=== PATIENT | male | born 1955 | race Caucasian/White ===

== ENCOUNTER 2022-08-17 08:26 | Outpatient (CLI) | payer MEDICARE, OTHER, SELFPAY ==
--- OUTSIDE RECORDS SUMMARY | 2022-08-17 08:42 | XMS_ITS | Encounter Summary ---
:1955 Author Organization [facility] Address [address] [place] [address] Care Team Providers Name Role Phone Ceci Christianson MD Primary Care Provider Reason for Referral Therapies (Routine) - Closed Specialty Diagnoses / Procedures Referred By Contact Refer red To Contact Diagnoses Right knee pain, unspecified chronicity Esvin Garcia MD [address] [place] [address] Referral ID Status Reason Start Date Expiration Date Visits Requ ested Visits Authorized [id number] Closed 05/17/2018 07/16/2018 1 1 Scheduling Instructions Your provider has recommended an appoint ment with a [facility] Physical Therapist. Please stop at the clinic check out desk for assistance with scheduling or if you prefer to call for your appointment you may call [facility] at [phone]. We suggest yo u call your health insurance company about your coverage and benefits for this appo intment. Reason for Visit Reason Comments POST-OP,EXAM Encounter Details Date Type Department Care Team Description 05/17/2018 Office Visit [facility] [address] Esvin Garcia Ri ght knee pain, Orthopedics Clinic MD Jose unspecified chronicity [address] (Primary Dx) [place] [address] [place] [address] [phone] Social History Tobacco Use Types Packs/Day Years Used Date Smoking Tobacco: Never Smokeless Tobacco: Never Alcohol Use Standard Drinks/Week Comments No 0 (1 standard drink = 0.6 oz pure alcoho l) Sex Assigned at Date Recorded Not on file documented as of this encounter Patient Instructions Patient InstructionsThania Austin CMA - 05/17/2018 11:30 AM CDT ORTHOPAEDICS DEPARTMENT PHONE NUMBER: [phone] Reason for today's visit: ORIF right knee Tests that you will need: None Prescribed Medications: None Supplies you will be leaving with: Brace Treatment plan: You were referred to physical therapy. Follow up appointments: You will follow up with Dr. Esvin Garcia in 3 month(s). X-Rays: You will have repeat X-Rays taken with your next Orthopaedics appointment. Please arrive 30 minutes early for your appointment. Reason for next Orthopaedics appointment: ORIF right knee Please stop at the check out desk to schedule a follow up appointment. Use this grid to write down your next appointment. DATE & TIME PROVIDER LOCATION APPT NOTES ( ) [facility]: [address] [place] [address] ( ) [facility]: [address] [place] [address] ( ) Other: ORIF right knee ( ) [facility]: [address] [place] [address] ( ) [address] ( ) Other: If you have any questions about your visit, your symptoms, your medication, your test results or it is not clear what your diagnosis or treatment plan is please contact us at [phone] or send us a secure message via [employer]. You may receive surveys via mail, e-mail or text regarding your visit and recovery. Your feedback isvery important to us. Please take a moment to complete them. If you would like to speak to someone specifically, you may contact the clinic at [phone] and your call will be directed to someone on our leadership team. Thank you for choosing Esvin Garcia MD and [facility]. If you need to schedule an appointment, you may call our office at [phone]. We are open Sunday-Sunday 8 am - 5 pm. Discharged by: documented in this encounter Progress Notes Esvin Garcia MD - 05/17/2018 11:30 AM CDT Chief Complaint: Closed right bicondylar tibial fracture Procedures: 03/05/2018 1. Open reduction and internal fixation of right bicondylar tibial fracture. 2. Removal of knee spanning external fixator right side 02/24/2018 (Dr. Gilbert) 1. Application of right knee-spanning external fixator History of Present Illness: Sudeep Steen is a 62 y.o. old male who presents 10 weeks s/p ORIF for routine follow-up. Reports decreased pain that is dull. It comes and goes and is mild rated at 1. Denies fevers, chills or sweats. Denies numbness, tingling or weakness. Very pleased with his outcome. Physical Examination: Patient is awake, alert and oriented in no apparent distress. Appears well nourished and well developed. Breathing is nonlabored. Focused exam of the right lower extremity demonstrates no obvious deformity. Normal alignment. Surgical incisions well-healing without sign of infection. Proximal tibial ex fix pin sites with serosanguineous drainage. Local debridement performed to demonstrate healthy, pink granulation tissue. There is a healthy bed to the wound. The wound does not track to bone. Nothing is expressible. No purulence. No malodor. Trying skin is clean, dry, and intact. No erythema, ecchymosis, warmth, or edema. No knee effusion. There is no tenderness to palpation. Calf is soft and nontender. Knee range of motion demonstrates extension to 0?? and flexion to 130??. Ankle range of motion demonstrates dorsiflexion to 20?? and plantarflexion to 30?? No crepitance. Sensation intact to light touch in Tibial, Superficial Peroneal, Deep Peroneal Sural and Saphenous distributions. Motor intact in Quadriceps, Hamstrings, Tibialis Anterior, Extensor Hallucis Longus, and Gastrocsoleus distributions. Dorsalis Pedis and Anterior Tibial Pulses 2+. Capillary refill <2 seconds. Xrays: Right knee xrays were reviewed personally by me and demonstrate interval healing with appropriate alignment of fracture and stable hardware position with no loss of reduction. No evidence of osteomyelitis. Assessment: Sudeep Steen is a 62 y.o. old male who is doing well 10 weeks postoperatively. Plan: OK to advance to WBAT. Continue ROMAT. Updated PT order provided today. Discussed that transition back to weightbearing will be a process that is based on pain, and may take 2-4 weeks to obtain full weightbearing without assistive devices. Once full weightbearing OK to begin gentle progressive strengthening as tolerated. We provided a cane as well as a short hinged knee brace to assist him. Follow-up in 3 months. X-rays needed next visit: 2 views right knee Patient was advised regarding activity, weight bearing status, as well as indications for return. All patient questions were answered adequately, and the patient verbalized understanding of above mentioned plan and is amenable. This note created using speech-recognition software and may contain unintended word substitutions. documented in this encounter Plan of Treatment Scheduled Referrals Name Type Priority Associated Diagnoses Order S atiya PT - PHYSICAL THERAPY Referral Routine Right knee pain, Or dered: 05/17/2018 [[id number]] unspecified chronicity documented as of this encounter Visit Diagnoses Diagnosis Right knee pain, unspecified chronicity - Primary documented in this encounter Care Teams Science Liaison Relationship Specialty Start Date End Date Ceci Christianson MD PCP - General Family Practice 02/24/18 [address] [place] [address] documented as of this encounter
--- OUTSIDE RECORDS SUMMARY | 2022-08-17 08:42 | XMS_ITS | Encounter Summary ---
:1955 [facility] Address [address] [place] [address] Care Team Providers Name Role Phone Ceci Christianson MD Primary Care Provider Encounter Details Date Type Department Care Team Description 05/28/2018 Correspondence External to External, [facility] [place] [address] Social History Tobacco Use Types Packs/Day Years Used Date Smoking Tobacco: Never Smokeless Tobacco: Never Alcohol Use Standard Drinks/Week Comments No 0 (1 standard drink = 0.6 oz pure alcoho l) Sex Assigned at Date Recorded Not on file documented as of this encounter Plan of Treatment Not on filedocumented as of this encounter Visit Diagnoses Not on filedocumented in this encounter Care Teams Pairer Substandard Relationship Specialty Start Date End Date Ceci Christianson MD PCP - General Family Practice 02/24/18 [address] [place] [address] documented as of this encounter
--- OUTSIDE RECORDS SUMMARY | 2022-08-17 08:42 | XMS_ITS | Encounter Summary ---
:1955 Author Organization [facility] Address [address], [place] [address] Care Team Providers Name Role Phone Ceci Christianson MD Primary Care Provider Encounter Details Date Type Department Care Team Description 07/24/2018 Therapy External to Physical Therapy, Provider Social History Tobacco Use Types Packs/Day Years [...] on filedocumented in this encounter Care Teams Garnett Fixer Relationship Specialty Start Date End Date Ceci Christianson MD PCP - General Family Practice 02/24/18 [address], [place] [address] documented as of this encounter
--- OUTSIDE RECORDS SUMMARY | 2022-08-17 08:42 | XMS_ITS | Encounter Summary ---
:1955 Author Organization [facility] Address [address] [place] [address] Care Team Providers Name Role Phone Ceci Christianson MD Primary Care Provider Reason for Visit Procedure/Equipment (Routine) - Incomplete Specialty Diagnoses / Procedures Referred By Contact Refer red To Contact Diagnoses Right knee pain, unspecified chronicity Esvin Garcia MD Procedures XR Knee Rt 2 Views [address] [place] [address] Referral ID Status Reason Start Date Expiration Date Visits V isits Requested Authorized [id number] Incomplete 08/21/2018 11/20/2019 1 1 Encounter Details Date Type Department Care Team Description 08/21/2018 Imaging [facility] Specialty Esvin Garcia ight knee pain, Center 435 Radiology MD Jose unspecified chronicity [address] [address] [place] [address] [phone] Social History Tobacco Use Types Packs/Day Years Used Date Smoking Tobacco: Never Smokeless Tobacco: Never Alcohol Use Standard Drinks/Week Comments No 0 (1 standard drink = 0.6 oz pure alcoho l) Sex Assigned at Date Recorded Not on file documented as of this encounter Plan of Treatment Not on filedocumented as of this encounter Procedures Procedure Name Priority Date/Time Associated Diagnosis Comme nts XR KNEE RT 2 VIEWS Routine 08/21/2018 1:07 PM Right knee pain, Results for this CDT unspecified procedure are i n chronicity the results section. documented in this encounter Results XR Knee Rt 2 Views (08/21/2018 1:07 PM CDT) Anatomical Region Laterality Modality Lower Extremity, Knee Computed Radiograp hy Specimen (Source) Anatomical Collection Method Collection Time Re ceived Time Location / / Volume Laterality 08/21/2018 1:07 PM CDT Narrative 08/22/2018 1:50 AM CDT Specialty Center 435 XR KNEE RT 2 VIEWS 08/21/2018 1:07 PM INDICATION: Knee pain COMPARISON: 05/17/2018 FINDINGS: Redemonstrated postoperative c hange of tibial plateau fracture repair. The hardware is intact. Fracture alignment is anatomic. Small suprapatellar knee joint effusion. Nondisplaced oblique fracture of the fibular head. Procedure Note Alexander Lua MD - 08/22/2018Format ting of this note might be different from the original. [facility] 435 XR KNEE RT 2 VIEWS 08/21/2018 1:07 PM INDICATION: Knee pain COMPARISON: 05/17/2018 FINDINGS: Redemonstrated postoperative c hange of tibial plateau fracture repair. The hardware is intact. Fracture alignment is anatomic. Small suprapatellar knee joint effusion. Nondisplaced oblique fracture of the fibular head. Esvin Garcia MD RAD GD documented in this encounter Visit Diagnoses Diagnosis Right knee pain, unspecified chronicity documented in this encounter Care Teams Superintendent Police Relationship Specialty Start Date End Date Ceci Christianson MD PCP - General Family Practice 02/24/18 [address] [address] documented as of this encounter
--- OUTSIDE RECORDS SUMMARY | 2022-08-17 08:42 | XMS_ITS | Encounter Summary ---
:1955 Author Organization [facility] Address [address] [place] [address] Care Team Providers Name Role Phone Romulo Christianson MD Primary Care Provider Reason for Visit Reason Onset Date Comments Refill 03/26/2018 Encounter Details Date Type Department Care Team Description 03/26/2018 Refill Specialty Center [facility] Esvin Garcia MD Refill Orthopedics Clinic [address] [place] [address] [place] [address] [phone] Social History Tobacco Use Types Packs/Day Years Used Date Smoking Tobacco: Never Smokeless Tobacco: Never Alcohol Use Standard Drinks/Week Comments No 0 (1 standard drink = 0.6 oz pure alcoho l) Sex Assigned at Date Recorded Not on file documented as of this encounter Nursing Notes Alka Taylor RN - 03/26/2018 4:20 PM CDT Patient was informed of information on note below. He verbalized understanding of instructions given. Alka Taylor RN 03/26/2018, 4:20 PM Adali Sanchez - 03/26/2018 3:55 PM CDT OK to refill as written. Should wean off the oxycodone and only utilize it as needed for severe breakthrough pain not controlled by tylenol, ice, elevation, and activity modification. Medications have been e-scribed. Please update the patient. Adali Sanchez PA-C Cherie Myers RN - 03/26/2018 12:55 PM CDT Last refill of hydroxyzine was on 03/06/18 for #30 Last refill of Oxycodone was on 03/06/18 for #40 Patient had been discharged to a TCU. INSIDE SALES ADVISOR results: Search Criteria: Last Name 'kimberli' and First Name 'noreen' and = 59' and Request Period = 03/26/17 to 03/26/18' - 4 out of 4 Recipients Selected. Fill Date Product, Str, Form Qty Days Pt ID Prescriber Written RX# N/R* Pharm MED+ ------ ---- --------- --------- ------ 03/21/2018 GABAPENTIN 300 MG CAPSULE 90.00 30 [id number] 03/21/2018 [id number] N [id number] 00.0 03/13/2018 GABAPENTIN 300 MG CAPSULE 42.00 14 [id number] 03/06/2018 [id number] N [id number] 00.0 03/12/2018 OXYCODONE HCL 5 MG TABLET 30.00 3 [id number] 03/12/2018 [id number] N [id number] 75.0 03/11/2018 OXYCODONE HCL 5 MG TABLET 10.00 1 [id number] 03/06/2018 [id number] R [id number] 75.0 03/11/2018 ESZOPICLONE 3 MG TABLET 30.00 30 [id number] 03/11/2018 [id number] N [id number] 00.0 03/07/2018 ESZOPICLONE 3 MG TABLET 5.00 5 [id number] 03/07/2018 [id number] N [id number] 00.0 03/07/2018 OXYCODONE HCL 5 MG TABLET 30.00 3 [id number] 03/06/2018 [id number] N [id number] 75.0 03/05/2018 GABAPENTIN 300 MG CAPSULE 1.00 1 [id number] 03/01/2018 [id number] R [id number] 00.0 03/01/2018 OXYCODONE HCL 5 MG TABLET 30.00 2 [id number] 03/01/2018 [id number] N [id number] 112.5 03/01/2018 GABAPENTIN 300 MG CAPSULE 55.00 18 [id number] 03/01/2018 [id number] N [id number] 00.0 03/01/2018 ESZOPICLONE 3 MG TABLET 5.00 5 [id number] 03/01/2018 [id number] N [id number] 00.0 03/01/2018 ESZOPICLONE 3 MG TABLET 5.00 5 [id number] 02/28/2018 [id number] N [id number] 00.0 02/27/2018 GABAPENTIN 300 MG CAPSULE 90.00 30 [id number] 02/27/2018 [id number] N [id number] 00.0 02/27/2018 OXYCODONE HCL 5 MG TABLET 30.00 2 [id number] 02/27/2018 [id number] N [id number] 112.5 02/19/2018 ESZOPICLONE 3 MG TABLET 90.00 90 [id number] 02/19/2018 [id number] N [id number] 00.0 11/21/2017 ESZOPICLONE 3 MG TABLET 90.00 90 [id number] 11/21/2017 [id number] N [id number] UN 10/18/2017 ESZOPICLONE 3 MG TABLET 30.00 30 [id number] 10/18/2017 [id number] N [id number] UNK 09/25/2017 ESZOPICLONE 3 MG TABLET 30.00 30 [id number] 09/25/2017 [id number] N [id number] [facility] 08/27/2017 ESZOPICLONE 3 MG TABLET 30.00 30 [id number] 08/27/2017 [id number] N [id number] [facility] 07/25/2017 ESZOPICLONE 3 MG TABLET 30.00 30 [id number] 07/25/2017 [id number] N [id number] [facility] 06/26/2017 ESZOPICLONE 3 MG TABLET 30.00 30 [id number] 06/26/2017 [id number] N [id number] [facility] 03/27/2017 ESZOPICLONE 3 MG TABLET 90.00 90 [id number] 03/27/2017 [id number] N [id number] [facility] *N/R N=New R=Refill +MED Daily Prescribers for prescriptions listed [id number] ROMULO CHRISTIANSON MD; [facility], [place] [id number] [address] 5504 [id number] MARCIAL MANZANARES MD; [address] [place] [address] [id number] VIOLETTE BOSE MD; [address] [facility] [address] [id number] LUCRECIA MIRANDA (EMILE); [facility], [address] [place], [place] [id number] NATALEE SANTIAGO); [facility], [address] [facility] [id number] MIGUEL STEWARD [facility]; [facility], [address] [address] [address] [id number] BILLIE BORDEN (MS); [address] [facility] [address] [id number] MIGUEL BUSCH A, MD; [facility], [address] [address] [id number] VAUGHN GUZMAN; LIMITED TO OFFICIAL STATE DUTIES ONLY, [facility], [facility] [address] Please advise of the refill, thanks! Cherie Myers RN 03/26/2018, 1:01 PM Radha Rojas - 03/26/2018 11:02 AM CDT Has the patient recently had surgery or an injury? Yes. Date of Surgery: March 05, 2018 Type of Surgery: OPEN REDUCTION INTERNAL FIXATION TIBIAL PLATEAU FRACTURE (Right Ortho Pain Questionnaire Date of Surgery March 05, 2018 Type: OPEN REDUCTION INTERNAL FIXATION TIBIAL PLATEAU FRACTURE (Right Pain Rating (0-10) 5 Location of Pain right leg Description aching Onset of Pain at time of injury Any recent falls/injury? no What makes it better? rest What makes it worse? movement and walking Using assistive device? Walker and Wheelchair Ortho Refill Questionnaire Has orthopaedics previously prescribed this medication? Yes Patient was notified that they will receive a follow-up call from care team and that the refill request will be reviewed within 24-48 hours. Requested Prescriptions Pending Prescriptions Disp Refills ??? oxyCODONE (ROXICODONE) 5 MG immediate release tablet 40 Tab 0 Sig: Take 1-2 Tabs by mouth every 4 hours as needed for Pain (5 mg for pain 4- 7/10. 10 mg for pain 8-10/10). Indications: Acute Pain ??? hydrOXYzine HCl (ATARAX) 50 MG tablet 30 Tab 0 Sig: Take 1 Tab by mouth every 8 hours as needed. Indications: Pain, Tension Last filled detail: 03/06/18 Patient states currently takin tabs q.6.h Is the patient taking anything else for pain including over the counter medications? Hydroxyzine 50mg 1 tabs q.8.h. Pharmacy (if applicable): [id number] - [place], [place] - [address] AT [facility] [address] [facility] [address] [facility] [id number] Radha Rojas 03/26/2018, 11:04 AM documented in this encounter Plan of Treatment Not on filedocumented as of this encounter Visit Diagnoses Not on filedocumented in this encounter Care Teams Distribution Center Associate Relationship Specialty Start Date End Date Romulo Christianson MD PCP - General Family Practice 02/24/18 [address] [place] [address] documented as of this encounter
--- OUTSIDE RECORDS SUMMARY | 2022-08-17 08:42 | XMS_ITS | Encounter Summary ---
:1955 Author Organization [employer] Address [address] [place] [address] Care Team Providers Name Role Phone Ceci Christianson MD Primary Care Provider Reason for Referral Procedure/Equipment (Routine) - Incomplete Specialty Diagnoses / Procedures Referred By Contact Refer red To Contact Diagnoses Right knee pain, unspecified chronicity Esvin Garcia MD Procedures XR Knee Rt [address] [place] [address] Referral ID Status Reason Start Date Expiration Date Visits V isits Requested Authorized [id number] Incomplete 08/21/2018 11/20/2019 1 1 Reason for Visit Reason Comments POST-OP,EXAM Encounter Details Date Type Department Care Team Description 08/21/2018 Office Visit [facility] [address] Esvin Garcia [place] ght knee pain, Orthopedics Clinic MD Jose unspecified chronicity [address] (Primary Dx) [place] [address] [place], [place] [address] Social History Tobacco Use Types Packs/Day Years Used Date Smoking Tobacco: Never Smokeless Tobacco: Never Alcohol Use Standard Drinks/Week Comments No 0 (1 standard drink = 0.6 oz pure alcoho l) Sex Assigned at Date Recorded Not on file documented as of this encounter Patient Instructions Patient InstructionsThania Austin CMA - 08/21/2018 1:20 PM CDT ORTHOPAEDICS DEPARTMENT PHONE NUMBER: [phone] Reason for today's visit: ORIF tibial plateau fracture DOS: 03/05/2018 Tests that you will need: None Prescribed Medications: None Supplies you will be leaving with: None Treatment plan: Weight Bearing Status until further notice: Weight bear as tolerated Follow up appointments: You will follow up with Adali Sanchez PA-C in 3 month(s). X-Rays: You will have repeat X-Rays taken with your next Orthopaedics appointment. Please arrive 30 minutes early for your appointment. Reason for next Orthopaedics appointment: ORIF tibial plateau fracture DOS: 03/05/2018 Please stop at the check out desk to schedule a follow up appointment. Use this grid to write down your next appointment. DATE & TIME PROVIDER LOCATION APPT NOTES ( ) [facility]: [address] [place] [address] ( ) [facility]: [address] [place] [address] ( ) Other: ORIF tibial plateau fracture DOS: 03/05/2018 ( ) [facility]: [address] [place] [address] ( ) [address] ( ) Other: If you have any questions about your visit, your symptoms, your medication, your test results or it is not clear what your diagnosis or treatment plan is please contact us at [phone] or send us a secure message via Qurater. You may receive surveys via mail, e-mail or text regarding your visit and recovery. Your feedback isvery important to us. Please take a moment to complete them. If you would like to speak to someone specifically, you may contact the clinic at [phone] and your call will be directed to someone on our leadership team. Thank you for choosing Esvin Garcia MD and [facility]. If you need to schedule an appointment, you may call our office at [phone]. We are open Sunday-Sunday 8 am - 5 pm. Discharged by: documented in this encounter Progress Notes LydiaAdali tomas Kaur - 08/21/2018 1:20 PM CDT Chief Complaint: Closed right bicondylar tibial fracture Procedures: 03/05/2018 1. Open reduction and internal fixation of right bicondylar tibial fracture. 2. Removal of knee spanning external fixator right side 02/24/2018 (Dr. Gilbert) 1. Application of right knee-spanning external fixator History of Present Illness: Sudeep Steen is a 63 y.o. old male who presents 5.5 months s/p ORIF for routine follow-up. He was advanced to WBAT at his last clinic visit. He reports that this transition back to full weightbearing went well without significant issue. He is currently full weightbearing without any assistive devices or braces. He has golfed 3 times this past fall. Overall, he is happy with his functional outcomes. However, he does report pain and stiffness in the bilateral knees when transitioning from sitting to standing. He reports that things loosen up after approximately 15 steps.He also complains of some decreased sensation in the right lateral femoral cutaneous nerve distribution. No focal motor deficit distally. No fevers, chills, sweats or other constitutional symptoms. Is awake, alert and oriented in no apparent distress. Appears well nourished and well developed. Breathing is nonlabored. Focused exam of the right lower extremity demonstrates no obvious deformity. Normal alignment. Surgical incisions and ex fix pin sites well-healed without sign of infection. No olegario thema, ecchymosis, warmth, or edema. No knee effusion. [...] of osteomyelitis. Assessment: Sudeep Steen is a 63 y.o. old male who is doing well 5.5 months postoperatively. Plan: Continue to increase all activities as tolerated without restriction. Focus on strengthening. Discussed that lateral femoral cutaneous nerve was likely irritated by proximal ex-fix pin. This should continue to improve with time. He will follow up in clinic with Adali Sanchez PA-C in 3 months. X-rays needed next visit: [...] Not on filedocumented as of this encounter Results XR Knee Rt 2 [...] note might be different from the original. [facility] 435 XR KNEE RT 2 [...] Right knee pain, unspecified chronicity - Primary Right knee pain, unspecified chronicity documented in this encounter Care Teams Paintings Conservator Relationship Specialty Start Date End Date Ceci Christianson MD PCP - General Family Practice 02/24/18 [address] [place] [address] documented as of this encounter
--- OUTSIDE RECORDS SUMMARY | 2022-08-17 08:42 | XMS_ITS | Encounter Summary ---
:1955 Author Organization [employer] Address [address] [place] [address] Care Team Providers Name Role Phone Ceci Christianson MD Primary Care Provider Reason for Referral Procedure/Equipment (Routine) - Incomplete Specialty Diagnoses / Procedures Referred By Contact Refer red To Contact Diagnoses Follow-up examination following surgery Adali Sanchez PA-C Procedures XR Knee Rt 2 Views [address] [place] [address] Referral ID Status Reason Start Date Expiration Date Visits V isits Requested Authorized [id number] Incomplete 11/19/2018 02/18/2020 1 1 REDUCTION WORKER Reason for Visit Reason Comments Follow-up, NOS ORIF right tib plat fx Encounter Details Date Type Department Care Team Description 11/19/2018 Office Visit [facility] Adali Sanchez Foll ow-up examination 435 Orthopedics [facility] [place] following surgery [address] (Primary Dx) [place] [address] [address] [place] [address] Social History Tobacco Use Types Packs/Day Years Used Date Smoking Tobacco: Never Smokeless Tobacco: Never Alcohol Use Standard Drinks/Week Comments No 0 (1 standard drink = 0.6 oz pure alcoho l) Sex Assigned at Date Recorded Not on file documented as of this encounter Last Filed Vital Signs Vital Sign Reading Time Taken Comments Blood Pressure - - Pulse - - Temperature - - Respiratory Rate - - Oxygen Saturation - - Inhaled Oxygen Concentration - - Weight 127 kg (280 lb) 11/19/2018 1:04 PM HARM REDUCTION WORKER Height 188 cm (6' 2) 11/19/2018 1:04 PM HARM REDUCTION WORKER Body Mass Index 35.95 11/19/2018 1:04 PM HARM REDUCTION WORKER documented in this encounter Patient Instructions Patient InstructionsAdali Sanchez - 11/19/2018 1:00 PM CST ORTHOPAEDICS DEPARTMENT PHONE NUMBER: [phone] Reason for today's visit: Follow-up right knee Tests that you will need: None Prescribed Medications: None Supplies you will be leaving with: None Treatment plan: Continue to increase all activities as tolerated You have no restrictions Focus on gentle progressive strengthening to regain muscle mass and stamina Follow up appointments: You will follow up with Adali Sanchez PA-C as needed. If you have any questions about your visit, your symptoms, your medication, your test results or it is not clear what your diagnosis or treatment plan is please contact us at [phone] or send us a secure message via easy2map. You may receive surveys via mail, e-mail or text regarding your visit and recovery. Your feedback isvery important to us. Please take a moment to complete them. If you would like to speak to someone specifically, you may contact the clinic at [phone] and your call will be directed to someone on our leadership team. Thank you for choosing Adali Sanchez PA-C and [facility]. If you need to schedule an appointment, you may call our office at [phone]. We are open Sunday-Sunday 8 am - 5 pm. Discharged by: REDUCTION WORKER documented in this encounter Progress Notes Adali Sanchez - 11/19/2018 1:00 PM CST Chief Complaint: Closed right bicondylar tibial fracture Procedures: 03/05/2018 1. Open reduction and internal fixation of right bicondylar tibial fracture. 2. Removal of knee spanning external fixator right side 02/24/2018 (Dr. Gilbert) 1. Application of right knee-spanning external fixator History of Present Illness: Sudeep Steen is a 63 y.o. old male who presents 8.5 months s/p ORIF for routine follow-up. He has been performing all activities as tolerated. He feels 90% improved. He has been less active since the start of winter, but he is looking forward to spring when he can return towalking and golf. Decreased sensation in lateral femoral cutaneous nerve distribution is improving. He does comment on persistent sensitivity and tightness in the leg, but he is overall happy with his progress. No numbness or focal motor deficit distally. No fevers, chills, sweats, or other constitutional symptoms. Physical Examination: Patient is awake, alert and oriented in no apparent distress. Appears well nourished and well developed. Breathing is nonlabored. Focused exam of the right lower extremity demonstrates no obvious deformity. Normal alignment. Surgical incisions well-healed. Ex fix pin sites well healed. Surrounding skin is clean, dry, and intact. No erythema, ecchymosis, warmth, or edema. No kneeeffusion. There is no tenderness to palpation. Calf [...] y.o. old male who is doing well postoperatively. Plan: Continue to increase all activities as tolerated without restriction. Focus on gentle progressive strengthening. Encouraged physical activity with activities he finds enjoyable, including walkingand golf. Pending any new questions or concerns, patient will follow-up in clinic on an as-needed basis. X-rays needed next visit: PRN Patient was advised regarding activity, weight bearing status, as well as indications for return. All patient questions were answered adequately, and the patient verbalized understanding of above mentioned plan and is amenable. This note created using speech-recognition software and may contain unintended word substitutions. Adali Sanchez PA-C 11/19/2018, 2:12 PM REDUCTION WORKER documented in this encounter Plan of Treatment Not on filedocumented as of this encounter Results XR Knee Rt 2 Views (11/19/2018 1:01 PM HARM REDUCTION WORKER) Anatomical Region Laterality Modality Lower Extremity, Knee Computed Radiograp hy Specimen (Source) Anatomical Collection Method Collection Time Re ceived Time Location / / Volume Laterality 11/19/2018 1:01 PM HARM REDUCTION WORKER Narrative 11/19/2018 11:51 PM HARM REDUCTION WORKER EXAM: XR KNEE RT 2 VIEWS LOCATION: [facility] 435 DATE/TIME: 11/19/2018 1:01 PM INDICATION: Open reduction and internal fixation of right bicondylar tibial fracture COMPARISON: 08/21/2018 FINDINGS: Plate and screw fixation proxi mal tibia transfixing healed fracture. Stable alignment. No dislocation. Healed fracture proximal fibula. Procedure Note Tonja Marquis MD - 11/19/2018Forma tting of this note might be different from the original. EXAM: XR KNEE RT 2 VIEWS LOCATION: [facility] 435 DATE/TIME: 11/19/2018 1:01 PM INDICATION: Open reduction and internal fixation of right bicondylar tibial fracture COMPARISON: 08/21/2018 FINDINGS: Plate and screw fixation proxi mal tibia transfixing healed fracture. Stable alignment. No dislocation. Healed fracture proximal fibula. Adali Sanchez PA-C RAD GD documented in this encounter Visit Diagnoses Diagnosis Follow-up examination following surgery - Primary Follow-up examination, following unspeci fied surgery Follow-up examination following surgery Follow-up examination, following unspeci fied surgery documented in this encounter Care Teams Press Puller Relationship Specialty Start Date End Date Ceci Christianson MD PCP - General Family Practice 02/24/18 [address] [place] [address] documented as of this encounter
--- OUTSIDE RECORDS SUMMARY | 2022-08-17 08:42 | XMS_ITS | Encounter Summary ---
:1955 Author Organization [employer] Address [address] [place] [address] Care Team Providers Name Role Phone Ceci Christianson MD Primary Care Provider Reason for Visit Procedure/Equipment (Routine) - Incomplete Specialty Diagnoses / Procedures Referred By Contact Refer red To Contact Diagnoses Fracture follow-up Esvin Garcia MD Procedures XR Knee Rt 2 Views [address] [place] [address] Referral ID Status Reason Start Date Expiration Date Visits V isits Requested Authorized [id number] Incomplete 05/08/2018 08/07/2019 1 1 Encounter Details Date Type Department Care Team Description 05/17/2018 Imaging [facility] Specialty Esvin Garcia , Fracture follow-up Center [address] [place], [place] [address]. [address] [place] [address] [place] [address] [phone] Social History Tobacco Use Types Packs/Day Years [...] nts XR KNEE RT 2 VIEWS Routine 05/17/2018 10:59 AM Fracture follow -up Results for this CDT procedure are i n the results section. documented in this encounter Results XR Knee Rt 2 Views (05/17/2018 10:59 AM CDT) Anatomical Region Laterality Modality Lower Extremity, Knee Computed Radiograp hy Specimen (Source) Anatomical Collection Method Collection Time Re ceived Time Location / / Volume Laterality 05/17/2018 10:59 AM CDT Narrative 05/17/2018 4:26 PM CDT Specialty Center 435 XR KNEE RT 2 VIEWS 05/17/2018 10:59 AM INDICATION: Right knee fracture follow-u p, postop. COMPARISON: 04/17/2018 FINDINGS: Plate and screw fixation hardw are remains in the proximal tibia stabilizing a healing fracture in unchanged alignment. The joint space is intact. Minimal joint fluid. Procedure Note Shin Stanton MD - 05/17/2018Formatt ing of this note might be different from the original. [facility] 435 XR KNEE RT 2 VIEWS 05/17/2018 10:59 AM INDICATION: Right knee fracture follow-u p, postop. COMPARISON: 04/17/2018 FINDINGS: Plate and screw fixation hardw are remains in the proximal tibia stabilizing a healing fracture in unchanged alignment. The joint space is intact. Minimal joint fluid. Esvin Garcia MD RAD GD documented in this encounter Visit Diagnoses Diagnosis Fracture follow-up Treatment of healed fracture follow-up e xamination documented in this encounter Care Teams Rn Review Relationship Specialty Start Date End Date Ceci Christianson MD PCP - General Family Practice 02/24/18 [address] [place] [address] documented as of this encounter
--- OUTSIDE RECORDS SUMMARY | 2022-08-17 08:42 | XMS_ITS ---
:1955 Author Care Team Providers Name Role Phone MARCIAL MANZANARES MD Primary Care Provider [phone] Allergies Code Code System Name Reaction Severity Status Onset NKDA ? Medications Name Status Start Date Stop Date ? ? amoxicillin 500 mg capsule Completed ? 10/18 amoxicillin 875 mg-potassium clavulanate 125 mg tablet Active ? Not available BD Ultra-Fine Original Pen Needle 29 gauge x 1/2 Active ? Not available ceftriaxone 1 gram solution for injection Active ? Not available Take 1 g by injection route. eszopiclone 3 mg tablet Active ? Not avai lable TAKE 1 TABLET BY MOUTH AT BEDTIME glipizide 5 mg tablet Active ? Not availa ble TAKE 1 TABLET BY MOUTH TWICE DAILY hydrochlorothiazide 25 mg tablet Active ? Not available TAKE 1 TABLET BY MOUTH DAILY hydroxyzine HCl 50 mg tablet Completed ? lisinopril 20 mg tablet Active ? Not avai lable TAKE 1 TABLET BY MOUTH DAILY metformin 500 mg tablet Completed ? 10/18/20 metformin 850 mg tablet Active ? Not avai lable TAKE 1 TABLET BY MOUTH THREE TIMES DAILY WITH MEALS paroxetine 20 mg tablet Active ? Not avai lable TAKE 1 TABLET BY MOUTH DAILY Trulicity 0.75 mg/0.5 mL subcutaneous pen injector Completed ? 10/18/2020 Trulicity 1.5 mg/0.5 mL subcutaneous pen injector Active ? Not available Problems None recorded. Procedures Date Name Performed by ? 10/29/2017 Colonoscopy Information not avai lable Notes: Rt leg (3 fractures) Results Lab Results Date Name Specimen Result Interpretation Description Value Range Status Address ? 10/18/2020 PSA, Serum or Plasma ? No observation recor ded. ? ? ? 05/19/2020 PSA, Serum or Plasma ? No observation recor ded. ? PSA, Serum or Plasma ? PSA, Total 5.7 ng/mL ? ? ? PSA, Serum or Plasma ? PSA, Total 5.5 ng/Ml ? ? Past Encounters None recorded. Social History Tobacco Smoking Status Never Smoker Vaccine List None recorded. Plan of Care Reminders Provider Appointments None recorded. ? ? Lab None recorded. ? ? Referral None recorded. ? ? Procedures None recorded. ? ? Surgeries None recorded. ? ? Imaging None recorded. ? ? Vitals 11/25/2020 09:20AM TRUS 30 Height 6 ft 3 in 10/18/2020 02:10PM ESTABLISHED 10 Height Weight BMI 6 ft 3 in 265 lbs 33.1 kg/m2 06/28/2020 09:00AM NEW PATIENT 20 Height Weight BMI 6 ft 3 in 265 lbs 33.1 kg/m2
--- OUTSIDE RECORDS SUMMARY | 2022-08-17 08:42 | XMS_ITS | Encounter Summary ---
:1955 Author Organization [email or web address] Address [address] [address] Care Team Providers Name Role Phone Ceci Christianson MD Primary Care Provider Reason for Visit Reason Comments LEG PAIN Consult/Transfer Care (Routine) - Closed Specialty Diagnoses / Procedures Referred By Contact Refer red To Contact Diagnoses Closed fracture of right tibial plateau, initial encounter Esvin Garcia MD [address] [place] [address] Referral ID Status Reason Start Date Expiration Date Visits Requ ested Visits Authorized [id number] Closed 03/06/2018 06/05/2019 1 1 Encounter Details Date Type Department Care Team Description 03/20/2018 [facility] Echo Pastor PA-C LEG PAIN Ortho Geriatric Outr each [address] [place] [address] [place] [address] [phone] Social History Tobacco Use Types Packs/Day Years Used Date Smoking Tobacco: Never Smokeless Tobacco: Never Alcohol Use Standard Drinks/Week Comments No 0 (1 standard drink = 0.6 oz pure alcoho l) Sex Assigned at Date Recorded Not on file documented as of this encounter Progress Notes Echo Pastor PA-C - 03/20/2018 8:00 AM CDT ORTHOPEDIC Visit Date of Service: 03/20/2018 CHIEF COMPLAINT: Post-Op Exam SUBJECTIVE: Sudeep Steen is a 62 y.o. male s/p ORIF R tibial plateau fx that occurred after a fall down his stairs. Initially he was treated with an external fixator and this was then removed. ORIF DOS: 03/05/[address] Garcia. [facility] Chart, medications, therapy notes reviewed at the care facility,and discussion with nursing staff took place. Patient Activity: NWB RLE. Hinged knee brace unlocked. Walker for ambulation. ASA for DVT prophyalxis. Patient reports overall good pain control with tylenol, prn oxycodone, gabapentin, and vistaril. Pain beingmanaged by Primary Care team. Denies any medical concerns. OBJECTIVE: Seen in room, pleasant, interactive, follows directions. Incisions well approximated withno drainage or erythema. Mild ecchymosi. External fixator pin sites are healing well with no drainage. Moderate knee swelling and mild effusion. Tolerates passive ROM 03-90. Calf is soft and non-tender. Negative Homans. Mild LE edema. Good DF and PF without ankle pain. XRAY: I reviewed the xrays and they demonstrate: PPX 03/19/2018. AP and lateral view of right knee shows tibial plateau fracture, well positioned hardware with fracture in good alignment. Proximal fibular fracture again seen. ASSESSMENT/PLAN: 2+ weeks post-op ORIF R tibial plateau fx after placement of ex fix Incisions and xrays look good. Overall doing well and no immediate concerns. Opened brace up to 110 degrees. May remove while in bed. Wear brace for transfers. Keep working on advancing ROM as tolerated, icing, elevating, and frequent foot pumps. Continue pain control management. Continue to work with PT/OT. He anticipates discharging tomorrow. Sudeep Steen is to follow up with the [facility] team in clinic in 4 weeks, or sooner with questions or concerns. Those orders were placed. Electronically signed by Echo Pastor PA-C 03/20/2018, 12:01 PM documented in this encounter Plan of Treatment Scheduled Referrals Name Type Priority Associated Diagnoses Order [facility] Orthopedic Geriatric Referral Routine Closed fracture of O rdered: 03/07/2018 Follow-up right tibial plateau, initial encounter documented as of this encounter Visit Diagnoses Diagnosis Closed bicondylar fracture of right tibi al plateau - Primary Aftercare following surgery of the [facility] Aftercare [place] [facility] [facility] documented in this encounter Care Teams Prop Cutter Relationship Specialty Start Date End Date Ceci Christianson MD PCP - General Family Practice 02/24/18 [address] [place] [address] documented as of this encounter
--- OUTSIDE RECORDS SUMMARY | 2022-08-17 08:42 | XMS_ITS | Encounter Summary ---
:1955 Author Organization [facility] Address [address], [place] [address] Care Team Providers Name Role Phone Ceci Christianson MD Primary Care Provider Encounter Details Date Type Department Care Team Description 05/29/2018 Therapy External to Physical Therapy, Provider Social [...] on filedocumented in this encounter Care Teams [employer] Relationship Specialty Start Date End Date Ceci Christianson MD PCP - General Family Practice 02/24/18 [address] [place] [address] documented as of this encounter
--- OUTSIDE RECORDS SUMMARY | 2022-08-17 08:42 | XMS_ITS | Encounter Summary ---
:1955 Author Organization [facility] Address [address] [place] [address] Care Team Providers Name Role Phone Ceci Christianson MD Primary Care Provider Reason for Visit Procedure/Equipment (Routine) - Incomplete Specialty Diagnoses / Procedures Referred By Contact Refer red To Contact Diagnoses Follow-up examination following surgery Adali Sanchez PA-C Procedures XR Knee Rt [address] [facility] [place] [address] Referral ID Status Reason Start Date Expiration Date Visits V isits Requested Authorized [id number] Incomplete 11/19/2018 02/18/2020 1 1 Encounter Details Date Type Department Care Team Description 11/19/2018 [facility] [address] examination Radiology [address] following surgery [address] [place] [address] [facility] [place] [phone] [address] Social History Tobacco Use Types Packs/Day Years [...] nts XR KNEE RT 2 VIEWS Routine 11/19/2018 1:01 PM Follow-up Res ults for this HOUSING LIAISON examination procedure are i n following surgery the result s section. documented in this encounter Results XR Knee Rt 2 Views (11/19/2018 1:01 PM HOUSING LIAISON) Anatomical Region Laterality Modality Lower Extremity, Knee Computed Radiograp hy Specimen (Source) Anatomical Collection Method Collection Time Re ceived Time Location / / Volume Laterality 11/19/2018 1:01 PM HOUSING LIAISON Narrative 11/19/2018 11:51 PM HOUSING LIAISON EXAM: XR KNEE RT 2 VIEWS LOCATION: [facility] 435 DATE/TIME: 11/19/2018 1:01 PM INDICATION: Open reduction and internal fixation of right bicondylar tibial fracture COMPARISON: 08/21/2018 FINDINGS: Plate and screw fixation proxi mal tibia transfixing healed fracture. Stable alignment. No dislocation. Healed fracture proximal fibula. Procedure Note Tonja Marquis MD - 11/19/2018Forma tting of this note might be different from the original. EXAM: XR KNEE RT 2 VIEWS LOCATION: [facility] 435 DATE/TIME: 11/19/2018 1:01 PM INDICATION: Open reduction and internal fixation of right bicondylar tibial fracture COMPARISON: 08/21/2018 FINDINGS: Plate and screw fixation proxi mal tibia transfixing healed fracture. Stable alignment. No dislocation. Healed fracture proximal fibula. Adali Sanchez PA-C RAD GD documented in this encounter Visit Diagnoses Diagnosis Follow-up examination following surgery Follow-up examination, following unspeci fied surgery documented in this encounter Care Teams Sanitary Landfill Operator Relationship Specialty Start Date End Date Ceci Christianson MD PCP - General Family Practice 02/24/18 [address] [place] [address] documented as of this encounter
--- OUTSIDE RECORDS SUMMARY | 2022-08-17 08:42 | XMS_ITS | Clinical Summary ---
:1955 Author Organization [facility] Address [address] [place] [address] Care Team Providers Name Role Phone Ceci Christianson MD Primary Care Provider Source Comments You are receiving this document as you are listed as the primary care provider,follow-up provider, or the patient has been referred to you for consultation.This is in compliance with the Medicare and Medicaid EHR Incentive Program,which states Providers who transition their patient to another setting of careor provider of care or refers their patient to another provider of care shouldprovide summarycare record for each transition of care or referral. [facility] Allergies No known active allergies Medications Medication Sig Dispensed Refills Start Date End Date Status glipiZIDE Take 1 Tab by mouth 0 02/25/2018 Active (GLUCOTROL) 5 MG two times a day tabletIndications: before meals. Type 2 Diabetes Indications: Type 2 Mellitus Diabetes lisinopril (ZESTRIL) Take 1 Tab by mouth 0 8 Active 10 MG daily. Indications: tabletIndications: High Blood Pressure Hypertension Disorder metFORMIN Take 2 Tabs by mouth 0 02/25/2018 Active (GLUCOPHAGE) 500 MG two times a day with tabletIndications: meals. Indications: Type 2 Diabetes Type 2 Diabetes Mellitus PARoxetine (PAXIL) Take 1 Tab by mouth 0 02/25/2018 Active 10 MG daily. Indications: tabletIndications: Generalized Anxiety Generalized Anxiety Disorder Disorder acetaminophen Take 2 Tabs by mouth 100 Tab 4 03/06/2018 Active (TYLENOL) 500 MG three times a day. tabletIndications: Maximum Pain acetaminophen dose is 4000 mg in 24 hours Indications: Pain alfuzosin Take 1 Tab by mouth 30 Tab 0 03/07/2018 Active (UROXATRAL) 10 MG 24 daily at bedtime for hour release 15 days. tabletIndications: Indications: postop postop urinary urinary retention retention eszopiclone Take 1 Tab by mouth 5 Tab 0 03/07/2018 Active (LUNESTA) 3 MG daily at bedtime. tabletIndications: Indications: Trouble Insomnia Sleeping hydrOXYzine HCl Take 1 Tab by mouth 30 Tab 0 03/26/2018 Active (ATARAX) 50 MG every 8 hours as tabletIndications: needed. Indications: Pain, Tension Pain, Tension Additional Information Patient not taking. Reported on 11/19/2018 Active Problems Problem Noted Date Closed fracture of right tibial plateau 02/25/2018 Overview: Added automatically from request for mao gray [id number] Closed bicondylar fracture of right tibial plateau Overview: Added automatically from request for mao gray [id number] Family History Medical History Relation Name Comments Brain Aneurysm Father Alzheimer's Mother Heart Defect Sister 1 Congential Alcohol Abuse Sister 2 Relation Name Status Comments Father Mother Sister 1 (Age 32) Sister 2 Social History Tobacco Use Types Packs/Day Years Used Date Smoking Tobacco: Never Smokeless Tobacco: Never Alcohol Use Standard Drinks/Week Comments No 0 (1 standard drink = 0.6 oz pure alcoho l) Sex Assigned at Date Recorded Not on file Last Filed Vital Signs Vital Sign Reading Time Taken Comments Blood Pressure 136/61 03/07/2018 6:37 AM CDT Pulse 87 03/07/2018 6:37 AM CDT Temperature 36.3 ??C (97.3 ??F) 03/07/2018 6:37 AM CDT Respiratory Rate 16 03/07/2018 6:37 AM CDT Oxygen Saturation 92% 03/07/2018 6:37 AM CDT Inhaled Oxygen Concentration - - Weight 127 kg (280 lb) 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 Height 188 cm (6' 2) 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 Body Mass Index 35.95 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 Plan of Treatment Health Maintenance Due Date Last Done Comments Colon Cancer Screening Plan 1955 Due Hep C Screening (Preventive 1955 Services) PSA Screening Discussion 1955 COVID-19 Vaccine (#1) 1955 Adult Preventive Visit 1975 Cholesterol 1992 Zoster/Shingles (1 of 2) 2007 Pneumococcal 65+ Yrs (2 - 01/24/2020 01/23/2019 PCV) Influenza (#1) 2022 DTaP/Tdap/Td (3 - Tdap) 01/04/2028 01/03/2018, 04/02/2007 HepA Aged Out No longer eligib le based on patient's age to complete this to pic HepB Aged Out No longer eligib le based on patient's age to complete this to pic Hib Aged Out No longer eligib le based on patient's age to complete this to pic IPV (Polio) Aged Out No longer eligib le based on patient's age to complete this to pic MCV4 Aged Out No longer eligib le based on patient's age to complete this to pic Medical Devices Implanted Type Area Motor Pool Clerk Device Shelf Model / Identifier Expiration Serial / Date Lot Bone Chip Canc 15cc [id number] - [id number] BIOLOGIC Right: Medtronic - 07/17/2022 [id number] / Implanted: Qty: 1 on 03/05/2018 by Esvin Garcia MD at [facility] T[place]IA [employer] [id number] / PROXIMAL Tech NA Clamp Combination Lg - [id number] DEVICE Right: LEG J 390.005 / Implanted: Qty: 1 on 02/24/2018 by Randy Gilbert MD at [facility] / Plt Lcp Recon 3.5x84 6h - [id number] DEVICE Right: DePuy Synthes - [id number] / Implanted: Qty: 1 on 03/05/2018 by Esvin Garcia MD at [facility] [place] Trauma / PROXIMAL Insurance Payer Benefit Plan / Subscriber ID Effective Dates Phone Addre ss Type Group [place] [id number] 2017-Present [employer] NET Government [employer] C/O [employer]BA [address] [place] [phone] Advance Directives Latest Code Status on File Code Status Date Activated Date Inactivated Comments Full Code 03/05/2018 2:57 PM 03/07/2018 2:26 PM Full Code 02/23/2018 6:15 PM 02/27/2018 4:45 PM Care Teams Plumbers And Top Helpers Relationship Specialty Start Date End Date Ceci Christianson MD PCP - General Family Practice 02/24/18 [address] [place] [address]
--- OUTSIDE RECORDS SUMMARY | 2022-08-17 08:42 | XMS_ITS | Encounter Summary ---
:1955 Author Organization [facility] Address [address] [place] [address] Care Team Providers Name Role Phone Ceci Christianson MD Primary Care Provider Reason for Referral Procedure/Equipment (Routine) - Incomplete Specialty Diagnoses / Procedures Referred By Contact Refer red To Contact Diagnoses Closed bicondylar fracture of right tibial plateau Adali Sanchez PA-C Procedures XR Knee Rt [address] [place] [address] Referral ID Status Reason Start Date Expiration Date Visits V isits Requested Authorized [id number] Incomplete 04/17/2018 07/17/2019 1 1 Reason for Visit Reason Comments POST-OP,EXAM DOS: 03/05/18 ORIF TIBIAL PALT EAU FRACTURE (RIGHT) Encounter Details Date Type Department Care Team Description 04/17/2018 Office Visit [facility]ty [facility] RadhaEsvin Cl osed bicondylar Orthopedics Clinic MD Jose fracture of right [address] [place] [address] [place] [address] (Primary Dx) [phone] Social History Tobacco Use Types Packs/Day Years Used Date Smoking Tobacco: Never Smokeless Tobacco: Never Alcohol Use Standard Drinks/Week Comments No 0 (1 standard drink = 0.6 oz pure alcoho l) Sex Assigned at Date Recorded Not on file documented as of this encounter Patient Instructions Patient InstructionsThania Austin CMA - 04/17/2018 2:20 PM CDT ORTHOPAEDICS DEPARTMENT PHONE NUMBER: [phone] Reason for today's visit: ORIF right knee DOS: 03/05/2018 Tests that you will need: None Prescribed Medications: None Supplies you will be leaving with: Tubigrip Treatment plan: Weight Bearing Status until further notice: Partial weight bearing toe touch weight bearing Follow up appointments: You will follow up with Dr. Esvin Garcia in 4 week(s). X-Rays: You will have repeat X-Rays taken with your next Orthopaedics appointment. Please arrive 30 minutes early for your appointment. Reason for next Orthopaedics appointment: ORIF right knee DOS: 03/05/2018 and xrays Please stop at the check out desk to schedule a follow up appointment. Use this grid to write down your next appointment. DATE & TIME PROVIDER LOCATION APPT NOTES ( ) [facility]: [address] [place] [address] ( ) [facility]: [address] [place] [address] ( ) Other: ORIF right knee DOS: 03/05/2018 and xrays ( ) [facility]: [address] [place] [address] ( ) [facility] [address] [place], [place] ( ) Other: If you have any questions about your visit, your symptoms, your medication, your test results or it is not clear what your diagnosis or treatment plan is please contact us at [phone] or send us a secure message via Her[employer]. You may receive surveys via mail, e-mail or text regarding your visit and recovery. Your feedback isvery important to us. Please take a moment to complete them. If you would like to speak to someone specifically, you may contact the clinic at [phone] and your call will be directed to someone on our leadership team. Thank you for choosing Esvin Garcia MD and [facility]. If you need to schedule an appointment, you may call our office at [phone]. We are open Sunday-Sunday 8 am - 5 pm. Discharged by: documented in this encounter Progress Notes Esvin Garcia MD - 04/17/2018 2:20 PM CDT Chief Complaint: Closed right bicondylar tibial fracture Procedures: 03/05/2018 1. Open reduction and internal fixation of right bicondylar tibial fracture. 2. Removal of knee spanning external fixator right side 02/24/2018 (Dr. Gilbert) 1. Application of right knee-spanning external fixator History of Present Illness: Sudeep Steen is a 62 y.o. old male who presents 6 weeks s/p ORIF for routine follow-up. He has recently transitioned from a TCU to home. He reports that this transition has gone well without significant issue. He has been working on knee range of motion on his own at home. He has been compliant with his toe-touch weightbearing status. He is ambulating for short distances with the assistance of a walker, but has return to work with the assistance of an electric wheelchair.He reports that his pain has improved. He currently rates pain as a 3 out of 10. The pain is dull and comes and goes. He quantifies his pain is mild. He is not utilizing narcotic pain medication for pain control. He denies any numbness, tingling, or focal motor deficit about the right lower extremity.The patient does report some drainage over the proximal tibial ex fix pins site. He reports that he noticed the drainage about a week ago . He has been placing a Band-Aid over the area as needed. He denies any associated skin changes. No constitutional symptoms. Physical Examination: Patient is awake, [...] y.o. old male who is doing well 6 weeks postoperatively. Plan: Continue NWB for 4 more weeks. ROMAT. Should gently washed the pin site with warm soapy water and apply bacitracin and a Band-Aid. Counseled that there are no signs of acute infection at this time, I am hopeful that this will continue to heal secondarily. Did discuss signs and symptoms of acute infection and when he should call or return to clinic immediately. Pending any of these new concerns,he will follow up in clinic in 4 weeks, at which time we will likely advance his weightbearing status. X-rays needed next visit: 2 views right [...] encounter Results XR Knee Rt 2 Views (04/17/2018 2:25 PM CDT) Anatomical Region Laterality Modality Lower Extremity, Knee Computed Radiograp hy Specimen (Source) Anatomical Collection Method Collection Time Re ceived Time Location / / Volume Laterality 04/17/2018 2:25 PM CDT Narrative 04/17/2018 5:31 PM CDT Specialty Center 435 XR KNEE RT 2 VIEWS 04/17/2018 2:25 PM INDICATION: S/p orif COMPARISON: 03/06/2018. FINDINGS: Plate and screw fixation acros s upper tibial plateau fracture. Components intact. Bones in near-anatomic alignment. No interval change. Procedure Note Carl Diamond MD - 04/17/2018Format ting of this note might be different from the original. Specialty Center 435 XR KNEE RT 2 VIEWS 04/17/2018 2:25 PM INDICATION: S/p orif COMPARISON: 03/06/2018. FINDINGS: Plate and screw fixation acros s upper tibial plateau fracture. Components intact. Bones in near-anatomic alignment. No interval change. Adali MEDLEY GD documented in this encounter Visit Diagnoses Diagnosis Closed bicondylar fracture of right tibi al plateau - Primary Closed bicondylar fracture of right tibi al plateau documented in this encounter Care Teams Complaint Investigations Officer Relationship Specialty Start Date End Date Ceci Christianson MD PCP - General Family Practice 02/24/18 [address] [place] [address] documented as of this encounter
--- OUTSIDE RECORDS SUMMARY | 2022-08-17 08:42 | XMS_ITS | Encounter Summary ---
:1955 Author Organization [facility] Address [address] [place] [address] Care Team Providers Name Role Phone Ceci Christianson MD Primary Care Provider Reason for Visit Reason Comments Orders Needed Encounter Details Date Type Department Care Team Description 03/18/2018 Telephone Specialty Center 435 Esvin Garcia MD Orders Needed Orthopedics Clinic [address] [place] [address] [place] [address] [phone] Social History Tobacco Use Types Packs/Day Years Used Date Smoking Tobacco: Never Smokeless Tobacco: Never Alcohol Use Standard Drinks/Week Comments No 0 (1 standard drink = 0.6 oz pure alcoho l) Sex Assigned at Date Recorded Not on file documented as of this encounter Nursing Notes Alka Taylor RN - 03/19/2018 8:10 AM CDT Patient was informed of information on note below. He verbalized understanding of instructions given. Alka Taylor RN 03/19/2018, 8:10 AM Adali Sanchez - 03/19/2018 7:29 AM CDT This patient is currently at TCU. I recommend they inquire with providers/PT at TCU on the appropriateness of this request. They see and evaluate the patient daily, and are much more aware of his needsto be able to safely transition home. Adali Sanchez PA-C 03/19/2018, 7:30 AM Dioni Mason - 03/18/2018 4:46 PM CDT Has the patient recently had surgery or an injury? Yes. Date of Surgery: March 05, 2018 Type of Surgery: OPEN REDUCTION INTERNAL FIXATION TIBIAL PLATEAU FRACTURE (Right) REMOVAL KNEE SPANNING EXTERNAL FIXATOR (Right) What referral/order is being requested: Hospital bed Why is the referral/order needed: Patient's would like to have it for patient to use at home. Please send to [facility] at [phone] Is it okay to leave detailed message on your voicemail? Yes [Wound Care Coordinator/Appt Center: If this call is after 3 p.m., communicate to patient: If we are not able to get back to you by the end of the day and your symptoms worsen please contact the Careline] [Wound Care Coordinator: Please inform patient that a referral does not guarantee insurance coverage. Patients should call the member services number on the back of their insurance ID card to understand whatcoverage for the services they are requesting.] documented in this encounter Plan of Treatment Not on filedocumented as of this encounter Visit Diagnoses Not on filedocumented in this encounter Care Teams Senior Specialist Relationship Specialty Start Date End Date Ceci Christianson MD PCP - General Family Practice 02/24/18 [address] [place] [address] documented as of this encounter
--- OUTSIDE RECORDS SUMMARY | 2022-08-17 08:42 | XMS_ITS | Encounter Summary ---
:1955 Author Organization [facility] [facility] Address [address] [address] Care Team Providers Name Role Phone Ceci Christianson MD Primary Care Provider Reason for Referral Procedure/Equipment (Routine) - Closed Specialty Diagnoses / Procedures Referred By Contact Refer red To Contact Diagnoses S/P ORIF (open reduction internal fixation) fracture Esvin Garcia MD Procedures Hospital Bed - Electric [address] [place] [address] Referral ID Status Reason Start Date Expiration Date Visits Requ ested Visits Authorized [id number] Closed 09/24/2018 12/24/2019 1 1 NESS PROCESS ANALYST Procedure/Equipment (Routine) - Closed Specialty Diagnoses / Procedures Referred By Contact Refer red To Contact Diagnoses S/P ORIF (open reduction internal fixation) fracture Esvin Garcia MD Procedures Wheelchair - Manual [address] [place] [address] Referral ID Status Reason Start Date Expiration Date Visits Requ ested Visits Authorized [id number] Closed 09/24/2018 03/23/2019 1 1 NESS PROCESS ANALYST Procedure/Equipment (Routine) - Closed Specialty Diagnoses / Procedures Referred By Contact Refer red To Contact Diagnoses S/P ORIF (open reduction internal fixation) fracture Esvin Garcia MD Procedures Hospital Bed - Electric [address] [place] [address] Referral ID Status Reason Start Date Expiration Date Visits Requ ested Visits Authorized [id number] Closed 09/24/2018 03/23/2019 1 1 NESS PROCESS ANALYST Procedure/Equipment (Routine) - Closed Specialty Diagnoses / Procedures Referred By Contact Refer red To Contact Diagnoses S/P ORIF (open reduction internal fixation) fracture Esvin Garcia MD Procedures Wheelchair - Manual [address] [place] [address] Referral ID Status Reason Start Date Expiration Date Visits Requ ested Visits Authorized [id number] Closed 09/24/2018 03/23/2019 1 1 NESS PROCESS ANALYST Reason for Visit Reason Comments Orders Needed Encounter Details Date Type Department Care Team Description 09/24/2018 Telephone Specialty Center 435 Esvin Garcia MD Orders Needed Orthopedics Clinic [address] [facility] [place] [address] [place] [address] [phone] Social History Tobacco Use Types Packs/Day Years Used Date Smoking Tobacco: Never Smokeless Tobacco: Never Alcohol Use Standard Drinks/Week Comments No 0 (1 standard drink = 0.6 oz pure alcoho l) Sex Assigned at Date Recorded Not on file documented as of this encounter Progress Notes Alka Taylor RN - 09/24/2018 2:20 PM BUSINESS PROCESS ANALYST Addended by: ALKA TAYLOR on: 09/24/2018 02:20 PM Modules accepted: Orders NESS PROCESS ANALYST documented in this encounter Nursing Notes Alka Taylor RN - 09/24/2018 2:06 PM CST I called and spoke to Flor. Orders are updated with the necessary information and faxed back to her at number provided. Alka Taylor RN 09/24/2018, 2:06 PM NESS PROCESS ANALYST Delfina Velez - 09/24/2018 1:19 PM CST Flor from [facility] is calling stating that the order needs to have the dates of July 22, and has to include the bed railings. She can be reached at: [phone]. Delfina Cramer Agustin 09/24/2018, 1:20 PM NESS PROCESS ANALYST Cherie Myers RN - 09/24/2018 11:41 AM CST Orders have been faxed to [facility]. Called and notified the patient who verbalized understanding. Fax confirmation has gone through. Cherie Myers RN 09/24/2018, 11:51 AM Adali Salguero - 09/24/2018 11:22 AM CST Orders have been pended as requested. Thanks, Adali Sanchez PA-C 09/24/2018, 11:25 AM NESS PROCESS ANALYST Marlen Adair RMA - 09/24/2018 10:01 AM CST I spoke with Flor from [facility]. She states the patient still has the wheelchair and bedwith side rails at home. She is trying to get paid for this equipment. Can you write up a letter or order stating when the start date was for his wheelchair and bed with side rails was which the start date was 03/21/2018. And then end date was 4 weeks after 05/17/2018 visit he was to gradually over 2-4weeks obtain full weight bearing without assistive devices which would have been 06/14/2018. And then write on 08/21/2018 he came in and stated that his transition back to full weightbearing went well without significant issues. I let her know that the bed and wheelchair were no longer needed after 06/14/2018. She was going to look into getting the equipment back, but she needs something in writing from the doctor with specific dates. Thanks. Marlen Adair CMA 09/24/2018, 10:10 AM NESS PROCESS ANALYST Adali Sanchez - 09/24/2018 9:54 AM CST He should no longer require a hospital bed or a wheelchair. He is back to full WBAT without assistive devices or braces. Adali Sanchez PA-C 09/24/2018, 9:54 AM NESS PROCESS ANALYST Radha Rojas - 09/24/2018 9:07 AM CST DOS: 03/05/18 OPEN REDUCTION INTERNAL FIXATION TIBIAL PLATEAU FRACTURE (Right) Flor from [facility] is calling to get update orders for a hospital bed and wheelchair, she states it needs to include medical necessity. She would like the orders faxed to her at [phone] Radha Rojas 09/24/2018, 9:08 AM NESS PROCESS ANALYST documented in this encounter Plan of Treatment Not on filedocumented as of this encounter Visit Diagnoses Diagnosis S/P ORIF (open reduction internal fixati on) fracture - Primary documented in this encounter Care Teams Senior Systems Developer Relationship Specialty Start Date End Date Ceci Christianson MD PCP - General Family Practice 02/24/18 [address], [place] [address] documented as of this encounter
--- OUTSIDE RECORDS SUMMARY | 2022-08-17 08:42 | XMS_ITS | Encounter Summary ---
:1955 Author Organization [facility] Address [address] [place] [address] Care Team Providers Name Role Phone Ceci Christianson MD Primary Care Provider Reason for Visit Procedure/Equipment (Routine) - Incomplete Specialty Diagnoses / Procedures Referred By Contact Refer red To Contact Diagnoses Closed bicondylar fracture of right tibial plateau Adali Sanchez, PA-C Procedures XR Knee Rt [address] [place] [address] Referral ID Status Reason Start Date Expiration Date Visits V isits Requested Authorized [id number] Incomplete 04/17/2018 07/17/2019 1 1 Encounter Details Date Type Department Care Team Description 04/17/2018 [facility] Adail Sanchez, Closed bicondylar Center 435 Radiology PA-C fracture of right [address] [place] [address] [facility] [address] [place] [address] Social History Tobacco Use Types Packs/Day Years [...] nts XR KNEE RT 2 VIEWS Routine 04/17/2018 2:25 PM Closed bicondyla r Results for this CDT fracture of right procedure are in tibial plateau the results section. documented in this encounter [...] note might be different from the original. [facility] 435 XR KNEE RT 2 VIEWS 04/17/2018 2:25 PM INDICATION: S/p orif COMPARISON: 03/06/2018. FINDINGS: Plate and screw fixation acros s upper tibial plateau fracture. Components intact. Bones in near-anatomic alignment. No interval change. Adali Sanchez PA-C RAD GD documented in this encounter Visit Diagnoses Diagnosis Closed bicondylar fracture of right tibi al plateau documented in this encounter Care Teams Piano Builder Relationship Specialty Start Date End Date Ceci Christianson MD PCP - General Family Practice 02/24/18 [address], [place] [address] documented as of this encounter
--- OUTSIDE RECORDS SUMMARY | 2022-08-17 08:43 | XMS_ITS | Encounter Summary ---
:1955 Author Organization [facility] Address [address] [place] [address] Care Team Providers Name Role Phone Ceci Christianson MD Primary Care Provider Reason for Referral Therapies (Routine) - Incomplete Specialty Diagnoses / Procedures Referred By Contact Refer red To Contact Diagnoses Closed fracture of right tibial plateau, initial encounter Esvin Parra MD [address] [place] [id number] Referral ID Status Reason Start Date Expiration Date Visits V isits Requested Authorized [id number] Incomplete 03/06/2018 05/05/2018 1 1 Scheduling Instructions If scheduling assistance is needed, plea se inquire with the medical office staff upon exiting your appointment or contact the ordering clinic for recommended locations. This recommended service/s may not be co vitaliy by your insurance coverage. To find out your specific benefit coverage, please c all the number on your insurance card. herapies (Routine) - Incomplete Specialty Diagnoses / Procedures Referred By Contact Refer red To Contact Diagnoses Closed fracture of right tibial plateau, initial encounter Esvin Parra MD [address] [place] [id number] Referral ID Status Reason Start Date Expiration Date Visits V isits Requested Authorized [id number] Incomplete 03/06/2018 05/05/2018 1 1 Scheduling Instructions If scheduling assistance is needed, plea se inquire with the medical office staff upon exiting your appointment or contact the ordering clinic for recommended locations. This recommended service/s may not be co vitaliy by your insurance coverage. To find out your specific benefit coverage, please c all the number on your insurance card. Consult/Transfer Care (Routine) - Closed Specialty Diagnoses / Procedures Referred By Contact Refer red To Contact Diagnoses Closed fracture of right tibial plateau, initial encounter Esvin Parra MD [address] [place] [address] Referral ID Status Reason Start Date Expiration Date Visits Requ ested Visits Authorized [id number] Closed 03/06/2018 06/05/2019 1 1 Scheduling Instructions . Specialty Diagnoses / Procedures Referred By Contact Refer red To Contact Rashawn Weldon PA- C [address] [place], [place] [address] Referral ID Status Reason Start Date Expiration Date Visits Requ ested Visits Authorized (Routine) - Incomplete Specialty Diagnoses / Procedures Referred By Contact Refer red To Contact Procedures Esvin Parra MD XR C-Arm 3.5-[address] XR C-Arm 2.5-3 [place] [address] Referral ID Status Reason Start Date Expiration Date Visits V isits Requested Authorized [id number] Incomplete 03/05/2018 06/04/2019 1 1 Procedure/Equipment (Routine) - Incomplete Specialty Diagnoses / Procedures Referred By Contact Refer red To Contact Procedures Rashawn Weldon PA-C XR Knee Rt [address] [place], [place] [address] Referral ID Status Reason Start Date Expiration Date Visits V isits Requested Authorized [id number] Incomplete 03/05/2018 06/04/2019 1 1 Reason for Visit Auth/Cert Specialty Diagnoses / Procedures Referred By Contact Refer red To Contact Diagnoses Closed fracture of right tibial plateau, initial encounter . Procedures OPEN REDUCTION INTERNAL FIXATION TIBIAL PLATEAU FRACTURE REMOVAL KNEE SPANNING EXTERNAL FIXATOR Referral ID Status Reason Start Date Expiration Date Visits Requ ested Visits Authorized [id number] 1 1 Encounter Details Date Type Department Care Team Description 03/05/2018 - Hospital Encounter [facility], Closed fracture of right tib ial plateau, initial encounter (Primary Dx); 03/07/2018 640 Griffin Brown MD Closed bicondylar fracture of right tibi al plateau; [facility] [place] [address] Essential hyp ertension; [address] [address] Hyponatremia; [phone] [place] Type 2 diabetes mellitus without complication, without long-term current use of insulin (HRC); [address] Sleep apnea, unspecified type Social History Tobacco Use Types Packs/Day Years [...] - - Weight 127 kg (280 lb) 03/05/2018 7:10 AM CDT Height 188 cm (6' 2) 03/05/2018 7:10 AM CDT Body Mass Index 35.95 03/05/2018 7:10 AM CDT documented in this encounter Discharge Summaries Amada Rodriguez MD - 03/07/2018 12:20 PM CDT [facility] Orthopedic Discharge Note Patient Name: Олег Steen Date of : 1955 Admit Date/Time: Admit Date: 03/05/2018 5:28 AM Discharge Date: 03/07/18 Service: Orthopedics Attending MD: Dr. Esvin Parra Admitting Diagnosis: Right tibial plateau fracture Discharge Diagnosis: Right tibial plateau fracture Operations/Procedures: Procedure(s): OPEN REDUCTION INTERNAL FIXATION TIBIAL PLATEAU FRACTURE REMOVAL KNEE SPANNING EXTERNAL FIXATOR Consults:Medicine, PT, OT, Care Management Complications: None apparent Patient Active Hospital Problem List: Past Medical History: Diagnosis Date ??? BPPV (benign paroxysmal positional vertigo) ??? Diabetes mellitus type 2 ??? Gout ??? Hyperlipidemia (HRC) ??? Hypertension (HRC) ??? Osteoarthritis Allergies : Review of patient's allergies indicates no known allergies. Past Surgical History: Procedure Laterality Date ??? SURGICAL HX - NEG Brief History : This is a 62-year-old male who had sustained a Right tibial plateau fracture and presented to [facility] where he was placed in an external fixator. After swelling had appropriately resolved, he presents today for definitive fixation. Risks and benefits of the surgery were discussed with the patient including, but not limited to infection, nonunion, malunion, neurovascular injury, degenerative changes, continued pain, repeat surgery, hardware removal, knee stiffness, risks of anesthesia. No guarantees were given. (op note) Hospital Course: Patient was admitted on Admit Date: 03/05/2018 5:28 AM and on that date underwent theabove stated procedures by Dr. Parra. There were no complications. The patient was admitted to the Orthopaedic Service and followed by the Medicine service for multiple co-morbidities. The patient was started on pharmaceutical and mechanical DVT prophylaxis as well as prophylactic antibiotic therapy. The patient progressed well and was discharged To TCU in stable condition. Discharge Medications: Discharge Medication List as of 03/07/2018 12:21 PM CONTINUE these medications which have CHANGED Details acetaminophen (TYLENOL) 500 MG tablet Take 2 Tabs by mouth three times a day. Maximum acetaminophen dose is 4000 mg in 24 hours Indications: Pain, Disp-100 Tab, R-4, TID Starting 03/06/2018, Until Discontinued, Oral, No Print/No Fill alfuzosin (UROXATRAL) 10 MG 24 hour release tablet Take 1 Tab by mouth daily at bedtime for 15 days.Indications: postop urinary retention, Disp-30 Tab, R-0, HS Starting 03/07/2018, Until Sun03/22/18, Oral, No Print/No Fill aspirin 325 MG tablet Take 1 Tab by mouth daily for 28 days. Indications: DVT prophylaxis, Disp-28 Tab, R-0, DAILY Starting 03/07/2018, Until Cathy 04/04/18, Oral, No Print/No Fill hydrOXYzine HCl (ATARAX) 50 MG tablet Take 1 Tab by mouth every 8 hours as needed. Indications: Pain, Tension, Disp-30 Tab, R-0, Q8H PRN Starting 03/06/2018, Until Discontinued, Oral, No Print/No Fill oxyCODONE (ROXICODONE) 5 MG immediate release tablet Take 1-2 Tabs by mouth every 4 hours as needed for Pain (5 mg for pain 4-7/10. 10 mg for pain 8-1010). Indications: Acute Pain, Disp-40 Tab, R-0, Q4H PRN Starting 03/06/2018, Until Discontinued, Oral, Print sennosides-docusate sodium (SENNA-S,SENNA PLUS) 8.6-50 MG per tablet Take 1 Tab by mouth two times daily as needed for Constipation. Indications: Constipation, Disp-40 Tab, R-0, BID PRN Starting 03/06/2018, Until Discontinued, Oral, No Print/No Fill CONTINUE these medications which have NOT CHANGED Details gabapentin (NEURONTIN) 300 MG capsule Take 1 Cap by mouth three times a day. Indications: Diabetes with Nerve Disease, Disp-15 Cap, R-0, TID Starting 03/01/2018, Until 03/01/19, Oral, E-[facility]cribingAd[facility] glipiZIDE (GLUCOTROL) 5 MG tablet Take 1 Tab by mouth two times a day before meals. Indications: Type 2 Diabetes, BID AC Starting 02/25/2018, Until Discontinued, Oral, No Print/No Fill lisinopril (ZESTRIL) 10 MG tablet Take 1 Tab by mouth daily. Indications: High Blood Pressure Disorder, DAILY Starting 02/25/2018, Until Discontinued, Oral, No Print/No Fill metFORMIN (GLUCOPHAGE) 500 MG tablet Take 2 Tabs by mouth two times a day with meals. Indications: Type 2 Diabetes, BID WITH MEALS Starting 02/25/2018, Until Discontinued, Oral, No Print/No Fill PARoxetine (PAXIL) 10 MG tablet Take 1 Tab by mouth daily. Indications: Generalized Anxiety Disorder, DAILY Starting 02/25/2018, Until Discontinued, Oral, No Print/No Fill eszopiclone (LUNESTA) 3 MG tablet Take 1 Tab by mouth daily at bedtime. Indications: Trouble Sleeping, Disp-5 Tab, R-0, HS Starting 03/01/2018, Until Discontinued, Oral, E-PrescribingAdmitting to [facility] DVT Prophylaxis: ASA for 4 weeks Discharge Disposition: To TCU Discharge Orders (Non-med) Code Status: Full Code Blood Glucose Monitoring Comments: FS Ac/ HS When to Resume Normal Activities: Comments: Activities as tolerated Give 2-Step Mantoux Test on Admit to [place] No weight bearing Comments: No weightbearing on your right leg for 10 weeks. Do not resume weight bearing on the affected limb(s) until your care provider tells you to do so. Orthopedic Geriatric Follow-up Comments: TCU/Alf Facility Location: [facility] ([place]) The orthopedic outreach team will be on site for your 2 week follow up visit. We are unable to give specific dates and times but will contact the facility prior to our visit. Please obtain these portable xrays: 2 views right knee Question: Reason for visit? Answer: PO#1 Physical Therapy Comments: [facility] Gait training Home program Question Answer Comment Appointment Urgency? Non-Urgent Reason for Visit / Clinical Data? s/p ORIF L tibial plateau Requested Services Evaluate and treat May check glucose per protocol (see policy link below) or if patient has symptoms? Yes Admit to Skilled Care Comments: FACILITY NAME: [facility] Question Answer Comment Appointment Urgency? Non-Urgent Reason for Visit / Clinical Data? s/p ORIF L tibial plateau Requested Services? EVALUATE & TREAT Does this patient require vocational or vp digital marketing social media and crm? NO May check glucose per protocol (see policy link below) or if patient has symptoms? Yes Discharge Diet Comments: Regular Aftercare MD (name) Comments: Dr. Esvin Parra Condition at Discharge: Stable Prognosis: Good Rehab Potential: Good Potential for D/C from [place] in 30 days? YES DISCHARGE MD NAME Comments: Rashawn Fajardo PA-C, take responsibility for the discharge of this patient and have reviewed the transfer orders report for accuracy. If any other questions occur regarding this patient'sorders or the plan of care, I can be reached at [phone] . Brace Instructions Comments: Keep the hinged knee brace on and unlocked at all times until your first follow-up with the orthopedic outreach team. Other Discharge Instructions Comments: 1. Apply ice for 20 minutes every two hours as needed to decrease pain and swelling. 2. Move your hips, knees, and ankles as much as tolerated to prevent stiffness. 3. Keep surgical dressing and knee brace clean, dry, and intact until your first follow-up appointment 4. Transition from your narcotic pain control to just tylenol as you are able. Limit total acetaminophen to less than 3grams or 3000mg per day. No driving on narcotic pain medicine like oxycodone. 5. Take stool softener to avoid constipation while taking narcotics, and decrease or stop taking stool softeners if you develop diarrhea 6. Notify care team if persistent nausea, vomiting, fevers >101.5, or changes to wound (redness, pain, drainage). Follow Up: The patient will follow up with geriatric outreach in 2 weeks. At follow up, xrays should include 2 views right knee, out of brace This note completed by: TEOFILO Baumann MD Orthopaedic Surgery, PGY-1 Pager [phone] Associated attestation - Esvin Parra MD - 03/08/2018 8:19 AM CDT Agree with careplan. MD Jennifer Rangel Breana, MD - 03/06/2018 11:36 AM CDT [facility] Orthopedic Discharge Note Patient Name: Олег Steen Date of : 1955 Admit Date/Time: Admit Date: 03/05/2018 5:28 AM Discharge Date: 03/07/18 Service: Orthopedics Attending MD: Dr. Esvin Parra Admitting Diagnosis: Right tibial plateau fracture Discharge Diagnosis: Right tibial plateau fracture Operations/Procedures: Procedure(s): OPEN REDUCTION INTERNAL FIXATION TIBIAL PLATEAU FRACTURE REMOVAL KNEE SPANNING EXTERNAL FIXATOR Consults:Medicine, PT, OT, Care Management Complications: None apparent Patient Active Hospital Problem List: Past Medical History: Diagnosis Date ??? BPPV (benign paroxysmal positional vertigo) ??? Diabetes mellitus type 2 ??? Gout ??? Hyperlipidemia (HRC) ??? Hypertension (HRC) ??? Osteoarthritis Allergies : Review of patient's allergies indicates no known allergies. Past Surgical History: Procedure Laterality Date ??? SURGICAL HX - NEG Brief History : This is a 62-year-old male who had sustained a Right tibial plateau fracture and presented to [facility] where he was placed in an external fixator. After swelling had appropriately resolved, he presents today for definitive fixation. Risks and benefits of the surgery were discussed with the patient including, but not limited to infection, nonunion, malunion, neurovascular injury, degenerative changes, continued pain, repeat surgery, hardware removal, knee stiffness, risks of anesthesia. No guarantees were given. (op note) Hospital Course: Patient was admitted on Admit Date: 03/05/2018 5:28 AM and on that date underwent theabove stated procedures by Dr. Parra. There were no complications. The patient was admitted to the Orthopaedic Service and followed by the Medicine service for multiple co-morbidities. The patient was started on pharmaceutical and mechanical DVT prophylaxis as well as prophylactic antibiotic therapy. The patient progressed well and was discharged To TCU in stable condition. Discharge Medications: Current Discharge Medication List CONTINUE these medications which have CHANGED Details acetaminophen (TYLENOL) 500 MG tablet Take 2 Tabs by mouth three times a day. Maximum acetaminophen dose is 4000 mg in 24 hours Indications: Pain Qty: 100 Tab, Refills: 4 alfuzosin (UROXATRAL) 10 MG 24 hour release tablet Take 1 Tab by mouth daily at bedtime for 15 days.Indications: postop urinary retention Qty: 30 Tab, Refills: 0 aspirin 325 MG tablet Take 1 Tab by mouth daily for 28 days. Indications: DVT prophylaxis Qty: 28 Tab, Refills: 0 hydrOXYzine HCl (ATARAX) 50 MG tablet Take 1 Tab by mouth every 8 hours as needed. Indications: Pain, Tension Qty: 30 Tab, Refills: 0 oxyCODONE (ROXICODONE) 5 MG immediate release tablet Take 1-2 Tabs by mouth every 4 hours as needed for Pain (5 mg for pain 4-7/10. 10 mg for pain 8-10/10). Indications: Acute Pain Qty: 40 Tab, Refills: 0 sennosides-docusate sodium (SENNA-S,SENNA PLUS) 8.6-50 MG per tablet Take 1 Tab by mouth two times daily as needed for Constipation. Indications: Constipation Qty: 40 Tab, Refills: 0 CONTINUE these medications which have NOT CHANGED Details eszopiclone (LUNESTA) 3 MG tablet Take 1 Tab by mouth daily at bedtime. Indications: Trouble Sleeping Qty: 5 Tab, Refills: 0 Comments: Admitting to [facility] today gabapentin (NEURONTIN) 300 MG capsule Take 1 Cap by mouth three times a day. Indications: Diabetes with Nerve Disease Qty: 15 Cap, Refills: 0 Comments: Admitting to [facility] today glipiZIDE (GLUCOTROL) 5 MG tablet Take 1 Tab by mouth two times a day before meals. Indications: Type 2 Diabetes lisinopril (ZESTRIL) 10 MG tablet Take 1 Tab by mouth daily. Indications: High Blood Pressure Disorder metFORMIN (GLUCOPHAGE) 500 MG tablet Take 2 Tabs by mouth two times a day with meals. Indications: Type 2 Diabetes PARoxetine (PAXIL) 10 MG tablet Take 1 Tab by mouth daily. Indications: Generalized Anxiety Disorder DVT Prophylaxis: ASA for 4 weeks Discharge Disposition: To TCU Discharge Orders (Non-med) DISCHARGE MD NAME Code Status: Full Code Blood Glucose Monitoring Comments: FS Ac/ HS DISCHARGE MD NAME Admit to Skilled Care Comments: FACILITY NAME: [facility] Orthopedic Geriatric Follow-up Comments: TCU/Alf Facility Location: [facility] ([place]) The orthopedic outreach team will be on site for your 2 week follow up visit. We are unable to give specific dates and times but will contact the facility prior to our visit. Please obtain these portable xrays: 2 views left knee Question: Reason for visit? Answer: PO#1 Physical Therapy Comments: [facility] Gait training Home program Question Answer Comment Appointment Urgency? Non-Urgent Reason for Visit / Clinical Data? s/p ORIF L tibial plateau Requested Services Evaluate and treat May check glucose per protocol (see policy link below) or if patient has symptoms? Yes Occupational Therapy Question Answer Comment Appointment Urgency? Non-Urgent Reason for Visit / Clinical Data? s/p ORIF L tibial plateau Requested Services? EVALUATE & TREAT Does this patient require vocational or vp digital marketing social media and crm? NO May check glucose per protocol (see policy link below) or if patient has symptoms? Yes When to Resume Normal Activities: Comments: Do not resume normal activities until you have been cleared to do so. Discharge Diet Comments: Regular Aftercare MD (name) Comments: Dr. Esvin Parra Condition at Discharge: Stable Prognosis: Good Rehab Potential: Good Potential for D/C from [place] in 30 days? YES DISCHARGE MD NAME Comments: I, Rashawn Weldon PA-C, take responsibility for the discharge of this patient and have reviewed the transfer orders report for accuracy. If any other questions occur regarding this patient'sorders or the plan of care, I can be reached at [phone] . No weight bearing Comments: No weightbearing on your left leg for 10 weeks. Do not resume weight bearing on the affected limb(s) until your care provider tells you to do so. Brace Instructions Comments: Keep the hinged knee brace on and unlocked at all times until your first follow-up with the orthopedic outreach team. Other Discharge Instructions Comments: 1. Apply ice for 20 minutes every two hours as needed to decrease pain and swelling. 2. Move your hips, knees, and ankles as much as tolerated to prevent stiffness. 3. Keep surgical dressing and knee brace clean, dry, and intact until your first follow-up appointment 4. Transition from your narcotic pain control to just tylenol as you are able. Limit total acetaminophen to less than 3grams or 3000mg per day. No driving on narcotic pain medicine like oxycodone. 5. Take stool softener to avoid constipation while taking narcotics, and decrease or stop taking stool softeners if you develop diarrhea 6. Notify care team if persistent nausea, vomiting, fevers >101.5, or changes to wound (redness, pain, drainage). Follow Up: The patient will follow up with geriatric outreach in 2 weeks. At follow up, xrays should include 2 views left knee, out of brace This note completed by: TEOFILO Baumann MD Orthopaedic Surgery, PGY-1 Pager [phone] Associated attestation - Esvin Parra MD - 03/07/2018 1:58 PM CDT Agree with careplan. Esvin Parra MD documented in this encounter Discharge Instructions Discharge InstructionsAda Jackosn RN - 03/06/2018 1:52 PM CDT Contact Information [address] [address] General Information Discharging physician: Dr. Parra Labs & Coumadin Information No data found. Wound care: Wound care: ??? Hand Washing: o It is important to wash and dry your hands with soap and clean warm water before and after you touch your wound. ??? Suture and Glue: o There are several layers of dissolvable stitch under the skin. o Medical-grade super-glue was used on the skin surface. The glue will flake off over the next few weeks and the stitches will dissolve over the next month or two. ??? Warning Signs: o Some redness, swelling, and warmth is to be expected; however, call our office for fever greater than 101.5 F, drainage, chills, worsening redness or swelling around the incision or if you develop red streaks near the incision area. If the incision opens up, notify the clinic immediately. Pain Management: ??? Post-operative pain is normal and is to be expected. The pain will improve with time. ??? Post-operative pain management is extremely important when it comes to making your recuperation as safe and effective as possible. ??? Adequate pain management helps you participate to the best of your ability in your physical therapy program so that you will have a total joint that functions well. ??? Most patients are starting to wean off the narcotic pain medications between 4 and 8 weeks aftersurgery. However, if needed we will manage your pain with narcotic pain medications up to 12 weeks after surgery. ??? The use of ice, elevation, and exercise/movement also helps with pain control. o Medications such as Tylenol (acetaminophen) and Motrin (ibuprofen)/NSAIDs can decrease the need for narcotic medications. The goal is to keep the pain manageable. ??? Taking your mind off the pain is also important. This can be accomplished by listening to music,reading, journaling, meditating, etc. Community Resources none Emergency & Urgently Needed Care: For emergencies call 911 and/or get medical help right away. If you are a [facility] member and have medical needs after clinic hours you [phone] or . Discharge Instr - Ada Packer RN - 03/06/2018 1:52 PM CDT Call your clinic or seek medical help if you have any sudden change in your condition or if you haveany of the following: chest pain pain not relieved with usual methods shortness of breath drainage from wound, redness or streak(s) from wound, increasing soreness around wound and fever greater than 101.5 degrees Farenheight documented in this encounter Medications at Time of Discharge Medication Sig Dispensed Refills Start Date End Date acetaminophen (TYLENOL) Take 2 Tabs by mouth 100 Tab 4 500 MG three times a day. tabletIndications: Pain Maximum acetaminophen dose is 4000 mg in 24 hours Indications: Pain alfuzosin (UROXATRAL) Take 1 Tab by mouth 30 Tab 0 03/07 10 MG 24 hour release daily at bedtime for tabletIndications: 15 days. Indications: postop urinary postop urinary retention retention eszopiclone (LUNESTA) 3 Take 1 Tab by mouth 5 Tab 0 07/2018 MG tabletIndications: daily at bedtime. Insomnia Indications: Trouble Sleeping glipiZIDE (GLUCOTROL) 5 Take 1 Tab by mouth 0 MG tabletIndications: two times a day before Type 2 Diabetes meals. Indications: Mellitus Type 2 Diabetes lisinopril (ZESTRIL) 10 Take 1 Tab by mouth 0 MG tabletIndications: daily. Indications: Hypertension High Blood Pressure Disorder metFORMIN (GLUCOPHAGE) Take 2 Tabs by mouth 0 500 MG two times a day with tabletIndications: Type meals. Indications: 2 Diabetes Mellitus Type 2 Diabetes PARoxetine (PAXIL) 10 Take 1 Tab by mouth 0 02/25 MG tabletIndications: daily. Indications: Generalized Anxiety Generalized Anxiety Disorder Disorder aspirin 325 MG Take 1 Tab by mouth 28 Tab 0 03/07/2018 0 04/04/2018 tabletIndications: DVT daily for 28 days. prophylaxis Indications: DVT prophylaxis gabapentin (NEURONTIN) Take 1 Cap by mouth 15 Cap 0 05/01/201808/21/2018 300 MG three times a day. 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 Indications: Pain, Tension Pain, Tension oxyCODONE (ROXICODONE) Take 1-2 Tabs by mouth 40 Tab 0 0 03/06/2018 03/26/2018 5 MG immediate release every 4 hours as tabletIndications: needed for Pain (5 mg Acute Pain for pain 4-710. 10 mg for pain 8-08/07). Indications: Acute Pain sennosides-docusate Take 1 Tab by mouth 40 Tab 0 018 08/21/2018 sodium (SENNA-S,SENNA two times daily as PLUS) 8.6-50 MG per needed for tabletIndications: Constipation. Constipation Indications: Constipation documented as of this encounter Progress Notes Bria Moncada MD - 03/07/2018 11:59 AM CDT [facility] Medicine Consult Progress Note () Date of service: 03/07/18 Assessment and Recommendations: A(n) 62 y.o. old male with hypertension, diabetes mellitus status post ORIF right tibial plateau ?? Tibial plateau fracture, right - status post ORIF 03/05/2018 Management per primary team Mild sleeping hypoxia likely due to pain medications and will improve with weaning, but patient alsowith risk factors for sleep apnea, and in fact gets poor sleep at baseline. Consider sleep study once off narcotics. Hyponatremia mild. Due to SIADH (pain). Improved ?? Essential hypertension - lisinopril ?? diabetes mellitus type 2 glipizide, metformin ?? Insomnia lunesta ?? Generalized anxiety disorder continue paroxetine. Has hydroxyzine for anxiety (or pain) ?? Postoperative urinary retention had urinary retention after last surgery - will continue uroxatral for another few weeks (could continue longer if re-developed urinary retention) ?? Hypokalemia during last admission - resolved ?? prophylaxis - Per primary team ( aspirin ) Dispo Patient without barriers to discharge from medicine standpoint. Medicine reconciliation has been completed. Subjective: pain a little better Still occasionally having very mild hypoxia while sleeping - sounds like he has symptoms of sleep apnea at baseline. Seen with significant other at bedside - discussed work up for sleep apnea (as outpatient off narcotics - she has a sleep doctor herself) Objective: Most Recent Vital Signs: Min and Max Vital Signs (24 hours): Temp: 97.3 ??F (36.3 ??C) BP: 136/61 Pulse: 87 Resp: 16 SpO2: 92 % Temp Min: 97.3 ??F (36.3 ??C) Max: 99.4 ??F (37.4 ??C) BP Min: 116/68 Max: 139/61 Pulse Min: 87 Max: 90 Resp Min: 16 Max: 16 SpO2 Min: 92 % Max: 96 % Last 3 days weights if available: Patient Vitals for the past 72 hrs: Weight 03/05/18 0710 127 kg (280 lb) Intake/Output Summary (Last 24 hours) at 03/07/18 1159 Last data filed at 03/07/18 0600 Gross per 24 hour Intake 880 ml Output 4950 ml Net -4070 ml Exam: General: Pleasant, NAD CV: RRR, no m/r/g Pulm: CTAB, no wheezes, rhonchi Abd: +BS, Soft, NT, ND Ext: no lower extremity edema Neuro: A&Ox3 Labs: reviewed See above Report Completed by: Bria Moncada MD 03/07/18, 11:59 AM Pager: [phone] Dalton Mooney MD - 03/07/2018 7:[address] [facility] ORTHOPAEDIC SURGERY PROGRESS NOTE 03/07/2018 7:40 AM Subjective: No acute events overnight. Pain control much improved. Denies fevers, chills, chest pain/pressure, or shortness of breath. Denies any new numbness, tingling, or weakness in his extremities.No additional concerns this AM. Objective: BP 136/61 Pulse 87 Temp 97.3 ??F (36.3 ??C) (Oral) Resp 16 Ht 6' 2 (1.88 m) Wt280 lb (127 kg) SpO2 92% BMI 35.95 kg/m2 Exam: Gen: Alert, NAD. Resp: Non-labored on room air CV: RRR. RLE: - Dressing/jovon c/d/i. - Toes warm and well perfused. - SILT dp/sp/saph/mao/tib n distributions. - Fires TA/GSC/EHL/FHL Assessment: Олег Steen is a 62 y.o.-old male with a right bicondylar tibial plateau fx s/p right knee spanning ex fix and knee aspiration with Dr. Gilbert on 03/07/2018, now s/p ORIF R tibial plateauon 03/05/[address] Parra. Plan: Pain, PO meds with IV available, ice extremity. WB status: NWB x 10 weeks Antibiotics: Ancef x 24 hours, complete DVT Prophylaxis: ASA x 4 weeks, SCDs/mechanical Drains: None X-rays: POD1 PT/OT: eval and treat Bracing/Splinting: Unlocked HKB Elevate operative extremity while in bed Consults: PT, OT, Medicine, Case management Hgb: POD 1,2,3 ?? F/U: 2 weeks with Rashawn Weldon PA-C vs. [facility]. 2 views right knee x- rays needed, out of brace. Dispo: DC back to TCU when pain controlled, medically cleared. Anticipate today vs tomorrow. ?? Dalton Mooney MD Orthopedic Surgery PGY-2 Dalton Mooney MD - 03/06/2018 9:[address] [facility] ORTHOPAEDIC SURGERY PROGRESS NOTE 03/06/2018 9:29 AM Subjective: No acute events overnight. Pain control challenging overnight, did not get much sleep. Reports burning sensation to proximal tibia. Denies fevers, chills, chest pain/pressure, or shortness of breath. Denies any new numbness, tingling, or weakness in his extremities. No additional concerns this AM. Objective: BP (!) 156/90 Pulse 92 Temp 98.2 ??F (36.8 ??C) (Oral) Resp 18 Ht 6' 2 (1.88 m) Wt 280 lb (127 kg) SpO2 96% BMI 35.95 kg/m2 Exam: Gen: Alert, NAD. Resp: Non-labored on room air CV: RRR. RLE: - Dressing c/d/i. - Toes warm and well perfused. - SILT dp/sp/saph/mao/tib n distributions. - Fires TA/GSC/EHL/FHL Assessment: Олег Steen is a 62 y.o.-old male with a right bicondylar tibial plateau fx s/p right knee spanning ex fix and knee aspiration with Dr. Gilbert on 03/06/2018, now s/p ORIF R tibial plateauon 03/05/[address] Parra. Plan: Pain, PO meds with IV available, ice extremity. WB status: NWB x 10 weeks Antibiotics: Ancef x 24 hours DVT Prophylaxis: ASA x 4 weeks, SCDs/mechanical Drains: None X-rays: POD1 PT/OT: eval and treat Bracing/Splinting: Unlocked HKB Elevate operative extremity while in bed Consults: PT, OT, Medicine, Case management Hgb: POD 1,2,3 ?? F/U: 2 weeks with Rashawn Weldon PA-C vs. [facility]. 2 views right knee x- rays needed, out of brace. Dispo: DC back to TCU when pain controlled, medically cleared. Anticipate in 1-2 days. ?? Dalton Mooney MD Orthopedic Surgery PGY-2 Bria Moncada MD - 03/06/2018 7:43 AM CDT [facility] Medicine Consult Progress Note () Date of service: 03/06/18 Assessment and Recommendations: A(n) 62 y.o. old male with hypertension, diabetes mellitus status post ORIF right tibial plateau ?? Tibial plateau fracture, right - status post ORIF 03/05/2018 Management per primary team Hyponatremia mild. Due to SIADH (pain). Stop iv fluids. Avoid hypotonic solutions if iv fluids are needed ?? Essential hypertension - lisinopril ?? diabetes mellitus type 2 glipizide, metformin ?? Insomnia normally takes lunesta. Not on formulary. Higher risk of respiratory depression if narcotics and benzodiazepine-like medications, so will not use Ambien. Trazodone & melatonin available prn. If patient's significant other brings his Lunesta in, ok to order it for him ?? Generalized anxiety disorder continue paroxetine. Has hydroxyzine for anxiety (or pain) ?? Postoperative urinary retention had urinary retention after last surgery - will continue uroxatral for now ?? Hypokalemia during last admission - resolved ?? prophylaxis - Per primary team ( aspirin ) Subjective: patient doing better today than yesterday. Does not remember talking to me yesterday. Breathing is ok. Very happy with the gabapentin - helping him quite a lot. Seen with significant other at bedside. Objective: Most Recent Vital Signs: Min and Max Vital Signs (24 hours): Temp: 98.2 ??F (36.8 ??C) BP: (!) 152/87 Pulse: 92 Resp: 18 SpO2: 96 % Temp Min: 98.1 ??F (36.7 ??C) Max: 100.3 ??F (37.9 ??C) BP Min: 117/79 Max: 162/98 Pulse Min: 85 Max: 104 Resp Min: 12 Max: 20 SpO2 Min: 87 % Max: 99 % Last 3 days weights if available: Patient Vitals for the past 72 hrs: Weight 03/05/18 0710 127 kg (280 lb) Intake/Output Summary (Last 24 hours) at 03/06/18 0743 Last data filed at 03/06/18 0600 Gross per 24 hour Intake 2240 ml Output 4800 ml Net -2560 ml Exam: General: Pleasant, NAD CV: RRR, no m/r/g Pulm: CTAB, no wheezes, rhonchi Abd: +BS, Soft, NT, ND Ext: no lower extremity edema Neuro: A&Ox3 Labs: reviewed See above Report Completed by: Bria Moncada MD 03/06/18, 7:43 AM Pager: [phone] documented in this encounter Procedure Notes Rashawn Weldon - 03/05/2018 7:[address] [facility] Orthopaedic Surgery - Brief Operative Note Surgery Date: 03/05/2018 Primary Surgeon: Surgeon(s): Esvin Parra MD Assistants: FELLOW-JAGUAR HURTADO PHYSICIAN PILOT SAFETY INSPECTOR-RASHAWN WELDON Post-op Diagnosis: Closed Fracture Of Right Tibial Plateau, Initial Encounter Procedure: Procedure(s) (LRB): OPEN REDUCTION INTERNAL FIXATION TIBIAL PLATEAU FRACTURE (Right) REMOVAL KNEE SPANNING EXTERNAL FIXATOR (Right) Specimens: * No specimens in log * Complications / Findings: See Full Dictated Report Anesthesia: General EBL: 500 cc Fluid: 2000 cc Crystalloid UOP: 200 cc Tourniquet: 150 minutes at 300 mmHg Postoperative Plan: WB status: NWB x 10 weeks Antibiotics: Ancef x 24 hours DVT Prophylaxis: ASA x 4 weeks, SCDs/mechanical Drains: None X-rays: POD1 PT/OT: eval and treat Bracing/Splinting: Unlocked HKB Elevate operative extremity while in bed Consults: PT, OT, Medicine, Case management Hgb: POD 1,2,3 F/U: 2 weeks with Rashawn Weldon PA-C vs. [facility] 2 views right knee x- rays needed, out of brace. Dispo: To PACU in stable condition, then to the floor I was asked by Dr. Parra to assist with surgery. I positioned and prepped the patient. I retracted soft tissue for operative exposure. I suctioned fluids. I assisted with closure of the incision. The procedure was medically necessary for an senior administrative assistant because needed the operative exposure and assistance that I provided. My assistance allowed him to safely and efficiently operate. Theassistance that I provided reduced operative time which meant less general anesthetic for the patient. No qualified residents were available to assist. Rashawn Weldon PA-C 03/05/2018, 11:49 AM Esvin Parra MD - 03/05/2018 12:00 AM CDT [facility]: [id number] OPERATIVE REPORT DATE OF SURGERY: 03/05/2018 : 1955 SURGEON: ESVIN PARRA MD PILOT SAFETY INSPECTOR: MD RASHAWN GAO PA-C PA-C Brehmer's assistance was critical during positioning, preparation, surgical approach, reductionand fixation as well as during irrigation, closure and placement of dressings. No qualified residentwas available to assist. PREOPERATIVE DIAGNOSIS: Closed right bicondylar tibial fracture status post application of knee spanning external fixation. POSTOPERATIVE DIAGNOSIS: Closed right bicondylar tibial fracture status post application of knee spanning external fixation. PROCEDURES PERFORMED: 1. Open reduction and internal fixation of right bicondylar tibial fracture. 2. Removal of knee spanning external fixator right side ANESTHESIA: General. SPECIMENS: None. COMPLICATIONS: None. EBL: 500 cc. TOURNIQUET: 150 minutes at 300 mmHg, the tourniquet was deflated at 120 minutes of tourniquet time and then reinflated approximately half an hour to 40 minutes later for assistance in closing. EQUIPMENT: Synthes 3.5 mm Recon plate, 3.5 mm proximal tibial plate. INDICATION FOR PROCEDURE: This is a 62-year-old male who had sustained the above injury and presented to [facility] where he was externally placed in an external fixator. After swelling had appropriately resolved, he presents today for definitive fixation. Risks and benefits of the surgery were discussed with the patient including, but not limited to infection, nonunion, malunion, neurovascular injury, degenerative changes, continued pain, repeat surgery, hardware removal, knee stiffness, risks of anesthesia. No guarantees were given. PROCEDURE IN DETAIL: The patient was brought back to the operative suite after the right lower extremity was appropriately marked in the preoperative area. He was then intubated by Anesthesia. He was then placed supine position. A bump was placed under the right hip. Antibiotic adminstration confirmed and time-out completed. External fixator removed in standard fashion without incident. A nonsterile tourniquet was applied to the thigh. The right lower extremity was prepped and draped in the usual sterile fashion. A time-out was performed where all parties agreed to the laterality and procedure to be performed. Preoperative antibiotics were Again confirmed as was the time out. We first started with a standard posterior medial approach. Incision was made over the medial aspect of the right knee proximal tibia, going through skin, subcutaneous tissue, then through fascia. The gastroc and the pes semitendinosus were identified. An interval was developed in between the gastroc and the pes. The fracture was identified and there was some comminution present, but there was a good cortical read between the fracture fragments. It was however, directly underneath the pes, and so we worked in between pes tendons trying to release them more proximally in order to gain more exposure. Once we were satisfied with exposure, then we performed reduction maneuver, traction and valgus, and then pinned the fracture in place with a 2 mm K-wire. Then, a 3.5 mm Recon plate was contoured and placed on the medial side. It was then secured with 3.5 mm screwsin the tibial shaft and then 2 locking screws into the fracture fragment proximally. X-rays were taken. We were satisfied with both reduction and the hardware placement. We then approached the lateral side. An incision was made and lateral approach was used to the proximal tibia. An incision was made through skin, subcutaneous tissue, and then through fascia. The fracture was identified. There was some comminution along the proximal fracture line. A submeniscal arthrotomy was made and then tagged with #2 Ethibond. There was a fragment of the articular aspect of the lateral plateau that was secured and then tamped up into place. Cancellous bone chips were then used in order to secure the fragment in place. Then, the outer- most fragment was placed and then tamped down. Then, a lateral locking platewas placed. Then, a large periarticular clamp was placed across the fracture line to compress the fracture. X-rays were taken. We were satisfied with both the hardware placement and the articular reduction. The plate was then secured with several locking screws proximally and then 2 cortical screws inthe shaft. Once we were satisfied with the hardware placement, the meniscus was also secured to the plate with three 2-0 Ethibond sutures in a vertical mattress through the meniscus. The wounds were then copiously irrigated. Vanco powder was placed and it was closed in sequential manner with #1 Vicrylfor the fascia, 2-0 Vicryl for subcu, and then 3-0 nylon for skin. Sterile dressings were applied. The patient was then placed in a hinged knee brace and extubated and transferred to PACU in stable condition. Dr. Esvin Parra was present for the entire case. FOLLOWUP: The patient is to be nonweightbearing for approximately 10 to 12 weeks. He is going to be in the a hinged knee brace unlocked. 24 hours IV antibiotics. Pain control.DVT prophylaxis for 4 weeks. Follow up with Rashawn Weldon or [facility] in 2 weeks with 2-view x-rays of the right knee out of the brace. JAGUAR HURTADO MD Staff: MD JANES RANGEL/MODL /[id number] documented in this encounter Consult Notes Suzanne Jordan PA-C - 03/06/2018 3:10 PM CDTAssociated Order(s): ENDOCRINE INPT CONSULT Endocrine Consult Date of Service: 03/06/2018 Saturation Diver: Suzanne Jordan PA-C Reason for Consult: post-op diabetic management Reason for hospitalization: s/p ORIF tibial plateau fracture HPI: S: The patient is a 62 year old male who I am asked to consult by Rashawn Weldon PA-C. Records reviewed, Past history, social history, and family history reviewed. Currently pt is resting comfortably, pain under control. Pt is eating well, regular diet, no N/V, no D5 IVF. Overall doing well. Diabetes history: type 2 diabetes, patient reports most recent Ha1c of 6.8. Outpatient medication regimen: glipizide 5mg BID + metformin 1000mg BID Inpatient glucose: mild hyperglycemia post-operatively PMH is otherwise significant for HTN, PREMA Review of Systems CONSTITUTIONAL: Negative EYES: no visual blurring RESPIRATORY: no shortness of breath CARDIOVASCULAR: no palpitations, no chest pain GASTROINTESTINAL: normal appetite, no nausea, no abdominal pain NEUROLOGIC: no numbness or tingling of hands, no numbness or tingling of feet, no syncope ENDOCRINE: no polyuria, no polydypsia Remainder of Review of Systems is negative Past Medical History: Diagnosis Date ??? BPPV (benign paroxysmal positional vertigo) ??? Diabetes mellitus type 2 ??? Gout ??? Hyperlipidemia (HRC) ??? Hypertension (HRC) ??? Osteoarthritis Patient Active Problem List Diagnosis ??? Closed bicondylar fracture of right tibial plateau ??? Closed fracture of right tibial plateau Family History Problem Relation Age of Onset ??? Alzheimer's Mother ??? Brain Aneurysm Father ??? Heart Defect Sister 0 Congential ??? Alcohol Abuse Sister Social History Social History ??? Marital status: Single Spouse name: N/A ??? Number of children: N/A ??? 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 Smoking status: Never Smoker ??? Smokeless tobacco: Never Used ??? Alcohol use No ??? Drug use: No ??? Sexual activity: Yes Partners: Female Other Topics Concern ??? Not on file Social History Narrative Served in the . Has 2 children. Lives in [place] with his significant other. 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 OBJECTIVE: BP 137/75 Pulse 90 Temp 98 ??F (36.7 ??C) (Oral) Resp 16 Ht 6' 2 (1.88 m) Wt 127 kg (280 lb) SpO2 96% BMI 35.95 kg/m2 The patient appears in no apparent distress. Resp:chest clear, no wheezing, rales, normal symmetric air entry CV exam - S1, S2 normal, no murmur, no gallop, rate regular. Abdomen deferred. Eyes: Pupils equal Skin: Turgor good, no acanthosis, no excess dryness or sweating Gait: deferred Affect appropriate Dyer Helper Strenth: good b/l Lab/test results discussed with patient. Last 24 Hour Accucheck Glucose Results: Recent Labs 03/05/18 1613 03/05/18 2217 03/06/18 0829 GLWB 157 169 195* No results found for: HGBA1C Last 3 Creatinine Results Creatinine (mg/dl) Date Value 03/06/2018 0.66 (L) 02/25/2018 0.65 (L) 02/23/2018 0.69 (L) A/P 1. Type 2 diabetes, controlled per patient Plan: restart oral medications Start metformin 1000mg BID Start glipizide 5mg BID Continue humalog SS FSG QAC and HS Call Endocrine with any questions Will reevaluate tomorrow Discharge planning: D/c: 03/07 to tcu D/c regimen: same as ACCOUNTS OFFICER Thank You for the opportunity to see Suzanne Farris PA-C Bria Moncada MD - 03/05/2018 3:00 PM CDTAssociated Order(s): MEDICINE INPT CONSULT; MEDICINE INPT CONSULT [facility] Medicine Consultation Note () Date of service: 03/05/2018 Assessment and Recommendations: A(n) 62 y.o. old male with hypertension, diabetes mellitus status post ORIF right tibial plateau Tibial plateau fracture, right - status post ORIF 03/05/2018 Management per primary team Essential hypertension - lisinopril diabetes mellitus type 2 glipizide, metformin Insomnia normally takes lunesta. Not on formulary. Higher risk of respiratory depression if narcotics and benzodiazepine-like medications, so will not use Ambien. Trazodone & melatonin available prn Generalized anxiety disorder continue paroxetine. Has hydroxyzine for anxiety (or pain) Postoperative urinary retention had urinary retention after last surgery - will continue uroxatral Hypokalemia during last admission - recheck prophylaxis - Per primary team ( aspirin ) I was asked by Dr. Parra to provide my opinion and/or advice in regards to hypertension, generalized anxiety disorder. History of present illness: Олег Steen is a(n) 62 y.o. old male with diabetes mellitus, hypertension who is seen status post ORIF of his right tibial plateau fracture. Complaining of a lot of pain and pressure in his leg, but had not been doing great even prior with the external fixator. Otherwise without symptoms Past Medical History: Diagnosis Date ??? BPPV (benign paroxysmal positional vertigo) ??? Diabetes mellitus type 2 ??? Gout ??? Hyperlipidemia (HRC) ??? Hypertension (HRC) ??? Osteoarthritis Patient Active Problem List Diagnosis Date Noted ??? Closed fracture of right tibial plateau 02/25/2018 Overview Note: Added automatically from request for surgery [id number] ??? Closed bicondylar fracture of right tibial plateau 02/23/2018 Overview Note: Added automatically from request for surgery [id number] Social History Social History Substance Use Topics ??? Smoking status: Never Smoker ??? Smokeless tobacco: Never Used ??? Alcohol use No Social History Social History Narrative Served in the . Has 2 children. Lives in [place] with his significant other. 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 Family History Problem Relation Age of Onset ??? Alzheimer's Mother ??? Brain Aneurysm Father ??? Heart Defect Sister 0 Congential ??? Alcohol Abuse Sister No Known Allergies Current outpatient medications: Prior to Admission Medications Prescriptions Last Dose Informant Patient Reported? Taking? PARoxetine (PAXIL) 10 MG tablet 03/04/2018 at Unknown time No Yes Sig: Take 1 Tab by mouth daily. Indications: Generalized Anxiety Disorder acetaminophen (TYLENOL) 500 MG tablet 03/05/2018 at Unknown time No Yes Sig: Take 2 Tabs by mouth every 8 hours. alfuzosin (UROXATRAL) 10 MG 24 hour release tablet 03/04/2018 at Unknown time No Yes Sig: Take 1 Tab by mouth daily at bedtime. Indications: postop urinary retention aspirin 325 MG tablet On Hold at Unknown time No No Sig: Take 1 Tab by mouth daily. eszopiclone (LUNESTA) 3 MG tablet 03/04/2018 at Unknown time No Yes Sig: Take 1 Tab by mouth daily at bedtime. Indications: Trouble Sleeping gabapentin (NEURONTIN) 300 MG capsule 03/04/2018 at Unknown time No Yes Sig: Take 1 Cap by mouth three times a day. Indications: Diabetes with Nerve Disease glipiZIDE (GLUCOTROL) 5 MG tablet 03/05/2018 at Unknown time No Yes Sig: Take 1 Tab by mouth two times a day before meals. Indications: Type 2 Diabetes hydrOXYzine HCl (ATARAX) 50 MG tablet Intermittent/PRN at Unknown time No Yes Sig: Take 0.5 Tabs by mouth every 8 hours as needed. lisinopril (ZESTRIL) 10 MG tablet 03/05/2018 at Unknown time No Yes Sig: Take 1 Tab by mouth daily. Indications: High Blood Pressure Disorder metFORMIN (GLUCOPHAGE) 500 MG tablet On Hold at Unknown time No No Sig: Take 2 Tabs by mouth two times a day with meals. Indications: Type 2 Diabetes oxyCODONE (ROXICODONE) 5 MG immediate release tablet 03/05/2018 at Unknown time No Yes Sig: Take 1-2 Tabs by mouth every 4 hours as needed for Pain (For pain 6-8, take one tab. For pain 9-10 tab, take two tabs.). sennosides-docusate sodium (SENNA-S,SENNA PLUS) 8.6-50 MG per tablet Intermittent/PRN at Unknown time No Yes Sig: Take 1 Tab by mouth two times a day. Do not take if having loose stools Facility-Administered Medications: None Review of Systems A complete review of systems is negative except as noted in HPI Physical Examination: Most Recent Vital Signs: Min and Max Vital Signs (24 hours): Temp: 98.1 ??F (36.7 ??C) BP: 138/84 Pulse: 92 Resp: 14 SpO2: 93 % Temp Min: 97.2 ??F (36.2 ??C) Max: 98.8 ??F (37.1 ??C) BP Min: 117/79 Max: 148/74 Pulse Min: 78 Max: 102 Resp Min: 12 Max: 20 SpO2 Min: 93 % Max: 99 % Wt Readings from Last 1 Encounters: 03/05/18 127 kg (280 lb) GEN: Pleasant, states he is uncomfortable, appears sleepy and with only minimal distress Eyes: pupils 4mm (not constricted), EOMI, anicteric ENT: external ears without abnormality, nares without discharge, oropharynx without erythema or exudate, moist mucous membranes Neck: Supple CV: RRR, no m/r/g. Pulm: CTAB, no wheezes, rhonchi Abd: normal bowel sounds, Soft, NT, ND, no masses, no HSM Ext: Warm and well perfused. Right leg with jovon bandage to thigh, minimal peripheral edema Lymphatics: no cervical lymphadenopathy Skin: no obvious lesions or rashes Neuro: A&Ox3. Symmetrical face. Moving all extremities normally. Psych: normal affect Labs: Reviewed A single elevated glucose Report Completed by: Bria Moncada MD 03/05/2018, 3:01 PM Pager: [phone] documented in this encounter Plan of Treatment Scheduled Referrals Name Type Priority Associated Diagnoses Order S chedule Admit to Skilled Care Referral Routine Ordere d: 03/06/2018 Orthopedic Geriatric Referral Routine Closed fracture of O rdered: 03/07/2018 Follow-up right tibial plateau, initial encounter Occupational Therapy Referral Routine Closed fracture of O rdered: 03/07/2018 right tibial plateau, initial encounter Physical Therapy Referral Routine Closed fracture of Order ed: 03/07/2018 right tibial plateau, initial encounter documented as of this encounter Procedures Procedure Name Priority Date/Time Associated Diagnosis Comme nts GLUCOSE, WHOLE Routine 03/07/2018 8:15 AM Results for this BLOOD POCT CDT procedure are i n the results section. BASIC METABOLIC Routine 03/07/2018 6:21 AM Result s for this PANEL CDT procedure are i n the results section. GLUCOSE, WHOLE Routine 03/06/2018 10:35 PM Result s for this BLOOD POCT CDT procedure are i n the results section. GLUCOSE, WHOLE Routine 03/06/2018 5:17 PM Results for this BLOOD POCT CDT procedure are i n the results section. XR KNEE RT 2 VIEWS Routine 03/06/2018 8:48 AM Res ults for this CDT procedure are i n the results section. GLUCOSE, WHOLE Routine 03/06/2018 8:29 AM Results for this BLOOD POCT CDT procedure are i n the results section. BASIC METABOLIC Routine 03/06/2018 6:48 AM Result s for this PANEL CDT procedure are i n the results section. HEMOGLOBIN, BLOOD Routine 03/06/2018 6:48 AM Resu lts for this CDT procedure are i n the results section. MAGNESIUM Routine 03/06/2018 6:48 AM Results f or this CDT procedure are i n the results section. EKG IP 03/06/2018 12:00 AM Results for this CDT procedure are i n the results section. GLUCOSE, WHOLE Routine 03/05/2018 10:17 PM Result s for this BLOOD POCT CDT procedure are i n the results section. GLUCOSE, WHOLE Routine 03/05/2018 4:13 PM Results for this BLOOD POCT CDT procedure are i n the results section. GLUCOSE, WHOLE Routine 03/05/2018 12:11 PM Result s for this BLOOD POCT CDT procedure are i n the results section. XR C-ARM 3.5-4 Routine 03/05/2018 11:35 AM Result s for this HOURS CDT procedure are i n the results section. GLUCOSE, WHOLE Routine 03/05/2018 8:57 AM Results for this BLOOD POCT CDT procedure are i n the results section. GLUCOSE, WHOLE Routine 03/05/2018 7:22 AM Results for this BLOOD POCT CDT procedure are i n the results section. REMOVAL EXTERNAL AM Admit 03/05/2018 7:20 AM Closed fracture of FIXATOR LOWER CDT right tibial EXTREMITY plateau, initial encounter OPEN REDUCTION AM Admit 03/05/2018 7:20 AM Closed fracture of INTERNAL FIXATION CDT right tibial TIBIAL PLATEAU plateau, initial FRACTURE encounter EKG IP 03/05/2018 12:00 AM Results for this CDT procedure are i n the results section. documented in this encounter Results Glucose, Whole Blood POC (03/07/2018 8:15 AM CDT) P athologist Signature Glucose, Whole 121 70 - 180 [facility] Blood mg/dl [facility] Comment: Point of Care Testing RN Notified Specimen Anatomical Collection Method Collection Time Receive d Time (Source) Location / / Volume Laterality 03/07/2018 8:15 AM 8 8:21 CDT AM CDT Esvin Parra MD LAB_1 Performing Organization Address [facility]/ZIP [facility] Phon e Number [address] [address], [facility] (ABNORMAL) Basic Metabolic Panel (03/07/2018 6:21 AM CDT) Analysis Performed At Patho logist Time Signature Sodium 134 (L) 136 - 145 [facility] mmol/L [facility] Potassium 3.9 3.5 - 5.1 [facility] mmol/L [facility] Chloride 97 (L) 98 - 109 [facility] mmol/L [facility] CO2 29 20 - 29 [facility] mmol/L [facility] Anion Gap 8 7 - 16 [facility] (calc.) mmol/L [facility] Glucose 139 70 - 180 [facility] mg/dl [facility] Calcium 8.6 8.4 - 10.4 [facility] mg/dl [facility] BUN 8 7 - 26 [facility] mg/dl [facility] Creatinine 0.71 (L) 0.73 - [facility] 1.18 mg/dl [facility] GFR, Estimated >60 >60 [facility] ml/min/1.7 [facility] 3m2 GFR, Est., If >60 >60 [facility] Black ml/min/1.7 [facility] 3m2 Specimen Anatomical Collection Method Collection Time Receive d Time (Source) Location / / Volume Laterality 03/07/2018 6:21 AM 8 6:46 CDT AM [address]T [address] [facility] - 03/07/2018 7:21 AM CD T Performed at [facility] , [address] [place] [address] Bria Moncada MD LAB_1 Performing Organization Address City/[facility] Phon e Number [address] [address] [place] [address], [facility] Glucose, Whole Blood POC (03/06/2018 10:35 PM CDT) P athologist Signature Glucose, Whole 136 70 - 180 [facility] mg/dl [facility] Comment: Point of Care Testing RN Notified Specimen Anatomical Collection Method Collection Time Receive d Time (Source) Location / / Volume Laterality 03/06/2018 10:35 03/06/2018 PM CDT 10:44 PM CDT Esvin Parra MD LAB_1 Performing Organization Address City/[facility]/ZIP Code Phon e Number [address] [address] [place] [address], [facility] [phone] Glucose, Whole Blood POC (03/06/2018 5:17 PM CDT) P athologist Signature Glucose, Whole 138 70 - 180 [facility] Blood mg/dl [facility] Comment: Point of Care Testing RN Notified Specimen Anatomical Collection Method Collection Time Receive d Time (Source) Location / / Volume Laterality 03/06/2018 5:17 PM 8 5:44 CDT PM CDT Esvin Parra MD LAB_1 Performing Organization Address City/[facility] Code Phon e Number [address] [address], [facility] XR Knee Rt 2 Views (03/06/2018 8:48 AM CDT) Anatomical Region Laterality Modality Lower Extremity, Knee Computed Radiograp hy Specimen (Source) Anatomical Collection Method Collection Time Re ceived Time Location / / Volume Laterality 03/06/2018 8:48 AM CDT Narrative 03/06/2018 8:[address] [facility] XR KNEE RT 2 VIEWS 03/06/2018 8:48 AM INDICATION: Proximal right knee fracture . Open reduction internal fixation. COMPARISON: The intraoperative series fr om yesterday. FINDINGS: Again seen are extensive posto perative changes of plate and screw fixation involving the comminuted fracture of the proximal right tibial. All orthopedic components appear well-seated and ther e is near-anatomic alignment. Stable adj acent oblique fracture involving the right fibular head with near-anatomic alignment. Stable small right knee joint effusion with a small amount of gas. Procedure Note Franck Andre MD - 03/06/2018Formattin g of this note might be different from the original. [facility] XR KNEE RT 2 VIEWS 03/06/2018 8:48 AM INDICATION: Proximal right knee fracture . Open reduction internal fixation. COMPARISON: The intraoperative series fr om yesterday. FINDINGS: Again seen are extensive posto perative changes of plate and screw fixation involving the comminuted fracture of the proximal right tibial. All orthopedic components appear well-seated and there is near-anatomic alignment. Stable adjacent oblique fracture involving the right fibular head with near-anatomic alignment. Stable small right knee joint effusion with a small amount of gas. Rashawn Weldon PA-C [facility] (ABNORMAL) Glucose, Whole Blood POC (03/06/2018 8:29 AM CDT) athologist Signature Glucose, Whole 195 (H) 70 - 180 [facility] mg/dl [facility] Comment: Point of Care Testing RN Notified Specimen Anatomical Collection Method Collection Time Receive d Time (Source) Location / / Volume Laterality 03/06/2018 8:29 AM 8 8:35 CDT AM CDT Esvin Parra MD LAB_1 Performing Organization Address City/[facility]/ZIP [facility] [place] [address] [place] [address], [facility] Magnesium (03/06/2018 6:48 AM CDT) athologist Signature Magnesium 1.7 1.6 - 2.6 [facility] mg/dl [facility] Specimen Anatomical Collection Method Collection Time Receive d Time (Source) Location / / Volume Laterality 03/06/2018 6:48 AM 8 6:49 CDT AM CDT Count includes the [facility] - 03/06/2018 7:25 AM CD T Performed at [facility] , [address] [place] [address] Rashawn Weldon PA-C LAB_1 Performing Organization Address City/[facility] Phon e Number [address] [address] [place] [address], [facility] (ABNORMAL) Basic Metabolic Panel (03/06/2018 6:48 AM CDT) Analysis Performed At [facility] logist Time Signature Sodium 132 (L) 136 - 145 [facility] mmol/L [facility] Potassium 3.8 3.5 - 5.1 [facility] mmol/L [facility] Chloride 96 (L) 98 - 109 [facility] mmol/L [facility] CO2 28 20 - 29 [facility] mmol/L [facility] Anion Gap 8 7 - 16 [facility] (calc.) mmol/L [facility] Glucose 195 (H) 70 - 180 [facility] mg/dl [facility] Calcium 8.7 8.4 - 10.4 [facility] mg/dl [facility] BUN 6 (L) 7 - 26 [facility] mg/dl [facility] Creatinine 0.66 (L) 0.73 - [facility] 1.18 mg/dl [facility] GFR, Estimated >60 >60 [facility] ml/min/1.7 [facility] 3m2 GFR, Est., If >60 >60 [facility] Black ml/min/1.7 [facility] 3m2 Specimen Anatomical Collection Method Collection Time Receive d Time (Source) Location / / Volume Laterality 03/06/2018 6:48 AM 8 6:[address] [facility] - 03/06/2018 7:25 AM CD T Performed at [facility] , [address] [place] [address] Rashawn Weldon PA-C LAB_1 Performing Organization Address [facility] [place] [address] [place] [address], [facility] (ABNORMAL) Hemoglobin (Hgb) POD # ____ (03/06/2018 6:48 AM CDT) P athologist Signature Hemoglobin 12.2 (L) 13.5 - 17.5 [facility] g/dl [facility] Specimen Anatomical Collection Method Collection Time Receive d Time (Source) Location / / Volume Laterality 03/06/2018 6:48 AM 8 6:[address] [facility] - 03/06/2018 7:06 AM CD T Performed at [facility] , [address] [place] [address] Rashawn Weldon PA-C LAB_1 Performing Organization Address City/[facility] Phon e Number [address] [address] [place] [address], [facility] EKG IP (03/06/2018 12:00 AM CDT) Specimen (Source) Anatomical Location Collection Method / Collectio n Time Received Time / Laterality Volume 03/06/2018 Narrative This result has an attachment that is no t available. Provider [facility] EKG Glucose, Whole Blood POC (03/05/2018 10:17 PM CDT) athologist Signature Glucose, Whole 169 70 - 180 [facility] Blood mg/dl [facility] Comment: Point of Care Testing RN Notified Specimen Anatomical Collection Method Collection Time Receive d Time (Source) Location / / Volume Laterality 03/05/2018 10:17 03/05/2018 PM CDT 10:30 PM CDT Esvin Parra MD LAB_1 Performing Organization Address [facility] Phon e Number [address] [address], [facility] Glucose, Whole Blood POC (03/05/2018 4:13 PM CDT) athologist Signature Glucose, Whole 157 70 - 180 [facility] Blood mg/dl [facility] Comment: Point of Care Testing RN Notified Specimen Anatomical Collection Method Collection Time Receive d Time (Source) Location / / Volume Laterality 03/05/2018 4:13 PM 8 4:21 CDT PM CDT Esvin Parra MD LAB_1 Performing Organization Address [facility] Phon e Number [address] [address], [facility] (ABNORMAL) Glucose, Whole Blood POC (03/05/2018 12:11 PM CDT) athologist Signature Glucose, Whole 206 (H) 70 - 180 [facility] mg/dl [facility] Comment: Point of Care Testing RN Notified Specimen Anatomical Collection Method Collection Time Receive d Time (Source) Location / / Volume Laterality 03/05/2018 12:11 03/05/2018 PM CDT 12:25 PM CDT Esvin Parra MD LAB_1 Performing Organization Address City/State/ZIP Code Phon e Number [address] [address], [facility] [phone] XR C-Arm 3.5-4 Hours (03/05/2018 11:35 AM CDT) Anatomical Region Laterality Modality Other Specimen (Source) Anatomical Location Collection Method / Collectio n Time Received Time / Laterality Volume Narrative 03/05/2018 11:35 AM CDT Fluoroscopy provided by a lead cytogenetic technologist. Exact fluoroscopy time is documented in end of exam information in EPIC Esvin Parra MD RAD [facility] Glucose, Whole Blood POC (03/05/2018 8:57 AM CDT) athologist Signature Glucose, Whole 149 70 - 180 [facility] Blood mg/dl [facility] Comment: Point of Care Testing No Action Required Specimen Anatomical Collection Method Collection Time Receive d Time (Source) Location / / Volume Laterality 03/05/2018 8:57 AM 8 9:21 CDT AM CDT Esvin Parra MD LAB_1 Performing Organization Address City/State/ZIP Code Phon e Number [address] [address], [facility] Glucose, Whole Blood POC (03/05/2018 7:22 AM CDT) athologist Signature Glucose, Whole 164 70 - 180 [facility] Blood mg/dl [facility] Comment: Point of Care Testing RN Notified Specimen Anatomical Collection Method Collection Time Receive d Time (Source) Location / / Volume Laterality 03/05/2018 7:22 AM 8 8:05 CDT AM CDT Esvin Parra MD LAB_1 Performing Organization Address City/[facility]/ZIP [facility] Phon e Number [address] [address], [facility] EKG IP (03/05/2018 12:00 AM CDT) Specimen (Source) Anatomical Location Collection Method / Collectio n Time Received Time / Laterality Volume 03/05/2018 Narrative This result has an attachment that is no t available. Provider [facility] EKG documented in this encounter Visit Diagnoses Diagnosis Closed fracture of right tibial plateau - Primary Closed bicondylar fracture of right tibi al plateau Essential hypertension (HRC) Unspecified essential hypertension Closed fracture of right tibial plateau, initial encounter Hyponatremia Hyposmolality and/or hyponatremia Type 2 diabetes mellitus without complic ation, without long-term current use of insulin (HRC) Sleep apnea, unspecified type Plan of Care - Marlen Black - 03/07/2018 10:[address] [facility] Discharge Note - Nursing Admission Date/Time: 03/05/2018 5:28 AM Attending MD: Esvin Parra MD Patient discharged: a Transitional Care Unit (TCU Name: Sudhakar Rahman). Discharge Date: 03/07/2018 Discharge Time: 1220 Patient accompanied by: spouse and [employer]. Transported by: Wheelchair Valuables were taken home by patient: Yes Discharge instructions given and explained to patient: No, sent to TCU Discharge Patient Education Plan completed, taught, and provided to patient/caregiver at discharge: No, sent to TCU ?? Discussed medication risks with patient ?? Patient understands medications usage and side effects ?? Patient understands diagnosis ?? Action Plan for management of symptoms/side effects/complications requiring medical attention established and shared with patient/caregiver Was patient discharged on Warfarin? {(Do not delete line; Warfarin documentation is required) No Patients general condition on discharge: Stable. All medical devices (telemetry/IV/etc) unless otherwise ordered, have been removed and stored: Yes Report Completed by: Marlen Black RN --- End of Report --- Plan of Care - Marlen Black - 03/07/2018 10:[address] [facility] Plan of Care Note Assessment: comfort/pain control Plan: assess and intervene as needed Subjective: my pain is at 6/10 Objective: VSS, A/Ox4, medicated per MAR, denies SOB/dypsnea, CMS intact, pt able to make needs known and appears comfortable in room between cares. Pt uses call light appropriately and remained safe throughout the shift. Voiding adequately and states that he is passing flatus, O2 removed this AM and SpO2 was adequate on RA. I completed a full assessment and assessments as ordered and per policy on this patient during my work shift. Reassessments completed during my work shift are unchanged unless documented. --- End of Report --- Plan of Care - Tomasz Amaral RN - 03/07/2018 10:[address] [facility] Care Management Discharge Note Discharge Information: Anticipated Discharge Date: 03/07/18 Anticipated Discharge Time: 1200 Discharge transportation is ready to be arranged by [facility]?: yes Discharge transport needs:: Wheelchair - Standard Date Transport Needed: 03/07/18 Time Transport Needed: 1200 PAS form needed?: no (PAS done from previous TCU admit. ) Referral made to [facility] CDCM/MSHO?: no Reason for no referral: Not followed by a [facility] physician/clinic [facility] Reason for no referral: Not followed by a [facility] physician/clinic Referral made to community directory compiler program?: no Patient to be Discharged to: TCU [facility] [address] [facility] [facility] [address] Patient/family is aware of discharge plan?: yes Baseline Transportation: agency transportation Anticipated Mode of Transportation: wheelchair Discharged Accompanied By: self only Patient/family is aware of potential transportation [id number] cost: yes Anticipated Discharge Disposition: 03: discharged or transferred to a Medicare- certified half-way facility Additional Comments: Discussed with the interdisciplinary team and Олег has been cleared to discharge back to [facility]. I spoke with admissions at [facility] and is aware of dc time and orders sent, [facility] to fax the script. I met with Олег and his SO and agrees with the dc plans/time. Tomasz Amaral RN Plan of Care - Chapo Gallegos RN - 03/07/2018 6:[address] [facility] Plan of Care Note Assessment: pain, safety Plan: continue monitor and intervene as indicated Subjective: pain rated 7/10 Objective: A&O. Medicated per MAR. Oxycodone and atarax for pain during the night. CMS intact, voided using urinal. 2L O2 with NC during the night. Able to express his needs known. Call light within reached. I completed a full assessment and assessments as ordered and per policy on this patient during my work shift. Reassessments completed during my work shift are unchanged unless documented. --- End of Report --- Plan of Care - Savanah Stauffer RN - 03/06/2018 11:[address] [facility] Plan of Care Note Assessment: pain, safety Plan: continue to monitor and intervene as needed Subjective: c/o 6-7/10 pain in RLE Objective: Medicated for pain per DEC. Cold application to RLE. Patient got back into bed with fiance's assistance. Educated patient on importance of using staff assistance to get back into bed for hissafety. Patient verbalized understanding. I completed a full assessment and assessments as ordered and per policy on this patient during my work shift. Reassessments completed during my work shift are unchanged unless documented. --- End of Report --- Plan of Care - Marlen Black - 03/06/2018 2:[address] [facility] Plan of Care Note Assessment: comfort/pain control Plan: assess and intervene Subjective: my pain is 7/10 Objective: VSS, A/Ox4, medicated per MAR, denies SOB/dyspnea, CMS intact, pt able to make needs known, voiding well, passing flatus, pt uses call light appropriately, up to chair x1. Pt remained safe throughout the shift and used call light appropriately. I completed a full assessment and assessments as ordered and per policy on this patient during my work shift. Reassessments completed during my work shift are unchanged unless documented. --- End of Report --- Initial Assessments - Tomasz Amaral RN - 03/06/2018 10:[address] [facility] Care Management Initial Assessment Plan: Care Team Actions Needed: medical clearance, discharge orders Anticipated Discharge Date: 03/07/18 Anticipated Discharge Plan: [facility]. Admission Info: Reason For Consult: discharge planning Chart Reviewed: discussed with interdisciplinary team, discussed with patient, discussed with family Does Patient have a Legal/Court Appointed Guardian?: No Guardianship issues affecting care planning?: No Cognitive capacity prior to admission: oriented Independent with ADLs (Prior to Admission)? No Has been at [facility] prior to admit. Change in Functional Status Since Onset of Current Illness/Injury: no Living Environment: Lives With: facility resident (Currently at [facility]) Living Arrangements: extended care facility (Currently at [facility]) Home Accessibility: no concerns Medication management by: facility Baseline Transportation: family or friend will provide Living Environment Comment: Lives in own home w/girlfriend, Simi, his son, and her daughter. Has a walk in shower, no longer has his RTS with arms as he borrowed to someone else Coping/Stress: Patient Personal Strengths: able to adapt, motivated, positive attitude, resilient, expressive of needs, strong support system Sources Of Support: significant other, other family members Reaction To Health Status: adjusting Understanding Of Condition And Treatment: adequate understanding of treatment Emotional/Psychological: Affect: no deficits noted Mood: congruent to situation Verbal Skills: no deficits noted Current Interpersonal Conduct/Behavior: appropriate to situation Current Patient Assessment: appropriate, cooperative, pleasant Barriers: None. Current Services: half-way facility (specify) [facility] Primary Care: Primary Care Clinic: [facility] Primary Care Physician: Ceci Christianson MD Additional Comments: I met with Олег and his SO Simi to discuss his discharge plans. Олег was transferred to [facility] on 02/27, he was then transferred from [place] to [facility] a few days later due to issues at [facility]. Chong plan on returning to [facility] when medically cleared. Simi states that she has pre-paid for ride with [employer] for a return ride to [facility]. Patient and family would like a 12 noon or later ride back to [facility]. Discussed with the interdisciplinary team and support the return to TCU and will anticipated discharge dateof 03/07. [facility] had a bed for Олег to return, clinical info faxed. I spoke with Natalie at [employer] [phone] and a 12 noon ride arranged for tomorrow 03/07. CM will finalize plans back to [facility] tomorrow. Tomasz Amaral RN Plan of Care - Lala Spencer RN - 03/06/2018 6:[address] [facility] Plan of Care Note Assessment: pain Plan: tx and monitor Subjective: 07/08 Objective: pt. A&OX4, slept very little overnight, C/O 8-07/08 pain in RLE, gave PRN's as able, ice, repositioning, pt. Slept little awake until 0300, 2L O2 overnight, bumped up to 3 after pt. Dropped to high 80's @ 0330, encouraged IS. VSS. I completed a full assessment and assessments as ordered and per policy on this patient during my work shift. Reassessments completed during my work shift areunchanged unless documented. --- End of Report --- Plan of Care - Kenia Cronin RN - 03/05/2018 10:[address] [facility] Plan of Care Note Assessment: Post op status. Plan: Monitor and intervene as needed. Subjective: Complains of constant pain to RLE. Objective: Dilaudid given x 1, Oxycodone and Atarax given x 2, ice packs applied, pillows in place for support. Patient reports minimal but tolerable pain relief from interventions. Patient allowing minimal repositioning to RLE due to pain. Alert and oriented. Using call light appropriately. Voiding ad equately. Patient O2 >90 on room air while awake. Patient desaturating to 88% on room air while awake. Continue with O2 while sleeping. Low grade temp 100.3, encouraged IS. Resting and appears comfortable at this time with at bedside. Continue with plan of care. I completed a full assessment and assessments as ordered and per policy on this patient during my work shift. Reassessments completed during my work shift are unchanged unless documented. --- End of Report --- Plan of Care - Terrie Patel RN - 03/05/2018 3:[address] [facility] Nursing Post-Op Note Admission Date/Time: 03/05/2018 5:28 AM Returned to: on 03/05/18 at 2:10 PM from O.R. Transported by: Litter/cart Medical devices present on return from O.R.: IV General condition on return from O.R.: Stable. CMS Intact. Leg wrapped with Jovon from groin to toes. Mouth Breather on 3L per NC. Tolerating water. Able to make needs known. Family at bedside. Report Completed by: Terrie Patel RN --- End of Report --- documented in this encounter Administered Medications Inactive Administered Medications - up to 3 most recent administrations Medication Order MAR Action Action Date Dose Rate Site acetaminophen (OFIRMEV) 1,000 mg Started 03/05/2018 1:09 PM CDT 1, 000 mg infusion 100 mL 1,000 mg, Intravenous, Administer over 15 Minutes, ONCE, On Sun03/05/18 at 1315, For 1 dose, Do not give within 4 hours of other acetaminophen containing products., Max apap 4 grams per 24 hours in all forms acetaminophen (TYLENOL) tablet 1,000 mg Given 03/07/2018 8:09 AM CDT 1,000 mg 1,000 mg, Oral, TID, First dose on Sun03/05/18 at 2000, Until Discontinued Given 03/06/2018 7:26 PM CDT 1,000 mg Given 03/06/2018 2:31 PM CDT 1,000 mg alfuzosin (UROXATRAL) extended release tablet Given 9:18 PM CDT 10 mg 10 mg 10 mg, Oral, HS, First dose on Sun03/05/18 at 2100, Until Discontinued, Tablet should be swallowed whole., Indications: postop urinary retention Given 03/05/2018 8:02 PM CDT 10 mg aspirin tablet 325 mg Given 03/07/2018 8:09 AM CDT 325 mg 325 mg, Oral, DAILY, First dose on Sun03/06/18 at 0800, Until Discontinued Given 03/06/2018 8:14 AM CDT 325 mg bisacodyl (DULCOLAX) rectal suppository 10 mg 10 mg, Rectal, DAILY PRN, Constipation, No stool in the last 3 days, Starting on Sun03/05/18 at 1457, Until Sun03/07/18 at 1421, Cumulative bowel medication orders. If no stool in last day start Senna-S BI D PRN no stool, if no stool in last 2 days add Miralax DAILY PRN no stool, if no stool in last 3 days add bisacodyl suppository DAILY PRN until patient stools. When patie nt stools stop giving PRN meds and continue monitoring for bowel activity. When no stools X 1 day, begin regimen again until patient stools., Post-op ceFAZolin (ANCEF) 2 g in sodium chloride 0.9 % Started 0 03/06/2018 3:09 AM CDT 2 g 50 mL IVPB 2 g, Intravenous, Administer over 30 Minutes, Q8H (NON-STND), First dose on Sun03/05/18 at 1930, For 2 doses, Give x 24 hours, if first dose given pre-op, continue X 2 more doses for total 24h therapy, May be given via IV push over 5 minutes with 20ml of sterile water or Y-site two 1g vials together, each with either 50ml or 100ml of normal saline (use whatever is available) Started 03/05/2018 7:54 PM CDT 2 g fentaNYL (SUBLIMAZE) injection 25-50 mcg Given 03/05/2018 1:12 PM CDT 50 mcg 25-50 mcg, Intravenous, [id number], Pain, Starting on Sun03/05/18 at 1139, Until Sun03/05/18 at 1405, 25 mcg IV q5min prn based on the patient's pain scale rating for mild to moderate pain (1 to 5). 50 mcg IV q5min prn based on the patient's pain scale rating for moderate to severe pain (6 to 10). Total PACU fentanyl dose not to exceed 200 mcg. Use fentanyl initially for a short acting agent for treatment of acute post operative pain. May use in conjuction with a longer acting agent for optimal pain control. Respiratory rate must be greater than 10 to administer medications., PACU (only) Given 03/05/2018 12:55 PM CDT 50 mcg Given 03/05/2018 12:45 PM CDT 25 mcg gabapentin (NEURONTIN) capsule 300 mg Given 03/07/2018 8:09 AM CDT 300 mg 300 mg, Oral, TID, First dose on Sun03/05/18 at 2000, Until Discontinued, Indications: Diabetic Neuropathy Given 03/06/2018 7:26 PM CDT 300 mg Given 03/06/2018 2:31 PM CDT 300 mg glipiZIDE (GLUCOTROL) tablet 5 mg Given 03/07/2018 11:16 AM CDT 5 mg 5 mg, Oral, BID WITH MEALS, First dose (after last modification) on Sun03/06/18 at 1030, Until Discontinued Given 03/06/2018 6:37 PM CDT 5 mg Given 03/06/2018 10:30 AM CDT 5 mg HYDROmorphone (DILAUDID) 1 MG/ML injecti on - ADS Override Pull Starting on Sun03/05/18 at 1545, Until Sun03/05/18 at 15 47, For 1 dose, Roseanne, Ka : cabinet override HYDROmorphone (DILAUDID) injection 0.2-0 .4 mg Given 03/06/2018 3:19 AM CDT 0.4 mg 0.2-0.4 mg, Intravenous, Q2H PRN, Pain, Use if unable to take PO, Starting on Sun03/05/18 at 1457, Until Cathy 03/07/18 at 1421, For 48 hours, Give IV opioid for breakthrough pain, if unable to give PO or per patient preference. Given 03/05/2018 11:38 PM CDT 0.4 mg Given 03/05/2018 3:47 PM CDT 0.4 mg HYDROmorphone injectable 0.2-0.3 mg Given 03/05/2018 12:55 PM CDT 0.3 mg 0.2-0.3 mg, Intravenous, Q10MIN PRN, Pain, Starting on Sun03/05/18 at 1139, Until Sun03/05/18 at 1405, PACU USE ONLY 0.2 mg IV q10min prn based on the patients pain scale rating for mild to moderate pain (1-5) 0.3 mg IV q10min prn based on the patients pain scale rating for moderate to severe pain (6 to 10) Total PACU hydromorphone dose not to exceed 2 mg per hour, PACU (only) Given 03/05/2018 12:45 PM CDT 0.2 mg Given 03/05/2018 12:35 PM CDT 0.2 mg hydrOXYzine HCl (ATARAX) tablet 25 mg Given 03/05/2018 1:30 PM CDT 25 mg 25 mg, Oral, NOW, On Sun03/05/18 at 1345, For 1 dose hydrOXYzine HCl (ATARAX) tablet 25-50 mg Given 03/07/2018 12:06 PM CDT 50 mg 25-50 mg, Oral, Q4H PRN, Pain, Itching, Starting on Sun03/05/18 at 1457, Until Cahty 03/07/18 at 1421, May be used as adjunct for pain. Given 03/07/2018 8:12 AM CDT 50 mg Given 03/07/2018 3:20 AM CDT 50 mg insulin lispro (HumALOG) injection Given 03/06/2018 9:28 AM CDT 2 Units Right Arm vial 1-8 Units 1-8 Units, Subcutaneous, PRN BASED ON BLOOD SUGAR, Blood Sugar >, Starting on Sun03/05/18 at 1457, Blood Glucose <150 mg/dL give 0 units
Blood Glucose 151-200 mg/dL give 2 units
Blood Glucose 201-250 mg/dL give 4 units
Blood Glucose 251-300 mg/dL give 6 units
Blood Glucose >300 mg/dL give 8 units, Post-op Given 03/05/2018 10:21 PM CDT 2 Units Left Arm Given 03/05/2018 4:46 PM CDT 2 Units Right Arm insulin lispro (HumALOG) injection Given 03/05/2018 1:14 PM CDT 3 Units Left Arm vial 2-4 Units 2-4 Units, Subcutaneous, PRN BASED ON BLOOD SUGAR, Blood Sugar >, Blood Sugars, Starting on Sun03/05/18 at 1139, PACU PATIENTS ONLY Blood Sugar 151-199 mg/dl give 2 units, Blood Sugar 200-250 mg/dl give 3 units, Blood Sugar > 250 mg/dl give 4 units and call anesthesia, PACU (only) lactated ringers infusion Started 03/05/2018 11:48 AM CDT 30 mL/hr, Intravenous, SDS Continuous, Starting on Sun03/05/18 at 0600, Pre-op Started 03/05/2018 7:23 AM CDT 30 mL/hr 30 mL/hr lactated ringers infusion Started 03/06/2018 2:34 AM CDT 1,000 mL 100 mL/hr 1,000 mL, Intravenous, at 100 mL/hr, CONTINUOUS, Starting on Sun03/05/18 at 1515 Started 03/05/2018 3:48 PM CDT 1,000 mL 100 mL/hr lisinopril (zeSTRIL) tablet 10 mg Given 03/07/2018 8:09 AM CDT 10 mg 10 mg, Oral, DAILY, First dose on Sun03/06/18 at 0800, Until Discontinued, Hold for systolic blood pressure <110, Indications: Hypertension Given 03/06/2018 8:14 AM CDT 10 mg melatonin tablet 3 mg Given 03/06/2018 10:55 PM CDT 3 mg 3 mg, Oral, HS PRN, Sedation, Starting on Sun03/05/18 at 1506, Until Cathy 03/07/18 at 1421, Indications: Insomnia metFORMIN (GLUCOPHAGE) tablet TABS 1,000 Given 03/07/2018 11 :16 AM CDT 1,000 mg mg 1,000 mg, Oral, BID WITH MEALS, First dose (after last modification) on Sun03/06/18 at 1030, Until Discontinued Given 03/06/2018 6:37 PM CDT 1,000 mg Given 03/06/2018 10:30 AM CDT 1,000 mg ondansetron (ZOFRAN) injection 4 mg Given 03/06/2018 3:19 AM CDT 4 mg 4 mg, Intravenous, Q6H PRN, Nausea, Vomiting, Starting on Sun03/05/18 at 1457, Until Cathy 03/07/18 at 1421, Give 1st line medications, then 2nd line, then 3rd line. Progress to next line if medication is ineffective after 15 minutes, or has been previously ineffective, or if a medication for a line is not ordered. ??May use medication from any line if patient preference indicates. ??If third line agent is ineffective, call MD. If unable to give IV medications contact MD. Aromatherapy may be used at any time as adjunct therapy. 1st Line - ondansetron 2nd Line -prochlorperazine 3rd Line - metoclopramide oxyCODONE (ROXICODONE) immediate release Given 03/05/2018 12:40 PM CDT 10 mg tablet 5-10 mg 5-10 mg, Oral, ONCE PRN, Pain, Starting on Sun03/05/18 at 1139, Until Sun03/05/18 at 1240, For 1 dose, Once PRN for pain. PACU use only. If pain score is 1-5 in PACU - give 5mg (1 tablet). If pain score is 6-10 in PACU - give 10mg (2 tablets). If multiple oral opioids ordered, administer agents in order as directed by provider., PACU (only) oxyCODONE (ROXICODONE) immediate release Given 03/07/2018 11:53 AM CDT 5 mg tablet 5-10 mg 5-10 mg, Oral, Q4H PRN, Pain, Starting on Sun03/05/18 at 1457, Until Cathy 03/07/18 at 1421, Give PO opioid if able to take PO and pain not well controlled with other medications or interventions. Given 03/07/2018 8:12 AM CDT 10 mg Given 03/07/2018 3:20 AM CDT 10 mg PARoxetine (PAXIL) tablet 10 mg Given 03/07/2018 8:09 AM CDT 10 mg 10 mg, Oral, DAILY, First dose on Sun03/05/18 at 1530, Until Discontinued, Indications: Generalized Anxiety Disorder Given 03/06/2018 8:14 AM CDT 10 mg Given 03/05/2018 4:46 PM CDT 10 mg polyethylene glycol (MIRALAX) oral powde r 17 g 17 g, Oral, DAILY PRN, Constipation, No stool in the last 2 days, Starting on Sun03/05/18 at 1457, Until Sun03/07/18 at 142 1, Cumulative bowel medication orders. If no stool in last day start Senna-S BID P RN no stool, if no stool in last 2 days add Miralax DAILY PRN no stool, if no stool in last 3 days add bisacodyl suppository DAILY PRN until patient stools. When patient stools st op giving PRN meds and continue monitoring for bowel activity. When no stools X 1 day, begin regimen again until patient stools., Post-op sennosides-docusate sodium (SENNA-S,SENNA Given 03/07/2018 8 :09 AM CDT 1 Tablet PLUS) 8.6-50 MG per tablet 1 Tab 1 Tablet, Oral, BID, First dose on Sun03/05/18 at 2000, Until Discontinued, as laxative/stimulant, stool-softening agent, Post-op Given 03/06/2018 7:26 PM CDT 1 Tablet Given 03/06/2018 8:14 AM CDT 1 Tablet sennosides-docusate sodium (SENNA-S,MARIAN A PLUS) 8.6-50 MG per tablet 2 Tab 2 Tablet, Oral, BID PRN, Constipation, N o stool in the last day, Starting on Sun03/05/18 at 1457, Until Sun03/07/18 at 142 1, Cumulative bowel medication orders. If no stool in last day start Senna-S BID P RN no stool, if no stool in last 2 days add Miralax DAILY PRN no stool, if no stool in last 3 days add bisacodyl suppository DAILY PRN until patient stools. When patient stools st op giving PRN meds and continue monitoring for bowel activity. When no stools X 1 day, begin regimen again until patient stools., Post-op traZODone (DESYREL) tablet 50 mg Given 03/06/2018 1:03 AM CDT 50 mg 50 mg, Oral, HS MAY REPEAT X1 PRN, Sleep, if melatonin not helpful or per patient preference, Starting on Sun03/05/18 at 1506, Until Cathy 03/07/18 at 1421, Caution: Look-alike, sound-alike medication., Indications: Insomnia Given 03/05/2018 11:38 PM CDT 50 mg documented in this encounter Active and Recently Administered Medications Times are shown in CDT. Scheduled Medication Order 03/05/2018 03/06/2018 03/07/2018 acetaminophen (OFIRMEV) 1,000 mg infusion 100 mL (COMP LETED) 1309 (Started - Provider: Hermelinda Rodney, JULIO CESAR) 1,000 mg, Intravenous, Administer over 1 5 Minutes, ONCE, Sun03/05/18 at 1315, For 1 dose, Do not give within 4 hours of other acetaminophen containing products., Max apap 4 grams per 24 hours in all forms acetaminophen (TYLENOL) tablet 1,000 mg 1953 (Given - Provid er: Kenia Cronin RN) 813 (Given - Provider: Marlen Black)143 (Given - Provider: Marlen Black)192 (Given - Provider: Savanah Stauffer RN) 08 (Given - Provider: Marlen Black) 1,000 mg, Oral, TID, First dose on Sun03/05/18 at 2000 alfuzosin (UROXATRAL) extended release tablet 10 mg 20 (Given - Provider: Kenia Cronin RN) 2118 (Given - Provider: Savanah Stauffer RN) 10 mg, Oral, HS, First dose on Sun 8 at 2100, Tablet should be swallowed whole., Indications: postop urinary retention aspirin tablet 325 mg 813 (Given - Provider: Aman Black) 08 (Given - Provider: Marlen Black) 325 mg, Oral, DAILY, First dose on Sun03/06/18 at 0800 ceFAZolin (ANCEF) 2 g in sodium chloride 0.9 % 50 mL I VPB (COMPLETED) 1953 (Started - Provider: Kenia Cronin RN)2023 (Infused - Provider: Kenia Cronin RN) 308 (Started - Provider: Lala Spencer RN)338 (Infused - Provider: Lala Spencer RN) 2 g, Intravenous, Administer over 30 Min utes, Q8H (NON-STND), First dose on Sun03/05/18 at 1930, For 2 doses, Give x 24 hours, if first dose given pre-op, continue X 2 more doses for total 24h therapy, M ay be given via IV push over 5 minutes w ith 20ml of sterile water or Y-site two 1g vials together, each with either 50ml or 100ml of normal saline (use whatever is available) ceFAZolin (ANCEF) 3 g in sodium chloride 0.9 % 100 mL IVPB (COMPLETED) 0820 (Started - Provider: Foster Boswell APRN, DANIEL)1130 (Bolus - Provider: Foster Boswell APRN, CRNA) 3 g, Intravenous, Administer over 30 Min utes, ONCE (NON-SCHEDULED), Starting Sun03/05/18 at 0544, For 1 dose, For patient weight greater than 120kg, PRE-OP, Pre-op gabapentin (NEURONTIN) capsule 300 mg 1953 (Given - Provider : Kenia Cronin RN) 0814 (Given - Provider: Marlen Black)1431 (Given - Provider: Marlen Black)1926 (Given - Provider: Savanah Stauffer RN) 0809 (Given - Provider: Marlen lBack) 300 mg, Oral, TID, First dose on 03/05 at 2000, Indications: Diabetic Neuropathy glipiZIDE (GLUCOTROL) tablet 5 mg 1030 ( Given - Provider: Marlen Black)1837 (Given - Provider: Savanah Stauffer RN) 1116 (Given - Provider: Marlen Black) 5 mg, Oral, BID WITH MEALS, First dose on Sun03/06/18 at 1030 hydrOXYzine HCl (ATARAX) tablet 25 mg (COMPLETED) 1330 (Given - Provider: Nubia Acosta RN) 25 mg, Oral, NOW, Sun03/05/18 at 1345, For 1 dose lisinopril (zeSTRIL) tablet 10 mg 0814 (Given - Provider: Marlen Black) 0809 (Given - Provider: Marlen Black) 10 mg, Oral, DAILY, First dose on 07/16 at 0800, Hold for systolic blood pressure <110, Indications: Hypertension metFORMIN (GLUCOPHAGE) tablet TABS 1,000 mg 1030 (Given - Provider: Marlen Black)1837 (Given - Provider: Savanah Stauffer RN) 1116 (Given - Provider: Marlen Black) 1,000 mg, Oral, BID WITH MEALS, First dose on Sun03/06/18 at 1030 PARoxetine (PAXIL) tablet 10 mg 1646 (Given - Provider: Kenia gracia RN) 0814 (Given - Provider: Marlen Black) 0809 (Given - Provider: Marlen Black) 10 mg, Oral, DAILY, First dose on 06/15 at 1530, Indications: Generalized Anxiety Disorder sennosides-docusate sodium (SENNA-S,SENNA PLUS) 8.6-50 MG per tablet 1 Tab 1953 (Not Given - Provider: Kenia Cronin RN - Reason: Patient/family refused - Comment: Patient refused, reports multiple BMs past few days.) 0814 (Given - Provider: Marlen Black)1926 (Given - Provider: Savanah Stauffer RN) 0809 (Given - Provider: Marlen Black) 1 Tab, Oral, BID, First dose on Sun at 2000, as laxative/stimulant, stool-softening agent, Post-op Continuous Medication Order 03/05/2018 03/06/2018 03/07/2018 lactated ringers infusion (CANCELED) 0723 (Started - P rovider: Tashi Stallworth RN)0830 (Anesthesia Fluid - Provider: Foster Boswell APRN, BRUSH FABRICATION SUPERVISOR)1148 (Started - Provider: Kalpana Ramírez APRN, DANIEL) 30 mL/hr, Intravenous, at 30 mL/hr, SDS Continuous, Starting Sun03/05/18 at 0600, Pre-op lactated ringers infusion (CANCELED) 1548 (Started - Provide r: Kenia Cronin RN) 0234 (Started - Provider: Lala Spencer RN)0813 (Stopped - Provider: Marlen Black) 1,000 mL, Intravenous, at 100 mL/hr, CONTINUOUS, Starting 06/15 at 1515 PRN Medication Order 03/05/2018 03/06/2018 03/07/2018 benzocaine-menthol (CEPACOL) lozenge 1 Lozenge 1 Lozenge, Oral, Q2H PRN, Throat Pain, Starting Sun03/05/18 at 14 57 bisacodyl (DULCOLAX) rectal suppository 10 mg(Linked Group 1 ) 1926 (See Alternative - Provider: Savanah Stauffer, RN) 10 mg, Rectal, DAILY PRN, Constipation, No stool in the last 3 days, Starting Sun03/05/18 at 1457, Cumulative bowel medication orders. If no stool in last day start Senna-S BID PRN no stool, if no stool in last 2 days add Miralax DAILY PRN no stool, if no stool in last 3 days add bisacodyl suppository DAILY PRN until patient stools. When patient stools stop giving PRN meds and continue monitoring for b owel activity. When no stools X 1 day, b egin regimen again until patient stools., Post-op calcium carbonate (TUMS) chewable tablet 500-1,000 mg 500-1,000 mg, Oral, QID PRN, Heartburn, Dyspepsia, Starting Sun03/05/18 at 1457, Each tablet provides 200 mg elemental calcium dextrose (D50) injection 12.5-25 g 12.5-25 g, Intravenous, PRN BASED ON BLO OD SUGAR, Blood Sugar <, Starting Sun03/05/18 at 1457, Post-op fentaNYL (SUBLIMAZE) injection 25-50 mcg (CANCELED) 12 25 (Given - Provider: Hermelinda Rodney RN)1235 (Given - Provider: Hermelinda Rodney RN)1245 (Given - Provider: Hermelinda Rodney RN)1255 (Given - Provider: Hermelinda Rodney RN)1312 (Given - Provider: Hermelinda Rodney RN) 25-50 mcg, Intravenous, [id number], Pain, Starting Sun03/05/18 at 1139, 25 mcg IV q5min prn based on the patient's pain scale rating for mild to moderate pain (1 to 5). 50 mcg IV q5min prn based on the pat ient's pain scale rating for moderate to severe pain (6 to 10). Total PACU fentanyl dose not to exceed 200 mcg. Use fentanyl initially for a short acting agent for treatment of acute post operative pain . May use in conjuction with a longer ac ting agent for optimal pain control. Respiratory rate must be greater than 10 to administer medications., PACU (only) glucagon rDNA (diagnostic) (GLUCAGEN) injection 1 mg 1 mg, Intramuscular, ONCE PRN, hypoglyce paulette, Starting e 03/05/18 at 1457, For 1 dose, If patient unable to eat or is unconscious and has no IV access. Give 1 mg glucagon IM (in pyxis) and establish IV a ccess STAT. Recheck fingerstick BG in 15 min; Re-treat and retest q 15 min until fingerstick BG>70 mg/dL for 30 minutes., Post-op glucose-ascorbic hhaf-xtwfuzslcqqqvgq-oh ewable tablet (TRUEPLUS) chewable tablet 4 Tab 4 Tab, Oral, Q15MIN PRN, Hypoglycemia, Starting Sun03/05/18 at 14 57, Post-op HYDROmorphone (DILAUDID) injection 0.2-0.4 mg 1547 (Gi william - Provider: Kenia Cronin RN)2338 (Given - Provider: Lala Spencer, JULIO CESAR) 0319 (Given - Provider: Lala Spencer RN) 0.2-0.4 mg, Intravenous, Q2H PRN, Pain, Use if unable to take PO, Starting e 03/05/18 at 1457, For 48 hours, Give IV opioid for breakthrough pain, if unable to give PO or per patient preference. HYDROmorphone injectable 0.2-0.3 mg (CANCELED) 1225 (G iven - Provider: Hermelinda Rodney RN)1235 (Given - Provider: Hermelinda Rodney RN)1245 (Given - Provider: Hermelinda Rodney RN)1255 (Given - Provider: Hermelinda Rodney RN) 0.2-0.3 mg, Intravenous, Q10MIN PRN, Dara n, Starting Sun03/05/18 at 1139, PACU USE ONLY 0.2 mg IV q10min prn based on the patients pain scale rating for mild to moderate pain (1-5) 0.3 mg IV q10min prn ba sed on the patients pain scale rating fo r moderate to severe pain (6 to 10) Total PACU hydromorphone dose not to exceed 2 mg per hour, PACU (only) hydrOXYzine HCl (ATARAX) tablet 25-50 mg 1819 (Given - Provider: Kenia Cronin RN)2228 (Given - Provider: Kenia Cronin RN) 0320 (Given - Provider: Lala Spencer RN)0814 (Given - Provider: Marlen Black)1211 (Given - Provider: Marlen Black)1837 (Given - Provider: Savanah Stauffer, JULIO CESAR)2251 (Given - Provider: Savanah Stauffer RN) 0320 (Given - Provider: Chapo Gallegos RN)0812 (Given - Provider: Marlen Black)1206 (Given - Provider: Marlen Black) 25-50 mg, Oral, Q4H PRN, Pain, Itching, Starting Sun03/05/18 at 1457, May be used as adjunct for pain. insulin lispro (HumALOG) injection vial 1-8 Units 1646 (Given - Provider: Kenia Cronin RN)2221 (Given - Provider: Kenia Cronin RN) 0928 (Given - Provider: Marlen Black - Comment: BG 195) 1-8 Units, Subcutaneous, PRN BASED ON BL OOD SUGAR, Blood Sugar >, Starting Sun03/05/18 at 1457, Blood Glucose <150 mg/dL give 0 units
Blood Glucose 151-200 mg/dL give 2 units
Blo od Glucose 201-250 mg/dL give 4 units
Blood Glucose 251-300 mg/dL give 6 units
Blood Glucose >300 mg/dL give 8 units, Post-op insulin lispro (HumALOG) injection vial 2-4 Units (CAN CELED) 1314 (Given - Provider: Nubia Acosta RN) 2-4 Units, Subcutaneous, PRN BASED ON BL OOD SUGAR, Blood Sugar >, Blood Sugars, Starting Sun03/05/18 at 1139, PACU PATIENTS ONLY Blood Sugar 151-199 mg/dl give 2 units, Blood Sugar 200-250 mg/dl give 3 units, Blood Sugar > 250 mg/dl give 4 units and call anest hesia, PACU (only) melatonin tablet 3 mg 2255 (Given - Provider: Anne Stauffer RN) 3 mg, Oral, HS PRN, Sedation, Starting T u03/05/18 at 1506, Indications: Insomnia naloxone (NARCAN) injection 0.2 mg 0.2 mg, Intravenous, PRN PER PARAMETERS, Opioid Reversal, Excessive Sedation/Respiratory Rate less than 8 breaths per minute.? Notify MD if given., Starting Sun03/05/18 at 1457, Excessive Sedation/Res piratory Rate less than 8 breaths per minute.? Notify MD if g iven. ondansetron (ZOFRAN) injection 4 mg(Linked Group 2) 0319 (Given - Provider: Lala Spencer RN) 4 mg, Intravenous, Q6H PRN, Nausea, Vomi ting, Starting Sun03/05/18 at 1457, Give 1st line medications, then 2nd line, then 3rd line. Progress to next line if medication is ineffective after 15 minutes, o r has been previously ineffective, or if a medication for a line is not ordered. ??May use medication from any line if patient preference indicates. ??If third line agent is ineffective, call MD. If lindsay ble to give IV medications contact MD. A romatherapy may be used at any time as adjunct therapy. 1st Line - ondansetron 2nd Line -prochlorperazine 3rd Line - metoclopramide oxyCODONE (ROXICODONE) immediate release tablet 5-10 m g (COMPLETED) 1240 (Given - Provider: Hermelinda Rodney RN) 5-10 mg, Oral, ONCE PRN, Pain, Starting Sun03/05/18 at 1139, For 1 dose, Once PRN for pain. PACU use only. If pain score is 1-5 in PACU - give 5mg (1 tablet). If pain score is 6-10 in PACU - give 10mg (2 tablets). If multiple oral opioids orde red, administer agents in order as directed by provider., PACU (only) oxyCODONE (ROXICODONE) immediate release tablet 5-10 m g 1819 (Given - Provider: Kenia Cronin RN)2228 (Given - Provider: Kenia Cronin RN) 0234 (Given - Provider: Lala Spencer, JULIO CESAR)0638 (Given - Provider: Lala Spencer, JULIO CESAR)1030 (Given - Provider: Marlen Black)1431 (Given - Provider: Marlen Black)1837 (Given - Provider: Savanah Stauffer, JULIO CESAR)2252 (Given - Provider: Savanah Stauffer, RN) 0320 (Given - Provider: Chapo Gallegos RN)0812 (Given - Provider: Marlen Black)1153 (Given - Provider: Maria M Giraldo, JULIO CESAR - Comment: given a few minutes early as pt discharging to TCU) 5-10 mg, Oral, Q4H PRN, Pain, Starting T ue 03/05/18 at 1457, Give PO opioid if able to take PO and pain not well controlled with other medications or interventions. polyethylene glycol (MIRALAX) oral powder 17 g(Linked Group 1) 1925 (Not Given - Provider: Savanah Stauffer, JULIO CESAR - Reason: Patient/family refused) 17 g, Oral, DAILY PRN, Constipation, No stool in the last 2 days, Starting Sun03/05/18 at 1457, Cumulative bowel medication orders. If no stool in last day start Senna-S BID PRN no stool, if no stool in last 2 days add Miralax DAILY PRN no sto ol, if no stool in last 3 days add bisacodyl suppository DAILY PRN until patient stools. When patient stools stop giving PRN meds and continue monitoring for trent l activity. When no stools X 1 day, begi n regimen again until patient stools., Post-op sennosides-docusate sodium (SENNA-S,MARIAN A PLUS) 8.6-50 MG per tablet 2 Tab(Linked Group 1) 1925 (See Alternative - Provider: Savanah Stauffer, JULIO CESAR) 2 Tab, Oral, BID PRN, Constipation, No s tool in the last day, Starting Sun03/05/18 at 1457, Cumulative bowel medication orders. If no stool in last day start Senna-S BID PRN no stool, if no stool in last 2 days add Miralax DAILY PRN no stool, if no stool in last 3 days add bisacodyl suppository DAILY PRN until patient stools. When patient stools stop giving PRN meds and continue monitoring for bowel ac tivity. When no stools X 1 day, begin re gimen again until patient stools., Post-op traZODone (DESYREL) tablet 50 mg 2338 (Given - Provider: Enriqueta Kincaid, JULIO CESAR) 0103 (Given - Provider: Lala Spencer, JULIO CESAR) 50 mg, Oral, HS MAY REPEAT X1 PRN, Sleep , if melatonin not helpful or per patient preference, Starting Sun03/05/18 at 1506, Caution: Look-alike, sound- alike medication., Indications: Insomnia vancomycin (VANCOCIN) injection (CANCELED) 1040 (Given - Provider: Esvin Parra MD) ONCE PRN, Starting Sun03/05/18 at 1040, Intra-op Linked Groups Order Group 1: sennosides-docusate sodium (SENNA-S,SENNA PLUS) 8.6-50 MG per tablet 2 TabJump to med 2 Tab, Oral, BID PRN, Constipation, No s tool in the last day, Starting Sun03/05/18 at 1457
Cumulative bowel medication orders. If no stool in last day start Senna-S BID PRN no stool, if no stool in last 2 days add M iralax DAILY PRN no stool, if no stool in last 3 days add bisacodyl suppository DAILY PRN until patient stools. When patient stools stop givin g PRN meds and continue monitoring for b owel activity. When no stools X 1 day, begin regimen again until patient stools.
Post-op Or polyethylene glycol (MIRALAX) oral powder 17 gJump to med 17 g, Oral, DAILY PRN, Constipation, No stool in the last 2 days, Starting Sun03/05/18 at 1457
Cumulative bowel medication orders. If no stool in last day start Senna-S BID AL N no stool, if no stool in last 2 days a dd Miralax DAILY PRN no stool, if no stool in last 3 days add bisacodyl suppository DAILY PRN until patient stools. When patient stools stop g iving PRN meds and continue monitoring f or bowel activity. When no stools X 1 day, begin regimen again until patient stools.
Post-op Or bisacodyl (DULCOLAX) rectal suppository 10 mgJump to med 10 mg, Rectal, DAILY PRN, Constipation, No stool in the last 3 days, Starting 03/05/18 at 1457
Cumulative bowel medication orders. If no stool in last day start Senna-S BID PRN no stool, if no stool in last 2 day s add Miralax DAILY PRN no stool, if no stool in last 3 days add bisacodyl suppository DAILY PRN until patient stools. When patient stools sto p giving PRN meds and continue monitorin g for bowel activity. When no stools X 1 day, begin regimen again until patient stools.
Post-op Group 2: ondansetron (ZOFRAN) injection 4 mgJump to med 4 mg, Intravenous, Q6H PRN, Nausea, Vomi ting, Starting 03/05/18 at 1457
Give 1st line medications, then 2nd line, then 3rd line. Progress to next line if medication is inef fective after 15 minutes, or has been pr eviously ineffective, or if a medication for a line is not ordered. ??May use medication from any line if patient preference indicates. ??If third line agent is i neffective, call MD. If unable to give I V medications contact MD. Aromatherapy may be used at any time as adjunct therapy. 1st Line - ondansetron 2nd Line -prochlorperazine 3rd Line - metoclopramide
And Aromatherapy - Q-easy (CANCELED) Routine, Q8H PRN, Starting 03/05/18 at 1457, Until Specified, Aromatherapy may be used at any time as adjunct therapy as needed for Nausea/Vomiting. documented in this encounter Care Teams Contract Associate Manager Relationship Specialty Start Date End Date Ceci Christianson MD PCP - General Family Practice 02/24/18 [address] [place] [address] documented as of this encounter
--- OUTSIDE RECORDS SUMMARY | 2022-08-17 08:43 | XMS_ITS | Encounter Summary ---
:1955 Author Organization [employer] Address [address] [address] Care Team Providers Name Role Phone Ceci Christianson MD Primary Care Provider Reason for Visit Auth/Cert Specialty Diagnoses / Procedures Referred By Contact Refer red To Contact Diagnoses Closed fracture of right tibial plateau, initial encounter . Procedures OPEN REDUCTION INTERNAL FIXATION TIBIAL PLATEAU FRACTURE REMOVAL KNEE SPANNING EXTERNAL FIXATOR Referral ID Status Reason Start Date Expiration Date Visits Requ ested Visits Authorized [id number] 1 1 Encounter Details Date Type Department Care Team Description 03/06/2018 [facility] Esvin Garcia MD [address] [place] [address] [place] [address] [phone] (Wo rk) Social History Tobacco Use Types Packs/Day Years [...] nts XR KNEE RT 2 VIEWS Routine 03/06/2018 8:48 AM Res ults for this CDT procedure are i n the results section. documented in this encounter Results XR Knee Rt 2 Views (03/06/2018 8:48 AM CDT) Anatomical Region Laterality Modality Lower Extremity, Knee Computed Radiograp hy Specimen (Source) Anatomical Collection Method Collection Time Re ceived Time Location / / Volume Laterality 03/06/2018 8:48 AM CDT Narrative 03/06/2018 8:53 AM CDT [facility] XR KNEE RT 2 VIEWS 03/06/2018 8:48 [...] note might be different from the original. [facility] XR KNEE RT 2 VIEWS 03/06/2018 8:48 [...] effusion with a small amount of gas. Adali MEDLEY GD documented in this encounter Visit Diagnoses Not on filedocumented in this encounter Care Teams Patient Ambassador Relationship Specialty Start Date End Date Ceci Christianson MD PCP - General Family Practice 02/24/18 [address], [place] [address] documented as of this encounter
--- OUTSIDE RECORDS SUMMARY | 2022-08-17 08:43 | XMS_ITS | Encounter Summary ---
:1955 Author Organization [employer] Address [address] [place] [address] Care Team Providers Name Role Phone Ceci Christianson MD Primary Care Provider Reason for Visit Auth/Cert Specialty Diagnoses / Procedures Referred By Contact Refer red To Contact Diagnoses Closed fracture of right tibial plateau, initial encounter . Procedures OPEN REDUCTION INTERNAL FIXATION TIBIAL PLATEAU FRACTURE REMOVAL KNEE SPANNING EXTERNAL FIXATOR Referral ID Status Reason Start Date Expiration Date Visits Requ ested Visits Authorized [id number] 1 1 Encounter Details Date Type Department Care Team Description 03/05/2018 Anesthesia Event [facility] Operating Room Fatemeh Cordova MD [address] [place] [address] [place], [place] [address]Damon MD [address] [place] [address] [place] [address] Anesthesia Record Procedure Summary Procedure Name Responsible Anesthesia Start Anesthesia Stop Time Anesthesiologist Time OPEN REDUCTION Fatemeh Cordova MD 03/05/18 0736 03/05/18 1211 INTERNAL FIXATION TIBIAL PLATEAU FRACTURE (Right) Events Date Time Event Comment 03/05/2018 0736 0736 An Start 0740 An Start Data 0753 An Induction 0753 MD/DO Present 0802 MD/DO Present 0803 An Intubation 0825 An Tourn Inflated TQ 300 RLE 0857 MD/DO Present 0900 An Labs BS 149 1010 MD/DO Present 1026 An Tourn Deflated 1058 MD/DO Present 1125 An Tourn Inflated TQ 300 RLE 1156 An Tourn Deflated 1203 An Extubation Purposeful movem ent with spontaneous respirations and adequate air exchange. Suctioned and ETT removed. Transfe rred with oxygen to recovery. 1206 an stop data 1211 An Stop Care transferred . 1211 Care Handoff Note I discussed wi th the receiving nurse and we: 1) Identified the p atient, howe family member(s) or patient surrogat e 2) Identified the responsible practitioner 3) Reviewed the pertinent medical history 4) Discu ssed the surgical/procedure course 5) Reviewed intr a-op anesthesia management and issues during an esthesia 6) Set expectations for the post-procedu re period 7) Allowed opportunity for questions an d acknowledgement of understanding of report Electr onically signed by Kalpana Ramírez APRN, BUSINESS SERVICES OFFICER Name Total midazolam 2 mg/2 mL injection (aka VERSED) 2 mg fentaNYL injection (aka SUBLIMAZE) 5 mL lidocaine 2% PF injection aka (XYLOCAINE) 100 mg propofol 10 mg/mL for procedural sedation (aka diPRIva n) 180 mg vecuronium bromide injection (aka NORCURON) 18 mg carboxymethylcellulose 1% eye drops (aka CELLUVISC) 2 Drop ondansetron injection (aka ZOFRAN) 4 mg neostigmine 10 mg/10 mL injection (aka PROSTIGMIN) 5 m g glycopyrrolate injection (aka ROBINUL) 0.7 mg ceFAZolin (ANCEF) 3 g in sodium chloride 0.9 % 100 mL IVPB 6 g HYDROmorphone 1 mg/mL injection (aka DILAUDID) 0.5 mg ketorolac 30 mg/mL injection (aka TORADOL) 15 mg lactated ringers infusion 2,000 mL Agents Name O2 N2O Air Isoflurane () Blood No blood administrations on file. Lines, Drains, and Airways Type Details Placement Removal Incision/Surgical Site 02/24/18; 1540; #1 (4 02/24/18 1540 by 1440 by Hillary, PIN SITES ); No; Leg; Yoselin Mdeley ntinue Right; 03/13/18; 1440 M, RN Peripheral IV Placement Date: 02/24/182352 by 03/13/18 1440 b y Lda, 02/24/18; Placement Philippe Gallagher Discontinue Time: 2352; Pre-existing: No; Inserted by?: LST; Size (Gauge): 20 G; Orientation: Left; Site Prep: Chlorhexidine; Insertion attempts: 1; Blood draw with insertion?: no; Removal Date: 03/13/18; Removal Time: 1440 Peripheral IV Placement Date: 03/05/18 0620 by 03/13/18 1440 b y Lda, 03/05/18; Placement Tashi Stallworth RN Discontinu e Time: 619; Inserted by?: BUSINESS SERVICES OFFICER; Size (Gauge): 20 G; Orientation: Right; Site Prep: Chlorhexidine; Blood draw with insertion?: no; Patient Tolerance: Tolerated well; Met Standard Sterile Barrier Technique: Met Standard Sterile Barrier Technique; Removal Date: 03/13/18; Removal Time: 1440 ETT Placement Date: 03/05/18 0803 by 03/05/18 1203 b y 03/05/18; Placement Foster Boswell McColley, N icole E, Time: 802; Placed STEAM FRAME OPERATOR, DANIEL STEAM FRAME OPERATOR, BUSINESS SERVICES OFFICER By: Fellow; Induction Type: Pre-O2, IV; Masking: Difficult; ETT Type: ETT; Orientation: Right; Size (mm): 7.5; Depth Secured (cm): 22 cm; Cuffed: Cuffed; Cuff Volume: 10 mL; Intubation Method: Video laryngoscopy; Glottic View: Cords Open, Cords Clear; Blade: Glidescope; Blade Size: 3; Insertion attempts: 1; Difficulty: Atraumatic; Adjunct Equipment: Stylet; Placement Verification: BBSE, Positive EtCO2, capnometry, auscultation; Teeth and Lips Unchanged: Unchanged; Removal Date: 03/05/18; Removal Time: 1203 Indwelling Urethral 03/05/18; 0823; No; 03/05/18 0823 by 8 1200 by Catheter Easton Kim; Easton Kim, RN Jaelyn Wadsworth RN Indwelling Catheter; 16 Fr.; 1; No Longer Needed Incision/Surgical Site 03/05/18; 1007; Leg, 03/05/18 1007 by 1440 by Lda, Richards/Tibia; Medial; Kalina Aiken Discont inue 03/13/18; 1440 RN documented in this encounter Social History Tobacco Use Types Packs/Day Years Used Date Smoking Tobacco: Never Smokeless Tobacco: Never Alcohol Use Standard Drinks/Week Comments No 0 (1 standard drink = 0.6 oz pure alcoho l) Sex Assigned at Date Recorded Not on file documented as of this encounter Miscellaneous Notes Anesthesia Postprocedure Evaluation - Fatemeh Cordova MD - 03/05/2018 1:12 PM CDT [facility] Anesthesia Post-op Note Patient: Sudeep Steen Post-Op Diagnosis: Closed fracture of right tibial plateau, initial encounter Procedure Performed: Procedure(s): OPEN REDUCTION INTERNAL FIXATION TIBIAL PLATEAU FRACTURE REMOVAL KNEE SPANNING EXTERNAL FIXATOR Anesthesia Type: General Post-op vital signs: BP (!) 145/79 Pulse 93 Temp 98.8 ??F (37.1 ??C) (Temporal Artery) Resp 15 Ht 6' 2 (1.88 m) Wt 127 kg (280 lb) SpO2 95% BMI 35.95 kg/m2 Pain Score: Presence Of Pain: complains of pain/discomfort Preferred Pain Scale: word (verbal ratingpain scale) Pain Rating (0-10): Rest: unacceptable Pain Rating (0-10): Activity: acceptable Post-op assessment: No anesthesia complication. Patient location: PACU Airway Status: Patent Cardiovascular function: Satisfactory Hydration status: Satisfactory PONV: None Level of Consciousness: Awake Fully Participates Postop Assessment: Patient tolerated procedure well. Electronically signed by: Fatemeh Cordova MD 03/05/2018 1:12 PM Anesthesia Preprocedure Evaluation - Fatemeh Cordova MD - 03/05/2018 7:02 AM CDT [facility] Anesthesia Pre-op Evaluation Procedure: Procedure(s): OPEN REDUCTION INTERNAL FIXATION TIBIAL PLATEAU FRACTURE REMOVAL KNEE SPANNING EXTERNAL FIXATOR HPI: 62 y.o. old male with Closed fracture of right tibial plateau, initial encounter NPO Status: Last Fluid Intake Time: 0000 Last Fluid Intake Date: 03/04/18 Last Food Intake Date: 03/04/18 Last Food Intake Time: 0000 No Known Allergies Past Medical History: Diagnosis Date ??? BPPV (benign paroxysmal positional vertigo) ??? Diabetes mellitus type 2 ??? Gout ??? Hyperlipidemia (HRC) ??? Hypertension (HRC) ??? Osteoarthritis Patient Active Problem List Diagnosis ??? Closed bicondylar fracture of right tibial plateau ??? Closed fracture of right tibial plateau Past Surgical History: Procedure Laterality Date ??? SURGICAL HX - NEG Outpatient Prescriptions Marked as Taking for the 03/05/18 encounter (Hospital Encounter) Medication Sig Dispense Refill ??? acetaminophen (TYLENOL) 500 MG tablet Take 2 Tabs by mouth every 8 hours. ??? oxyCODONE (ROXICODONE) 5 MG immediate release tablet Take 1-2 Tabs by mouth every 4 hours as needed for Pain (For pain 6-8, take one tab. For pain 9-10 tab, take two tabs.). 40 Tab 0 Current Facility-Administered Medications Medication Dose Route Frequency ??? ceFAZolin (ANCEF) 3 g in sodium chloride 0.9 % 100 mL IVPB 3 g Intravenous Once (Non-Scheduled) ??? lactated ringers infusion Intravenous Continuous ??? lactated ringers infusion 30 mL/hr Intravenous SDS Continuous Labs: Lab Results Component Value Date/Time SODIUM 137 02/25/2018 07:07 AM K 3.2 (L) 02/25/2018 07:07 AM CHLORIDE 99 02/25/2018 07:07 AM CO2 28 02/25/2018 07:07 AM BUN 5 (L) 02/25/2018 07:07 AM CREATININE 0.65 (L) 02/25/2018 07:07 AM GLUCOSE 194 (H) 02/25/2018 07:07 AM Lab Results Component Value Date/Time WBC 13.7 (H) 02/25/2018 07:07 AM HGB 13.2 (L) 02/25/2018 07:07 AM HCT 39.9 (L) 02/25/2018 07:07 AM PLTS 247 02/25/2018 07:07 AM INR (no units) Date Value 02/23/2018 1.1 Blood Bank: ABO/RH(D) (no units) Date Value 02/24/2018 O POSITIVE Antibody Screen (no units) Date Value 02/23/2018 NEGATIVE EKG: Date of last EK02/23/18 ECG 12-LEAD ROUTINE Result Value Ref Range Ventricular Rate 69 BPM Atrial Rate 69 BPM P-R Interval 194 ms QRS Duration 132 ms QT 418 ms QTc 447 ms P Hampton 48 degrees R Hampton -31 degrees T Hampton -5 degrees Physical Exam: Wt 127 kg (280 lb) BMI 35.95 kg/m2 Assessment/Plan: Review of Systems Patient does not have GERD. Patient is not a smoker. The patient denies alcohol use. Patient denies any recent URI. History of PONV: No. History of motion sickness: No. Patient denies any personal or family history of anesthesia complications (PONV). Exam Mental Status: Alert and oriented. Mallampati score: II (Two). Mouth opening: Limited Thyromental Distance: > 3 finger breadths and Normal Neck Extension: Full Neck Circumference > 40 cm?: No Previous airway assessment: Previously EASY intubation.,. Current airway assessment:Possibly abnormal Dentition: Chipped, missing and caps/crowns. Cardiac Exam: Regular rate and rhythm. Respiratory Exam: Breath sounds clear to auscultation Assessment ASA Status: 3 . Plan Anesthesia type: General and ETT Induction: Intravenous and PropofolMaintenance: Balanced Postoperative pain management (PONV): Plan for postoperative opioid use PONV Risk Score Peds:0 PONV Risk Score Adult: 2 PONV Prophylaxis (planned):Ondansetron Anesthetic plan, risks, benefits and alternatives discussed with: Patient (and fiance) Additional equipment needed: [place] Scope 3 H&P Reviewed and Patient examined, no change observed IV access Antibiotics per surgery Electronically signed by: Fatemeh Cordova MD 03/05/2018 7:02 AM documented in this encounter Plan of Treatment Not on filedocumented as of this encounter Visit Diagnoses Not on filedocumented in this encounter Administered Medications Inactive Administered Medications - up to 3 most recent administrations Medication Order MAR Action Action Date Dose Rate Site Carboxymethylcellulose Sod PF Given 03/05/2018 7:55 AM 2 Drops (CELLUVISC) 1 % ophthalmic gel CDT Starting on Sun03/05/18 at 0755, Until Sun03/05/18 at 1213 ceFAZolin (ANCEF) 3 g in sodium chloride 0.9 % Bolus 0 03/05/2018 11:30 AM CDT 3 g 100 mL IVPB 3 g, Intravenous, Administer over 30 Minutes, ONCE (NON-SCHEDULED), Starting on Sun03/05/18 at 0544, For 1 dose, For patient weight greater than 120kg, PRE-OP, Pre-op Started 03/05/2018 8:20 AM CDT 3 g fentaNYL (SUBLIMAZE) injection Given 03/05/2018 11:53 AM CDT 1 mL Starting on Sun03/05/18 at 0816 Given 03/05/2018 11:15 AM CDT 1 mL Given 03/05/2018 8:43 AM CDT 1 mL glycopyrrolate (ROBINUL) injection Given 03/05/2018 11:47 AM CDT 0.3 mg Starting on Sun03/05/18 at 1145, Until Sun03/05/18 at 1213 Given 03/05/2018 11:45 AM CDT 0.4 mg HYDROmorphone (DILAUDID) injection Given 03/05/2018 8:36 AM CDT 0.5 mg Starting on Sun03/05/18 at 0836, Until Sun03/05/18 at 1213 ketorolac (TORADOL) injection Given 03/05/2018 11:30 AM CDT 15 mg Starting on Sun03/05/18 at 1130, Until Sun03/05/18 at 1213 lactated ringers infusion Started 03/05/2018 11:48 AM CDT 30 mL/hr, Intravenous, SDS Continuous, Starting on Sun03/05/18 at 0600, Pre-op Started 03/05/2018 7:23 AM CDT 30 mL/hr 30 mL/hr lidocaine 2% PF (XYLOCAINE) injection Given 03/05/2018 7:53 AM CDT 100 mg Starting on Sun03/05/18 at 0753, Until Sun03/05/18 at 1213 midazolam (VERSED) injection Given 03/05/2018 7:30 AM CDT 2 mg Starting on Sun03/05/18 at 0730, Until Sun03/05/18 at 1213 neostigmine (PROSTIGMINE) injection Given 03/05/2018 11:47 AM CDT 3 mg Starting on Sun03/05/18 at 1145, Until Sun03/05/18 at 1213 Given 03/05/2018 11:45 AM CDT 2 mg ondansetron (ZOFRAN) injection Given 03/05/2018 11:15 AM CDT 4 mg Starting on Sun03/05/18 at 1115, Until Sun03/05/18 at 1213 propofol (aka diPRIvan) injection Given 03/05/2018 7:45 AM CDT 180 mg Starting on Sun03/05/18 at 0745 vecuronium (NORCURON) injection Given 03/05/2018 10:30 AM CDT 2 mg Starting on Sun03/05/18 at 0753, Until Sun03/05/18 at 1213 Given 03/05/2018 9:45 AM CDT 3 mg Given 03/05/2018 9:01 AM CDT 3 mg documented in this encounter Care Teams Supplier Quality Engineer Relationship Specialty Start Date End Date Ceci Christianson MD PCP - General Family Practice 02/24/18 [address], [place] [address] documented as of this encounter
--- OUTSIDE RECORDS SUMMARY | 2022-08-17 08:43 | XMS_ITS | Encounter Summary ---
:1955 Author Organization [facility] Address [address] [place] [address] Care Team Providers Name Role Phone Ceci Christianson MD Primary Care Provider Encounter Details Date Type Department Care Team Description 03/01/2018 Notes/Orders [facility] Bria Krueger, Home-Transitional SHIELD RUNNER, WAREHOUSE TEAM MEMBER [address] [place], [place] [address] [place] [address] [phone] (Wo rk) Social History Tobacco Use Types [...] on filedocumented in this encounter Care Teams Advanced Manufacturing Technician Relationship Specialty Start Date End Date Ceci Christianson MD PCP - General Family Practice 02/24/18 [address], [place] [address] documented as of this encounter
--- OUTSIDE RECORDS SUMMARY | 2022-08-17 08:43 | XMS_ITS | Encounter Summary ---
:1955 Author Organization [employer] Address [address] [place] [address] Care Team Providers Name Role Phone Ceci Christianson MD Primary Care Provider Reason for Visit Reason Comments Surgery Questions Encounter Details Date Type Department Care Team Description 02/28/2018 Telephone [facility] [address] Esvin Garcia, Surgery Questions [facility] [address] [place] [address] [place] [address] [phone] (Wo rk) Social History Tobacco Use Types Packs/Day Years Used Date Smoking Tobacco: Never Smokeless Tobacco: Never Alcohol Use Standard Drinks/Week Comments No 0 (1 standard drink = 0.6 oz pure alcoho l) Sex Assigned at Date Recorded Not on file documented as of this encounter Nursing Notes Alka Taylor, RN - 03/01/2018 4:07 PM CDT Annita notified of information on note below. She verbalized understanding. Alka Taylor RN 03/01/2018, 4:07 PM Valerie Luna PA-C - 03/01/2018 4:03 PM CDT No formal pin cares necessary. They do not need to do any special cares for the ex-fix. Valerie Luna PA-C 03/01/2018, 4:03 PM Cherie Myers RN - 03/01/2018 3:34 PM CDT Called and spoke with Annita at the patient's new care facility. Relayed the information from Adali Peacock below. She verbalized understanding but states there is no direction on the care of the patient's external fixator. Informed her there is a preop nurse that usually calls about the pre operative information. Called the preop nurses at [facility] to give them the number for the patient's new care facility. Please advise of the patient's external fixator care thanks! Cherie Myers RN 03/01/2018, 3:37 PM Radha Rojas - 03/01/2018 2:43 PM CDT Inorganic Chemist received call from Annita at [facility]. She states the patient is transferring to their facility this afternoon and she'd like some clarifications on orders prior to surgery. She'dlike to know if he needs to be NPO, also any instructions on care for his external fixator. She states none of this is included in the summaries she received from his previous facility. Please advise. Radha Rojas 03/01/2018, 2:44 PM Cherie Myers RN - 02/28/2018 4:54 PM CDT Called and spoke with SASHA Cherry, and she states she can't take verbal orders and requests this be faxed to Bryan at [phone]. This has been completed. Cherie Myers RN 02/28/2018, 4:57 PM Adali Sanchez - 02/28/2018 4:48 PM CDT He should hold his anticoagulation the morning of surgery. Otherwise, OK to take medications as scheduled with a sip of water. The H&P is sufficient, since it was performed within 30 days. Adali Sanchez PA-C 02/28/2018, 4:49 PM Karyna Lan - 02/28/2018 4:29 PM CDT Nurse calling from [facility]. The nurse would like more information regarding surgery and pre op instructions such as, which medications should he stop? Also, He just came from the hospital yesterday, is the H&P from the hospital sufficient? When calling back, ask for the nurse that is caring for him. Karyna Lan 02/28/2018, 4:31 PM documented in this encounter Plan of Treatment Not on filedocumented as of this encounter Visit Diagnoses Not on filedocumented in this encounter Care Teams Synthetic Filament Spinner Relationship Specialty Start Date End Date Ceci Christianson MD PCP - General Family Practice 02/24/18 [address] [address] documented as of this encounter
--- OUTSIDE RECORDS SUMMARY | 2022-08-17 08:43 | XMS_ITS | Encounter Summary ---
:1955 [facility] Address [address] [address] Care Team Providers Name Role Phone Ceci Christianson MD Primary Care Provider Encounter Details Date Type Department Care Team Description 03/05/2018 Consent for [facility] INFORM ED CONSENT Procedure/Treatment RECORD Social History Tobacco Use Types Packs/Day Years [...] on filedocumented in this encounter Care Teams Real Estate Closing Coordinator Relationship Specialty Start Date End Date Ceci Christianson MD PCP - General Family Practice 02/24/18 [address], [place] [address] documented as of this encounter
--- OUTSIDE RECORDS SUMMARY | 2022-08-17 08:43 | XMS_ITS | Encounter Summary ---
:1955 Author Organization [employer] Address [address] [place] [address] Care Team Providers Name Role Phone Ceci Christianson MD Primary Care Provider Reason for Visit Auth/Cert Specialty Diagnoses / Procedures Referred By Contact Refer red To Contact Diagnoses Closed fracture of right tibial plateau, initial encounter . Procedures OPEN REDUCTION INTERNAL FIXATION TIBIAL PLATEAU FRACTURE REMOVAL KNEE SPANNING EXTERNAL FIXATOR Referral ID Status Reason Start Date Expiration Date Visits Requ ested Visits Authorized [id number] 1 1 Encounter Details Date Type Department Care Team Description 03/05/2018 Surgery Operating Room Esvin Parra, OPEN REDUCTION INTERNAL [address] Griffin Brown MD [place] [address] FRACTURE [phone] [place], [place] [address] Social History Tobacco Use Types Packs/Day Years Used Date Smoking Tobacco: Never Smokeless Tobacco: Never Alcohol Use Standard Drinks/Week Comments No 0 (1 standard drink = 0.6 oz pure alcoho l) Sex Assigned at Date Recorded Not on file documented as of this encounter Last Filed Vital Signs Vital Sign Reading Time Taken Comments Blood Pressure 123/78 03/05/2018 7:10 AM CDT Pulse 78 03/05/2018 7:10 AM CDT Temperature 36.2 ??C (97.2 ??F) 03/05/2018 7:10 AM CDT Respiratory Rate 16 03/05/2018 7:10 AM CDT Oxygen Saturation 98% 03/05/2018 7:10 AM CDT Inhaled Oxygen Concentration - - Weight 127 kg (280 lb) 03/05/2018 7:10 AM CDT Height 188 cm (6' 2) 03/05/2018 7:10 AM CDT Body Mass Index 35.95 03/05/2018 7:10 AM CDT documented in this encounter Discharge Summaries Amada Rodriguez MD - 03/07/2018 12:20 PM CDT [facility] Orthopedic Discharge Note Patient Name: Олег Seten Date of : 1955 Admit Date/Time: Admit [...] Right tibial plateau fracture and presented to [facility] where he was placed in an external [...] 10 mg for pain 8-10/10). Indications: Acute Pain, Disp-40 Tab, R-0, Q4H [...] Starting 03/01/2018, Until 03/01/19, Oral, E-PrescribingAdmitting to [place] today glipiZIDE (GLUCOTROL) 5 MG tablet Take [...] Starting 03/01/2018, Until Discontinued, Oral, E-PrescribingAdmitting to [place] today DVT Prophylaxis: ASA for 4 weeks Discharge Disposition: To TCU Discharge Orders (Non-med) Code Status: Full Code Blood Glucose Monitoring Comments: FS Ac/ HS When to Resume Normal Activities: Comments: Activities as tolerated Give 2-Step Mantoux Test on Admit to PR No weight bearing Comments: No weightbearing on your right leg for 10 weeks. Do not resume weight bearing on the affected limb(s) until your care provider tells you to do so. Orthopedic Geriatric Follow-up Comments: TCU/Snf Facility Location: [facility] ([place]) The orthopedic outreach team will be on site for your 2 week follow up visit. We are unable to give specific dates and times but will contact the facility prior to our visit. Please obtain these portable xrays: 2 views right knee Question: Reason for visit? Answer: PO#1 Physical Therapy Comments: NWAyush RUIZ ROMAT Gait training Home program Question Answer Comment Appointment Urgency? Non-Urgent Reason for Visit / Clinical Data? s/p ORIF L tibial plateau Requested Services Evaluate and treat May check glucose per protocol (see policy link below) or if patient has symptoms? Yes Admit to Skilled Care Comments: FACILITY NAME: [facility] Question Answer Comment Appointment Urgency? Non-Urgent Reason for Visit / Clinical Data? s/p ORIF L tibial plateau Requested Services? EVALUATE & TREAT Does this patient require vocational or social service assistant? NO May check glucose per protocol (see policy link below) or if patient has symptoms? Yes Discharge Diet Comments: Regular Aftercare MD (name) Comments: Dr. Esvin Parra Condition at Discharge: Stable Prognosis: Good Rehab Potential: Good Potential for D/C from NH in 30 days? YES DISCHARGE MD NAME Comments: I, Rashawn Weldon PA-C, take responsibility for the discharge of this patient and have reviewed the transfer orders report for accuracy. If any other questions occur regarding this patient'sorders or the plan of care, I can be reached at [phone] . Brace Instructions Comments: Keep the hinged [...] TEOFILO Baumann MD Orthopaedic Surgery, PGY-1 Pager [phone] Associated attestation - Esvin Parra MD - 03/08/2018 8:19 AM CDT Agree with careplan. MD Jennifer Rangel Breana, MD - 03/06/2018 11:36 AM CDT [facility] Orthopedic Discharge Note Patient Name: Олег Steen [...] 5 Tab, Refills: 0 Comments: Admitting to [place] today gabapentin (NEURONTIN) 300 MG capsule Take 1 Cap by mouth three times a day. Indications: Diabetes with Nerve Disease Qty: 15 Cap, Refills: 0 Comments: Admitting to [place] today glipiZIDE (GLUCOTROL) 5 MG tablet Take [...] Admit to Skilled Care Comments: FACILITY NAME: [facility] Orthopedic Geriatric Follow-up Comments: TCU/Snf Facility Location: [facility] ([place]) The orthopedic outreach team will be on [...] TREAT Does this patient require vocational or social service assistant? NO May check glucose per protocol (see policy link below) or if patient has symptoms? Yes When to Resume Normal Activities: Comments: Do not resume normal activities until you have been cleared to do so. Discharge Diet Comments: Regular Aftercare MD (name) Comments: Dr. Esvin Parra Condition at Discharge: Stable Prognosis: Good Rehab Potential: Good Potential for D/C from NH in 30 days? YES DISCHARGE MD NAME Comments: IRashawn PA-C, take responsibility for the discharge of this patient and have reviewed the transfer orders report for accuracy. If any other questions occur regarding this patient'sorders or the plan of care, I can be reached at [phone] . No weight bearing Comments: No weightbearing [...] TEOFILO Baumann MD Orthopaedic Surgery, PGY-1 Pager [phone] Associated attestation - Esvin Parra MD - 03/07/2018 1:58 PM CDT Agree with careplan. Esvin Parra MD documented in this encounter Discharge Instructions Discharge InstructionsAda Jackson RN - 03/06/2018 1:52 PM CDT Contact Information [address] [address] General Information Discharging physician: Dr. Parra Labs [...] [facility] clinic hours [phone] or . Discharge Instr - Ada Packer [...] 1 Cap by mouth 15 Cap 0 01/201808/21/2018 300 MG three times a day. capsuleIndications: [...] Pain (5 mg Acute Pain for pain 4-7/10. 10 mg for pain 8-10/10). Indications: Acute Pain sennosides-docusate Take 1 Tab by mouth 40 Tab 0 018 08/21/2018 sodium (SENNA-S,SENNA two times daily as PLUS) 8.6-50 MG per needed for tabletIndications: Constipation. Constipation Indications: Constipation documented as of this encounter Progress Notes Bria Moncada MD - 03/07/2018 11:59 AM CDT [facility] Medicine Consult Progress Note () Date of [...] Bria Moncada MD 03/07/18, 11:59 AM Pager: [phone] Dalton Mooney MD - 03/07/2018 7:40 AM CDT [facility] ORTHOPAEDIC SURGERY PROGRESS NOTE 03/07/2018 7:40 AM [...] Mooney MD - 03/06/2018 9:28 AM CDT [facility] ORTHOPAEDIC SURGERY PROGRESS NOTE 03/06/2018 9:29 AM [...] weeks with Rashawn Weldon PA-C vs. venkatesh nolan. 2 views right knee x- rays needed, out of brace. Dispo: DC back to TCU when pain controlled, medically cleared. Anticipate in 1-2 days. ?? Dalton Mooney MD Orthopedic Surgery PGY-2 Bria Moncada MD - 03/06/2018 7:43 AM CDT [facility] Medicine Consult Progress Note (MD) Date of service: 03/06/18 Assessment and Recommendations: [...] Bria Moncada MD 03/06/18, 7:43 AM Pager: [phone] documented in this encounter Procedure Notes Rashawn Weldon - 03/05/2018 7:16 AM CDT [facility] Orthopaedic Surgery - Brief Operative Note Surgery Date: 03/05/2018 Primary Surgeon: Surgeon(s): Esvin Parra MD Assistants: FELLOW-JAGUAR HURTADO PHYSICIAN WILDERNESS GUIDE-RASHAWN WELDON Post-op Diagnosis: Closed Fracture Of Right [...] The procedure was medically necessary for an assistant signal maintainer because needed the operative exposure and assistance that I provided. My assistance allowed him to safely and efficiently operate. Theassistance that I provided reduced operative time which meant less general anesthetic for the patient. No qualified residents were available to assist. Rashawn Weldon PA-C 03/05/2018, 11:49 AM Esvin Parra MD - 03/05/2018 12:00 AM CDT [facility]: [phone] OPERATIVE REPORT DATE OF SURGERY: 03/05/2018 : 1955 SURGEON: ESVIN PARRA MD WILDERNESS GUIDE: MD RASHAWN GAO PA-C PA-C Brehmer's assistance [...] brace. JAGUAR HURTADO MD Staff: MD JANES RANGEL/DARRICK /[id number] documented in this encounter Consult Notes Suzanne Jordan PA-C - 03/06/2018 3:10 PM CDTAssociated Order(s): ENDOCRINE INPT CONSULT Endocrine Consult Date of Service: 03/06/2018 Stars Specialist: Suzanne Jordan PA-C Reason for Consult: post-op [...] the . Has 2 children. Lives in [place] with his significant other. 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 Closed bicondylar fracture of right tibial plateau 02/23/2018 Overview Note: Added automatically from request for surgery [id number] Social History Social History Substance Use Topics ??? Smoking status: Never Smoker ??? Smokeless tobacco: Never Used ??? Alcohol use No Social History Social History Narrative Served in the . Has 2 children. Lives in [place] with his significant other. 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 Family History Problem Relation Age of Onset [...] Bria Moncada MD 03/05/2018, 3:01 PM Pager: [phone] documented in this encounter Plan of Treatment [...] Whole Blood POC (03/07/2018 8:15 AM CDT) athologist Signature Glucose, Whole 121 70 - 180 [facility] Blood mg/dl [facility]OSPITAL Comment: Point of Care Testing RN Notified Specimen Anatomical Collection Method Collection Time Receive d Time (Source) Location / / Volume Laterality 03/07/2018 8:15 AM 8 8:21 CDT AM CDT Esvin Parra MD LAB_[address] [facility] [place] [address] [address], [facility] (ABNORMAL) Basic Metabolic Panel (03/07/2018 6:21 [...] Est., If >60 >60 [facility] Black ml/min/1.7 [facility] 3m2 Specimen Anatomical Collection Method Collection Time Receive d Time (Source) Location / / Volume Laterality 03/07/2018 6:21 AM 8 6:46 CDT AM CDT Narrative [facility] - 03/07/2018 7:21 AM CD T Performed at [facility] , [address] [place] [id number] Bria Moncada MD LAB_[address] Performing [address] [facility] Phon e Number [address] [address], [facility] [phone] Glucose, Whole Blood POC (03/06/2018 10:35 PM CDT) athologist Signature Glucose, Whole 136 70 - 180 [facility] Blood mg/dl [facility]OSPITAL Comment: Point of Care Testing RN Notified Specimen Anatomical Collection Method Collection Time Receive d Time (Source) Location / / Volume Laterality 03/06/2018 10:35 03/06/2018 PM CDT 10:44 PM CDT Esvin Parra MD LAB_1 Performing Organization Address City/[facility]/ZIP Code Phon e Number [address] [address], [facility] Glucose, Whole Blood POC (03/06/2018 5:17 PM CDT) athologist Signature Glucose, Whole 138 70 - 180 [facility] Blood mg/dl [facility] Comment: Point of Care Testing RN Notified Specimen Anatomical Collection Method Collection Time Receive d Time (Source) Location / / Volume Laterality 03/06/2018 5:17 PM 8 5:44 CDT PM CDT Esvin Parra MD LAB_1 Performing Organization Address City/[facility]/ZIP [facility] Phon e Number [address] [address], [facility] XR Knee Rt 2 Views (03/06/2018 8:48 AM CDT) Anatomical Region Laterality Modality Lower Extremity, Knee Computed Radiograp hy Specimen (Source) Anatomical Collection Method Collection Time Re ceived Time Location / / Volume Laterality 03/06/2018 8:48 AM CDT Narrative 03/06/2018 8:53 AM CDT [facility] XR KNEE RT 2 VIEWS 03/06/2018 8:48 [...] note might be different from the original. [facility] XR KNEE RT 2 VIEWS 03/06/2018 8:48 [...] Esvin Parra MD LAB_1 Performing Organization Address City/[facility] Phon e Number [address] [address], [facility] [phone] Magnesium (03/06/2018 6:48 AM CDT) athologist Signature Magnesium 1.7 1.6 - 2.6 [facility] mg/dl [facility]OSPITAL Specimen Anatomical Collection Method Collection Time Receive d Time (Source) Location / / Volume Laterality 03/06/2018 6:48 AM 8 6:49 CDT AM CDT Narrative [facility] - 03/06/2018 7:25 AM CD T Performed at [facility] , [address] [place] [address] Rashawn Weldon PA-C LAB_1 Performing Organization Address City/[facility] Phon e Number [address] [address], [facility] [phone] (ABNORMAL) Basic Metabolic Panel (03/06/2018 6:48 AM CDT) Analysis Performed At Patho logist Time Signature Sodium 132 (L) 136 [...] Est., If >60 >60 [facility] Black ml/min/1.7 [facility] 3m2 Specimen Anatomical Collection Method Collection Time Receive d Time (Source) Location / / Volume Laterality 03/06/2018 6:48 AM 8 6:49 CDT AM CDT [facility] - 03/06/2018 7:25 AM CD T Performed at [facility] , [address] [place] [address] Rashawn Weldon PA-C LAB_1 Performing Organization Address City/State/ZIP Code Phon e Number [id number] [place] [address] (ABNORMAL) Hemoglobin (Hgb) POD # ____ (03/06/2018 6:48 AM CDT) P athologist Signature Hemoglobin 12.2 (L) 13.5 - 17.5 [facility] g/dl [facility]OSPITAL Specimen Anatomical Collection Method Collection Time Receive d Time (Source) Location / / Volume Laterality 03/06/2018 6:48 AM 8 6:49 CDT AM CDT [facility] - 03/06/2018 7:06 AM CD T Performed at [facility] , [address] [place] [address] Rashawn Weldon PA-C LAB_1 Performing Organization Address City/[facility]/ZIP Code Phon e Number [address] [address] [place] [address], [facility] EKG IP (03/06/2018 12:00 AM CDT) [...] Esvin Parra MD LAB_1 Performing Organization Address City/[facility]/ZIP Code Phon e Number [address] [address], [facility] Glucose, Whole Blood POC (03/05/2018 4:13 PM CDT) athologist Signature Glucose, Whole 157 70 - 180 [facility] Blood mg/dl [facility]OSPITAL Comment: Point of Care Testing RN Notified Specimen Anatomical Collection Method Collection Time Receive d Time (Source) Location / / Volume Laterality 03/05/2018 4:13 PM 8 4:21 CDT PM CDT Esvin Parra MD LAB_1 Performing Organization Address City/[facility]/ZIP [facility] Phon e Number [address] [address], [facility] (ABNORMAL) Glucose, Whole Blood POC (03/05/2018 12:11 PM CDT) athologist Signature Glucose, Whole 206 (H) 70 - 180 [facility] Blood mg/dl [facility]OSPITAL Comment: Point of Care Testing RN Notified Specimen Anatomical Collection Method Collection Time Receive d Time (Source) Location / / Volume Laterality 03/05/2018 12:11 03/05/2018 PM CDT 12:25 PM CDT Authorizing Provider Result Carrie Parra MD LAB_1 Performing Organization Address City/[facility]/ZIP [facility] Phon e Number [address] [address], [facility] [phone] XR C-Arm 3.5-4 Hours (03/05/2018 11:35 AM CDT) Anatomical Region Laterality Modality Other Specimen (Source) Anatomical Location Collection Method / Collectio n Time Received Time / Laterality Volume Narrative 03/05/2018 11:35 AM CDT Fluoroscopy provided by a medical technologist hematology. Exact fluoroscopy time is documented in end of exam information in EPIC Esvin Parra MD RAD GD Glucose, Whole Blood POC (03/05/2018 8:57 AM CDT) P athologist Signature Glucose, Whole 149 70 - 180 [facility] Blood mg/dl [facility]PITAL Comment: Point of Care Testing No Action Required Specimen Anatomical Collection Method Collection Time Receive d Time (Source) Location / / Volume Laterality 03/05/2018 8:57 AM 8 9:21 CDT AM CDT Authorizing Provider Result Carrie Parra MD LAB_[address] [facility]/ZIP [facility] Phon e Number [address] [address], [facility] Glucose, Whole Blood POC (03/05/2018 7:22 AM CDT) P athologist Signature Glucose, Whole 164 70 - 180 [facility] Blood mg/dl [facility]OSPITAL Comment: Point of Care Testing RN Notified Specimen Anatomical Collection Method Collection Time Receive d Time (Source) Location / / Volume Laterality 03/05/2018 7:22 AM 8 8:05 CDT AM CDT Authorizing Provider Result Carrie Parra MD LAB_1 Performing Organization Address City/[facility] Phon e Number [id number] [place] [address] EKG IP (03/05/2018 12:00 AM CDT) Specimen [...] of insulin (HRC) Sleep apnea, unspecified type Closed fracture of right tibial plateau, initial encounter Plan of Care - Marlen Black - 03/07/2018 10:58 AM CDT [facility] Discharge Note - Nursing Admission Date/Time: 03/05/2018 [...] Marlen Black - 03/07/2018 10:57 AM CDT [facility] Plan of Care Note Assessment: comfort/pain control [...] Amaral RN - 03/07/2018 10:47 AM CDT [facility] Care Management Discharge Note Discharge Information: Anticipated Discharge Date: 03/07/18 Anticipated Discharge Time: 1200 Discharge transportation is ready to be arranged by [facility]?: yes Discharge transport needs:: Wheelchair - Standard Date Transport Needed: 03/07/18 Time Transport Needed: 1200 PAS form needed?: no (PAS done from previous TCU admit. ) Referral made to [facility] CDCM/MSHO?: no Reason for no referral: Not followed by a [facility] physician/clinic Referral made to [facility] MTM?: no Reason for no referral: Not followed by a [facility] physician/clinic Referral made to community low voltage electrician program?: no Patient to be Discharged to: TCU T[facility]LTC[facility], [facility] [address] [facility] [address] Patient/family is aware of discharge plan?: yes Baseline Transportation: agency transportation Anticipated Mode of Transportation: wheelchair Discharged Accompanied By: self only Patient/family is aware of potential transportation far-zi-tpotzh cost: yes Anticipated Discharge Disposition: 03: discharged or transferred to a Medicare- certified [place] facility Additional Comments: Discussed with the interdisciplinary team and Олег has been cleared to discharge back to [facility]. I spoke with admissions at [facility] and is aware of dc time and orders sent, ECH[employer]ARDIOGRAPH TECHNICIAN to fax the script. I met with Олег and his SO and agrees with the dc plans/time. Tomasz Amaral, RN Plan of Care - Chapo Gallegos RN - 03/07/2018 6:38 AM CDT [facility] Plan of Care Note Assessment: pain, safety [...] Stauffer RN - 03/06/2018 11:31 PM CDT [facility] Plan of Care Note Assessment: pain, safety [...] Marlen Black - 03/06/2018 2:52 PM CDT [facility] Plan of Care Note Assessment: comfort/pain control [...] Amaral RN - 03/06/2018 10:29 AM CDT [facility] Care Management Initial Assessment Plan: Care Team Actions Needed: medical clearance, discharge orders Anticipated Discharge Date: 03/07/18 Anticipated Discharge Plan: [facility]. Admission Info: Reason For Consult: discharge planning Chart Reviewed: discussed with interdisciplinary team, discussed with patient, discussed with family Does Patient have a Legal/Court Appointed Guardian?: No Guardianship issues affecting care planning?: No Cognitive capacity prior to admission: oriented Independent with ADLs (Prior to Admission)? No Has been at [facility] prior to admit. Change in Functional Status Since Onset of Current Illness/Injury: no Living Environment: Lives With: facility resident (Currently at [facility]) Living Arrangements: extended care facility (Currently at [facility]) Home Accessibility: no concerns Medication [...] appropriate, cooperative, pleasant Barriers: None. [place] Services[place] [facility] [place] [facility]) [facility] Primary Care: Primary Care Clinic: [facility] Primary Care Physician: Ceci Christianson MD Additional Comments: I met with Олег and his SO Simi to discuss his discharge plans. Олег was transferred to [facility] on 02/27, he was then transferred from [place] to [facility] a few days later due to issues at [facility]. Олег and Simi plan on returning to [facility] when medically cleared. Simi states that she has pre-paid for ride with [employer] for a return ride to [facility]. Patient and family would like a 12 noon or later ride back to [facility]. Discussed with the interdisciplinary team and support the return to TCU and will anticipated discharge dateof 03/07. [facility] had a bed for Олег to return, clinical info faxed. I spoke with Natalie at [employer] [phone] and a 12 noon ride arranged for tomorrow 03/07. will finalize plans back to [facility] tomorrow. Tomasz Amaral RN Plan of Care - Lala Spencer RN - 03/06/2018 6:24 AM CDT [facility] Plan of Care Note Assessment: pain Plan: tx and monitor Subjective: 07/08 Objective: pt. A&OX4, slept very little overnight, C/O 8-10 pain in RLE, gave PRN's as able, [...] Cronin RN - 03/05/2018 10:42 PM CDT [facility] Plan of Care Note Assessment: Post op [...] Patel RN - 03/05/2018 3:17 PM CDT [facility] Nursing Post-Op Note Admission Date/Time: 03/05/2018 5:28 [...] Action Action Date Dose Rate Site acetaminophen (TYLENOL) tablet Given 03/07/2018 8:09 AM CDT 1,00 0 mg 1,000 mg 1,000 mg, Oral, TID, First [...] begin regimen again until patient stools., Post-op gabapentin (NEURONTIN) capsule 300 mg Given 03/07/2018 [...] 10:30 AM CDT 5 mg HYDROmorphone (DILAUDID) injection 0.2-0 .4 mg Given 03/06/2018 3:19 AM CDT 0.4 mg 0.2-0.4 mg, Intravenous, Q2H PRN, Pain, Use if unable to take PO, Starting on Sun03/05/18 at 1457, Until Sun03/07/18 at 1421, For 48 hours, Give IV opioid for breakthrough pain, if unable to give PO or per patient preference. Given 03/05/2018 11:38 PM CDT 0.4 mg Given 03/05/2018 3:47 PM CDT 0.4 mg hydrOXYzine HCl (ATARAX) tablet 25-50 mg Given 03/07/2018 12:06 PM CDT 50 mg 25-50 mg, Oral, Q4H PRN, Pain, Itching, Starting on Sun03/05/18 at 1457, Until Sun03/07/18 at 1421, May be used as adjunct [...] 4:46 PM CDT 2 Units Right Arm lisinopril (zeSTRIL) tablet 10 mg Given 03/07/2018 8:09 AM CDT 10 mg 10 mg, Oral, DAILY, First dose on Sun03/06/18 at 0800, Until Discontinued, Hold for systolic blood pressure <110, Indications: Hypertension Given 03/06/2018 8:14 AM CDT 10 mg melatonin tablet 3 mg Given 03/06/2018 10:55 PM CDT 3 mg 3 mg, Oral, HS PRN, Sedation, Starting on Sun03/05/18 at 1506, Until Sun03/07/18 at 1421, Indications: Insomnia metFORMIN (GLUCOPHAGE) tablet [...] Vomiting, Starting on Sun03/05/18 at 1457, Until Sun03/07/18 at 1421, Give 1st line medications, then [...] - metoclopramide oxyCODONE (ROXICODONE) immediate release Given 03/07/2018 11:53 AM CDT 5 mg tablet 5-10 mg 5-10 mg, Oral, Q4H PRN, Pain, Starting on Sun03/05/18 at 1457, Until Sun03/07/18 at 1421, Give PO opioid if able [...] days, Starting on Sun03/05/18 at 1457, Until Cathy 03/07/18 at 142 1, Cumulative bowel medication orders. [...] day, Starting on Sun03/05/18 at 1457, Until Cathy 03/07/18 at 142 1, Cumulative bowel medication orders. [...] preference, Starting on Sun03/05/18 at 1506, Until Sun03/07/18 at 1421, Caution: Look-alike, sound-alike medication., Indications: Insomnia Given 03/05/2018 11:38 PM CDT 50 mg vancomycin (VANCOCIN) injection Given 03/05/2018 10:40 AM CDT 1 g Righ t Leg ONCE PRN, Starting on Sun03/05/18 at 1040, Intra-op documented in this encounter Active and Recently Administered Medications Times are shown in CDT. Scheduled Medication Order 03/05/2018 03/06/2018 03/07/2018 acetaminophen (OFIRMEV) 1,000 mg infusion 100 mL (COMP LETED) 1309 (Started - Provider: Hermelinda Rodney RN) 1,000 mg, Intravenous, Administer over 1 5 [...] Black)192 (Given - Provider: Savanah Stauffer RN) 0809 (Given - Provider: Marlen Black) 1,000 mg, Oral, TID, First dose on Sun03/05/18 at 2000 alfuzosin (UROXATRAL) extended release tablet 10 mg 20 02 (Given - Provider: Kenia Cronin RN) 8 (Given - Provider: Savanah Stauffer RN) 10 mg, Oral, HS, First dose on Sun 8 at 2100, Tablet should be swallowed whole., Indications: postop urinary retention aspirin tablet 325 mg 08 (Given - Provider: Aman Black) 0809 (Given - Provider: Marlen Black) 325 mg, [...] RN) 0809 (Given - Provider: Marlen Black) 300 mg, Oral, TID, First dose on [...] PLUS) 8.6-50 MG per tablet 1 Tab 1954 (Not Given - Provider: Kenia Cronin RN [...] (Anesthesia Fluid - Provider: Foster Boswell APRN, LAW FIRM PARTNER)1148 (Started - Provider: Kalpana Ramírez APRN, LAW FIRM PARTNER) 30 mL/hr, Intravenous, at 30 mL/hr, SDS Continuous, Starting Sun03/05/18 at 0600, Pre-op lactated ringers infusion (CANCELED) 1548 (Started - Provide r: Kenia Cronin RN) 0234 (Started - Provider: Lala Spencer RN)0813 (Stopped - Provider: Marlen Black) 1,000 mL, Intravenous, at 100 mL/hr, CONTINUOUS, Starting 06/15 at 1515 PRN Medication Order 03/05/2018 03/06/201803/0703/07/2018 benzocaine-menthol (CEPACOL) lozenge 1 Lozenge 1 Lozenge, [...] Provider: Hermelinda Rodney RN) 25-50 mcg, Intravenous, B3MPGXAT, Pain, Starting Sun03/05/18 at 1139, 25 mcg [...] mg, Intramuscular, ONCE PRN, hypoglyce paulette, Starting 03/05/18 at 1457, For 1 dose, If patient unable to eat or is unconscious and has no IV access. Give 1 mg glucagon IM (in pyxis) and establish IV a ccess STAT. Recheck fingerstick BG in 15 min; Re-treat and retest q 15 min until fingerstick BG>70 mg/dL for 30 minutes., Post-op glucose-ascorbic rhrq-uhewzoefrjltjrc-pi ewable tablet (TRUEPLUS) chewable tablet 4 Tab 4 Tab, Oral, Q15MIN PRN, Hypoglycemia, Starting 03/05/18 at 14 57, Post-op HYDROmorphone (DILAUDID) injection 0.2-0.4 mg 1547 (Gi william - Provider: Kenia Cronin RN)2338 (Given - Provider: Lala Spencer, JULIO CESAR) 0319 (Given - Provider: Lala Spencer RN) 0.2-0.4 mg, Intravenous, Q2H PRN, Pain, Use if unable to take PO, Starting 03/05/18 at 1457, For 48 hours, Give IV opioid for breakthrough pain, if unable to give PO or per patient preference. HYDROmorphone injectable 0.2-0.3 mg (CANCELED) 1225 (G iven - Provider: Hermelinda Rodney RN)1235 (Given - Provider: Hermelinda Rodney RN)1245 (Given - Provider: Hermelinda Rodney RN)1255 (Given - Provider: Hermelinda Rodney RN) 0.2-0.3 mg, Intravenous, Q10MIN PRN, Dara n, Starting 03/05/18 at 1139, PACU USE ONLY 0.2 mg [...] Stauffer, JULIO CESAR)2251 (Given - Provider: Savanah Stauffer, JULIO CESAR) 0320 (Given - Provider: Chapo Gallegos RN)0812 [...] mg/dl give 4 units and call anest hesroseline, PACU (only) melatonin tablet 3 mg 2255 (Given - Provider: Anne Stauffer RN) 3 mg, Oral, HS PRN, Sedation, Starting T 03/05/18 at 1506, Indications: Insomnia naloxone (NARCAN) injection 0.2 mg 0.2 mg, Intravenous, PRN PER PARAMETERS, Opioid Reversal, Excessive Sedation/Respiratory Rate less than 8 breaths per minute.? Notify MD if given., Starting Sun03/05/18 at 1457, Excessive Sedation/Res piratory Rate less than 8 breaths per minute.? Notify MD if g iven. ondansetron (ZOFRAN) injection 4 mg(Linked Group 2) 0319 (Given - Provider: Lala Spencer, JULIO CESAR) 4 mg, Intravenous, Q6H PRN, Nausea, Vomi [...] Provider: Kenia Cronin RN)2228 (Given - Provider: Ka Roseanne, RN) 0234 (Given - Provider: Lala Spencer RN)0638 (Given - Provider: Lala Spencer RN)1030 (Given - Provider: Marlen Black)1431 (Given - Provider: Marlen Black)1837 (Given - Provider: Savanah Stauffer, JULIO CESAR)2252 (Given - Provider: Savanah Stauffer, JULIO CESAR) 0320 (Given - Provider: Chapo Gallegos RN)0812 (Given - Provider: Marlen Black)1153 (Given - Provider: Maria M Giraldo RN - Comment: given a few minutes early as pt discharging to TCU) 5-10 mg, Oral, Q4H PRN, Pain, Starting T ue 03/05/18 at 1457, Give PO opioid if able to take PO and pain not well controlled with other medications or interventions. polyethylene glycol (MIRALAX) oral powder 17 g(Linked Group 1) 1925 (Not Given - Provider: Savanah Stauffer RN - Reason: Patient/family refused) 17 g, Oral, [...] 1) 1925 (See Alternative - Provider: Savanah Stauffer RN) 2 Tab, Oral, BID PRN, Constipation, No [...] stool in last day start Senna-S BID MA N no stool, if no stool in [...] Nausea/Vomiting. documented in this encounter Care Teams Instructional Writer Relationship Specialty Start Date End Date Ceci Christianson MD PCP - General Family Practice 02/24/18 [address] [place] [address] documented as of this encounter
--- OUTSIDE RECORDS SUMMARY | 2022-08-17 08:43 | XMS_ITS | Encounter Summary ---
:1955 Author Organization [facility] Address [address] [place] [address] Care Team Providers Name Role Phone Ceci Christianson MD Primary Care Provider Reason for Visit Reason Comments Orders Needed Encounter Details Date Type Department Care Team Description 03/04/2018 Telephone Specialty [facility] 435 Esvin Garcia MD Orders Needed Orth[facility] [address] [place] [address] [place] [address] [phone] Social History Tobacco Use Types Packs/Day Years Used Date Smoking Tobacco: Never Smokeless Tobacco: Never Alcohol Use Standard Drinks/Week Comments No 0 (1 standard drink = 0.6 oz pure alcoho l) Sex Assigned at Date Recorded Not on file documented as of this encounter Nursing Notes lAka Taylor RN - 03/05/2018 10:13 AM CDT Patient is in surgery and requests will be addressed at [facility]. Alka Taylor RN 03/05/2018, 10:13 AM Angelica Molina RN - 03/04/2018 11:47 AM CDT Attempted to contact patient, no answer. Will attempt at a later time. Angelica Molina RN 03/04/2018, 11:47 AM Adali Sanchez - 03/04/2018 11:32 AM CDT This patient is having surgery tomorrow for ORIF. He will be seen by a social scientist during his staywho can help coordinate needed orders recommend by PT. It will be easiest for the patient to have these orders placed at time of next discharge. Adali Sanchez PA-C 03/04/2018, 11:33 AM Radha Rojas - 03/04/2018 9:24 AM CDT Has the patient recently had surgery or an injury? Yes. Date of Surgery: February 24, 2018 Type of Surgery: PLACEMENT LOWER EXTREMITY EXTERNAL FIXATOR AND RIGHT KNEE ARTHROCENTESIS (Right) What referral/order is being requested: Hospital bed for home. If order is placed spouse is requesting it be faxed to [facility] at [phone]. Attn: Rigoberto. Is it okay to leave detailed message on your voicemail? yes Radha Rojas 03/04/2018, 9:24 AM documented in this encounter Plan of Treatment Not on filedocumented as of this encounter Visit Diagnoses Not on filedocumented in this encounter Care Teams Box Printer Relationship Specialty Start Date End Date Ceic Christianson MD PCP - General Family Practice 02/24/18 [address] [place] [address] documented as of this encounter
--- OUTSIDE RECORDS SUMMARY | 2022-08-17 08:43 | XMS_ITS | Encounter Summary ---
:1955 Author Organization [facility] Address [address] [place] [address] Care Team Providers Name Role Phone Ceci Christianson MD Primary Care Provider Encounter Details Date Type Department Care Team Description 03/01/2018 Geriatrics Nursing Bria Krueger APRN, Home-Transitional BUILDING ESTIMATOR [address] [place], [place] [address] [place] [address] [phone] (Wo rk) Social History Tobacco Use Types Packs/Day Years Used Date Smoking Tobacco: Never Smokeless Tobacco: Never Alcohol Use Standard Drinks/Week Comments No 0 (1 standard drink = 0.6 oz pure alcoho l) Sex Assigned at Date Recorded Not on file documented as of this encounter Last Filed Vital Signs Vital Sign Reading Time Taken Comments Blood Pressure 139/78 03/01/2018 12:31 PM CDT Pulse 82 03/01/2018 12:31 PM CDT Temperature - - Respiratory Rate 18 03/01/2018 12:31 PM CDT Oxygen Saturation 98% 03/01/2018 12:31 PM CDT Inhaled Oxygen Concentration - - Weight - - Height - - Body Mass Index - - documented in this encounter Patient Instructions Patient InstructionsBria Krueger APRN, BUILDING ESTIMATOR - 03/01/2018 12:27 PM CDT Senior Living Care or Assisted Living Transfer Orders Name: Sudeep Steen : 1955 Planned Discharge Date: 03/01/2018 Discharge To: [facility] Discharge Diagnosis: Right tibial plateau fracture Accepting Medical Team: Sudhakar [place] Advance Directives: Full Resuscitative Measures Allergies: has No Known Allergies. Care Level: Skilled Care Condition: Improving Rehabilitation Potential: Excellent Prognosis: Excellent Discharge Potential: Short Term Care (< 90 days) Precautions: Free of communicable disease History and Physical: Dated 03/01/2018 is valid and up-to-date Diet: Diabetic/Consistent Carbohydrate (CCD) diet, Regular texture, regular consistency Weight Bearing Status: NWB RLE: [id number] on RLE: Do not resume weight- bearing on the affected limb (RLE) until care provider tells you to Activity Level: Up with assist Hospice: no Therapy Orders: Physical Therapy: Evaluate and Treat and Occupational Therapy: Evaluate and Treat OK for Standing Orders: yes Give Pneumovax: no Give two-step mantoux (PPD): no Treatments/Wound Care: Blood glucose monitoring frequency:Diabetic: Accu-Checks two times per day and Wound Care: On Sunday (02/27) you may remove dressings from external fixator pin sites and shower with nothing on the pin sites. Let soapy water run over them. Do NOT scrub the pin sites Other Orders: Notify [facility] that Mr. Steen has transferred to your facility to discuss surgery on 03/05/18. Pre-op: Hold anticoagulation on morning of surgery (03/05/2018); may have all other medications as scheduled with a sip of water. Medications: Current Outpatient Prescriptions Medication Sig ??? acetaminophen (TYLENOL) 500 MG tablet Take 2 Tabs by mouth every 8 hours. ??? alfuzosin (UROXATRAL) 10 MG 24 hour release tablet Take 1 Tab by mouth daily at bedtime. Indications: postop urinary retention ??? aspirin 325 MG tablet Take 1 Tab by mouth daily. ??? eszopiclone (LUNESTA) 3 MG tablet Take 1 Tab by mouth daily at bedtime. Indications: Trouble Sleeping ??? gabapentin (NEURONTIN) 300 MG capsule Take 1 Cap by mouth three times a day. Indications: Diabetes with Nerve Disease ??? glipiZIDE (GLUCOTROL) 5 MG tablet Take 1 Tab by mouth two times a day before meals. Indications:Type 2 Diabetes ??? hydrOXYzine HCl (ATARAX) 50 MG tablet Take 0.5 Tabs by mouth every 8 hours as needed. ??? lisinopril (ZESTRIL) 10 MG tablet Take 1 Tab by mouth daily. Indications: High Blood Pressure Disorder ??? metFORMIN (GLUCOPHAGE) 500 MG tablet Take 2 Tabs by mouth two times a day with meals. Indications: Type 2 Diabetes ??? oxyCODONE (ROXICODONE) 5 MG immediate release tablet Take 1-2 Tabs by mouth every 4 hours as needed for Pain (For pain 6-8, take one tab. For pain 9-10 tab, take two tabs.). ??? PARoxetine (PAXIL) 10 MG tablet Take 1 Tab by mouth daily. Indications: Generalized Anxiety Disorder ??? sennosides-docusate sodium (SENNA-S,SENNA PLUS) 8.6-50 MG per tablet Take 1 Tab by mouth two times a day. Do not take if having loose stools Signed by: Bria Krueger APRN, CNP This document was electronically signed on 03/01/2018 [facility] documented in this encounter Progress Notes Bria Krueger APRN, CNP - 03/01/2018 12:27 PM CDT Transitional Care Discharge Summary [facility] Transitional Care Facility: [place] Date of Service: 03/01/2018 Date of Admission: 02/27/18 Date of Discharge: 03/01/2018 Transitional Care Physician: Dr. Cinthya Berg Transitional Care Nurse Practitioner: Bria Krueger APRN, CNP Primary Care Provider: Ceci Christianson MD Patient's Date of : 1955 History of Present Illness: Sudeep Steen is a 62 y.o. old male who presented as a transfer to [facility] from an outside facility with a right tibial plateau fracture. He tripped over his indoor puppy gate and fell down 6 stairs, landing directly onto his right knee. He had immediate right knee pain. He was able to limp to his son's car with significant help, and was brought to an outside ED .On 02/24/18 he underwent placemement of right lower Extremity external fixator and right knee arthocentesis.PMHx significant for PREMA, HTN, DM2. Transferred to this transitional care facility on 02/27/18 for rehabilitation and clinical monitoring. Summary of Stay: ?? Right tibia fracture: S/P external fixator placement. Pain ongoing and rates it at 7-10 but reports it is not as steady as it has been. He would like to get his oxycodone b4antez otherwise the pain becomes too bad and it takes longer to decrease. He will continue to ask his night nurse to wake him up to assess his pain. He has oxycodone, gabapentin and apap prn. ASA for DVTP. Will return to [facility] for ORIF on 03/05/18. ?? HTN: Per chart review 110-130s/60-80s. Currently receiving lisinopril. ?? Sleep Disturbance:Currently on Lunesta. ?? DM2: Per chart review since admit BG 101, 141. Currently taking glipizide and metformin. Per hospital review BG 110s-170s with a few higher 207,242. ?? Psychosocial:Yesterday he reported his family upset that he is staying at TCU as they would prefer to have him at home. He is okay being here and feels he is getting the care and therapy he needs atthis time.Today he reports family unhappy with the aesthetics of this building and they want him closer to them so he will transfer to [facility]. After surgery on 03/05/18 he plans to discharge home and receive outpatient PT/OT. Social History Social History Narrative Served in the . Has 2 children. Lives in [place] with his significant other. 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 No Known Allergies Advance Directives: FULL CODE Functional Status at Discharge Mobility: Ambulating 0 feet, needs assist of 1 with transfer Activities of Daily Living: Upper Extremity Dressing: independent Lower Extremity Dressing: maximum assistance Toileting: maximum assistance Hygiene: set up Grooming: set up Cognition: A&Ox4 Speech/Language: Clear and articulate Diagnostic/Laboratory Test Results: BUN (mg/dl) Date Value 02/25/2018 5 (L) Sodium (mmol/L) Date Value 02/25/2018 137 Potassium (mmol/L) Date Value 02/25/2018 3.2 (L) Chloride (mmol/L) Date Value 02/25/2018 99 CO2 (mmol/L) Date Value 02/25/2018 28 Glucose (mg/dl) Date Value 02/25/2018 194 (H) Creatinine (mg/dl) Date Value 02/25/2018 0.65 (L) GFR, Estimated (ml/min/1.73m2) Date Value 02/25/2018 >60 GFR, Est., If Black (ml/min/1.73m2) Date Value 02/25/2018 >60 Calcium (mg/dl) Date Value 02/25/2018 8.8 Anion Gap (calc.) (mmol/L) Date Value 02/25/2018 10 Hemoglobin (g/dl) Date Value 02/25/2018 13.2 (L) 02/23/2018 13.7 WBC (k/ul) Date Value 02/25/2018 13.7 (H) 02/23/2018 16.2 (H) Physical Examination BP 139/78 Pulse 82 Resp 18 SpO2 98% GENERAL: Alert, No distress, Adequate hygiene, Lying in bed, Engages in conversation, Calm and Pleasant EYES: Conjunctiva not reddened or yellowed, Lids symmetric and not inflamed, wearing corrective lenses EARS, NOSE, MOUTH, THROAT: Nose and external ears without lesions, Lips without lesions NECK: Trachea midline RESPIRATORY: Unlabored and symmetric thoracic expansions CARDIOVASCULAR: Trace edema LLE, +1 edema RLE ABDOMEN:Soft, Round, No tenderness, Bowel sounds present MUSCULOSKELETAL: RLE with external fixator in place and dalila wrapped, no drainage noted, CMS intact SKIN: No rash, ulceration or suspicious lesion NEUROLOGIC: Articulate speech, Fluid movements of arms and hands, Fluid facial expression, No focal weakness of arms or legs MENTAL: Affect not depressed, anxious or agitated, No impairment of memory, Judgment and insight unimpaired Discharge Medications Current Outpatient Prescriptions Medication Sig ??? acetaminophen (TYLENOL) 500 MG tablet Take 2 Tabs by mouth every 8 hours. ??? alfuzosin (UROXATRAL) 10 MG 24 hour release tablet Take 1 Tab by mouth daily at bedtime. Indications: postop urinary retention ??? aspirin 325 MG tablet Take 1 Tab by mouth daily. ??? eszopiclone (LUNESTA) 3 MG tablet Take 1 Tab by mouth daily at bedtime. Indications: Trouble Sleeping ??? gabapentin (NEURONTIN) 300 MG capsule Take 1 Cap by mouth three times a day. Indications: Diabetes with Nerve Disease ??? glipiZIDE (GLUCOTROL) 5 MG tablet Take 1 Tab by mouth two times a day before meals. Indications:Type 2 Diabetes ??? hydrOXYzine HCl (ATARAX) 50 MG tablet Take 0.5 Tabs by mouth every 8 hours as needed. ??? lisinopril (ZESTRIL) 10 MG tablet Take 1 Tab by mouth daily. Indications: High Blood Pressure Disorder ??? metFORMIN (GLUCOPHAGE) 500 MG tablet Take 2 Tabs by mouth two times a day with meals. Indications: Type 2 Diabetes ??? oxyCODONE (ROXICODONE) 5 MG immediate release tablet Take 1-2 Tabs by mouth every 4 hours as needed for Pain (For pain 6-8, take one tab. For pain 9-10 tab, take two tabs.). ??? PARoxetine (PAXIL) 10 MG tablet Take 1 Tab by mouth daily. Indications: Generalized Anxiety Disorder ??? sennosides-docusate sodium (SENNA-S,SENNA PLUS) 8.6-50 MG per tablet Take 1 Tab by mouth two times a day. Do not take if having loose stools Assessment and Plan: (S82.750D) Closed nondisplaced bicondylar fracture of right tibia with routine healing, subsequent encounter (primary encounter diagnosis) Plan: Non-weight bearing right lower extremity. Do not resume weight bearing on the affected limb(s)until your care provider tells you to do so. Keep dressings on external fixator pin sites for three days. Do not get the dressings wet during this time. After three days (Sunday), you may remove the dressings and shower with nothing on the pinsites. Let soapy water run over them. Do not scrub the pin sites. DVTP: ASA 325mg po daily. Continue oxycodone prn. Continue scheduled gabapentin. D/C prn APAP APAP 1000mg po q8hr Start hydroxyzine 25mg po q8hr prn. Surgery scheduled for 03/05/18: Removal of fixator and ORIF.Order placed for facility to call [facility] for instructions. (F41.1) PREMA (generalized anxiety disorder) (HRC) Plan: Stable. Continue paxil. (E11.8) Type 2 diabetes mellitus with complication, without long-term current use of insulin (HRC) Plan: Controlled Continue glipizide and metformin. Start DM diet. Start bid BG monitoring. (I10) Essential hypertension (HRC) Plan: Controlled. Continue lisinopril. (G47.9) Sleep disturbance Plan: Ongoing Continue Lunesta. Discharged to: [facility] Follow-up Appointments: [facility] on 03/05/18 Home Care Agency: None Discharge Services Arranged: None Total assessment time 35 minutes with > 50% spent in counseling and care coordination regarding the discharge plan and follow-up care. Signed by: Bria Krueger APRN, CNP documented in this encounter Plan of Treatment Not on filedocumented as of this encounter Visit Diagnoses Diagnosis Closed nondisplaced bicondylar fracture of right tibia with routine healing, subsequent encounter - Primary PREMA (generalized anxiety disorder) (HRC) Generalized anxiety disorder Type 2 diabetes mellitus with complicati on, without long-term current use of insulin (HRC) Essential hypertension (HRC) Unspecified essential hypertension Sleep disturbance Sleep disturbance, unspecified documented in this encounter Care Teams Tuckpointer Cleaner Caulker Relationship Specialty Start Date End Date Ceci Christianson MD PCP - General Family Practice 02/24/18 [address], [place] [address] documented as of this encounter
--- OUTSIDE RECORDS SUMMARY | 2022-08-17 08:43 | XMS_ITS | Encounter Summary ---
:1955 Author Organization [facility] Address [address] [place] [address] Care Team Providers Name Role Phone Ceci Christianson MD Primary Care Provider Reason for Visit Reason Comments MULTIPLE PROBLEMS Encounter Details Date Type Department Care Team Description 02/28/2018 Geriatrics [facility] Bria Krueger, MULTIPLE PROBLEMS Home-Transitional [facility] [address] [place], [place] [address] [place] [address] [phone] (Wo rk) Social History Tobacco Use Types Packs/Day Years Used Date Smoking Tobacco: Never Smokeless Tobacco: Never Alcohol Use Standard Drinks/Week Comments No 0 (1 standard drink = 0.6 oz pure alcoho l) Sex Assigned at Date Recorded Not on file documented as of this encounter Last Filed Vital Signs Vital Sign Reading Time Taken Comments Blood Pressure 133/80 02/28/2018 7:31 AM CDT Pulse 93 02/28/2018 7:31 AM CDT Temperature 37.1 ??C (98.7 ??F) 02/28/2018 7:31 AM CDT Respiratory Rate 18 02/28/2018 7:31 AM CDT Oxygen Saturation 96% 02/28/2018 7:31 AM CDT Inhaled Oxygen Concentration - - Weight - - Height - - Body Mass Index - - documented in this encounter Progress Notes Bria Krueger, [facility] - 02/28/2018 7:05 AM CDT Transitional Care Comprehensive Visit [facility] Sudeep Steen, date of 1955, is currently in transitional care at [place]. This visit is conducted on 02/28/2018 to perform the initial comprehensive assessment and establish the plan of care. Primary Care Provider: Ceci Christianson MD History of Present Illness: Sudeep Steen is a 62 y.o. old male who presented as a transfer to [facility] from an outside facility with [...] on 02/27/18 for rehabilitation and clinical monitoring. Today's concerns ?? Right tibia fracture: S/P external fixator placement. Pain ongoing and rates it at 7-10 but reports it is not as steady as it has been. He would like to get his oxycodone [id number] otherwise the pain becomes too bad and it takes longer to decrease. He will continue to ask his night nurse to wake him up to assess his pain. He has oxycodone, gabapentin and apap prn. ASA for DVTP. Will return to [facility] for ORIF on 03/05/18. ?? HTN: Per chart review 110-130s/60-80s. Currently receiving lisinopril. ?? Sleep Disturbance:Currently on Lunesta. ?? DM2: No BG monitoring since admit. Currently taking glipizide and metformin. Per hospital review BG 110s-170s with a few higher 207,242. ?? Psychosocial: Family upset that he is staying [facility] they would prefer to have him at home, but he is okay being here and feels he is getting the care and therapy he needs at this time. After surgery on 03/05/18 he plans to discharge home and receive outpatient PT/OT. 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 Patient Active Problem List Diagnosis Date Noted ??? Closed fracture of right tibial plateau 02/25/2018 Overview Note: Added automatically from request for surgery [id number] ??? Closed bicondylar fracture of right tibial plateau 02/23/2018 Overview Note: Added automatically from request for surgery [id number] Family History: family history includes Alcohol Abuse in his sister; Alzheimer's in his mother; Brain Aneurysm in his father; Heart Defect (age of onset: 0) in his sister. Allergies: has No Known Allergies. Social History Social History Narrative ??? No narrative on file Advance Directives: FULL CODE Current Outpatient Prescriptions Medication Sig ??? acetaminophen (TYLENOL) 325 MG tablet Take 2 Tabs by mouth every 6 hours as needed. ??? alfuzosin (UROXATRAL) 10 MG 24 hour [...] day before meals. Indications:Type 2 Diabetes ??? lisinopril (ZESTRIL) 10 MG tablet Take [...] Do not take if having loose stools Review of Systems: A 10-point review of systems was obtained and was negative except as noted in theHPI. Recent Diagnostic/Laboratory Tests: BUN (mg/dl) Date Value 02/25/2018 5 (L) [...] (H) 02/23/2018 16.2 (H) Physical Examination BP 133/80 Pulse 93 Temp 98.7 ??F (37.1 ??C) Resp 18 SpO2 96% GENERAL: Alert, No distress, Adequate hygiene, Lying in bed, Engages in conversation, Calm and Pleasant EYES: Conjunctiva not reddened or yellowed, Lids symmetric and not inflamed, wearing corrective lenses EARS, NOSE, MOUTH, THROAT: Nose and external ears without lesions, Lips without lesions NECK: Trachea midline RESPIRATORY: Unlabored and symmetric thoracic expansions, No rales at posterior bases CARDIOVASCULAR: No loud murmur, No S3 gallop sound, trace edema LLE, +1 edema RLE ABDOMEN:Soft, Round, [...] impairment of memory, Judgment and insight unimpaired Assessment and Plan: (W89.568D) Closed nondisplaced bicondylar fracture of right tibia [...] long-term current use of insulin (HRC) Plan: No monitoring since admission. Continue glipizide and metformin. Start DM diet. Start bid BG monitoring. (I10) Essential hypertension (HRC) Plan: Controlled. Continue lisinopril. (G47.9) Sleep disturbance Plan: Ongoing Continue Lunesta. Signed by: Bria Krueger APRN, CNP documented [...] unspecified documented in this encounter Care Teams Watch Engineer Relationship Specialty Start Date End Date Ceci Christianson MD PCP - General Family Practice 02/24/18 [address], [place] [address] documented as of this encounter
--- OUTSIDE RECORDS SUMMARY | 2022-08-17 08:43 | XMS_ITS | Encounter Summary ---
:1955 Author Organization [facility] Address [address], [place] [address] Care Team Providers Name Role Phone Ceci Christianson MD Primary Care Provider Reason for Visit Auth/Cert Specialty Diagnoses / Procedures Referred By Contact Refer red To Contact Diagnoses Closed fracture of right tibial plateau, initial encounter . Procedures OPEN REDUCTION INTERNAL FIXATION TIBIAL PLATEAU FRACTURE REMOVAL KNEE SPANNING EXTERNAL FIXATOR Referral ID Status Reason Start Date Expiration Date Visits Requ ested Visits Authorized [id number] 1 1 Encounter Details Date Type Department Care Team Description 03/05/2018 [facility] Esvin Garcia MD [address] [place] [address] [place] [address] [phone] (Wo rk) Social History Tobacco Use Types [...] Priority Date/Time Associated Diagnosis Comme nts XR C-ARM 3.5-4 Routine 03/05/2018 11:35 AM Result s for this HOURS CDT procedure are i n the results section. documented in this encounter Results XR C-Arm 3.5-4 Hours (03/05/2018 11:35 AM CDT) Anatomical Region Laterality Modality Other Specimen (Source) Anatomical Location Collection Method / Collectio n Time Received Time / Laterality Volume Narrative 03/05/2018 11:35 AM CDT Fluoroscopy provided by a biochemistry technologist. Exact fluoroscopy time is documented in end of exam information in EPIC Esvin Garcia MD RAD GD documented in this encounter Visit Diagnoses Not on filedocumented in this encounter Care Teams Defective Cigarette Slitter Relationship Specialty Start Date End Date Ceci Christianson MD PCP - General Family Practice 02/24/18 [address] [place] [address] documented as of this encounter
--- OUTSIDE RECORDS SUMMARY | 2022-08-17 08:43 | XMS_ITS | Encounter Summary ---
:1955 Author Organization [facility] Address [address] [place] [address] Care Team Providers Name Role Phone Ceci Christianson MD Primary Care Provider Encounter Details Date Type Department Care Team Description 02/28/2018 Notes/Orders [facility] Bria Krueger, Home-Transitional SALES ENABLEMENT MANAGER, CRYPTOLOGIST [address] [place], [place] [address] [place] [address] [phone] (Wo rk) Social History Tobacco Use Types [...] on filedocumented in this encounter Care Teams Route Supervisor Relationship Specialty Start Date End Date Ceci Christianson MD PCP - General Family Practice 02/24/18 [address], [place] [address] documented as of this encounter
--- OUTSIDE RECORDS SUMMARY | 2022-08-17 08:44 | XMS_ITS | Encounter Summary ---
:1955 Author Organization [employer] Address [address], [place] [address] Care Team Providers Name Role Phone Ceci Christianson MD Primary Care Provider Reason for Visit Auth/Cert Specialty Diagnoses / Procedures Referred By Contact Refer red To Contact Diagnoses Fall Closed bicondylar fracture of right tibial plateau Closed bicondylar fracture of right tibial plateau . Procedures PLACEMENT LOWER EXTREMITY EXTERNAL FIXATOR OPEN REDUCTION INTERNAL FIXATION TIBIAL PLATEAU FRACTURE REMOVAL EXTERNAL FIXATOR LOWER EXTREMITY Referral ID Status Reason Start Date Expiration Date Visits Requ ested Visits Authorized [id number] 1 1 Encounter Details Date Type Department Care Team Description 02/24/2018 Surgery [facility] Operating Room Randy Gilbert, PLACEMENT LOWER EXTREMITY [address] [address] [address] RIGHT KNEE ARTHROCENTESIS [phone] [place] [address] (Wo rk) Social History Tobacco Use Types Packs/Day Years Used Date Smoking Tobacco: Never Smokeless Tobacco: Never Alcohol Use Standard Drinks/Week Comments No 0 (1 standard drink = 0.6 oz pure alcoho l) Sex Assigned at Date Recorded Not on file documented as of this encounter Last Filed Vital Signs Vital Sign Reading Time Taken Comments Blood Pressure 167/81 02/24/2018 5:00 PM CDT Pulse 83 02/24/2018 5:00 PM CDT Temperature 37.1 ??C (98.8 ??F) 02/24/2018 4:30 PM CDT Respiratory Rate 12 02/24/2018 5:00 PM CDT Oxygen Saturation 100% 02/24/2018 5:00 PM CDT Inhaled Oxygen Concentration - - Weight 127 kg (280 lb) 02/23/2018 6:08 PM CDT Height 188 cm (6' 2) 02/23/2018 6:08 PM CDT Body Mass Index 35.95 02/23/2018 6:08 PM CDT documented in this encounter Discharge Summaries Adali Sanchez - 02/25/2018 9:[address] [facility] Orthopedic Discharge Note Patient Name: Sudeep Steen Date of : 1955 Admit Date/Time: Admit Date: 02/23/2018 6:00 PM Discharge Date: 02/27/2018 2:40 PM Service: Orthopedics Attending MD: Dr. Esvin Garcia Admitting Diagnosis: Closed bicondylar tibial plateau fracture Discharge Diagnosis: Closed bicondylar tibial plateau fracture Operations/Procedures: Procedure(s): PLACEMENT LOWER EXTREMITY EXTERNAL FIXATOR AND RIGHT KNEE ARTHROCENTESIS Consults:Medicine, PT, OT, Care Management Complications: None apparent Patient Active Hospital Problem List: Past Medical History: Diagnosis Date ??? BPPV (benign paroxysmal positional vertigo) ??? Diabetes mellitus type 2 ??? Gout ??? Hyperlipidemia (HRC) ??? Hypertension (HRC) ??? Osteoarthritis Allergies : Review of patient's allergies indicates no known allergies. Past Surgical History: Procedure Laterality Date ??? SURGICAL HX - NEG Brief History : Patient is a 62-year-old male with a past medical history significant for hypertension and diabetes, was transferred from the outside hospital after sustaining an injury tripping over [facility], and had a fall down 6 stairs landing directly onto the knee. He was seen in the emergency department andfound to have a right bicondylar tibial plateau fracture. This was a closed injury. He had no clinical signs of compartment syndrome. However, he was significantly swollen, and so he was admitted overnight for observation and scheduled for external fixator placement on the day of surgery. (Dr. Caldera, operative report) Hospital Course: Patient was admitted on Admit Date: 02/23/2018 6:00 PM and on that date underwent the above stated procedure by Dr. Garcia. There were no complications. The patient was admitted to the Orthopaedic Service and followed by the Medicine service for multiple co-morbidities. The patient was started on pharmaceutical and mechanical DVT prophylaxis as well as prophylactic antibiotic therapy. The patient progressed well and was discharged To TCU in stable condition. Discharge Medications: Discharge Medication List as of 02/27/2018 2:40 PM START taking these medications Details acetaminophen (TYLENOL) 325 MG tablet Take 2 Tabs by mouth every 6 hours as needed., Disp-100 Tab, R-2, Q6H PRN Starting 02/25/2018, Until Discontinued, Oral, E-Prescribing alfuzosin (UROXATRAL) 10 MG 24 hour release tablet Take 1 Tab by mouth daily at bedtime. Indications: postop urinary retention, Disp-30 Tab, R-0, HS Starting 02/26/2018, Until Sun02/26/19, Oral, E-Prescribing aspirin 325 MG tablet Take 1 Tab by mouth daily., Disp-28 Tab, R-0, DAILY Starting 02/25/2018, Until Discontinued, Oral, E-Prescribing sennosides-docusate sodium (SENNA-S,SENNA PLUS) 8.6-50 MG per tablet Take 1 Tab by mouth two times aday. Do not take if having loose stools, Disp-80 Tab, R-1, BID Starting 02/25/2018, Until Discontinued, Oral, E-Prescribing CONTINUE these medications which have CHANGED Details eszopiclone (LUNESTA) 3 MG tablet Take 1 Tab by mouth daily at bedtime. Indications: Trouble Sleeping, HS Starting 02/25/2018, Until Discontinued, Oral, No Print/No Fill gabapentin (NEURONTIN) 300 MG capsule Take 1 Cap by mouth three times a day. Indications: Diabetes with Nerve Disease, Disp-25 Cap, R-0, TID Starting 02/25/2018, Until Sun02/25/19, Oral, E-Prescribing glipiZIDE (GLUCOTROL) 5 MG tablet Take 1 [...] 02/25/2018, Until Discontinued, Oral, No Print/No Fill oxyCODONE (ROXICODONE) 5 MG immediate release tablet Take 1-2 Tabs by mouth every 4 hours as needed for Pain (For pain 6-8, take one tab. For pain 9-10 tab, take two tabs.)., Disp-40 Tab, R-0, Q4H PRN Starting 02/27/2018, Until Discontinued, Oral, Print PARoxetine (PAXIL) 10 MG tablet Take 1 Tab by mouth daily. Indications: Generalized Anxiety Disorder, DAILY Starting 02/25/2018, Until Discontinued, Oral, No Print/No Fill STOP taking these medications naproxen sodium (ANAPROX) 220 MG tablet Comments: Reason for Stopping: DVT Prophylaxis: Enoxaparin until definitive fixation Discharge Disposition: To TCU Discharge Orders (Non-med) Contact Orthopedic Surgeon Comments: Contact Orthopedic Surgeon if considering discontinuing or changing the anticoagulation order. Contact information (name/clinic/phone number): Dr. Esvin Garcia MD. Clinic: [facility]. . When to Resume Normal Activities: Comments: Do not resume normal activities until you are seen in the clinic DISCHARGE MD NAME Comments: I, Jorge Marquez, take responsibility for the discharge of this patient and have reviewed the transfer orders report for accuracy. If any other questions occur regarding this patient's orders or the plan of care, I can be reached at [phone]. Admit to Skilled Care Comments: FACILITY NAME: TCU: [facility] Discharge Diagnosis Comments: Right tibial plateau fracture, s/p external fixator placement Physical Therapy Comments: Left leg strengthening, gait training maintaining NWB restrictions RLE Question Answer Comment Appointment Urgency? Non-Urgent Reason for Visit / Clinical Data? s/p R tib plateau fracture. Requested Services Evaluate and treat May use dexamethasone or acetic acid for iontophoresis? Yes May check glucose per protocol (see policy link below) or if patient has symptoms? Yes Occupational Therapy Question Answer Comment Appointment Urgency? Non-Urgent Reason for Visit / Clinical Data? ADLs s/p external fixator placement Requested Services Evaluate and treat May use dexamethasone or acetic acid for iontophoresis? Yes May check glucose per protocol (see policy link below) or if patient has symptoms? Yes No weight bearing Comments: Non-weight bearing RLE. Do not resume weight bearing on the affected limb(s) until your care provider tells you to do so. Discharge Diet (see comments) Comments: Consitent Carbohydrate Diabetic Accepting MD Notified Condition at Discharge: Stable Prognosis: Good Rehab Potential: Good Potential for D/C from NH in 30 days? YES Code Status: Full Code [facility] Geriatric[facility] / [facility] Standing Orders When to Resume Normal Activities: Comments: Do not resume normal activities until after surgery next week DISCHARGE MD NAME Comments: I, Jorge Marquez MD, take responsibility for the discharge of this patient and have reviewed the transfer orders report for accuracy. If any other questions occur regarding this patient's orders or the plan of care, I can be reached at [phone]. No weight bearing Comments: Non-weight bearing right lower extremity. Do not resume weight bearing on the affected limb(s) until your care provider tells you to do so. Brace Instructions Comments: Keep dressings on external fixator pin sites for three days. Do not get the dressings wet during this time. After three days (Sunday), you may remove the dressings and shower with nothing on the pin sites. Let soapy water run over them. Do not scrub the pin sites. Follow Up: The patient will follow up with [facility] on Sunday03/05/2018 for definitive fixation Adali Sanchez PA-C 02/28/2018, 7:24 AM documented in this encounter Discharge Instructions Discharge InstructionsSylvia Stovall RN - 02/25/2018 9:43 AM CDT Contact Information [address] [address] General Information Discharging physician: Dr. Garcia Labs & Coumadin Information No data found. Wound care: ??? Hand Washing: o It [...] over the next month or two. ??? Dressings: o As long as there are no openings in the incision and no drainage or oozing, you do not need to usea dressing. o You may apply a small sterile gauze bandage if you notice any drainage. o If you do use a bandage, change it everyday. You can change it more often if it is wet, stained ordirty. ??? Shower: o Showering is recommended daily and as needed, you may get your incision wet in the shower. o Do not soak or scrub the incision until it is completely healed. o Do not go swimming or into bodies of water such as pools, hot tubs or lakes until the incision is completely healed. This typically occurs 4-6 weeks following surgery. ??? Warning Signs: o Some redness, swelling, [...] to music,reading, journaling, meditating, etc. Community Resources n/a Emergency & Urgently Needed Care: For emergencies call 911 and/or get medical help right away. If you are a [facility] member and have medical needs after clinic hours you may call the [facility] [phone] or . documented in this encounter Medications at Time [...] for 28 days. prophylaxis Indications: DVT prophylaxis acetaminophen (TYLENOL) Take 2 Tabs by mouth 100 Tab 2 02/28/2018 325 MG tablet every 6 hours as needed. alfuzosin (UROXATRAL) Take 1 Tab by mouth 30 Tab 0 02/2603/07/2018 10 MG 24 hour release daily at bedtime. tabletIndications: Indications: postop postop urinary urinary retention retention aspirin 325 MG tablet Take 1 Tab by mouth 28 Tab 0 02/2503/06/2018 daily. eszopiclone (LUNESTA) 3 Take 1 Tab by mouth 0 02/28/2018 MG tabletIndications: daily at bedtime. Insomnia Indications: Trouble Sleeping gabapentin (NEURONTIN) Take 1 Cap by mouth 25 Cap 0 01/2903/01/2018 300 MG three times a day. capsuleIndications: [...] mg for pain 8-10/10). Indications: Acute Pain oxyCODONE (ROXICODONE) Take 1-2 Tabs by mouth 40 Tab 0 0 02/27/2018 03/01/2018 5 MG immediate release every 4 hours as tablet needed for Pain (For pain 6-8, take one tab. For pain 9-10 tab, take two tabs.). sennosides-docusate Take 1 Tab by mouth 40 Tab 0 018 08/21/2018 sodium (SENNA-S,SENNA two times daily as PLUS) 8.6-50 MG per needed for tabletIndications: Constipation. Constipation Indications: Constipation sennosides-docusate Take 1 Tab by mouth 80 Tab 1 018 03/06/2018 sodium (SENNA-S,SENNA two times a day. Do PLUS) 8.6-50 MG per not take if having tablet loose stools documented as of this encounter Progress Notes Emilie Smith PA-C - 02/27/2018 9:[address] [facility] Medicine Progress Note Date of service: 02/27/2018 Subjective: Now urinating spontaneously. Frustrated with overall course of injury and immobility/pain. Denies f/c/n/v/cp/sob. Passing gas, no BM since Sunday, feels like it will happen today. Objective: General: WDWN 62 y.o. male in NAD. Patient Vitals for the past 8 hrs: BP Temp Temp src Pulse Resp SpO2 02/27/18 0600 122/68 98.5 ??F (36.9 ??C) Oral 72 18 98 % Exam: HEENT: eoms grossly intact, MMM RESP: CTAB ant, nonlabored on RA CV: RRR, no significant m/r/g ABD: +bs, soft, nt/nd EXTS: RLE dressed with exfix in place, no pitting LLE edema, calf is soft NEURO: Alert and conversant Current meds reviewed. All labs reviewed. A/P: 62 yo??old male??with HTN and T2DM who presents with a R tibial plateau fracture. ? Acute postoperative urinary retention -- resolved. Multifactorial in postop setting (anesthesia, pain, narcotics, immobility). Denies baseline obstructive symptoms. Trialing alpha flor. Now spont voiding since yest evening. DMII. Reports recent A1c was 6.8% Sugars better after adding back home glipizide, cont home metformin. Lispro available prn. HTN. Pressures looks great since resumption of home ACEi. PREMA. Cont SSRI. Mechanical fall with R tib plat fracture.??exfix placed 02/24/2018. Planning dc to likely tcu then back for ORIF once swelling allows, tentative date of 03/05/18. Pain management, dvt proph (full ASA) andactivity per surgical team. Focus on bowels today. ? Dispo - fine to dc once tcu arranged Emilie Smith PA-C [facility] Medicine [phone] 02/27/2018 Dalton Mooney MD - 02/27/2018 6:11 AM CDT [facility] ORTHOPAEDIC SURGERY PROGRESS NOTE 02/27/2018 6:11 AM Subjective: No acute events overnight. Straight cath x 2 yesterday morning/afternoon for urinary retention, was able to spontaneously void adequately yesterday evening. Pain controlled. Denies fevers, chills, chest pain/pressure, or shortness of breath. Denies any new numbness, tingling, or weakness in his extremities. No concerns this AM. Objective: BP 122/68 Pulse 72 Temp 98.5 ??F (36.9 ??C) (Oral) Resp 18 Ht 6' 2 (1.88 m) Wt280 lb (127 kg) SpO2 98% BMI 35.95 kg/m2 Exam: Gen: Alert, NAD. Resp: Non-labored on room air CV: RRR. RLE: - Dressing c/d/i. Ex fix in place. Pins sites c/d/i - Toes warm and well perfused. - SILT dp/sp/saph/mao/tib n distributions. - Fires TA/GSC/EHL/FHL Assessment: Sudeep Steen is a 62 y.o.-old male with a right bicondylar tibial plateau fx now s/p right knee spanning ex fix and knee aspiration with Dr. Gilbert on 02/27/2018. Planning on ORIF on 03/05/[address] Garcia. Plan: WB status: NWB RLE Antibiotics:??24 hours IV ancef post op, complete DVT Prophylaxis:??ASA POD1, mechanical PT/OT:Eval and treat Bracing/Splinting:??ex fix Elevation:??RLE at all times while in bed Dressings: dalila wrap, keep c/d/i Diet:??ADAT Consults:??Medicine Dispo: DC to TCU vs home when safe disposition plan developed. Plan for return for surgery on 03/05. ?? Dalton Mooney MD Orthopedic Surgery PGY-2 Emilie Smith PA-C - 02/26/2018 10:[address] [facility] Medicine Progress Note Date of service: 02/26/2018 Subjective: reports urinary retention overnight, able to get only small dribbles out, RN states two straight caths overnight/early am for significant volume. Never had a problem with this prior, no obstructive urinary symptoms at baseline. Last BM was Sunday, passing gas, no abd pain or distension, endorses little appetite. Objective: General: WDWN 62 y.o. male in NAD. Patient Vitals for the past 8 hrs: BP Temp Temp src Pulse Resp SpO2 02/26/18 0959 139/78 98.8 ??F (37.1 ??C) Oral 81 16 93 % 02/26/18 0937 125/79 - - 81 - - 02/26/18 0704 139/60 97.8 ??F (36.6 ??C) Oral 81 16 97 % Exam: HEENT: eoms grossly intact, MMM RESP: CTAB anterolat, nonlabored on RA, does IS to 1999 with great technique CV: RRR, no significant m/r/g ABD: +bs, soft, nt/nd EXTS: RLE in dalila wrap and exfix from thigh to lower leg. LLE without edema, calf is soft. NEURO: Alert and conversant Current meds reviewed. All labs reviewed. A/P: 62 yo??old male??with HTN and T2DM who presents with a R tibial plateau fracture. ? Acute postoperative urinary retention. Multifactorial in postop setting (anesthesia, pain, narcotics, immobility). Denies baseline obstructive symptoms. Will trial alpha flor to see if we can get any effect. Also encouraged edge of bed and other environmental strategies that may help trigger spontaneous void. Allow one additional straight cath today then if again retains, insert bobo for one week. Pt understands and in agreement with plan. DMII. Reports recent A1c was 6.8% Some hyperglycemia yesterday, he attributes to eating some raspberry sherbet. Sugars better after adding back home glipizide, cont home metformin. Lispro available prn. HTN. Pressures looks great since resumption of home ACEi. PREMA. Cont SSRI. Mechanical fall with R tib plat fracture. exfix placed 02/24/2018. Planning dc to likely tcu then back for ORIF once swelling allows, tentative date of 03/05/18. Pain management, dvt proph (full ASA) and activity per surgical team. ?? Dispo - fine to dc once tcu arranged Emilie Smith PA-C [facility] [phone] 02/26/2018 Meaghan Cartwright MD - 02/26/2018 5:23 AM CDT [facility] ORTHOPAEDIC SURGERY PROGRESS NOTE 02/26/2018 5:23 AM Subjective: No acute events overnight. Straight cathed overnight. Pain controlled. Denies fevers, chills, chest pain/pressure, or shortness of breath. Denies any new numbness, tingling, or weakness in his extremities. Knows that he is going to a TCU when available. Objective: BP 126/76 Pulse 73 Temp 98.4 ??F (36.9 ??C) (Oral) Resp 16 Ht 6' 2 (1.88 m) Wt127 kg (280 lb) SpO2 93% BMI 35.95 kg/m2 Exam: Gen: Alert, NAD. Resp: Non-labored on room air CV: RRR. RLE: - Dressing c/d/i. Ex fix in place. Pins c/d/i - Toes warm and well perfused. - SILT dp/sp/saph/mao/tib n distributions. - 03/02 strength with TA/GSC/EHL/FHL Assessment: Sudeep Steen is a 62 y.o.-old male with a right bicondylar tibial plateau fx now s/p right knee spanning ex fix and knee aspiration with Dr. Gilbert on 02/26/2018. Planning on ORIF on 03/05/[address] Garcia. Plan: ?? WB status: NWB RLE Antibiotics:??24 hours IV ancef post op, complete DVT Prophylaxis:??ASA POD1. Drains:??n/a X-rays:??NA PT/OT:Eval and treat Bracing/Splinting:??ex fix Elevation:??RLE at all times while in bed Dressings: dalila wrap, keep c/d/i Diet:??ADAT Consults:??Medicine DC to TCU when available. Return for surgery on 03/05. ?? Meaghan Cartwright MD Orthopedic Surgery PGY-2 Pager [phone] Emilie Whyte PA-C - 02/25/2018 2:[address] [facility] Medicine Progress Note Date of service: 02/25/2018 Subjective: Pain pretty significant when up, tolerable otherwise. Denies f/c/n/v/cp/sob. Worries about being able to manage the exfix at home as he awaits return to OR. Objective: General: WDWN 62 y.o. male in NAD. Patient Vitals for the past 8 hrs: BP Pulse SpO2 02/25/18 1214 119/72 - - 02/25/18 1000 (!) 143/78 75 - 02/25/18 0735 - - 94 % Exam: HEENT: eoms grossly intact, MMM RESP: CTAB ant, nonlabored on RA CV: RRR, no significant m/r/g ABD: +bs, soft, nt/nd EXTS: RLE with exfix from thigh to lower leg, LLE without edema, calf is soft NEURO: Alert and conversant Current meds reviewed. All labs reviewed. A/P: 62 yo old male with HTN and T2DM who presents with a R tibial plateau fracture. ?? Preop. Please see note from my colleague dated 02/23/2018. No further cardiac workup indicated. DMII. Reports recent A1c was 6.8% Some hyperglycemia today, he attributes to eating some raspberry sherbet. I have added lispro prn should it be needed. Cont home metformin. Resumed glipizide as well. HTN. Pressures were high overnight, better now this morning after resumed home ACEi. PREMA. Cont SSRI. Mechanical fall with R tib plat fracture. exfix placed. Planning dc to likely tcu then back for ORIFonce swelling allows, tentative date of 03/05/18. Pain management, dvt proph and activity per surgicalteam. Dispo - fine to dc once tcu arranged Emilie Smith PA-C [facility] Medicine [phone] 02/25/2018 Esvin Garcia MD - 02/25/2018 7:52 AM CDT [facility] ORTHOPAEDIC SURGERY PROGRESS NOTE 02/25/2018 7:52 AM Subjective: No acute events overnight. Pain controlled. Denies fevers, chills, chest pain/pressure, or shortness of breath. Denies any new numbness, tingling, or weakness in his extremities. Has questions about surgery today. Objective: BP (!) 185/109 Pulse 90 Temp 99.9 ??F (37.7 ??C) (Axillary) Resp 18 Ht 6' 2 (1.88 m) Wt 127 kg (280 lb) SpO2 99% BMI 35.95 kg/m2 Exam: Gen: Alert, NAD. Resp: Non-labored on room air CV: RRR. RLE: - Dressing c/d/i. Ex fix in place. Pins c/d/i - Toes warm and well perfused. - SILT dp/sp/saph/mao/tib n distributions. - 03/02 strength with TA/GSC/EHL/FHL Assessment: Sudeep Steen is a 62 y.o.-old male with a right bicondylar tibial plateau fx now s/p right knee spanning ex fix and knee aspiration with Dr. Gilbert on 02/24/2018. Patient possibly going tothe OR today with Dr. Garcia for fixation. Doing well post-operatively. Plan: ?? WB status: NWB RLE Antibiotics:??24 hours IV ancef post op DVT Prophylaxis:??ASA POD1. Drains:??n/a X-rays:??NA PT/OT:Eval and treat Bracing/Splinting:??ex fix Elevation:??RLE at all times while in bed Dressings: dalila wrap, keep c/d/i Diet:??ADAT Consults:??Medicine Poss DC today depending on operative plan with Dr. Garcia. ?? Meaghan Cartwright MD Orthopedic Surgery PGY-2 Pager [phone] I saw and evaluated Sudeep Steen. Chart, Radiographic Studies and Laboratory Results reviewed. I agree with the findings and plan of care as documented by Dr. Cartwright. Patient too swollen for ORIF today. Will maintain Ex-Fix, elevate and compress and tentatively plan for ORIF and Ex-Fix removal on 03/05/2018 if swelling appropriate at that time. Planned surgical procedure as well as risks and benefits discussed with patient. Will have further discussion when patient returns. We will work toward discharge planning. Esvin Garcia MD Orthopaedic Trauma Randy Tse APRN, [facility] - 02/24/2018 11:21 AM CDT Images from the original note were not included. [facility] Medicine Progress Note () Patient Name: Sudeep Steen Attending: Randy Tse APRN, CNP Date of Service: 02/24/2018 Subjective: Seen and examined. VSS. Doing well at present. 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 Denies any CP, SOB, ROSIE. No new concerns. Objective: Most Recent Vital Signs: Min and Max Vital Signs (24 hours): Temp: 98 ??F (36.7 ??C) BP: (!) 141/87 Pulse: 64 Resp: 17 SpO2: 93 % Temp Min: 98 ??F (36.7 ??C) Max: 98.7 ??F (37.1 ??C) BP Min: 132/82 Max: 149/93 Pulse Min: 64 Max: 70 Resp Min: 17 Max: 18 SpO2 Min: 93 % Max: 96 % General: A&Ox3, no apparent distress CV: RRR, S1 S2 +, No M/R/S3/S4 Lungs: CTA b/l, No Wheezing, No accessory muscle use Abd: Normal BS, soft, NT/ND Ext: No C/C/E. Brace on RLE. Skin: Warm and dry, no rash Labs: Reviewed and notable for the following: Last 24 Hour Accucheck Glucose Results: Recent Labs 02/23/18 1835 02/23/18 2308 GLWB 130 154 Lab Results Component Value Date/Time WBC 16.2 (H) 02/23/20182154 RBC 4.94 02/23/20182154 Hemoglobin 13.7 02/23/20182154 HCT 41.0 02/23/20182154 MCV 83.0 02/23/20182154 RDW 13.7 02/23/20182154 Platelets 262 02/23/20182154 Lab Results Component Value Date/Time Creatinine 0.69 (L) 02/23/20182155 Glucose 207 (H) 02/23/20182155 Glucose, Whole Blood 154 02/23/20182307 Chloride 101 02/23/20182155 Potassium 3.5 02/23/20182155 Sodium 135 (L) 02/23/20182155 BUN 8 02/23/20182155 Calcium 8.9 02/23/20182155 GFR, Estimated >60 02/23/20182155 GFR, Est., If Black >60 02/23/20182155 Lab Results Component Value Date/Time INR 1.1 02/23/20182155 Protime 13.8 02/23/20182155 Imaging/Other: EKG 02/23/18 Sinus rhythm Left axis deviation Left ventricular hypertrophy with QRS widening Nonspecific T wave abnormality Abnormal ECG No previous ECGs available Assessment and Plan: 62 y.o. old male with HTN and T2DM who presents with a R tibial plateau fracture. 1. Preop: Completed by my colleague last night. No acute changes. RCRI score is 0 = 0.4% risk of major cardiac event. 2. Leukocytosis: Most likely related to stress from injury/fracture. Continue to monitor. 3. T2DM: Hold Glipizide for now. Continue Metformin 1000 mg BID. Continue correctional scale coverage. Continue hypoglycemia protocol. Hold Glipizide. 4. HTN: PRN Labetalol SBP >/= 160. Hold Lisinopril for now. 5. PREMA: Continue Paroxetine 6. Insomnia: On Lunesta at HS. Not on formulary. Complementary cares ordered. Pain management. Prophylaxis: mechanical. Per Ortho. Disposition: TBD Code Status/Goals of Care: Full Randy Tse APRN, ZAID [facility] Medicine, [facility] Meaghan Malhotra MD - 02/24/2018 8:01 AM CDT Orthopaedic Surgery Progress Note 02/24/2018 S: No acute events overnight. Pain well controlled. NPO since midnight. O:BP 132/82 Pulse 70 Temp 98.7 ??F (37.1 ??C) (Oral) Resp 18 Ht 6' 2 (1.88 m) Wt 127 kg (280 lb) SpO2 96% BMI 35.95 kg/m2 A&O, NAD Non labored breathing Extremities: RLE moderate knee effusion, skin intact 5/5 TA GSC EHL FHL SILT throughout foot 2+dp and pt pulse Labs: Hgb: 13.7 A/P: Sudeep Steen is a 62 y.o.-old male s/p fall down 6 stairs 02/23 with right bicondylar tibial plateau fracture OR today (02/24) for right knee-spanning external fixator with Dr. Gilbert Surgery discussed with patient and his girlfriend last evening, consent obtained and placed in chart. Medical clearance: no additional testing needed NPO NWB RLE RLE KI Meaghan Malhotra MD 02/24/2018 Orthopaedic Surgery Resident, PGY-2 Pager: For questions about this patient, please attempt to contact me at my pager ([phone]) prior to contacting the orthopaedics resident field consultant. Thank you! documented in this encounter Procedure Notes Meaghan Cartwright MD - 02/24/2018 3:00 PM CDT [facility] Brief Operative Progress Note Surgery Date: 02/24/2018 Surgeon(s) and Role: * Randy Gilbert MD - Primary Meaghan Caldera Pre-op Diagnosis: * Closed bicondylar fracture of right tibial plateau [S82.141A] Post-op Diagnosis: * Closed bicondylar fracture of right tibial plateau [S82.141A] Procedure(s) (LRB): PLACEMENT LOWER EXTREMITY EXTERNAL FIXATOR (Right) and right knee aspiration EBL: Minimal Specimens: * No specimens in log * Complications / Findings: See dictated op report WB status: NWB RLE Antibiotics: 24 hours IV ancef post op DVT Prophylaxis: ASA POD1. Drains: n/a X-rays: NA PT/OT:Eval and treat Bracing/Splinting: ex fix Elevation: RLE at all times while in bed Dressings: dalila wrap, keep c/d/i Diet: ADAT Consults: Medicine ?? Possible OR with Dr. Garcia on Sunday 02/25 if swelling is ok Meaghan Cartwright MD Randy Gilbert MD - 02/24/2018 12:00 AM CDT [facility]: [id number] OPERATIVE REPORT DATE OF SURGERY: 02/24/2018 : 1955 ATTENDING SURGEON: Randy Gilbert MD. ASSISTANTS: 1. Jeffrey Caldera MD. 2. Meaghan Cartwright MD. PREOPERATIVE DIAGNOSIS: Right closed bicondylar tibial plateau fracture. POSTOPERATIVE DIAGNOSIS: Right closed bicondylar tibial plateau fracture. PROCEDURE PERFORMED: 1. Closed reduction, with manipulation of right bicondylar tibial plateau fracture. 2. Application of right knee spanning external fixator. 3. Arthrocentesis of right knee. IMPLANTS: Synthes large external fixator with two 5 mm pins in the femur, and two 5 mm pins in the tibia. ESTIMATED BLOOD LOSS: Minimal. COMPLICATIONS: None apparent. TOURNIQUET TIME: None used. POSTOPERATIVE PLAN: The patient will be nonweightbearing on his right lower extremity, with plan for definitive fixation of the right tibial plateau pending. He will receive aspirin for DVT prophylaxis. INDICATION FOR PROCEDURE: Patient is a 62-year-old male with a past medical history significant for hypertension and diabetes, was transferred from the outside hospital after sustaining an injury tripping over a puppy gate, and had a fall down 6 stairs landing directly onto the knee. He was seen in the emergency department and found to have a right bicondylar tibial plateau fracture. This was a closed injury. He had no clinical signs of compartment syndrome. However, he was significantly swollen, and so he was admitted overnight for observation and scheduled for external fixator placement on the day of surgery. Discussion was had with the patient regarding the risks and benefits of surgery, the risks of pain, bleeding, infection, damage to surrounding structures, failure of the procedure, and need for further surgery were all discussed. We also discussed performing an arthrocentesis of the knee to evacuate his hemarthrosis and decrease his swelling. The patient elected to proceed with surgery. DESCRIPTION OF PROCEDURE: The patient was placed on the operating table in the supine position. General endotracheal anesthesia was induced. Preoperative antibiotics were given. The right lower extremity was prepped and draped sterilely. An arthrocentesis of the knee was performed via superomedial portal via an 18-gauge spinal needle. Approximately 120 mL of hemarthrosis were removed from the knee. This significantly decreased the effusion as well as the swelling of the proximal leg. Following this, biplanar fluoroscopy was utilized to place 2 percutaneous Schanz pins in the femur, and 2 percutaneous Schanz pins in the tibia. This was done via the percutaneous trocar triple sleeve drilling bicortically, and then placing the pins. Following pin placement, the external fixator was attached. Manipulation and closed reduction of the fracture were performed, and the fixator was tightened. Biplanar fluoroscopy confirmed appropriate alignment of the fracture. The pin sites were dressed, and then Dalila bandage was wrapped around the leg for some light compression. The patient was then awakened, extubated, and transferred to the PACU in stable condition. Dr. Gilbert was present for all critical portions of the case. JEFFREY CALDERA MD /MODL /[id number] Randy Gilbert MD documented in this encounter Consult Notes Susan Higgins L.Ac. - 02/27/2018 2:40 PM CDTAssociated Order(s): COMPLEMENTARY CARE CONSULT Acupuncture was unable to get to Bill prior to DC. Thank you for your referral. Flora PIZARRO L.Ac Doctor of Acupuncture and [place] Medicine Kalina Salguero LGSW - 02/26/2018 4:56 PM CDT Consults [facility] Advocate Note Relationship Consultant received message from [facility] asking about [facility] coverage. Relationship Consultant shared that pt can use Non-network TCU's found on the [facility] website. This list was given to pt along with the co-payment requirements for [employer]. Pt stated he understood he would accumulate a billwith [employer]. Relationship Consultant also discussed the benefits of enrolling in [facility]. Pt stated he served in the [employer] for 20 years and now pays for [facility] until he is eligible for [employer] for life. Relationship Consultant also educated pt on role of [facility], giving [facility] contact. Relationship Consultant then explained the medical equipment donation program run but [employer] and gave pt contact. Pt had no further questions atthis time and thanked contract technical writer for [facility] services. Relationship Consultant thanked pt for his service and presented [facility] [place] and contact, encouraging pt to call [facility] if any questions arise. Qualification: Branch: Era: Clinical Summary: Pt was alert and very pleasant throughout visit, expressing understanding and interest in resources given. Referrals/Resources: [id number], Other (comment) [place] Call Center Brochure. Collateral Contacts: Telegraphic Service Dispatcher Contact: Family/Friend Contact: Community Providers/Outpatient Psychiatrist: Other Contact 1: Other Contact 2: Other Contact 3: Plan: Follow as needed. Report completed by: RICCI Carpenter Advocate Phone number and pager: [phone] Belle Guerrero MD - 02/23/2018 10:44 PM CDT [facility]. Hospital Medicine Consultation Note () Date of service: 02/23/2018 I was asked by Dr. Gilbert to provide my opinion and/or advice in regards of hypertension and diabetes. History of present illness: Patient is a 62 year old man with hx HTN and DM who was transferred from an OSH after presenting with a right tibial plateau fracture. Patient tripped over a dog and dog gate and fell down about 6 steps, landing on his right knee. He says he gets a gold medal for being a couch potato. He is normally able to walk 1/2 mile beforehis hips start hurting. He goes dancing with his as well. He denies chest pain, SOB, or lightheadedness. He reports a history of mitral valve prolapse but says his doctor told him that he doesn'thave it any more. Denies edema or dyspnea on exertion. He denies personal or family history of reactions to anesthesia, bleeding or clotting disorders. Past Medical History: Diagnosis Date ??? BPPV (benign paroxysmal positional vertigo) ??? Diabetes mellitus type 2 ??? Gout ??? Hyperlipidemia (HRC) ??? Hypertension (HRC) ??? Osteoarthritis Past Surgical History: Procedure Laterality Date ??? SURGICAL HX - NEG Family History Problem Relation Age of Onset ??? Alzheimer's Mother ??? Brain Aneurysm Father ??? Heart Defect Sister 0 Congential ??? Alcohol Abuse Sister Social History Occupational History ??? [employer] Self Employed Social History Main Topics ??? Smoking status: Never Smoker ??? Smokeless tobacco: Never Used ??? Alcohol use No ??? Drug use: No ??? Sexual activity: Yes Partners: Female Current outpatient medications: Outpatient Prescriptions Marked as Taking for the 02/23/18 encounter (Hospital Encounter): eszopiclone (LUNESTA) 3 MG tablet Take by mouth daily at bedtime. Disp: Rfl: glipiZIDE (GLUCOTROL) 5 MG tablet Take 5 mg by mouth two times a day before meals. Disp: Rfl: lisinopril (ZESTRIL) 10 MG tablet Take 10 mg by mouth daily. Disp: Rfl: metFORMIN (GLUCOPHAGE) 500 MG tablet Take 1,000 mg by mouth two times a day with meals. Disp: Rfl: naproxen sodium (ANAPROX) 220 MG tablet Take 440 mg by mouth two times a day with meals. Disp: Rfl: PARoxetine (PAXIL) 10 MG tablet Take 10 mg by mouth daily. Disp: Rfl: Allergies: Review of patient's allergies indicates no known allergies. Review of Systems: The remainder of the complete review of systems is negative except for hip arthritis, nasal congestion from allergies. Physical Examination: Vital signs: BP (!) 143/89 Pulse 68 Temp 98.3 ??F (36.8 ??C) (Oral) Resp 18 Ht 6' 2 (1.88 m) Wt 127 kg (280 lb) SpO2 95% BMI 35.95 kg/m2 General: No apparent distress HEENT: Atraumatic, PERRL, EOMi, moist mucous membranes, no oral lesions Neck: Normal Chest/Lungs: CTAB Cardiovascular: RRR, no m/c/g/r; DP pulses 2+ bilaterally Abdomen: Soft, NTND : deferred Rectal: Not examined Muskuloskeletal: Brace on right leg Extremities: No peripheral edema Skin: Normal Neurological: Normal DATA: Labs: Hospital Encounter on 02/23/18 (from the past 24 hour(s)) Glucose, Whole Blood POC Result Value Ref Range Glucose, Whole Blood 130 70 - 180 mg/dl Complete Blood Count-No Diff Result Value Ref Range WBC 16.2 (H) 4.0 - 11.0 k/ul RBC 4.94 4.5 - 5.9 M/ul Hemoglobin 13.7 13.5 - 17.5 g/dl HCT 41.0 41.0 - 53.0 % MCV 83.0 80 - 100 fl MCH 27.7 26 - 34 pg MCHC 33.4 32 - 36 g/dl RDW 13.7 11.5 - 14.5 % Platelets 262 150 - 450 k/ul MPV 9.5 9.4 - 12.4 fl Narrative Performed at [facility], [address] [place] [id number] Basic Metabolic Panel Result Value Ref Range Sodium 135 (L) 136 - 145 mmol/L Potassium 3.5 3.5 - 5.1 mmol/L Chloride 101 98 - 109 mmol/L CO2 27 20 - 29 mmol/L Anion Gap (calc.) 7 7 - 16 mmol/L Glucose 207 (H) 70 - 180 mg/dl Calcium 8.9 8.4 - 10.4 mg/dl BUN 8 7 - 26 mg/dl Creatinine 0.69 (L) 0.73 - 1.18 mg/dl GFR, Estimated >60 >60 ml/min/1.73m2 GFR, Est., If Black >60 >60 ml/min/1.73m2 Narrative Performed at [facility], [address] [place] [address] INR/Protime Result Value Ref Range Protime 13.8 12.0 - 14.5 sec INR 1.1 0.9 - 1.[address] [facility], [address] [place] [id number] EKG: I have reviewed the EKG. Per my interpretation: sinus rhythm, left axis deviation, T-wave inversion in III and aVF, LVH Imaging: XR Femur Rt 2 Views 02/23/18: FINDINGS: Moderate joint effusion. No acute fracture dislocation. No soft tissue defect or radiopaque foreign body. XR Tibia Fibula Rt 2 Views 02/23/18: FINDINGS: Acute, comminuted lateral tibial plateau fracture with impacted horizontal component seen extending into the right tibial metadiaphysis. Acute comminuted right fibular head fracture. Other: N/A Assessment and Plan: Principal Problem: Closed bicondylar fracture of right tibial plateau Patient is a 62 year old man with HTN and DM2 who presents with a right tibial plateau fracture. Pre-operative assessment for repair of R tibial plateau fracture Low risk surgery, ASA class 2 with mild systemic disease. Can do >4 METs of activity. RCRI score is 0, indicating 0.4% risk of major cardiac event. Pre-op EKG with LVH but no e/o acute ischemia. - Patient has a low risk of major cardiac events including and myocardial infarction - No further pre-operative testing is required Leukocytosis Suspect due to stress reaction from fracture. Patient without other s/sx of infection. - Continue to monitor DM2 On metformin and glipizide as outpatient. Only takes glipizide once a day because it doesn't agree with him. Blood sugars usually run 150s - 200s at home. - AC/HS glucose checks; lispro sliding scale - Continue metformin 1000 mg BID - Hold glipizide while inpatient HTN On lisinopril [employer]INE[employer]. BP mildly elevated. - Hold lisinopril pre-operatively, can likely restart post-op - Will order labetalol prn SBP >160 Generalized anxiety Continue paroxetine Insomnia Normally takes Lunesta qHS. Not on formulary here. FEN NPO at midnight, then resume diabetic diet PPX holding for surgery LDA piv CODE boat carpenter I spent in consultation on this patient was 70 minutes, over 50% of which was spent in counseling and coordinating care. Report Completed by: Belle Guerrero MD Pager: [phone] documented in this encounter OR Notes H&P - Randy Gilbert MD - 02/23/2018 9:19 PM CDT [facility] ORTHOPAEDIC SURGERY CONSULT - HISTORY AND PHYSICAL DATE OF CONSULT: 02/23/2018 Patient first seen by orthopaedic resident at: (enter time 815p) CHIEF COMPLAINT: Right tibial plateau fracture DATE OF INJURY: 02/23/18 HISTORY OF PRESENT ILLNESS: Sudeep Steen is a 62 y.o.-old self-employed male with PMH significant for HTN, DM who presented as atransfer from an outside facility with a right tibial plateau fracture. He reports at around 1pm today he tripped over his indoor puppy gate and fell down 6 stairs, landing directly onto his right knee. He had immediate right knee pain. He was able to limp to his son's car with significant help, andwas brought to an outside ED. Denies LOC, hitting head, pain elsewhere. Location: R knee Time of Onset: 1p Severity: mild Quality: aching Radiation: down leg Exacerbating: activity Alleviating: rest Associated symptoms: none PAST MEDICAL HISTORY: No personal history of bleeding or clotting disorders No personal history of adverse reactions to anesthesia DM HTN HLD PAST SURGICAL HISTORY: History reviewed. No pertinent surgical history. FAMILY HISTORY: Reviewed with patient. No family or personal history of bleeding or anesthesia related complications. 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 ALLERGIES: NKDA MEDICATIONS: None PHYSICAL EXAM: CONSTITUTIONSAL: BP (!) 143/89 Pulse 68 Temp 98.3 ??F (36.8 ??C) (Oral) Resp 18 Ht 6' 2 (1.88 m) Wt 127 kg (280 lb) SpO2 95% BMI 35.95 kg/m2 PSYCH: Awake, A&O, NAD NEURO: CN II-XII grossly intact HEENT: Normal RESPIRATORY: Non-labored breathing at rest CV: RRR MUSCULOKELETAL: RUE: No deformity, skin intact. Non-tender to palpation over clavicle, AC joint, shoulder, arm, elbow, forearm, wrist. Normal ROM shoulder, elbow, wrist without pain. + FPL/EPL/intrinsics. SILT over ax/m/r/u distributions. Radial pulse palpable. LUE: No deformity, skin intact. Non-tender to palpation over clavicle, AC joint, shoulder, arm, elbow, forearm, wrist. Normal ROM shoulder, elbow, wrist without pain. + FPL/EPL/intrinsics. SILT over ax/m/r/u distributions. Radial pulse palpable. RLE: No deformity, skin intact with no abrasions. Large knee effusion with no wrinkling of skin surrounding knee, compartments soft and compressible, ASHLEY 1.09; Non-tender to palpation over thigh, ankle/foot. . + TA/Gsc/EHL/FHL. SILT DP/SP/sural/saph/tibial distributions. DP/PT palpable, toes warm/well-perfused. LLE: No deformity, skin intact. Non-tender to palpation over thigh, knee, leg, ankle/foot. No pain with ROM hip/knee/ankle. + TA/Gsc/EHL/FHL. SILT DP/SP/sural/saph/tibial distributions. DP/PT palpable,toes warm/well-perfused. ASHLEY 1.02 Pelvis: No tenderness to palpation. Stable and no pain with anterior and lateral compression. LABS: Blood Count Coagulation Metabolism No results for input(s): HGB, WBC, PLTS in the last 72 hours. No results for input(s): INR, PROTIME,PTT in the last 72 hours. No results for input(s): SODIUM, K, CHLORIDE, CO2, BUN, CREATININE, GLUCOSE, CA, MG, PHOS in the last 72 hours. IMAGING: XR and CT R knee reviewed, demonstrates bicondylar plateau fracture with significant joint line depression laterally ASSESSMENT: Sudeep Steen is a 62 y.o.-old male s/p fall down 6 stairs with the followin. Right bicondylar plateau fracture. No evidence of compartment syndrome, normal ASHLEY. PLAN: - Admit to ortho - Plan for OR: Right knee-spanning external fixator tomorrow (02/24) -Consent: obtained -Pre-op labs: pending -Medicine clearance: pending - Anticoagulation: hold - Xrays/imaging: R tib and femur XRs tonight - Splint: RLE KI - Weight Bearing: NWB RLE - Diet: NPO at midnight Patient will be discussed with , who agrees with the above assessment and plan. Meaghan Malhotra MD [phone] I saw and evaluated this patient in addition to Dr. Malhotra, performing the history and exam. I discussed the case with Dr. Malhotra and agree with the findings and plan as documented in the resident's note. Randy Gilbert MD documented in this encounter Miscellaneous Notes Payor Communication - Ysabel Reeves - 02/26/2018 1:18 PM CDT Images from the original note were not included. Meaghan Malhotra MD RESIDENT Cosign Needed Orthopedics H&P Date of Service: 02/23/2018 ??9:19 PM Expand All Collapse All []Manual[]Template []Copied [facility] ORTHOPAEDIC SURGERY CONSULT - HISTORY AND PHYSICAL ?? DATE OF CONSULT: 02/23/2018 ?? Patient first seen by orthopaedic resident at:?? (enter time 815p) ?? CHIEF COMPLAINT: Right tibial plateau fracture ?? DATE OF INJURY: 02/23/18 ?? HISTORY OF PRESENT ILLNESS: Sudeep Steen is a 62 y.o.-old self-employed male with PMH significant for HTN, DM who presented as atransfer from an outside facility with a right tibial plateau fracture. He reports at around 1pm today he tripped over his indoor puppy gate and fell down 6 stairs, landing directly onto his right knee. He had immediate right knee pain. He was able to limp to his son's car with significant help, andwas brought to an outside ED. Denies LOC, hitting head, pain elsewhere. ?? Location: R knee Time of Onset: 1p Severity: mild Quality: aching Radiation: down leg Exacerbating: activity Alleviating: rest Associated symptoms: none ?? PAST MEDICAL HISTORY: No personal history of bleeding or clotting disorders No personal history of adverse reactions to anesthesia ?? DM HTN HLD ?? PAST SURGICAL HISTORY: Past Surgical History History reviewed. No pertinent surgical history. ?? FAMILY HISTORY: Reviewed with patient. No family or personal history of bleeding or anesthesia related complications. ?? SOCIAL HISTORY: Tobacco: non smoker Alcohol: occasional Illegal Drugs: denies ?? 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 REVIEW OF SYSTEMS: An 11-point review of systems was performed and negative except as noted in HPI. ?? ALLERGIES: NKDA ?? MEDICATIONS: None ? PHYSICAL EXAM: ?? CONSTITUTIONSAL: BP (!) 143/89 Pulse 68 Temp 98.3 ??F (36.8 ??C) (Oral) Resp 18 Ht 6' 2 (1.88 m) Wt 127 kg (280 lb) SpO2 95% BMI 35.95 kg/m2 ?? PSYCH: Awake, A&O, NAD ?? NEURO: CN II-XII grossly intact ?? HEENT: Normal ?? RESPIRATORY: Non-labored breathing at rest ?? CV: RRR ?? MUSCULOKELETAL: ?? RUE: No deformity, skin intact. Non-tender to palpation over clavicle, AC joint, shoulder, arm, elbow, forearm, wrist. Normal ROM shoulder, elbow, wrist without pain. + FPL/EPL/intrinsics. SILT over ax/m/r/u distributions. Radial pulse palpable. ?? LUE: No deformity, skin intact. Non-tender to palpation over clavicle, AC joint, shoulder, arm, elbow, forearm, wrist. Normal ROM shoulder, elbow, wrist without pain. + FPL/EPL/intrinsics. SILT over ax/m/r/u distributions. Radial pulse palpable. ?? RLE: No deformity, skin intact with no abrasions. Large knee effusion with no wrinkling of skin surrounding knee, compartments soft and compressible, ASHLEY 1.09; Non-tender to palpation over thigh, ankle/foot. . + TA/Gsc/EHL/FHL. SILT DP/SP/sural/saph/tibial distributions. DP/PT palpable, toes warm/well-perfused. ?? LLE: No deformity, skin intact. Non-tender to palpation over thigh, knee, leg, ankle/foot. No pain with ROM hip/knee/ankle. + TA/Gsc/EHL/FHL. SILT DP/SP/sural/saph/tibial distributions. DP/PT palpable,toes warm/well-perfused. ASHLEY 1.02 ? Pelvis: No tenderness to palpation. Stable and no pain with anterior and lateral compression. ?? LABS: Blood Count Coagulation Metabolism No results for input(s): HGB, WBC, PLTS in the last 72 hours. No results for input(s): INR, PROTIME,PTT in the last 72 hours. No results for input(s): SODIUM, K, CHLORIDE, CO2, BUN, CREATININE, GLUCOSE, CA, MG, PHOS in the last 72 hours. ?? IMAGING: XR and CT R knee reviewed, demonstrates bicondylar plateau fracture with significant joint line depression laterally ?? ASSESSMENT: Sudeep Steen is a 62 y.o.-old male s/p fall down 6 stairs with the followin. Right bicondylar plateau fracture. No evidence of compartment syndrome, normal ASHLEY. ?? PLAN: - Admit to ortho - Plan for OR: Right knee-spanning external fixator tomorrow (02/24) -Consent: obtained -Pre-op labs: pending -Medicine clearance: pending - Anticoagulation: hold - Xrays/imaging: R tib and femur XRs tonight - Splint: RLE KI - Weight Bearing: NWB RLE - Diet: NPO at midnight ? Patient will be discussed with , who agrees with the above assessment and plan. Meaghan Malhotra MD [phone] ? Belle Guerrero MD Physician Signed General Medicine Consults Date of Service: 02/23/2018 10:44 PM Expand All Collapse All []Manual[]Template []Copied [facility]. [facility] Medicine Consultation Note () ?? Date of service: 02/23/2018 ?? I was asked by Dr. Gilbert to provide my opinion and/or advice in regards of hypertension and diabetes. ?? History of present illness: Patient is a 62 year old man with hx HTN and DM who was transferred from an OSH after presenting with a right tibial plateau fracture. Patient tripped over a dog and dog gate and fell down about 6 steps, landing on his right knee. He says he gets a gold medal for being a couch potato. He is normally able to walk 1/2 mile beforehis hips start hurting. He goes dancing with his as well. He denies chest pain, SOB, or lightheadedness. He reports a history of mitral valve prolapse but says his doctor told him that he doesn'thave it any more. Denies edema or dyspnea on exertion. He denies personal or family history of reactions to anesthesia, bleeding or clotting disorders. ?? Past Medical History Past Medical History: Diagnosis Date ??? BPPV (benign paroxysmal positional vertigo) ? Diabetes mellitus type 2 ? Gout ? Hyperlipidemia (HRC) ? Hypertension (HRC) ? Osteoarthritis ? Past Surgical History Past Surgical History: Procedure Laterality Date ??? SURGICAL HX - NEG ? Family History Family History Problem Relation Age of Onset ??? Alzheimer's Mother ? Brain Aneurysm Father ? Heart Defect Sister 0 ? Congential ??? Alcohol Abuse Sister ? Social History ?? Occupational History ??? [employer] Self Employed ?? Social History Main Topics ??? Smoking status: Never Smoker ??? Smokeless tobacco: Never Used ??? Alcohol use No ??? Drug use: No ??? Sexual activity: Yes ? Partners: Female ?? Current outpatient medications: ?? Outpatient Prescriptions Marked as Taking for the 02/23/18 encounter (Hospital Encounter): eszopiclone (LUNESTA) 3 MG tablet Take by mouth daily at bedtime. Disp: Rfl: glipiZIDE (GLUCOTROL) 5 MG tablet Take 5 mg by mouth two times a day before meals. Disp: Rfl: lisinopril (ZESTRIL) 10 MG tablet Take 10 mg by mouth daily. Disp: Rfl: metFORMIN (GLUCOPHAGE) 500 MG tablet Take 1,000 mg by mouth two times a day with meals. Disp: Rfl: naproxen sodium (ANAPROX) 220 MG tablet Take 440 mg by mouth two times a day with meals. Disp: Rfl: PARoxetine (PAXIL) 10 MG tablet Take 10 mg by mouth daily. Disp: Rfl: ? Allergies: Review of patient's allergies indicates no known allergies. ?? Review of Systems: The remainder of the complete review of systems is negative except for hip arthritis, nasal congestion from allergies. ?? Physical Examination: Vital signs: BP (!) 143/89 Pulse 68 Temp 98.3 ??F (36.8 ??C) (Oral) Resp 18 Ht 6' 2 (1.88 m) Wt 127 kg (280 lb) SpO2 95% BMI 35.95 kg/m2 General: No apparent distress HEENT: Atraumatic, PERRL, EOMi, moist mucous membranes, no oral lesions Neck: Normal Chest/Lungs: CTAB Cardiovascular: RRR, no m/c/g/r; DP pulses 2+ bilaterally Abdomen: Soft, NTND : deferred Rectal: Not examined Muskuloskeletal: Brace on right leg Extremities: No peripheral edema Skin: Normal Neurological: Normal ?? DATA: ?? Labs: Hospital Encounter on 02/23/18 (from the past 24 hour(s)) Glucose, Whole Blood POC Result Value Ref Range ?? Glucose, Whole Blood 130 70 - 180 mg/dl Complete Blood Count-No Diff Result Value Ref Range ?? WBC 16.2 (H) 4.0 - 11.0 k/ul ?? RBC 4.94 4.5 - 5.9 M/ul ?? Hemoglobin 13.7 13.5 - 17.5 g/dl ?? HCT 41.0 41.0 - 53.0 % ?? MCV 83.0 80 - 100 fl ?? MCH 27.7 26 - 34 pg ?? MCHC 33.4 32 - 36 g/dl ?? RDW 13.7 11.5 - 14.5 % ?? Platelets 262 150 - 450 k/ul ?? MPV 9.5 9.4 - 12.4 fl ?? Narrative ?? Performed at [facility], [address] [place] [id number] Basic Metabolic Panel Result Value Ref Range ?? Sodium 135 (L) 136 - 145 mmol/L ?? Potassium 3.5 3.5 - 5.1 mmol/L ?? Chloride 101 98 - 109 mmol/L ?? CO2 27 20 - 29 mmol/L ?? Anion Gap (calc.) 7 7 - 16 mmol/L ?? Glucose 207 (H) 70 - 180 mg/dl ?? Calcium 8.9 8.4 - 10.4 mg/dl ?? BUN 8 7 - 26 mg/dl ?? Creatinine 0.69 (L) 0.73 - 1.18 mg/dl ?? GFR, Estimated >60 >60 ml/min/1.73m2 ?? GFR, Est., If Black >60 >60 ml/min/1.73m2 ?? Narrative ?? Performed at [facility], [address] [place] [id number] INR/Protime Result Value Ref Range ?? Protime 13.8 12.0 - 14.5 sec ?? INR 1.1 0.9 - 1.1 ?? Narrative ?? Performed at [facility], [address] [place] [address] ?? EKG: I have reviewed the EKG. Per my interpretation: sinus rhythm, left axis deviation, T-wave inversion in III and aVF, LVH ?? Imaging: XR Femur Rt 2 Views 02/23/18: FINDINGS: Moderate joint effusion. No acute fracture dislocation. No soft tissue defect or radiopaque foreign body. ?? XR Tibia Fibula Rt 2 Views 02/23/18: FINDINGS: Acute, comminuted lateral tibial plateau fracture with impacted horizontal component seen extending into the right tibial metadiaphysis. Acute comminuted right fibular head fracture. ?? Other: N/A ?? Assessment and Plan: Principal Problem: Closed bicondylar fracture of right tibial plateau ?? Patient is a 62 year old man with HTN and DM2 who presents with a right tibial plateau fracture. ?? Pre-operative assessment for repair of R tibial plateau fracture Low risk surgery, ASA class 2 with mild systemic disease. Can do >4 METs of activity. RCRI score is 0, indicating 0.4% risk of major cardiac event. Pre-op EKG with LVH but no e/o acute ischemia. - Patient has a low risk of major cardiac events including and myocardial infarction - No further pre-operative testing is required ?? Leukocytosis Suspect due to stress reaction from fracture. Patient without other s/sx of infection. - Continue to monitor ?? DM2 On metformin and glipizide as outpatient. Only takes glipizide once a day because it doesn't agree with him. Blood sugars usually run 150s - 200s at home. - AC/HS glucose checks; lispro sliding scale - Continue metformin 1000 mg BID - Hold glipizide while inpatient ?? HTN On lisinopril [employer]. BP mildly elevated. - Hold lisinopril pre-operatively, can likely restart post-op - Will order labetalol prn SBP >160 ?? Generalized anxiety Continue paroxetine ?? Insomnia Normally takes Lunesta qHS. Not on formulary here. ?? FEN NPO at midnight, then resume diabetic diet PPX holding for surgery LDA piv CODE FULL ? Time I spent in consultation on this patient was 70 minutes, over 50% of which was spent in counseling and coordinating care. ?? Report Completed by: Belle Guerrero MD Pager: [phone] ? Jeffrey Caldera MD FELLOW Signed Orthopedics Operative Note Date of Service: 02/24/2018 12:00 AM []Manual[]Template []Copied ? SUDEEP STEEN CSN: [id number] ? OPERATIVE REPORT ?? DATE OF SURGERY: 02/24/2018 : 1955 ?? ATTENDING SURGEON: Randy Gilbert MD. ?? ASSISTANTS: 1. Jeffrey Caldera MD. 2. Meaghan Cartwright MD. ?? PREOPERATIVE DIAGNOSIS: Right closed bicondylar tibial plateau fracture. ?? POSTOPERATIVE DIAGNOSIS: Right closed bicondylar tibial plateau fracture. ?? PROCEDURE PERFORMED: 1. Closed reduction, with manipulation of right bicondylar tibial plateau fracture. 2. Application of right knee spanning external fixator. 3. Arthrocentesis of right knee. ?? IMPLANTS: Synthes large external fixator with two 5 mm pins in the femur, and two 5 mm pins in the tibia. ?? ESTIMATED BLOOD LOSS: Minimal. ?? COMPLICATIONS: None apparent. ?? TOURNIQUET TIME: None used. ?? POSTOPERATIVE PLAN: The patient will be nonweightbearing on his right lower extremity, with plan for definitive fixation of the right tibial plateau pending. He will receive aspirin for DVT prophylaxis. ?? INDICATION FOR PROCEDURE: Patient is a 62-year-old male with a past medical history significant for hypertension and diabetes, was transferred from the outside hospital after sustaining an injury tripping over a [employer] gate, and had a fall down 6 stairs landing directly onto the knee. He was seen in the emergency department and found to have a right bicondylar tibial plateau fracture. This was a closed injury. He had no clinical signs of compartment syndrome. However, he was significantly swollen, and so he was admitted overnight for observation and scheduled for external fixator placement on the day of surgery. Discussion was had with the patient regarding the risks and benefits of surgery, the risks of pain, bleeding, infection, damage to surrounding structures, failure of the procedure, and need for further surgery were all discussed. We also discussed performing an arthrocentesis of the knee to evacuate his hemarthrosis and decrease his swelling. The patient elected to proceed with surgery. ?? DESCRIPTION OF PROCEDURE: The patient was placed on the operating table in the supine position. General endotracheal anesthesia was induced. Preoperative antibiotics were given. The right lower extremity was prepped and draped sterilely. An arthrocentesis of the knee was performed via superomedial portal via an 18-gauge spinal needle. Approximately 120 mL of hemarthrosis were removed from the knee. This significantly decreased the effusion as well as the swelling of the proximal leg. Following this, biplanar fluoroscopy was utilized to place 2 percutaneous Schanz pins in the femur, and 2 percutaneous Schanz pins in the tibia. This was done via the percutaneous trocar triple sleeve drilling bicortically, and then placing the pins. Following pin placement, the external fixator was attached. Manipulation and closed reduction of the fracture were performed, and the fixator was tightened. Biplanar fluoroscopy confirmed appropriate alignment of the fracture. The pin sites were dressed, and then Dalila bandage was wrapped around the leg for some light compression. The patient was then awakened, extubated, and transferred to the PACU in stable condition. ?? Dr. Gilbert was present for all critical portions of the case. ?? JEFFREY CALDERA MD ?? AH/MODL /[id number] ? Last signed by: Jeffrey Caldera MD at 02/25/2018 ??7:31 AM Revision History ?? Date/Time User Provider Type Action ?? 02/25/2018 ??7:31 AM Jeffrey Caldera MD FELLOW Sign ?? 02/24/2018 ??8:23 PM Jeffrey Caldera MD FELLOW Edit ?? View Details Report ? Medication Administration Report for HumzajimmieSudeep as of 02/20/18 through 02/26/18 ?? 1 Day 3 Days 7 Days 10 Days < Today > Legend: ? Discontinued ?? Completed ?? Future ?? MAR Hold ? Related Encounters ?? Linked ? Medications 02/20/18 02/21/18 02/22/18 02/23/18 02/24/18 04/30/18 05/01/18 acetaminophen (TYLENOL) tablet 650 mg Dose: 650 mg Freq: Q6H PRN Route: OR PRN Reason: Pain/Fever PRN Comment: Initially give acetaminophen for patient with mild pain. Start: 02/23/181812 Admin Instructions: Initially give acetaminophen for patient with mild pain. Acetaminophen may be given WITH other pain medications as adjunct pain relief. Do not give two acetaminophen containing medications within 4 hours of each other. 0748 (650 mg)-Given 1930 (650 mg)-Given 0737 (650 mg)-Given 1417 (650 mg)-Given 2023 (650 mg)-Given 0706 (650 mg)-Given alfuzosin (UROXATRAL) extended release tablet 10 mg Dose: 10 mg Freq: DAILY Route: OR Start: 02/26/18999 Admin Instructions: Tablet should be swallowed whole. 1008 (10 mg)-Given aspirin tablet 325 mg Dose: 325 mg Freq: ASPIRIN - DAILY Route: OR Start: 02/25/181999 (325 mg)-Given 1999 benzocaine-menthol (CEPACOL) lozenge 1 Lozenge Dose: 1 Lozenge Freq: Q2H PRN Route: OR PRN Reason: Throat Pain Start: 02/23/181809 calcium carbonate (TUMS) chewable tablet 500-1,000 mg Dose: 500-1,000 mg Freq: QID PRN Route: OR PRN Reason: Heartburn PRN Comment: Dyspepsia Start: 02/23/181809 Admin Instructions: Each tablet provides 200 mg elemental calcium gabapentin (NEURONTIN) capsule 300 mg Dose: 300 mg Freq: TID Route: OR Start: 02/23/181999 Admin Instructions: For neuropathic or acute post operative pain 2103 (300 mg)-Given 0748 (300 mg)-Given 1314 (300 mg)-Given 2006 (300 mg)-Given 0737 (300 mg)-Given 1418 (300 mg)-Given 2023 (300 mg)-Given 0939 (300 mg)-Given 1400 1999 glipiZIDE (GLUCOTROL) tablet 5 mg Dose: 5 mg Freq: BID AC Route: OR Start: 02/25/18 1600 1554 (5 mg)-Given 0706 (5 mg)-Given 1600 hydrALAZINE (APRESOLINE) injection 5-10 mg Dose: 5-10 mg Freq: Q6H PRN Route: IV PRN Reason: SBP > PRN Comment: 180 Start: 02/24/18 2140 2202 (5 mg)-Given insulin lispro (HumALOG) injection vial 2-8 Units Dose: 2-8 Units Freq: PRN BASED ON BLOOD SUGAR Route: SC PRN Reason: Blood Sugar > Start: 02/25/18 1433 Admin Instructions: Give within 15 minutes before a meal or immediately after a meal. Blood sugar less than 71 treat for hypoglycemia and notify Blood sugar 71-150 give 0 units Blood sugar 151-200 give 2 unit Blood sugar 201-250 give 4 units Blood sugar 251-300 give 6 units Blood sugar greater than or equal to 301 give 8 units If BG greater than 300 after next FSG, notify Hazardous waste, dispose of in [place]. (1017)-Not Given??[C] labetalol (TRANDATE) tablet 100 mg Dose: 100 mg Freq: Q8H PRN Route: OR PRN Reason: Other PRN Comment: SBP >160 Start: 02/23/18 2357 0016 (100 mg)-Given lisinopril (zeSTRIL) tablet 10 mg Dose: 10 mg Freq: DAILY Route: OR Start: 02/25/18 1000 1000 (10 mg)-Given 0938 (10 mg)-Given metFORMIN (GLUCOPHAGE) tablet TABS 1,000 mg Dose: 1,000 mg Freq: BID WITH MEALS Route: OR Start: 02/24/18 0000 0015 (1,000 mg)-Given (0800)-Not Given (1700)-Not Given 2005 (1,000 mg)-Given (0800)-Not Given 2023 (1,000 mg)-Given 1008 (1,000 mg)-Given??[C] 1700 methocarbamol (ROBAXIN) tablet 500 mg Dose: 500 mg Freq: Q6H PRN Route: OR PRN Reason: Muscle Spasms Start: 02/23/18 1813 2224 (500 mg)-Given 0426 (500 mg)-Given 1553 (500 mg)-Given 0706 (500 mg)-Given naloxone (NARCAN) injection 0.2 mg Dose: 0.2 mg Freq: PRN PER PARAMETERS Route: IV PRN Reason: Opioid Reversal PRN Comment: Excessive Sedation/Respiratory Rate less than 8 breaths per minute.? Notify MD if given. Start: 02/23/181809 Admin Instructions: Excessive Sedation/Respiratory Rate less than 8 breaths per minute.? Notify MD if given. oxyCODONE (ROXICODONE) immediate release tablet 5-10 mg Dose: 5-10 mg Freq: Q4H PRN Route: OR PRN Reason: Pain Start: 02/23/181812 Admin Instructions: Give PO opioid if able to take PO and pain not well controlled with other medications or interventions. 1909 (10 mg)-Given 2341 (10 mg)-Given 0446 (10 mg)-Given 0905 (10 mg)-Given 1314 (10 mg)-Given 2006 (5 mg)-Given 0016 (10 mg)-Given 0404 (10 mg)-Given 0737 (10 mg)-Given 1128 (10 mg)-Given 1554 (10 mg)-Given 2023 (10 mg)-Given 0109 (10 mg)-Given 0540 (10 mg)-Given 1009 (10 mg)-Given PARoxetine (PAXIL) tablet 10 mg Dose: 10 mg Freq: HS Route: OR Start: 02/24/18 0000 0015 (10 mg)-Given 2110 (10 mg)-Given 2024 (10 mg)-Given 2100 prochlorperazine (COMPAZINE) injection 10 mg Dose: 10 mg Freq: Q6H PRN Route: IV PRN Reasons: Nausea,Vomiting Start: 02/23/181812 Admin Instructions: Give 1st line medications then 2nd line then 3rd line.?Progress to next line if medication is ineffective after 15 minutes or has been previously ineffective, or if a medication for a line is not ordered. May use medication from any line if patient preference indicates. If third line agent ineffective call MD. If unable to give IV medications contact MD. 1st Line - prochlorperazine 2nd Line - ondansetron? 3rd Line - metoclopramide And ondansetron (ZOFRAN) injection 4 mg Dose: 4 mg Freq: Q8H PRN Route: IV PRN Reasons: Nausea,Vomiting Start: 02/23/181812 Admin Instructions: Give 1st line medications then 2nd line then 3rd line.?Progress to next line if medication is ineffective after 15 minutes or has been previously ineffective, or if a medication for a line is not ordered. May use medication from any line if patient preference indicates. If third line agent ineffective call MD. If unable to give IV medications contact MD. 1st Line - prochlorperazine 2nd Line - ondansetron? 3rd Line - metoclopramide And metoclopramide (REGLAN) injection 5 mg Dose: 5 mg Freq: Q6H PRN Route: IV PRN Reasons: Nausea,Vomiting Start: 02/23/181812 Admin Instructions: Give 1st line medications then 2nd line then 3rd line.?Progress to next line if medication is ineffective after 15 minutes or has been previously ineffective, or if a medication for a line is not ordered. May use medication from any line if patient preference indicates. If third line agent ineffective call MD. If unable to give IV medications contact MD. 1st Line - prochlorperazine 2nd Line - ondansetron? 3rd Line - metoclopramide sennosides-docusate sodium (SENNA-S,SENNA PLUS) 8.6-50 MG per tablet 1 Tab Dose: 1 Tab Freq: BID Route: OR Start: 02/23/181999 Admin Instructions: as laxative/stimulant, stool-softening agent 1999 (1 Tab)-Given 0748 (1 Tab)-Given 2005 (1 Tab)-Given 0737 (1 Tab)-Given 2023 (1 Tab)-Given 09 (1 Tab)-Given 1999 sennosides-docusate sodium (SENNA-S,SENNA PLUS) 8.6-50 MG per tablet 2 Tab Dose: 2 Tab Freq: BID PRN Route: OR PRN Reason: Constipation PRN Comment: No stool in the last day Start: 02/23/181813 Admin Instructions: Cumulative bowel medication orders.?If no stool in last day start Senna-S BID PRN no stool, if nostool in last 2 days add Miralax DAILY PRN no stool, if no stool in last 3 days add bisacodyl suppository DAILY PRN until patient stools.? When patient stools stop giving PRN meds and continue monitoring for bowel activity. When no stools X 1 day, begin regimen again until patient stools. Or polyethylene glycol (MIRALAX) oral powder 17 g Dose: 17 g Freq: DAILY PRN Route: OR PRN Reason: Constipation PRN Comment: No stool in the last 2 days Start: 02/23/181813 Admin Instructions: Cumulative bowel medication orders.?If no stool in last day start Senna-S BID PRN no stool, if nostool in last 2 days add Miralax DAILY PRN no stool, if no stool in last 3 days add bisacodyl suppository DAILY PRN until patient stools.? When patient stools stop giving PRN meds and continue monitoring for bowel activity. When no stools X 1 day, begin regimen again until patient stools. 2022 (17 g)-Given Or bisacodyl (DULCOLAX) rectal suppository 10 mg Dose: 10 mg Freq: DAILY PRN Route: RE PRN Reason: Constipation PRN Comment: No stool in the last 3 days Start: 02/23/181813 Admin Instructions: Cumulative bowel medication orders.?If no stool in last day start Senna-S BID PRN no stool, if nostool in last 2 days add Miralax DAILY PRN no stool, if no stool in last 3 days add bisacodyl suppository DAILY PRN until patient stools.? When patient stools stop giving PRN meds and continue monitoring for bowel activity. When no stools X 1 day, begin regimen again until patient stools. Completed Medications Medications 02/20/18 02/21/18 02/22/18 02/23/18 02/24/18 02/25/18 02/26/18 ceFAZolin (ANCEF) injection 2 g Dose: 2 g Freq: Q8H (NON-STND) Route: IV Indications of Use: PERIOPERATIVE PHARMACOPROPHYLAXIS Start: 02/24/18 2300 End: 02/25/18 1419 Admin Instructions: Reconstitute vial with 10 ml sterile water for injection, shake vigorously until diluted, and give slow IV push over 3-5 minutes. 0 (2 g)-Given 0654 (2 g)-Given 1419 (2 g)-Given potassium chloride (K-JORDYN) packet 20 mEq Dose: 20 mEq Freq: ONCE Route: OR Start: 02/25/18 1015 End: 02/25/18 0959 0959 (20 mEq)-Given??[C] Discontinued Medications Medications 02/20/18 02/21/18 02/22/18 02/23/18 02/24/18 02/25/18 02/26/18 ceFAZolin-dextrose (ANCEF) IV piggyback 2 g Dose: 2 g Freq: Q8H (NON-STND) Route: IV Indications of Use: PERIOPERATIVE PHARMACOPROPHYLAXIS Start: 02/24/181829 End: 02/24/181812 dexamethasone (DECADRON) injection 4-8 mg Dose: 4-8 mg Freq: Q15MIN PRN Route: IV PRN Reason: Other PRN Comment: Nausea Start: 02/24/181640 End: 02/25/18933 Admin Instructions: Step 2 Dexamethasone 4-8 mg IV If not given in operating room. (Use in PACU only). If medication given in OR may give up to 8 mg total dose (including intra- operative dose) or go to step 3. If nausea not resolved in 15 minutes go to step 3 if ordered otherwise proceed to next antiemetic step.. dextrose (D50) injection 12.5-25 g Dose: 12.5-25 g Freq: PRN BASED ON BLOOD SUGAR Route: IV PRN Reason: Hypoglycemia Start: 02/23/181812 End: 02/24/181811 fentaNYL (SUBLIMAZE) injection 25-50 mcg Dose: 25-50 mcg Freq: [id number] Route: IV PRN Reason: Pain Start: 02/24/181640 End: 02/25/1834 Admin Instructions: 25 mcg IV q5min prn based on [...] a longer acting agent for optimal pain control.?Respiratory rate must be greater than 10 to administer medications. 1700 (50 mcg)-Given 1715 (50 mcg)-Given glucagon rDNA (diagnostic) (GLUCAGEN) injection 1 mg Dose: 1 mg Freq: ONCE PRN Route: IM PRN Comment: hypoglycemia Start: 02/23/181812 End: 02/24/181811 Admin Instructions: If patient unable to eat or is unconscious and has no IV access. Give 1 mg glucagon IM (in pyxis) and establish IV access STAT. Recheck fingerstick BG in 15 min; Re-treat and retest q 15 min until fingerstick BG>70 mg/dL for 30 minutes. glucose-ascorbic xeji-klfyiearfiguchr-zehmbdyu tablet (TRUEPLUS) chewable tablet 4 Tab Dose: 4 Tab Freq: Q15MIN PRN Route: OR PRN Reason: Hypoglycemia Start: 02/23/181812 End: 02/24/181811 hydrALAZINE (APRESOLINE) injection 5 mg Dose: 5 mg Freq: Q10MIN PRN Route: IV PRN Reason: Blood Pressure > Start: 02/24/181640 End: 02/24/182140 Admin Instructions: Must call anesthesia before initiating medication. Give q 10 minutes PRN up to 20 mg (PACU use only) HYDROmorphone injectable 0.2-0.3 mg Dose: 0.2-0.3 mg Freq: Q10MIN PRN Route: IV PRN Reason: Pain Start: 02/24/181640 End: 02/25/18 0934 Admin Instructions: PACU USE ONLY 0.2 mg IV q10min prn based on the patients pain scale rating for mild to moderate pain (1-5) 0.3 mg IV q10min prn based on the patients pain scale rating for moderate to severe pain (6 to 10) Total PACU hydromorphone dose not to exceed 2 mg per hour 1700 (0.3 mg)-Given 1715 (0.3 mg)-Given insulin lispro (HumALOG) injection vial 1-8 Units Dose: 1-8 Units Freq: PRN BASED ON BLOOD SUGAR Route: SC PRN Reason: Blood Sugar > Start: 02/23/181812 End: 02/24/181811 Admin Instructions: Blood Glucose <150 mg/dL give 0 units
Blood Glucose 151-200 mg/dL give 2 units
Blood Glucose 201-250 mg/dL give 4 units
Blood Glucose 251-300 mg/dL give 6 units
Blood Glucose >300 mg/dL give 8 units insulin lispro (HumALOG) injection vial 2-4 Units Dose: 2-4 Units Freq: PRN BASED ON BLOOD SUGAR Route: SC PRN Reason: Blood Sugar > PRN Comment: Blood Sugars Start: 02/24/181640 End: 02/25/18933 Admin Instructions: PACU PATIENTS ONLY Blood Sugar 151-199 mg/dl?give 2 units, Blood Sugar 200-250 mg/dl?give 3 units, Blood Sugar > 250 mg/dl? give 4 units and call anesthesia labetalol (NORMODYNE) injection 5 mg Dose: 5 mg Freq: [id number] Route: IV PRN Reason: Blood Pressure > Start: 02/24/181640 End: 02/25/18933 Admin Instructions: Must call anesthesia before initiating medication. Give q 5 minutes PRN up to 25 mg. (PACU use only) lactated ringers infusion Rate: 30 mL/hr Freq: CONTINUOUS Route: IV Start: 02/24/18 1700 End: 02/25/1834 lactated ringers infusion Rate: 100 mL/hr Freq: CONTINUOUS Route: IV Start: 02/24/18 1200 End: 02/25/18 1434 1155 ( )-Started 1345-Stopped 2000 ( )-Started 0338-Stopped lactated ringers infusion Rate: 30 mL/hr Dose: 30 mL/hr Freq: CONTINUOUS Route: IV Start: 02/24/18 1400 End: 02/25/18 1434 1400 (30 mL/hr)-Started metoprolol tartrate (LOPRESSOR) injection 1-2 mg Dose: 1-2 mg Freq: [id number] Route: IV PRN Reason: Blood Pressure > Start: 02/24/181640 End: 02/25/18933 Admin Instructions: Must call anesthesia before initiating medication. Give q 5 minutes PRN up to 10 mg Hold for HR < 50 (PACU use only) ondansetron (ZOFRAN) injection 4 mg Dose: 4 mg Freq: Q15MIN PRN Route: IV PRN Reason: Nausea Start: 02/24/18 1641 End: 02/25/18 0934 Admin Instructions: Step 1 Ondansetron 4 mg IV If not given in operating room. (PACU use only) If an intra-operative dose was given may repeat up to a total dose of 8 mg (including intra-operative dose). If nausea is not resolved in 15 minutes go to step 2 (Dexamethasone) if ordered otherwise proceed tonext antiemetic step. Orders from Other Encounters Medications 02/20/18 02/21/18 02/22/18 02/23/18 02/24/18 02/25/18 02/26/18 ceFAZolin (ANCEF) injection Start: 02/24/18 1507 End: 02/24/18 1634 1507 (2 g)-Given dexamethasone (aka DECADRON) injection Route: IV Start: 02/24/18 1503 End: 02/24/18 1634 1503 (2 mg)-Given fentaNYL (SUBLIMAZE) 100 MCG/2ML injection Start: 02/24/18 1659 End: 02/25/18 0514 Admin Instructions: Delphine Marie : erininet override 1715 fentaNYL (SUBLIMAZE) injection Start: 02/24/18 1503 End: 02/24/18 1634 1503 (2 mL)-Given 1609 (0.5 mL)-Given glycopyrrolate (ROBINUL) injection Start: 02/24/18 1609 End: 02/24/18 1634 1609 (0.6 mg)-Given HYDROmorphone (DILAUDID) 1 MG/ML injection Start: 02/24/18 1659 End: 02/25/18 0514 Admin Instructions: Delphine Marie : erininet override 1715 lactated ringers infusion Route: IV Start: 02/24/18 1441 End: 02/24/18 1634 1441 ( )-Started 1522 ( )-Started 1633-Infused lidocaine 2% PF (XYLOCAINE) injection Start: 02/24/18 1503 End: 02/24/18 1634 1503 (100 mg)-Given midazolam (VERSED) injection Start: 02/24/18 1441 End: 02/24/18 1634 1441 (2 mg)-Given neostigmine (PROSTIGMINE) injection Start: 02/24/18 1609 End: 02/24/18 1634 1609 (4 mg)-Given ondansetron (ZOFRAN) injection Start: 02/24/18 1546 End: 02/24/18 1634 1546 (4 mg)-Given phenylephrine-NaCl 0.9% 100 mcg/mL syringe (aka VILLA-SYNEPHRINE) Route: IV Start: 02/24/18 1503 End: 02/24/18 1634 1503 (200 mcg)-Given propofol (aka diPRIvan) injection Start: 02/24/18 1503 End: 02/24/18 1634 1503 (150 mg)-Given succinylcholine (QUELICIN) injection Start: 02/24/18 1503 End: 02/24/18 1634 1503 (120 mg)-Given vecuronium (NORCURON) injection Start: 02/24/18 1503 End: 02/24/18 1634 1503 (2 mg)-Given 1515 (3 mg)-Given Medications 02/20/18 02/21/18 02/22/18 02/23/18 02/24/18 02/25/18 02/26/18 ?? documented in this encounter Plan of Treatment Scheduled Referrals Name Type Priority Associated Diagnoses Order S chedule Admit to Skilled Care Referral Routine Ordere d: 02/27/2018 Physical Therapy Referral Routine Closed bicondylar Ordere d: 02/27/2018 fracture of right tibial plateau Occupational Therapy Referral Routine Closed bicondylar Or dered: 02/27/2018 fracture of right tibial plateau documented as of this encounter Procedures Procedure Name Priority Date/Time Associated Diagnosis Comme nts GLUCOSE, WHOLE Routine 02/27/2018 9:18 AM Results for this BLOOD POCT CDT procedure are i n the results section. GLUCOSE, WHOLE Routine 02/26/2018 9:29 PM Results for this BLOOD POCT CDT procedure are i n the results section. GLUCOSE, WHOLE Routine 02/26/2018 6:49 PM Results for this BLOOD POCT CDT procedure are i n the results section. GLUCOSE, WHOLE Routine 02/26/2018 9:58 AM Results for this BLOOD POCT CDT procedure are i n the results section. GLUCOSE, WHOLE Routine 02/25/2018 10:02 PM Result s for this BLOOD POCT CDT procedure are i n the results section. GLUCOSE, WHOLE Routine 02/25/2018 7:00 PM Results for this BLOOD POCT CDT procedure are i n the results section. GLUCOSE, WHOLE Routine 02/25/2018 12:09 PM Result s for this BLOOD POCT CDT procedure are i n the results section. GLUCOSE, WHOLE Routine 02/25/2018 10:22 AM Result s for this BLOOD POCT CDT procedure are i n the results section. XR KNEE RT 2 VIEWS Routine 02/25/2018 7:59 AM Res ults for this CDT procedure are i n the results section. XR TIBIA FIBULA RT Routine 02/25/2018 7:59 AM Res ults for this 2 VIEWS CDT procedure are i n the results section. BASIC METABOLIC Routine 02/25/2018 7:07 AM Result s for this PANEL CDT procedure are i n the results section. COMPLETE BLOOD Routine 02/25/2018 7:07 AM Results for this COUNT-NO DIFF CDT procedure are in the results section. GLUCOSE, WHOLE Routine 02/24/2018 10:07 PM Result s for this BLOOD POCT CDT procedure are i n the results section. GLUCOSE, WHOLE Routine 02/24/2018 7:32 PM Results for this BLOOD POCT CDT procedure are i n the results section. GLUCOSE, WHOLE Routine 02/24/2018 4:34 PM Results for this BLOOD POCT CDT procedure are i n the results section. XR C-ARM 1-1.5 Routine 02/24/2018 4:25 PM Results for this HOURS CDT procedure are i n the results section. GLUCOSE, WHOLE Routine 02/24/2018 3:35 PM Results for this BLOOD POCT CDT procedure are i n the results section. PLACEMENT LOWER 02/24/2018 2:26 PM Closed bicondylar EXTREMITY EXTERNAL CDT fracture of right FIXATOR tibial plateau GLUCOSE, WHOLE Routine 02/24/2018 2:14 PM Results for this BLOOD POCT CDT procedure are i n the results section. GLUCOSE, WHOLE Routine 02/24/2018 1:25 PM Results for this BLOOD POCT CDT procedure are i n the results section. ABO/RH(D) RETYPE Routine 02/24/2018 1:27 AM Resul ts for this CDT procedure are i n the results section. BB HOLD TUBE Routine 02/24/2018 1:27 AM Results f or this ([facility] ONLY) CDT procedure are in the results section. GLUCOSE, WHOLE Routine 02/23/2018 11:08 PM Result s for this BLOOD POCT CDT procedure are i n the results section. XR TIBIA FIBULA RT STAT 02/23/2018 10:41 PM Re sults for this 2 VIEWS CDT procedure are i n the results section. XR FEMUR RT 2 VIEWS STAT 02/23/2018 10:40 PM R esults for this CDT procedure are i n the results section. ABO RH & ANTIBODY STAT 02/23/2018 9:59 PM Resu lts for this SCREEN (TYPE & CDT procedure are in SCREEN) the results section. BASIC METABOLIC STAT 02/23/2018 9:56 PM Result s for this PANEL CDT procedure are i n the results section. INR/PROTIME STAT 02/23/2018 9:56 PM Results f or this CDT procedure are i n the results section. COMPLETE BLOOD STAT 02/23/2018 9:55 PM Results for this COUNT-NO DIFF CDT procedure are in the results section. ECG 12-LEAD ROUTINE STAT 02/23/2018 9:43 PM Re sults for this CDT procedure are i n the results section. GLUCOSE, WHOLE Routine 02/23/2018 6:35 PM Results for this BLOOD POCT CDT procedure are i n the results section. EKG IP 02/23/2018 12:00 AM Results for this CDT procedure are i n the results section. documented in this encounter Results Glucose, Whole Blood POC (02/27/2018 9:18 AM CDT) P athologist Signature Glucose, Whole 115 70 - 180 [facility] Blood mg/dl [facility] Comment: Point of Care Testing RN Notified Specimen Anatomical Collection Method Collection Time Receive d Time (Source) Location / / Volume Laterality 02/27/2018 9:18 AM 8 9:24 CDT AM CDT Randy Gilbert MD LAB_1 Performing Organization Address City/State/ZIP Code Phon e Number [address] [address], [place] Glucose, Whole Blood POC (02/26/2018 9:29 PM CDT) athologist Signature Glucose, Whole 178 70 - 180 [facility] mg/dl [facility] Comment: Point of Care Testing RN Notified Specimen Anatomical Collection Method Collection Time Receive d Time (Source) Location / / Volume Laterality 02/26/2018 9:29 PM 8 9:35 CDT PM CDT Randy Gilbert MD LAB_1 Performing Organization Address City/[facility]/[place]IP [facility] Phon [place] Number [address] [address], [place] [phone] Glucose, Whole Blood POC (02/26/2018 6:49 PM CDT) athologist Signature Glucose, Whole 152 70 - 180 [facility] Blood mg/dl [facility] Comment: Point of Care Testing RN Notified Specimen Anatomical Collection Method Collection Time Receive d Time (Source) Location / / Volume Laterality 02/26/2018 6:49 PM 8 6:55 CDT PM CDT Randy Gilbert MD LAB_1 Performing Organization Address City/State/ZIP Code Phon e Number [address] [address], [place] Glucose, Whole Blood POC (02/26/2018 9:58 AM CDT) athologist Signature Glucose, Whole 172 70 - 180 [facility] mg/dl [facility] Comment: Point of Care Testing RN Notified Specimen Anatomical Collection Method Collection Time Receive d Time (Source) Location / / Volume Laterality 02/26/2018 9:58 AM 8 CDT 10:04 AM CDT Randy Gilbert MD LAB_1 Performing Organization Address City/[facility]/ZIP Code Phon e Number [address] [address], [place] [phone] Glucose, Whole Blood POC (02/25/2018 10:02 PM CDT) athologist Signature Glucose, Whole 154 70 - 180 [facility] mg/dl [facility] Comment: Point of Care Testing RN Notified Specimen Anatomical Collection Method Collection Time Receive d Time (Source) Location / / Volume Laterality 02/25/2018 10:02 02/25/2018 PM CDT 10:12 PM CDT Randy Gilbert MD LAB_1 Performing Organization Address City/State/ZIP Code Phon e Number [address] [address], [facility] [phone] Glucose, Whole Blood POC (02/25/2018 7:00 PM CDT) athologist Signature Glucose, Whole 154 70 - 180 [facility] Blood mg/dl [facility] Comment: Point of Care Testing RN Notified Specimen Anatomical Collection Method Collection Time Receive d Time (Source) Location / / Volume Laterality 02/25/2018 7:00 PM 8 7:05 CDT PM CDT Randy Gilbert MD LAB_1 Performing Organization Address City/[facility]/ZIP [facility] Phon e Number [address] [address], [facility] (ABNORMAL) Glucose, Whole Blood POC (02/25/2018 12:09 PM CDT) athologist Signature Glucose, Whole 241 (H) 70 - 180 [facility] Blood mg/dl [facility] Comment: Point of Care Testing RN Notified Specimen Anatomical Collection Method Collection Time Receive d Time (Source) Location / / Volume Laterality 02/25/2018 12:09 02/25/2018 PM CDT 12:22 PM CDT Randy Gilbert MD LAB_1 Performing Organization Address City/State/ZIP Code Phon e Number [address] [address], [place] [phone] (ABNORMAL) Glucose, Whole Blood POC (02/25/2018 10:22 AM CDT) P athologist Signature Glucose, Whole 190 (H) 70 - 180 [facility] mg/dl [facility] Comment: Point of Care Testing RN Notified Specimen Anatomical Collection Method Collection Time Receive d Time (Source) Location / / Volume Laterality 02/25/2018 10:22 02/25/2018 AM CDT 10:28 AM CDT Randy Gilbert MD LAB_1 Performing Organization Address City/State/ZIP Code Phon e Number [address] [address], [facility] XR Tibia Fibula Rt 2 Views (02/25/2018 7:59 AM CDT) Anatomical Region Laterality Modality Lower Extremity, Knee, Leg, Foot & Ankle Computed Radiography Specimen (Source) Anatomical Collection Method Collection Time Re ceived Time Location / / Volume Laterality 02/25/2018 7:59 AM CDT Narrative 02/25/2018 8:37 AM CDT XR TIBIA FIBULA RT 2 VIEWS 02/25/2018 7:59 AM INDICATION: Right leg pain. External fix ator placement. COMPARISON: X-ray right tibia and fibula 2 views (4 films) 02/23/2018 at 2225 hours. FINDINGS: Interval placement of external fixator pins in the right tibia. Comminuted proximal right tibial and fibular fractures with associated soft tissue swelling. Procedure Note Bruce New, RICARDO - 02/25/2018Formattin g of this note might be different from the original. XR TIBIA FIBULA RT 2 VIEWS 02/25/2018 7:59 AM INDICATION: Right leg pain. External fix ator placement. COMPARISON: X-ray right tibia and fibula 2 views (4 films) 02/23/2018 at 2225 hours. FINDINGS: Interval placement of external fixator pins in the right tibia. Comminuted proximal right tibial and fibular fractures with associated soft tissue swelling. Randy Gilbert MD RAD GD XR Knee Rt 2 Views (02/25/2018 7:59 AM CDT) Anatomical Region Laterality Modality Lower Extremity, Knee Computed Radiograp hy Specimen (Source) Anatomical Collection Method Collection Time Re ceived Time Location / / Volume Laterality 02/25/2018 7:59 AM CDT Narrative 02/25/2018 8:37 AM CDT XR KNEE RT 2 VIEWS 02/25/2018 7:59 AM INDICATION: Right knee pain. External fi xator placement. COMPARISON: X-ray right tibia and fibula 2 views 02/25/2018 at 0755 hours. FINDINGS: External fixator pins in the r ight femur and the tibia. Comminuted fractures involving the proximal right tibia extending to the lateral tibial plateau and the proximal metaphysis of the right fibula extending to the head of the fib jose. Associated soft tissue swelling. Small suprapatellar effusion. ?? Procedure Note Bruce New MBBS - 02/25/2018Formattin g of this note might be different from the original. XR KNEE RT 2 VIEWS 02/25/2018 7:59 AM INDICATION: Right knee pain. External fi xator placement. COMPARISON: X-ray right tibia and fibula 2 views 02/25/2018 at 0755 hours. FINDINGS: External fixator pins in the r ight femur and the tibia. Comminuted fractures involving the proximal right tibia extending to the lateral tibial plateau and the proximal metaphysis of the right fibula extending to the head of the fibula. Ass ociated soft tissue swelling. Small suprapatellar effusion. Randy Gilbert MD RAD GD (ABNORMAL) Basic Metabolic Panel (02/25/2018 7:07 AM CDT) Analysis Performed At Patho logist Time Signature Sodium 137 136 - 145 [facility] mmol/L [facility] Potassium 3.2 (L) 3.5 - 5.1 [facility] mmol/L [facility] Chloride 99 98 - 109 [facility] mmol/L [facility] CO2 28 20 - 29 [facility] mmol/L [facility] Anion Gap 10 7 - 16 [facility] (calc.) mmol/L [facility] Glucose 194 (H) 70 - 180 [facility] mg/dl [facility] Calcium 8.8 8.4 - 10.4 [facility] mg/dl [facility] BUN 5 (L) 7 - 26 [facility] mg/dl [facility] Creatinine 0.65 (L) 0.73 - [facility] 1.18 mg/dl [facility] GFR, Estimated >60 >60 [facility] ml/min/1.7 [facility] 3m2 GFR, Est., If >60 >60 [facility] Black ml/min/1.7 [facility] 3m2 Specimen Anatomical Collection Method Collection Time Receive d Time (Source) Location / / Volume Laterality 02/25/2018 7:07 AM 8 7:08 CDT AM CDT Narrative [facility] - 02/25/2018 7:45 AM CD T Performed at [facility] , [address] [place] [address] Randy Gilbert MD LAB_1 Performing Organization Address City/[facility] Phon e Number [address] [address], [facility] (ABNORMAL) Complete Blood Count-No Diff (02/25/2018 7:07 AM CDT) athologist Signature WBC 13.7 (H) 4.0 - 11.0 [facility] k/[facility] RBC 4.80 4.5 - 5.9 [facility] M/[facility] Hemoglobin 13.2 (L) 13.5 - 17.5 [facility] g/dl [facility] HCT 39.9 (L) 41.0 - 53.0 [facility] MCV 83.1 80 - 100 fl [facility] MCH 27.5 26 - 34 pg [facility] MCHC 33.1 32 - 36 [facility] g/dl [facility] RDW 13.7 11.5 - 14.5 [facility] Platelets 247 150 - 450 [facility] MPV 9.6 9.4 - 12.4 [facility] Specimen Anatomical Collection Method Collection Time Receive d Time (Source) Location / / Volume Laterality 02/25/2018 7:07 AM 8 7:08 CDT AM CDT [facility] - 02/25/2018 7:23 AM CD T Performed at [facility] , [address] [place] [id number] Randy Gilbert MD LAB_1 Performing Organization Address City/[facility]/ZIP Code Phon e Number [address] [address], [place] [phone] Glucose, Whole Blood POC (02/24/2018 10:07 PM CDT) P athologist Signature Glucose, Whole 180 70 - 180 [facility] Blood mg/dl [facility] Comment: Point of Care Testing RN Notified Specimen Anatomical Collection Method Collection Time Receive d Time (Source) Location / / Volume Laterality 02/24/2018 10:07 02/24/2018 PM CDT 10:14 PM CDT Randy Gilbert MD LAB_1 Performing Organization Address City/[facility]/ZIP [facility] Phon e Number [address] [address] [place] [address], [facility] [phone] Glucose, Whole Blood POC (02/24/2018 7:32 PM CDT) athologist Signature Glucose, Whole 167 70 - 180 [facility] Blood mg/dl [facility] Comment: Point of Care Testing RN Notified Specimen Anatomical Collection Method Collection Time Receive d Time (Source) Location / / Volume Laterality 02/24/2018 7:32 PM 8 7:38 CDT PM CDT Randy Gilbert MD LAB_1 Performing Organization Address [facility] Phon e Number [address] [address] [place] [address], [facility] [phone] Glucose, Whole Blood POC (02/24/2018 4:34 PM CDT) athologist Signature Glucose, Whole 130 70 - 180 [facility] Blood mg/dl [facility] Comment: Point of Care Testing RN Notified No Action Required Specimen Anatomical Collection Method Collection Time Receive d Time (Source) Location / / Volume Laterality 02/24/2018 4:34 PM 8 4:41 CDT PM CDT Randy Gilbert MD LAB_1 Performing Organization Address City/[facility] Phon e Number [address] [address] [place] [phone], [facility] [phone] XR C-Arm 1-1.5 Hours (02/24/2018 4:25 PM CDT) Anatomical Region Laterality Modality Other Specimen (Source) Anatomical Location Collection Method / Collectio n Time Received Time / Laterality Volume Narrative 02/24/2018 4:25 PM CDT Fluoroscopy provided by a histologist technologist. Exact fluoroscopy time is documented in end of exam information in EPIC Randy Gilbert MD RAD GD Glucose, Whole Blood POC (02/24/2018 3:35 PM CDT) athologist Signature Glucose, Whole 117 70 - 180 [facility] Blood mg/dl [facility] Comment: Point of Care Testing No Action Required Specimen Anatomical Collection Method Collection Time Receive d Time (Source) Location / / Volume Laterality 02/24/2018 3:35 PM 8 3:42 CDT PM CDT Randy Gilbert MD LAB_1 Performing Organization Address City/[facility]/ZIP Code Phon e Number [address] [address], [facility] [phone] Glucose, Whole Blood POC (02/24/2018 2:14 PM CDT) athologist Signature Glucose, Whole 126 70 - 180 [facility] Blood mg/dl [facility] Comment: Point of Care Testing RN Notified Specimen Anatomical Collection Method Collection Time Receive d Time (Source) Location / / Volume Laterality 02/24/2018 2:14 PM 8 2:31 CDT PM CDT Randy Gilbert MD LAB_1 Performing Organization Address City/[facility]/ZIP Code Phon e Number [address] [address], [place] Glucose, Whole Blood POC (02/24/2018 1:25 PM CDT) athologist Signature Glucose, Whole 134 70 - 180 [facility] Blood mg/dl [facility] Comment: Point of Care Testing RN Notified Specimen Anatomical Collection Method Collection Time Receive d Time (Source) Location / / Volume Laterality 02/24/2018 1:25 PM 8 1:36 CDT PM CDT Randy Gilbert MD LAB_1 Performing Organization Address City/[facility]/ZIP Code Phon e Number [address] [address], [place] BB Hold Tube ([facility] joya) (02/24/2018 1:27 AM CDT) [facility] Method Time [facility] BB Hold Tube Blood Bank [facility] save tube HOSPITAL expires in 3 days Specimen Anatomical Collection Method Collection Time Receive d Time (Source) Location / / Volume Laterality 02/24/2018 1:27 AM 8 1:37 CDT AM CDT [facility] - 02/24/2018 1:39 AM CD T Performed at [facility] , [address] [place] [address] Randy Gilbert MD LAB_1 Performing Organization Address City/[facility] Phon e Number [address] [address], [facility] ABO/RH(D) Retype (02/24/2018 1:27 AM CDT) athologist Signature ABO/RH(D) O POSITIVE [facility] Specimen Anatomical Collection Method Collection Time Receive d Time (Source) Location / / Volume Laterality 02/24/2018 1:27 AM 8 1:28 CDT AM CDT [facility] - 02/24/2018 1:49 AM CD T Performed at [facility] , [address] [place] [address] Randy Gilbert MD LAB_1 Performing Organization Address City/[facility] Phon e Number [address] [address], [facility] Glucose, Whole Blood POC (02/23/2018 11:08 PM CDT) P athologist Signature Glucose, Whole 154 70 - 180 [facility] Blood mg/dl [facility] Comment: Point of Care Testing RN Notified Specimen Anatomical Collection Method Collection Time Receive d Time (Source) Location / / Volume Laterality 02/23/2018 11:08 02/23/2018 PM CDT 11:16 PM CDT Randy Gilbert MD LAB_1 Performing Organization Address City/[facility]/ZIP [facility] Phon e Number [address] [address], [place] XR Tibia Fibula Rt 2 Views (02/23/2018 10:41 PM CDT) Anatomical Region Laterality Modality Lower Extremity, Knee, Leg, Foot & Ankle Computed Radiography Specimen (Source) Anatomical Collection Method Collection Time Re ceived Time Location / / Volume Laterality 02/23/2018 10:41 PM CDT Narrative 02/23/2018 10:59 PM CDT XR TIBIA FIBULA RT 2 VIEWS 02/23/2018 10:41 PM INDICATION: Lower leg pain. COMPARISON: CT performed same day. FINDINGS: Acute, comminuted lateral tibi al plateau fracture with impacted horizontal component seen extending into the right tibial metadiaphysis. Acute comminuted right fibular head fracture. Procedure Note Jose Fuller MD - 02/23/2018Formatti ng of this note might be different from the original. XR TIBIA FIBULA RT 2 VIEWS 02/23/2018 10:41 PM INDICATION: Lower leg pain. COMPARISON: CT performed same day. FINDINGS: Acute, comminuted lateral tibi al plateau fracture with impacted horizontal component seen extending into the right tibial metadiaphysis. Acute comminuted right fibular head fracture. Meaghan Malhotra MD RAD GD XR Femur Rt 2 Views (02/23/2018 10:40 PM CDT) Anatomical Region Laterality Modality Lower Extremity, Leg, Thigh Computed Rad iography Specimen (Source) Anatomical Collection Method Collection Time Re ceived Time Location / / Volume Laterality 02/23/2018 10:40 PM CDT Narrative 02/23/2018 11:10 PM CDT XR FEMUR RT 2 VIEWS 02/23/2018 10:40 PM INDICATION: Pain upper leg/femur. COMPARISON: None. FINDINGS: Moderate joint effusion. No ac tuscarora fracture dislocation. No soft tissue defect or radiopaque foreign body. Procedure Note Jose Fuller MD - 02/23/2018Formatti ng of this note might be different from the original. XR FEMUR RT 2 VIEWS 02/23/2018 10:40 PM INDICATION: Pain upper leg/femur. COMPARISON: None. FINDINGS: Moderate joint effusion. No ac tuscarora fracture dislocation. No soft tissue defect or radiopaque foreign body. Meaghan Malhotra MD RAD GD ABO Rh & Antibody Screen (Type & Screen) (02/23/2018 9:59 PM CDT) [facility] gist Method Time Signature Crossmatch 02/26/2018 [facility] ABO/RH(D) O POSITIVE [facility] Antibody Screen NEGATIVE [facility] Specimen Anatomical Collection Method Collection Time Receive d Time (Source) Location / / Volume Laterality 02/23/2018 9:59 PM 8 CDT 10:00 PM CDT [facility] - 02/23/2018 11:02 PM C DT Performed at [facility] , [address] [place] [address] Randy Gilbert MD LAB_1 Performing Organization Address [facility]/ZIP [facility] [place] [address] [place] [address], [facility] INR/Protime (02/23/2018 9:56 PM CDT) P athologist Signature Protime 13.8 12.0 - 14.5 [facility] INR 1.1 0.9 - 1.1 [facility] Specimen Anatomical Collection Method Collection Time Receive d Time (Source) Location / / Volume Laterality 02/23/2018 9:56 PM 8 CDT 10:00 PM CDT [facility] - 02/23/2018 10:38 PM C DT Performed at [facility] , [address] [place] [address] Randy Gilbert MD LAB_1 Performing Organization Address City/[facility] [place] [address] [place] [address], [facility] (ABNORMAL) Basic Metabolic Panel (02/23/2018 9:56 PM CDT) Analysis Performed At Patho logist Time Signature Sodium 135 (L) 136 - 145 [facility] mmol/L [facility] Potassium 3.5 3.5 - 5.1 [facility] mmol/L [facility] Chloride 101 98 - 109 [facility] mmol/L [facility] CO2 27 20 - 29 [facility] mmol/L [facility] Anion Gap 7 7 - 16 [facility] (calc.) mmol/L [facility] Glucose 207 (H) 70 - 180 [facility] mg/dl [facility] Calcium 8.9 8.4 - 10.4 [facility] mg/dl [facility] BUN 8 7 - 26 [facility] mg/dl [facility] Creatinine 0.69 (L) 0.73 - [facility] 1.18 mg/dl [facility] GFR, Estimated >60 >60 [facility] ml/min/1.7 [facility] 3m2 GFR, Est., If >60 >60 [facility] Black ml/min/1.7 [facility] 3m2 Specimen Anatomical Collection Method Collection Time Receive d Time (Source) Location / / Volume Laterality 02/23/2018 9:56 PM 8 CDT 10:00 PM CDT [facility] - 02/23/2018 10:33 PM C DT Performed at [facility] , [address] [place] [address] Randy Gilbert MD LAB_1 Performing Organization Address City/[facility] Phon e Number [address] [address], [facility] (ABNORMAL) Complete Blood Count-No Diff (02/23/2018 9:55 PM CDT) P athologist Signature WBC 16.2 (H) 4.0 - 11.0 [facility] RBC 4.94 4.5 - 5.9 [facility] Hemoglobin 13.7 13.5 - 17.5 [facility] gdl [facility] HCT 41.0 41.0 - 53.0 [facility] MCV 83.0 80 - 100 [facility] MCH 27.7 26 - 34 pg [facility] MCHC 33.4 32 - 36 [facility] RDW 13.7 11.5 - 14.5 [facility] Platelets 262 150 - 450 [facility] MPV 9.5 9.4 - 12.4 [facility] Specimen Anatomical Collection Method Collection Time Receive d Time (Source) Location / / Volume Laterality 02/23/2018 9:55 PM 8 CDT 10:00 PM CDT [facility] - 02/23/2018 10:27 PM C DT Performed at [facility] , [address] [place] [address] Randy Gilbert MD LAB_1 Performing Organization Address City/[facility] Phon e Number [address] [address], [facility] ECG 12-LEAD ROUTINE (02/23/2018 9:43 PM CDT) P athologist Signature Ventricular Rate 69 BPM MUSE RHP Atrial Rate 69 BPM MUSE RHP P-R Interval 194 ms MUSE RHP QRS Duration 132 ms MUSE RHP QT 418 ms MUSE RHP QTc 447 ms MUSE RHP P [place] 48 degrees MUSE RHP R [place] -31 degrees MUSE RHP T [place] -5 degrees MUSE RHP Specimen (Source) Anatomical Collection Method Collection Time Re ceived Time Location / / Volume Laterality 02/23/2018 9:43 PM CDT Narrative MUSE RHP - 02/25/2018 9:10 AM CDT Sinus rhythm Left axis deviation Left ventricular hypertrophy with QRS wi dening Nonspecific T wave abnormality Abnormal ECG No previous ECGs available Confirmed by MD MACKAY JOHANNES ([id number]) on 02/25/2018 9:10:41 AM Procedure Note Saskia Mackay MD - 02/25/2018Form atting of this note might be different from the original. Sinus rhythm Left axis deviation Left ventricular hypertrophy with QRS wi dening Nonspecific T wave abnormality Abnormal ECG No previous ECGs available Confirmed by MD MACKAY JOHANNES ([id number]) on 02/25/2018 9:10:41 AM Meaghan Malhotra MD EKG Performing Organization Address City/State/ZIP Code Phon e Number MUSE RHP Glucose, Whole Blood POC (02/23/2018 6:35 PM CDT) P athologist Signature Glucose, Whole 130 70 - 180 [facility] Blood mg/dl [facility] Comment: Point of Care Testing RN Notified Specimen Anatomical Collection Method Collection Time Receive d Time (Source) Location / / Volume Laterality 02/23/2018 6:35 PM 8 6:42 CDT PM CDT Randy Gilbert MD LAB_1 Performing Organization Address [place] [facility] [address] [id number] EKG IP (02/23/2018 12:00 AM CDT) Specimen (Source) Anatomical Location Collection Method / Collectio n Time Received Time / Laterality Volume 02/23/2018 Narrative This result has an attachment that is no t available. Provider [facility] EKG documented in this encounter Visit Diagnoses Diagnosis Closed bicondylar fracture of right tibi al plateau - Primary Closed bicondylar fracture of right tibi al plateau Essential hypertension (HRC) Unspecified essential hypertension Diabetes mellitus type II (HRC) Type II or unspecified type diabetes selma litus without mention of complication, not stated as uncontrolled PREMA (generalized anxiety disorder) (HRC) Generalized anxiety disorder Urinary retention Retention of urine, unspecified Closed bicondylar fracture of right tibi al plateau Plan of Care - Eric Dubose LGSW - 02/27/2018 2:35 PM CDT [facility] Care Management Discharge Note Discharge Information: Anticipated Discharge Date: 02/27/18 Anticipated Discharge Time: 1400 Discharge [place] [facility] [place] Discharge transport needs:: Wheelchair - Bariatric (TSI) Date Transport Needed: 02/27/18 Time Transport Needed: 1345 PAS form needed?: yes Referral ID:: [id number] Referral made to community vending attendant program?: no Patient to be Discharged to: TCU TCU/LTC: [facility] , [address] [place] [id number] Patient/family is aware of discharge plan?: yes Baseline Transportation: agency transportation, van, wheelchair accessible Anticipated Mode of Transportation: wheelchair Discharged Accompanied By: self only Anticipated Discharge Disposition: 03: discharged or transferred to a Medicare- certified halfway facility Additional Comments: SW aware patient is medically stable to d/c today. Patient d/c to TCU as above. PAS, orders done andsent to facility. Patient aware and in agreement w/discharge to [place]. No other d/c needs identified. RICCI Loya Plan of Care - Damon Escamilla - 02/27/2018 2:27 PM CDT [facility] Integrative Therapy Volunteer Missed Visit Note [facility] attempted to see patient today for Healing Touch Energy Based Therapy. Unable to see patient for this reason: nursing cares. Will attempt again as soon as possible. Time: 14:25 Date: 02/27/18 Report Completed by: PATT Bowen --- End of Report --- Plan of Care - Danielle Amador RN - 02/27/2018 6:58 AM CDT [facility] Plan of Care Note Assessment: Pain Management Plan: Continue to monitor. Medicate per DEC. Intervene as needed. Subjective: Pt c/o pain in R leg rated 7/10. Denied chest pain/SOB/dizziness/nausea/numbness/tingling. Objective: Pt A&O x4. VSS - BP slightly elevated at times. On room air overnight sating mid-upper 90's. CMS intact. RLE dalila dressing appears c/d/i, ex-fix in place, elevated on ERLE pillow. Medicated for pain with PRN Oxycodone twice, Tylenol once and Robaxin once. Saline locked. Pt did not get out of bed this shift, repositioned independently and with assist x1. Voiding adequately in urinal. Pt resting in bed btwn cares, cooperative and able to make needs known. Significant other sleeping at bedside. I completed a full assessment and assessments as ordered and per policy on this patient during my work shift. Reassessments completed during my work shift are unchanged unless documented. --- End of Report --- Plan of Care - Mauricio Joy RN - 02/26/2018 6:30 PM CDT Fall Risk ??? Fall risk and fall related injury risk are minimized Progressing ??? Decrease fall risk secondary to volume/electrolyte status issues Progressing Pain, Acute (Adult) ??? Acceptable Pain Control/Comfort Level Progressing Patient Care Overview (Adult) ??? Plan of Care Review Progressing Pressure Ulcer Risk (Mk Scale) (Adult,Obstetrics,Pediatric) ??? Skin Integrity Progressing [facility] Plan of Care Note Assessment: Urinary Retention Plan: Encourage PO intake, assist to side of bed to help with voiding. Subjective: I have never had this problem before. I do not know why I am having this problem now. Objective: Patient had difficulties with voiding. At start of shift, attempted a straight cath as patient was unsuccessful on days, straight cath unsuccessful, MD notifed. Later in shift, patient voided spontaneously adequally, red tingled, most likely due to trauma from straight caths, cleared up later in shift. Continued to encourage PO intake. RLE had ex-fix, C/D/I, CMS intact. Tolerating regular diet. Blood sugar covered with sliding scale. Encouraged reposition for skin integrity. I completed a full assessment and assessments as ordered and per policy on this patient during my work shift. Reassessments completed during my work shift are unchanged unless documented. --- End of Report --- Plan of Care - Diandra Bowden RN - 02/26/2018 3:46 PM CDT [facility] Plan of Care Note Assessment: Pain management/Urinary retention Plan: Continue to monitor and intervene as needed Subjective: I don't feel like I have to urinate. I don't understand why I need a catheter again. I really want to wait. Objective: Patient is A and O x 4 and transfers with A x 1 walker and belt. Patient denies CP, SOB, and N/V at this time. CMS intact RLE. Oxycodone given per DEC for pain with stated relief by patient.When rounding with PA she stated that it was ok to straight cath for a third time at the end of day shift and if he is still retaining on evening shift a bobo must be placed. New order for uroxatral as well. Bladder scan was around 850 mL after patient tried to void without success. Patient refused at that time stating he wanted to wait a little longer before straight cath. Patient was able to void small amounts. Second bladder scan PVR was 657 mL. Straight cath attemtped with no urine return. Coude catheter was ordered and updated the evening shift RN. Call light is within reach and can make needs known. I completed a full assessment and assessments as ordered and per policy on this patient during my work shift. Reassessments completed during my work shift are unchanged unless documented. --- End of Report --- Plan of Care - Tomasz Amaral RN - 02/26/2018 3:14 PM CDT [facility] Care Management Follow Up Note Plan: Care Team Actions Needed: MD medical clearance, discharge orders, placement secured Anticipated Discharge Date: 02/27/18 Anticipated Discharge Plan: TCU vs home (see note) Care Coordination Updates: Current Patient Assessment: appropriate, pleasant, cooperative Provided patient/family with coordination of care choices for:: TCU Actual patient/family choice(s):: TCU Barriers/Vulnerabilities: difficulty in locating post-acute care, other (see comments) Additional Comments: I spoke with the Case management dept at [facility] and they are awaiting for an authorization from [facility] for Sudeep to be assigned a caseworker protective services with [facility]. I consulted with Vivian Corado from [facility] to assist with locating a TCU/SNF for Sudeep. Per [facility] web site, Sudeep does not have an in network SNF. A [place] [id number] and a list was given to Sudeep. Reviewed this list with Sudeep and his girlfriend and additional TCU referrals made to in order of preference: [facility] can accept clinically in a shared room, awaiting financial approval from [facility]. [facility] Care management is awaiting a response from the TCUs. I spoke with the interdisciplinary team that Care management may not be able to find a TCU for Sudeep due to Sudeep's insurance.. Chin from will continue to work with Sudeep for a safe discharge to home if a TCU does not accept Sudeep. Tomasz Amaral RN Plan of Care - Gordo Beltran - 02/26/2018 12:15 PM CDT [facility] Integrative Therapy Missed Visit Note [facility] attempted to see patient today for Massage Therapy. Unable to see patient for this reason: patient declined therapy. Will attempt again as soon as possible. Time: 12:15 PM Date: 02/26/2018 Report Completed by: Gordo Beltran - Pager # [phone] Thank you for referring this pt to [facility]. --- End of Report --- Plan of Care - Hermelinda Marsh RN - 02/26/2018 9:02 AM CDT [facility] Plan of Care Note Assessment: pain, urinary retention Plan: continue to monitor and intervene as needed Subjective: pt c/o pain 06/07 and request bladder scanning d/t discomfort and frequent voiding in small amounts Objective: Pt A/O x4 and able to make needs known. Pain managed per MAR with good relief. CMS intact. VSS. Pt voiding small amounts but frequently overnight with good overall output, but states he is uncomfortable. Bladder scan revealed >999mL present in bladder. Pt attempted to sit at the edge of the bed to void, but was unable to do so. Straight cath for 1350 with relief for patient. Ortho awareof retention concerns. Pt noted to be sleeping between cares. No acute events overnight. I completed a full assessment and assessments as ordered and per policy on this patient during my work shift. Reassessments completed during my work shift are unchanged unless documented. --- End of Report --- Plan of Care - Bethany Arvizu RN - 02/25/2018 11:58 PM CDT [facility] Plan of Care Note Assessment: post-op plan of care, urinary retention Plan: assess and intervene as needed Subjective: My stomach hurts, and I am only peeing a little bit Objective: A/Ox4. Sig other at bedside. Pt up to chair with 2 assist walker and gait belt. Up to toilet. No BM. Voiding small amounts, dribbling, hestiancy, frequency. PVR for 999mL. Straight cath for 1300mL. Pt states relief. Medicated per MAR with oxy, with adequate relief. Elevated on ERLE, ice applied. CMS intact. Appetite fair. I completed a full assessment and assessments as ordered and per policy on this patient during my work shift. Reassessments completed during my work shift are unchanged unless documented. --- End of Report --- Plan of Care - Tomasz Amaral RN - 02/25/2018 3:12 PM CDT [facility] Care Management Follow Up Note Plan: Care Team Actions Needed: MD medical clearance, discharge orders, placement secured Anticipated Discharge Date: 02/26/18 Anticipated Discharge Plan: TCU vs home (see note) Care Coordination Updates: Current Patient Assessment: appropriate, pleasant, cooperative Provided patient/family with coordination of care choices for:: TCU Actual patient/family choice(s):: TCU Barriers/Vulnerabilities: difficulty in locating post-acute care, other (see comments) Additional Comments: Discussed with the interdisciplinary team this am and Sudeep will not have surgery today and will need to return in 1 week for additional surgery. At this time, Chin from PT recommends a TCU for Sudeep. I met with Sudeep and his to discuss going to a TCU and both agree with going to a TCU. I explained to Sudeep that he has for insurance so I am not sure what TCU would be in [facility]. Sudeep and prefer [facility] and TCU. Referrals made to these 3 facilities and do not take this patients . I spoke with Jessica at [facility] [phone] to discuss Sudeep coverage for TCU and what TCU would be in network. Sudeep will need a 3 day qualifying in patient stay for TCU to be covered. Jessica states that [facility] in [place] is the only TCU in network and directed me to call the Case management dept at [phone] to discuss additional TCU options for the patient. I left a message in admissions at [facility] regarding bed availability. Care management will follow up with [facility] Case management tomorrow regarding TCU options for Sudeep. Tomasz Amaral RN Plan of Care - Belén Perry RN - 02/25/2018 2:28 PM CDT Fall Risk ??? Fall risk and fall related injury risk are minimized Progressing Pain, Acute (Adult) ??? Acceptable Pain Control/Comfort Level Progressing Patient Care Overview (Adult) ??? Plan of Care Review Progressing [facility] Plan of Care Note Assessment: Pain Plan: Continue to monitor pain, CMS; encourage activity as tolerated. Subjective: The oxycodone seems to take like 30-40 minutes to kick in, and then only really seems to work for about an hour, maybe a little longer Objective: A&O, VSS on RA, able to make needs known. Reports 6-06/07 RLE pain; tolerable relief with cold pack and PRN oxycodone and acetaminophen. CMS intact. DALILA wrap and ex-fix C/D/I. Up with therapy and walker. Significant other present at bedside throughout shift. I completed a full assessment and assessments as ordered and per policy on this patient during my work shift. Reassessments completed during my work shift are unchanged unless documented. --- End of Report --- Plan of Care - Meaghan Spain RN - 02/25/2018 6:25 AM CDT [facility] Plan of Care Note Assessment: Plan of Care Plan: Assess and intervene as needed Subjective: my pain is bad Objective: pt a/ox4, able to make needs known, due to O.R. This am, both hibiclenses complete, pt bpelevated during shift, hydralazine and labetalol given per MAR, pt weaned off venturi, on NC at 2lpm. Pre-op check list complete. I completed a full assessment and assessments as ordered and per policy on this patient during my work shift. Reassessments completed during my work shift are unchanged unless documented. --- End of Report --- Plan of Care - Meaghan Spain RN - 02/24/2018 9:30 PM CDT [facility]. MD Notified Note Name of MD notified: HP 12 Crosscover Time of MD notification: 2100 hours and 30 minutes Reason: Pt bp 182/111, pulse 91, please advise Response: Order placed for hydralazine PRN Meaghan Spain RN --- End of Report --- Plan of Care - Meaghan Spain RN - 02/24/2018 7:40 PM CDT [facility]. MD Notified Note Name of MD notified: HP 12 crosscover Time of MD notification: 1900 hours and 40 minutes Reason: Pt family reports swelling in neck, seems unusual Response: Monitor swelling, if it gets worse page, ensure pt breathing is normal and carotid pulse palpable. Meaghan Spain RN --- End of Report --- Plan of Care - Roxi Bruner RN - 02/24/2018 6:56 PM CDT Patient Care Overview (Adult) ??? Plan of Care Review Progressing ??? Individualization and Mutuality Progressing ??? Discharge Needs Assessment Progressing [facility] Nursing Post-Op Note Admission Date/Time: 02/23/2018 6:00 PM Returned to: S9 on (date) 02/23/2018 at (time) 1800 from P.A.R. Transported by: Bed Medical devices present on return from O.R.: Patient arrived lethargic, answers to voice on 50% venturi mask. General condition on return from O.R.: Stable Report Completed by: Roxi Bruner RN --- End of Report --- Plan of Care - Roxi Bruner RN - 02/24/2018 1:45 PM CDT [facility] Nursing Pre-Op Note Admission Date/Time: 02/23/2018 6:00 PM Time of transport to the Operating Room: 1345 Transported by: Bed Pre-Op checklist complete?: yes Report Completed by: Roxi Bruner RN --- End of Report --- Initial Assessments - Eric Dubose, ONCOLOGY TECHNICIAN - 02/24/2018 12:00 PM CDT [facility] Care Management Initial Assessment Plan: Care Team Actions Needed: PT/OT consult, discharge orders, MD medical clearance (OR [place] 02/24 w/Ortho) Anticipated Discharge Date: 02/27/18 Anticipated Discharge Plan: TBD- Patient wants to d/c home. Admission Info: Reason For Consult: discharge planning, supportive visit, introduction visit Chart Reviewed: discussed with interdisciplinary team, discussed with patient Does Patient have a Legal/Court Appointed Guardian?: No Guardianship issues affecting care planning?: No Cognitive capacity prior to admission: oriented Independent with ADLs (Prior to Admission)? Yes Change in Functional Status Since Onset of Current Illness/Injury: yes Prior Functional Level Comment: Independent Living Environment: Lives With: significant other, child(clifford), adult Living Arrangements: house Home Accessibility: stairs to enter home, stairs within home, bed and bath are not on the first floor, bed and bath on same level Number of Stairs to Enter Home: 3 Number of Stairs Within Home: 6 Stair Railings at Home: one inside, none outside Medication management by: patient How medications are managed: bottles Baseline Transportation: family or friend will provide Living Environment Comment: Lives in own home w/girlfriend, Simi, his son, and her daughter. Coping/Stress: Major Change/Loss/Stressor: hospitalization, surgery/procedure, other (see comments) (Fall resultingin fracture) Patient Personal Strengths: able to adapt, motivated, positive attitude, resilient, expressive of needs, strong support system Sources Of Support: adult child(clifford), significant other Reaction To Health Status: accepting Understanding Of Condition And Treatment: adequate understanding of medical condition, adequate understanding of treatment Emotional/Psychological: Affect: no deficits noted Mood: congruent to situation Verbal Skills: no deficits noted Current Interpersonal Conduct/Behavior: appropriate to situation Thought Process Alterations: no deficits noted Current Patient Assessment: appropriate, pleasant, cooperative Barriers: patient continues to require acute medical care Current Services: (Denies) Primary Care: Primary Care Clinic: [facility] Primary Care Physician: Ceci Christianson MD Additional Comments: SW met w/patient to introduce self, role, and discuss discharge plans. Patient going to OR this afternoon w/Ortho but hoping to d/c home when cleared to do so. Transferred from [facility] yesterday. Lives in own home w/girlfriend, Simi Nye [phone], his adult son, and her adult daughter. No services or assistive equipment at home. Reports he has for insurance, unsure what percent he's service connected. SW left message on [place] Referral Line [phone] to notify them of patient's admission. Nearly all demographics in chart are incorrect, no social security number. See updated demographics below. Patient asking if he'll need crutches, walker post-op. SW explained that therapies will work w/him after surgery and help figure out what, if any, equipment he may need. Patient denied any other questions/concerns/discharge needs at this time. Address: [id number] [place] [address]. [id number] Girlfriend: Simi Nye Father is so should be removed from emergency contacts. RICCI Loya Plan of Care - Meaghan Spain RN - 02/24/2018 7:19 AM CDT [facility] Plan of Care Note Assessment: Plan of Care Plan: Assess and Intervene as needed Subjective: pt c/o pain 05/07 Objective: pt a/o x4, cms intact, able to make needs known, scheduled O.R. Sometime today, both pre op hibiclenses complete, pain meds given per DEC. I completed a full assessment and assessments as ordered and per policy on this patient during my work shift. Reassessments completed during my work shift are unchanged unless documented. --- End of Report --- Plan of Care - Sherrill Spangler RN - 02/23/2018 7:34 PM CDT [facility] Plan of Care Note Assessment: Plan of Care Plan: Monitor & Intervene as needed Subjective: Direct Admit Objective: Pt. Medicated per MAR with adequate relief. A&OX4, Able to make needs known, Denies CP, SOB, N/V. CMS intact to RLE, PP+, Pt. Denies N/T. Pt. Resting comfortably at this time. Cont. Withplan of care. --- End of Report --- documented in this encounter Administered Medications Inactive Administered Medications - up to 3 most recent administrations Medication Order MAR Action Action Date Dose Rate Site acetaminophen (TYLENOL) tablet 650 Given 02/27/2018 1:32 PM CDT 650 mg mg 650 mg, Oral, Q6H PRN, Pain/Fever, Initially give acetaminophen for patient with mild pain., Starting on 02/23/18 at 1813, Until Sun02/27/18 at 1640, Initially give acetaminophen for patient with mild pain. Acetaminophen may be given WITH other pain medications as adjunct pain relief. Do not give two acetaminophen containing medications within 4 hours of each other. Given 02/27/2018 1:26 AM CDT 650 mg Given 02/26/2018 2:29 PM CDT 650 mg alfuzosin (UROXATRAL) extended release tablet Given 9:33 AM CDT 10 mg 10 mg 10 mg, Oral, DAILY, First dose on Sun02/26/18 at 1000, Until Discontinued, Tablet should be swallowed whole. Given 02/26/2018 10:08 AM CDT 10 mg aspirin tablet 325 mg Given 02/26/2018 8:47 PM CDT 325 mg 325 mg, Oral, ASPIRIN - DAILY, First dose on Sun02/25/18 at 2000, Until Discontinued Given 02/25/2018 8:23 PM CDT 325 mg bisacodyl (DULCOLAX) rectal suppository 10 mg 10 mg, Rectal, DAILY PRN, Constipation, No stool in the last 3 days, Starting on 02/23/18 at 1814, Until Sun02/27/18 at 1640, Cumulative bowel medication orders. If no stool [...] day, begin regimen again until patient stools. gabapentin (NEURONTIN) capsule 300 mg Given 02/27/2018 1:32 PM CDT 300 mg 300 mg, Oral, TID, First dose on 02/23/18 at 2000, Until Discontinued, For neuropathic or acute post operative pain Given 02/27/2018 9:32 AM CDT 300 mg Given 02/26/2018 8:47 PM CDT 300 mg glipiZIDE (GLUCOTROL) tablet 5 mg Given 02/27/2018 6:38 AM CDT 5 mg 5 mg, Oral, BID AC, First dose on Sun02/25/18 at 1600, Until Discontinued Given 02/26/2018 4:27 PM CDT 5 mg Given 02/26/2018 7:06 AM CDT 5 mg hydrALAZINE (APRESOLINE) injection 5-10 mg Given 02/24/2018 10:02 PM CDT 5 mg 5-10 mg, Intravenous, Q6H PRN, SBP >, 180, Starting on Sun02/24/18 at 2140, Until Sun02/27/18 at 1640 insulin lispro (HumALOG) injection Given 02/26/2018 9:49 PM CDT 2 Units Left Arm vial 2-8 Units 2-8 Units, Subcutaneous, PRN BASED ON BLOOD SUGAR, Blood Sugar >, Starting on Sun02/25/18 at 1433, Give within 15 minutes before a meal or immediately after a meal. Blood sugar less than 71 treat for hypoglycemia and notify Blood sugar 71-150 give 0 units Blood sugar 151-200 give 2 unit Blood sugar 201-250 give 4 units Blood sugar 251-300 give 6 units Blood sugar greater than or equal to 301 give 8 units If BG greater than 300 after next FSG, notify Hazardous waste, dispose of in [place]. labetalol (TRANDATE) tablet 100 mg Given 02/25/2018 12:16 AM CDT 100 mg 100 mg, Oral, Q8H PRN, Other, SBP >160, Starting on 02/23/18 at 2357, Until Sun02/27/18 at 1640 lisinopril (zeSTRIL) tablet 10 mg Given 02/27/2018 9:32 AM CDT 10 mg 10 mg, Oral, DAILY, First dose on 02/25/18 at 1000, Until Discontinued Given 02/26/2018 9:38 AM CDT 10 mg Given 02/25/2018 10:00 AM CDT 10 mg metFORMIN (GLUCOPHAGE) tablet TABS 1,000 mg Given 02/27/2018 9:33 AM CDT 1,000 mg 1,000 mg, Oral, BID WITH MEALS, First dose on Sun02/24/18 at 0000, Until Discontinued Given 02/26/2018 4:27 PM CDT 1,000 mg Given 02/26/2018 10:08 AM CDT 1,000 mg methocarbamol (ROBAXIN) tablet 500 mg Given 02/27/2018 5:35 AM CDT 500 mg 500 mg, Oral, Q6H PRN, Muscle Spasms, Starting on 02/23/18 at 1813, Until Sun02/27/18 at 1640 Given 02/26/2018 7:06 AM CDT 500 mg Given 02/25/2018 3:53 PM CDT 500 mg metoclopramide (REGLAN) injection 5 mg 5 mg, Intravenous, Q6H PRN, Nausea, Vomiting, Starting on 02/23/18 at 1813, Until Sun02/27/18 at 1640, Give 1st line medications then 2nd line then 3rd line. Progress to next line if medication is ineffective aft er 15 minutes or has been previously ineffective, or if a medication for a line is not ordered. May use medication from any line if patient preference indicat es. If third line agent ineffective call MD. If unable to give IV medications contact MD. 1st Line - prochlorperazine , 2nd Line - ondansetron 3rd Line - m etoclopramide ondansetron (ZOFRAN) injection 4 mg 4 mg, Intravenous, Q8H PRN, Nausea, Vomiting, Starting on 02/23/18 at 1813, Until Sun02/27/18 at 1640, Give 1st line medications then 2nd line then 3rd line. Progress to next line if medication is ineffective aft er 15 minutes or has been previously ineffective, or if a medication for a line is not ordered. May use medication from any line if patient preference indicat es. If third line agent ineffective call MD. If unable to give IV medications contact MD. 1st Line - prochlorperazine , 2nd Line - ondansetron 3rd Line - m etoclopramide oxyCODONE (ROXICODONE) immediate release Given 02/27/2018 1:32 P M CDT 10 mg tablet 5-10 mg 5-10 mg, Oral, Q4H PRN, Pain, Starting on 02/23/18 at 1813, Until 02/27/18 at 1640, Give PO opioid if able to take PO and pain not well controlled with other medications or interventions. Given 02/27/2018 9:32 AM CDT 10 mg Given 02/27/2018 5:30 AM CDT 10 mg PARoxetine (PAXIL) tablet 10 mg Given 02/26/2018 8:47 PM CDT 10 mg 10 mg, Oral, HS, First dose on 02/24/18 at 0000, Until Discontinued Given 02/25/2018 8:24 PM CDT 10 mg Given 02/24/2018 9:10 PM CDT 10 mg polyethylene glycol (MIRALAX) oral powde r 17 g Given 02/25/2018 8:23 PM CDT 17 g 17 g, Oral, DAILY PRN, Constipation, No stool in the last 2 days, Starting on 02/23/18 at 1814, Until 02/27/18 at 1640, Cumulative bowel medication orders. If no stool [...] day, begin regimen again until patient stools. prochlorperazine (COMPAZINE) injection 1 0 mg 10 mg, Intravenous, Q6H PRN, Nausea, Vomiting, Startin g on 02/23/18 at 1813, Until 02/27/18 at 1640, Give 1st line medications then 2nd line then 3rd line. Progress to next line if medication is ineffective aft er 15 minutes or has been previously ineffective, or if a medication for a line is not ordered. May use medication from any line if patient preference indicat es. If third line agent ineffective call MD. If unable to give IV medications contact MD. 1st Line - prochlorperazine , 2nd Line - ondansetron 3rd Line - m etoclopramide sennosides-docusate sodium (SENNA-S,SENNA Given 02/27/2018 9 :33 AM CDT 1 Tablet PLUS) 8.6-50 MG per tablet 1 Tab 1 Tablet, Oral, BID, First dose on 02/23/18 at 2000, Until Discontinued, as laxative/stimulant, stool-softening agent Given 02/26/2018 8:47 PM CDT 1 Tablet Given 02/26/2018 9:39 AM CDT 1 Tablet sennosides-docusate sodium (SENNA-S,MARIAN A PLUS) 8.6-50 MG per tablet 2 Tab 2 Tablet, Oral, BID PRN, Constipation, N o stool in the last day, Starting on Sun02/23/18 at 1814, Until Sun02/27/18 at 164 0, Cumulative bowel medication orders. If no stool [...] day, begin regimen again until patient stools. documented in this encounter Active and Recently Administered Medications Times are shown in CDT. Scheduled Medication Order 02/25/2018 02/26/2018 02/27/2018 alfuzosin (UROXATRAL) extended release tablet 10 mg 1008 (Given - Provider: Diandra Bowden RN) 0933 (Given - Provider: Mickey Rodriguez RN) 10 mg, Oral, DAILY, First dose on 11/15 at 1000, Tablet should be swallowed whole. aspirin tablet 325 mg 2022 (Given - Provider: Bethany anton RN) 2046 (Given - Provider: Mauricio Joy RN) 325 mg, Oral, ASPIRIN - DAILY, First dose on 02/25/18 at 2000 ceFAZolin (ANCEF) injection 2 g (COMPLETED) 0654 (Give n - Provider: Meaghan Spain, JULIO CESAR)1419 (Given - Provider: Belén Perry RN) 2 g, Intravenous, Q8H (NON-STND), First dose on Sun02/24/18 at 2300, For 3 doses, Reconstitute vial with 10 ml sterile water for injection, shake vigorously until diluted, and give slow IV push over 3-5 minutes., , Indications: Perioperative Pharmacoprophylaxis gabapentin (NEURONTIN) capsule 300 mg 0737 (Given - Pr ovider: Belén Perry RN)1418 (Given - Provider: Belén Perry RN)2023 (Given - Provider: Bethany Arvizu RN) 0939 (Given - Provider: Diandra heart RN)1430 (Given - Provider: Diandra Bowden, JULIO CESAR)204 (Given - Provider: Mauricoi Joy RN) 0932 (Given - Provider: Mickey Rodriguez RN)1332 (Given - Provider: Mickey Rodriguez RN) 300 mg, Oral, TID, First dose on 01/28 at 2000, For neuropathic or acute post operative pain glipiZIDE (GLUCOTROL) tablet 5 mg 1554 (Given - Provider: Aman Arvizu RN) 0706 (Given - Provider: Hermelinda Marsh RN)1627 (Given - Provider: Mauricio Joy, JULIO CESAR) 0638 (Given - Provider: Danielle Amador , JULIO CESAR) 5 mg, Oral, BID AC, First dose on Sun02/25/18 at 1600 lisinopril (zeSTRIL) tablet 10 mg 1000 (Given - Provider: Kenia Perry RN) 0938 (Given - Provider: Diandra Bowden RN) 0932 (Given - Provider: Mickey Rodriguez RN) 10 mg, Oral, DAILY, First dose on 02/25/18 at 1000 metFORMIN (GLUCOPHAGE) tablet TABS 1,000 mg 0800 (Not Given - Provider: Belén Perry RN - Reason: NPO)2023 (Given - Provider: Bethany Arvizu RN) 1008 (Given - Provider: Diandra Bowden RN - Comment: pt. just ordered breakfast)1627 (Given - Provider: Mauricio Joy RN) 0933 (Given - Provider: Mickey Rodriguez, JULIO CESAR) 1,000 mg, Oral, BID WITH MEALS, First dose on 02/24/18 at 000 0 PARoxetine (PAXIL) tablet 10 mg 2023 (Given - Provider: Graham Arvizu RN) 2046 (Given - Provider: Mauricio Joy RN) 10 mg, Oral, HS, First dose on 02/24/18 at 0000 potassium chloride (K-JORDYN) packet 20 mEq (COMPLETED) 0 959 (Given - Provider: Belén Perry RN - Comment: k 3.2) 20 mEq, Oral, ONCE, 02/25/18 at 1015, For 1 dose sennosides-docusate sodium (SENNA-S,SENNA PLUS) 8.6-50 MG per tablet 1 Tab 0737 (Given - Provider: Belén Perry RN)2023 (Given - Provider: Bethany Arvizu RN) 0939 (Given - Provider: Diandra heart RN)2046 (Given - Provider: Mauricio Joy, JULIO CESAR) 0933 (Given - Provider: Mickey Rodriguez, JULIO CESAR) 1 Tab, Oral, BID, First dose on Sat 02/23 at 2000, as laxative/stimulant, stool-softening agent PRN Medication Order 02/25/2018 02/26/2018 02/27/2018 acetaminophen (TYLENOL) tablet 650 mg 0737 (Given - Pr ovider: Belén Perry RN)1417 (Given - Provider: Belén Perry RN)2023 (Given - Provider: Bethany Arvizu RN) 0706 (Given - Provider: Hermelinda Marsh RN)1429 (Given - Provider: Diandra Bowden, JULIO CESAR) 0126 (Given - Provider: Danielle Amador RN)1332 (Given - Provider: Mickey Rodriguez RN) 650 mg, Oral, Q6H PRN, Pain/Fever, Initi ally give acetaminophen for patient with mild pain., Starting 02/23/18 at 1813, Initially give acetaminophen for patient with mild pain. Acetaminophen may be g iven WITH other pain medications as adju nct pain relief. Do not give two acetaminophen containing medications within 4 hours of each other. benzocaine-menthol (CEPACOL) lozenge 1 Lozenge 1 Lozenge, Oral, Q2H PRN, Throat Pain, Starting 02/23/18 at 1 810 bisacodyl (DULCOLAX) rectal suppository 10 mg(Linked G roup 1) 2022 (See Alternative - Provider: Bethany Arvizu RN) 10 mg, Rectal, DAILY PRN, Constipation, No stool in the last 3 days, Starting 02/23/18 at 1814, Cumulative bowel medication orders. If no stool [...] day, begin regimen again until patient stools. calcium carbonate (TUMS) chewable tablet 500-1,000 mg 500-1,000 mg, Oral, QID PRN, Heartburn, Dyspepsia, Starting 02/23/18 at 1810, Each tablet provides 200 mg elemental calcium hydrALAZINE (APRESOLINE) injection 5-10 mg 5-10 mg, Intravenous, Q6H PRN, SBP >, 180, Starting 02/24/18 at 2140 insulin lispro (HumALOG) injection vial 2-8 Units 1017 (Not Given - Provider: Diandra Bowden RN - Reason: Patient/family refused - Comment: pt. refused the 2 units stating he does not use insulin at home)2148 (Given - Provider: Mauricio Joy RN) 2-8 Units, Subcutaneous, PRN BASED ON BL OOD SUGAR, Blood Sugar >, Starting 02/25/18 at 1433, Give within 15 minutes before a meal or immediately after a meal. Blood sugar less than 71 treat for hy poglycemia and notify MD Blood sugar 71- 150 give 0 units Blood sugar 151-200 give 2 unit Blood sugar 201-250 give 4 units Blood sugar 251-300 give 6 units Blood sugar greater than or equal to 301 give 8 units If BG greater than 300 after next FSG, notify Hazardous waste, dispose of in [place]. labetalol (TRANDATE) tablet 100 mg 0016 (Given - Provi sabine: Meaghan Spain, RN) 100 mg, Oral, Q8H PRN, Other, SBP >160, Starting 02/23/18 at 2357 methocarbamol (ROBAXIN) tablet 500 mg 0426 (Given - Pr ovider: Meaghan Spain, JULIO CESAR)1553 (Given - Provider: Bethany Arvizu, JULIO CESAR) 0706 (Given - Provider: Hermelinda Marsh, JULIO CESAR) 0535 (Given - Provider: Danielle Amador , JULIO CESAR) 500 mg, Oral, Q6H PRN, Muscle Spasms, Starting 02/23/18 at 18 13 metoclopramide (REGLAN) injection 5 mg(Linked Group 2) 5 mg, Intravenous, Q6H PRN, Nausea, Vomi ting, Starting 02/23/18 at 1813, Give 1st line medications then 2nd line then 3rd line. Progress to next line if medication is ineffective after 15 minutes or has been previously ineffective, or if a medication for a line is not ordered. May use medication from any line if patient preference indicates. If third line agent ineffective call MD. If unable to giv e IV medications contact MD. 1st Line - prochlorperazine , 2nd Line - ondansetron 3rd Line - metoclopramide naloxone (NARCAN) injection 0.2 mg 0.2 mg, Intravenous, PRN PER PARAMETERS, Opioid Reversal, Excessive Sedation/Respiratory Rate less than 8 breaths per minute.? Notify MD if given., Starting 02/23/18 at 1810, Excessive Sedation/Re spiratory Rate less than 8 breaths per minute.? Notify MD if given. ondansetron (ZOFRAN) injection 4 mg(Linked Group 2) 4 mg, Intravenous, Q8H PRN, Nausea, Vomi ting, Starting 4/28/18 at 1813, Give 1st line medications then 2nd line then 3rd line. Progress to next line if medication is ineffective after 15 minutes or has been previously ineffective, or if a medication for a line is not ordered. May use medication from any line if patient preference indicates. If third line agent ineffective call MD. If unable to giv e IV medications contact MD. 1st Line - prochlorperazine , 2nd Line - ondansetron 3rd Line - metoclopramide oxyCODONE (ROXICODONE) immediate release tablet 5-10 m g 0016 (Given - Provider: Meaghan Spain, RN)0404 (Given - Provider: Meaghan Spain, RN)0737 (Given - Provider: Belén Perry, JULIO CESAR)1128 (Given - Provider: Belén Perry, JULIO CESAR)1554 (Given - Provider: Bethany Arvizu, JULIO CESAR) 0109 (Given - Provider: Hermelinda Marsh, JULIO CESAR)0540 (Given - Provider: Hermelinda Marsh RN)1009 (Given - Provider: Diandra Bowden, JULIO CESAR)1430 (Given - Provider: Diandra Bowden, RN)1842 (Given - Provider: Mauricio Joy RN) 0126 (Given - Provider: Danielle Amador , JULIO CESAR)0530 (Given - Provider: Danielle Amador, RN)0932 (Given - Provider: Mickey Rodriguez, RN)1332 (Given - Provider: Mickey Rodriguez, JULIO CESAR) 5-10 mg, Oral, Q4H PRN, Pain, Starting S at 02/23/18 at 1813, Give PO opioid if able to take PO and pain not well controlled with other medications or interventions. 2022 (Given - Provider: Bethany Arvizu, RN) polyethylene glycol (MIRALAX) oral powder 17 g(Linked Group 1) 2022 (Given - Provider: Bethany Arvizu, JULIO CESAR) 17 g, Oral, DAILY PRN, Constipation, No stool in the last 2 days, Starting 02/23/18 at 1814, Cumulative bowel medication orders. If no stool in last day start Senna-S BID PRN no stool, if no stool in last 2 days add Miralax DAILY PRN no st ool, if no stool in last 3 days add bisacodyl suppository DAILY PRN until patient stools. When patient stools stop giving PRN meds and continue monitoring for bow el activity. When no stools X 1 day, begin regimen again unt il patient stools. prochlorperazine (COMPAZINE) injection 10 mg(Linked Group 2) 10 mg, Intravenous, Q6H PRN, Nausea, Vom iting, Starting 02/23/18 at 1813, Give 1st line medications then 2nd line then 3rd line. Progress to next line if medication is ineffective after 15 minutes or has been previously ineffective, or if a medication for a line is not ordered. May use medication from any line if patient preference indicates. If third line agent ineffective call MD. If unable to gi ve IV medications contact MD. 1st Line - prochlorperazine , 2nd Line - ondansetron 3rd Line - metoclopramide sennosides-docusate sodium (SENNA-S,MARIAN A PLUS) 8.6-50 MG per tablet 2 Tab(Linked Group 1) 2022 (See Alternative - Provider: Bethany Arvizu, RN) 2 Tab, Oral, BID PRN, Constipation, No s tool in the last day, Starting 02/23/18 at 1814, Cumulative bowel medication orders. If no stool in last day start Senna-S BID PRN no stool, if no stool in las t 2 days add Miralax DAILY PRN no stool, if no stool in last 3 days add bisacodyl suppository DAILY PRN until patient stools. When patient stools stop giving PRN meds and continue monitoring for bowel a ctivity. When no stools X 1 day, begin regimen again until patie nt stools. Linked Groups Order Group 1: sennosides-docusate sodium (SENNA-S,SENNA PLUS) 8.6-50 MG per tablet 2 TabJump to med 2 Tab, Oral, BID PRN, Constipation, No s tool in the last day, Starting 02/23/18 at 1814
Cumulative bowel medication orders. If no stool in last day start Senna-S BID PRN n o stool, if no stool in last 2 days add Miralax DAILY PRN no stool, if no stool in last 3 days add bisacodyl suppository DAILY PRN until patient stools. When patient stools stop givi ng PRN meds and continue monitoring for bowel activity. When no stools X 1 day, begin regimen again until patient stools.
Or polyethylene glycol (MIRALAX) oral powder 17 gJump to med 17 g, Oral, DAILY PRN, Constipation, No stool in the last 2 days, Starting 02/23/18 at 1814
Cumulative bowel medication orders. If no stool [...] day, begin regimen again until patient stools.
Or bisacodyl (DULCOLAX) rectal suppository 10 mgJump to med 10 mg, Rectal, DAILY PRN, Constipation, No stool in the last 3 days, Starting 02/23/18 at 1814
Cumulative bowel medication orders. If no stool in last day start Senna-S BI D PRN no stool, if no stool in last 2 da ys add Miralax DAILY PRN no stool, if no stool in last 3 days add bisacodyl suppository DAILY PRN until patient stools. When patient stools st op giving PRN meds and continue monitori ng for bowel activity. When no stools X 1 day, begin regimen again until patient stools.
Group 2: prochlorperazine (COMPAZINE) injection 10 mgJump to med 10 mg, Intravenous, Q6H PRN, Nausea, Vom iting, Starting 02/23/18 at 1813
Give 1st line medications then 2nd line then 3rd line. Progress to next line if medication is inef fective after 15 minutes or has been pre viously ineffective, or if a medication for a line is not ordered. May use medication from any line if patient preference indicates. If third line agent ineffecti ve call MD. If unable to give IV medicat ions contact MD. 1st Line - prochlorperazine
2nd Line - ondansetron 3rd Line - metoclopramide
And ondansetron (ZOFRAN) injection 4 mgJump to med 4 mg, Intravenous, Q8H PRN, Nausea, Vomi ting, Starting 02/23/18 at 1813
Give 1st line medications then 2nd line then 3rd line. Progress to next line if medication is ineff ective after 15 minutes or has been prev iously ineffective, or if a medication for a line is not ordered. May use medication from any line if patient preference indicates. If third line agent ineffectiv e call MD. If unable to give IV medicati ons contact MD. 1st Line - prochlorperazine
2nd Line - ondansetron 3rd Line - metoclopramide
And metoclopramide (REGLAN) injection 5 mgJump to med 5 mg, Intravenous, Q6H PRN, Nausea, Vomi ting, Starting 02/23/18 at 1813
Give 1st line medications then 2nd line then 3rd line. Progress to next line if medication is ineff ective after 15 minutes or has been prev iously ineffective, or if a medication for a line is not ordered. May use medication from any line if patient preference indicates. If third line agent ineffectiv e call MD. If unable to give IV medicati ons contact MD. 1st Line - prochlorperazine
2nd Line - ondansetron 3rd Line - metoclopramide
documented in this encounter Care Teams [employer] In[employer]ter Relationship Specialty Start Date End Date Ceci Christianson MD PCP - General [facility] 02/24/18 [id number] [place] [address] documented as of this encounter
--- OUTSIDE RECORDS SUMMARY | 2022-08-17 08:44 | XMS_ITS | Encounter Summary ---
:1955 Author Organization [employer] Address [address] [place] [address] Care Team Providers Name Role Phone Ceci Christianson MD Primary Care Provider Reason for Referral Therapies (Routine) - Incomplete Specialty Diagnoses / Procedures Referred By Contact Refer red To Contact Diagnoses Closed bicondylar fracture of right tibial plateau Esvin Garcia MD [address] [place] [address] Referral ID Status Reason Start Date Expiration Date Visits V isits Requested Authorized [id number] Incomplete 02/27/2018 04/28/2018 1 1 Scheduling Instructions If scheduling assistance [...] Closed bicondylar fracture of right tibial plateau Esvin Garcia MD [address] [place] [address] Referral ID Status Reason Start Date Expiration Date Visits V isits Requested Authorized [id number] Incomplete 02/27/2018 04/28/2018 1 1 Scheduling Instructions If scheduling assistance is needed, plea se inquire with the medical office staff upon exiting your appointment or contact the ordering clinic for recommended locations. This recommended service/s may not be co vitaliy by your insurance coverage. To find out your specific benefit coverage, please c all the number on your insurance card. Specialty Diagnoses / Procedures Referred By Contact Refer red To Contact [facility] [address] [place] [address] Referral ID Status Reason Start Date Expiration Date Visits Requ ested Visits Authorized (Routine) - Incomplete Specialty Diagnoses / Procedures Referred By Contact Refer red To Contact Diagnoses Closed bicondylar fracture of right tibial plateau Randy Gilbert MD Procedures Case Request OR - Orthopedic Surgery: OPEN REDUCTION INTERNAL FIXATION TIBIAL PLATEAU FRACTURE, REMOVAL EXTERNAL FIXATOR LOWER EXTREMITY [address] [place] [address] Referral ID Status Reason Start Date Expiration Date Visits V isits Requested Authorized [id number] Incomplete 02/24/2018 05/26/2019 1 1 Procedure/Equipment (Routine) - Incomplete Specialty Diagnoses / Procedures Referred By Contact Refer red To Contact Procedures Randy Gilbert MD XR Tibia Fibula Rt 2 Views [address] [place] [address] Referral ID Status Reason Start Date Expiration Date Visits V isits Requested Authorized [id number] Incomplete 02/24/2018 05/26/2019 1 1 Procedure/Equipment (Routine) - Incomplete Specialty Diagnoses / Procedures Referred By Contact Refer red To Contact Procedures Randy Gilbert MD XR Knee Rt 2 Views [address] [place] [address] Referral ID Status Reason Start Date Expiration Date Visits V isits Requested Authorized [id number] Incomplete 02/24/2018 05/26/2019 1 1 (Routine) - Incomplete Specialty Diagnoses / Procedures Referred By Contact Refer red To Contact Procedures Randy Gilbert MD XR C-Arm 1-1.[address] XR C-Arm 1.5-2 Hours [place], [place] [address] Referral ID Status Reason Start Date Expiration Date Visits V isits Requested Authorized [id number] Incomplete 02/24/2018 05/26/2019 1 1 Procedure/Equipment (Routine) - Incomplete Specialty Diagnoses / Procedures Referred By Contact Refer red To Contact Procedures Meaghan Malhotra MD XR Femur Rt [address] XR Portable Femur Rt 2 [place] [address] Referral ID Status Reason Start Date Expiration Date Visits V isits Requested Authorized [id number] Incomplete 02/23/2018 05/25/2019 1 1 Procedure/Equipment (Routine) - Incomplete Specialty Diagnoses / Procedures Referred By Contact Refer red To Contact Procedures Meaghan Malhotra MD XR Tibia Fibula Rt [address] XR Portable Tibia Fibula Rt 2 [place] [address] Views Referral ID Status Reason Start Date Expiration Date Visits V isits Requested Authorized [id number] Incomplete 02/23/2018 05/25/2019 1 1 (Routine) - Incomplete Specialty Diagnoses / Procedures Referred By Contact Refer red To Contact Diagnoses Closed bicondylar fracture of right tibial plateau Rh S9 Procedures Case Request OR - Orthopedic Surgery: PLACEMENT LOWER EXTREMITY EXTERNAL FIXATOR [address] [place] [address] Referral ID Status Reason Start Date Expiration Date Visits V isits Requested Authorized [id number] Incomplete 02/23/2018 05/25/2019 1 1 Reason for Visit Auth/Cert Specialty Diagnoses / Procedures Referred By Contact Refer red To Contact Diagnoses Fall Closed bicondylar fracture of right tibial plateau Closed bicondylar fracture of right tibial plateau . Procedures PLACEMENT LOWER EXTREMITY EXTERNAL FIXATOR OPEN REDUCTION INTERNAL FIXATION TIBIAL PLATEAU FRACTURE REMOVAL EXTERNAL FIXATOR LOWER EXTREMITY Referral ID Status Reason Start Date Expiration Date Visits Requ natasha Visits Authorized [id number] 1 1 Encounter Details Date Type Department Care Team Description 02/23/2018 - Hospital Encounter RH S9 Randy Gilbert MD [address] [place] [address] Closed bicondylar fracture of right tibi al plateau (Primary Dx); 02/27/2018 640 [facility] Esvin Garcia MD [address], [place] [address] Essential hypertension; [place], [place] Diabetes iris itus type II; [address] PREMA (generalized anxiety dis order); [phone] Urinary retenti on Social History Tobacco Use Types Packs/Day Years Used Date Smoking Tobacco: Never Smokeless Tobacco: Never Alcohol Use Standard Drinks/Week Comments No 0 (1 standard drink = 0.6 oz pure alcoho l) Sex Assigned at Date Recorded Not on file documented as of this encounter Last Filed Vital Signs Vital Sign Reading Time Taken Comments Blood Pressure 153/62 02/27/2018 10:32 AM CDT Pulse 81 02/27/2018 10:32 AM CDT Temperature 36.7 ??C (98 ??F) 02/27/2018 10:32 AM CDT Respiratory Rate 20 02/27/2018 10:32 AM CDT Oxygen Saturation 96% 02/27/2018 10:32 AM CDT Inhaled Oxygen Concentration - - Weight 127 kg (280 lb) 02/23/2018 6:08 PM CDT Height 188 cm (6' 2) 02/23/2018 6:08 PM CDT Body Mass Index 35.95 02/23/2018 6:08 PM CDT documented in this encounter Discharge Summaries Adali Sanchez - 02/25/2018 9:18 AM CDT [facility] Orthopedic Discharge Note Patient Name: Олег Steen [...] hospital after sustaining an injury tripping over [facility], and had a fall down 6 stairs [...] Disp-30 Tab, R-0, HS Starting 02/26/2018, Until 02/26/19, Oral, E-Prescribing aspirin 325 MG tablet Take [...] Disp-25 Cap, R-0, TID Starting 02/25/2018, Until 02/25/19, Oral, E-Prescribing glipiZIDE (GLUCOTROL) 5 MG tablet [...] (name/clinic/phone number): Dr. Esvin Garcia MD. Clinic: [facility]. . When to Resume Normal Activities: Comments: Do not resume normal activities until you are seen in the clinic DISCHARGE MD NAME Comments: Jorge Fajardo, take responsibility for the discharge of this patient and have reviewed the transfer orders report for accuracy. If any other questions occur regarding this patient's orders or the plan of care, I can be reached at [phone]. Admit to Skilled Care Comments: FACILITY NAME: TCU: [facility] Diagnosis Comments: Right tibial plateau fracture, s/p [...] 30 days? YES Code Status: Full Code [facility] / [facility] Standing Orders When to Resume Normal Activities: Comments: Do not resume normal activities until after surgery next week DISCHARGE MD NAME Comments: Jorge Fajardo MD, take responsibility for the discharge of this patient and have reviewed the transfer orders report for accuracy. If any other questions occur regarding this patient's orders or the plan of care, I can be reached at [phone]. No weight bearing Comments: Non-weight bearing right [...] - 02/25/2018 9:43 AM CDT Contact Information [address] [address] General Information Discharging physician: Dr. Garcia Labs [...] after clinic hours [facility] [phone] or . documented in this encounter Medications [...] Smith PA-C - 02/27/2018 9:52 AM CDT [facility] Medicine Progress Note Date of service: 02/27/2018 [...] dc once tcu arranged Emilie Smith PA-C [facility] Medicine [phone] 02/27/2018 Dalton Mooney MD - 02/27/2018 6:11 AM CDT [facility] ORTHOPAEDIC SURGERY PROGRESS NOTE 02/27/2018 6:11 [...] at all times while in bed Dressings: jovon wrap, keep c/d/i Diet:??ADAT Consults:??Medicine Dispo: DC to TCU vs home when safe disposition plan developed. Plan for return for surgery on 03/05. ?? Dalton Mooney MD Orthopedic Surgery PGY-2 Emilie Smith PA-C - 02/26/2018 10:22 AM CDT [facility] Medicine Progress Note Date of service: 02/26/2018 [...] ABD: +bs, soft, nt/nd EXTS: RLE in jovon wrap and exfix from thigh to lower [...] dc once tcu arranged Emilie Smith PA-C [facility] Medicine [phone] 02/26/2018 Meaghan Cartwright MD - 02/26/2018 5:23 AM CDT [facility] ORTHOPAEDIC SURGERY PROGRESS NOTE 02/26/2018 5:23 [...] distributions. - 03/02 strength with TA/GSC/EHL/FHL Assessment: Олег Steen is a 62 [...] at all times while in bed Dressings: jovon wrap, keep c/d/i Diet:??ADAT Consults:??Medicine DC to TCU when available. Return for surgery on 03/05. ?? Meaghan Cartwright MD Orthopedic Surgery PGY-2 Pager [phone] Emilie Smith PA-C - 02/25/2018 2:29 PM CDT [facility] Medicine Progress Note Date of service: 02/25/2018 [...] dc once tcu arranged Emilie Smith PA-C [facility] Medicine [phone] 02/25/2018 Esvin Garcia MD - 02/25/2018 7:52 AM CDT [facility] ORTHOPAEDIC SURGERY PROGRESS NOTE 02/25/2018 7:52 [...] distributions. - 03/02 strength with TA/GSC/EHL/FHL Assessment: Олег Steen is a 62 [...] at all times while in bed Dressings: jovon wrap, keep c/d/i Diet:??ADAT Consults:??Medicine Poss DC today depending on operative plan with Dr. Garcia. ?? Meaghan Cartwright MD Orthopedic Surgery PGY-2 Pager [phone] I saw and evaluated Олег Steen. Chart, Radiographic Studies and Laboratory Results [...] Garcia MD Orthopaedic Trauma Randy Tse APRN, CNP - 02/24/2018 11:21 AM CDT Images from the original note were not included. [facility] Medicine Progress Note () Patient Name: Олег Steen Attending: Randy Tse APRN, CNP Date of Service: 02/24/2018 Subjective: Seen and examined. VSS. Doing well at present. bilingual call center representative to OR. Denies any CP, SOB, ROSIE. [...] Status/Goals of Care: Full Randy Tse APRN, CNP [facility] Meaghan Malhotra MD - 02/24/2018 8:01 AM [...] and pt pulse Labs: Hgb: 13.7 A/P: Олег Steen is a 62 y.o.-old male s/p [...] attempt to contact me at my pager ([phone]) prior to contacting the orthopaedics resident superintendent communications. Thank you! documented in this encounter Procedure Notes Meaghan Cartwright MD - 02/24/2018 3:00 PM CDT [facility] Brief Operative Progress Note Surgery Date: [...] at all times while in bed Dressings: jovon wrap, keep c/d/i Diet: ADAT Consults: Medicine ?? Possible OR with Dr. Garcia on Sunday 02/25 if swelling is ok Meaghan Cartwright MD Randy Gilbert MD - 02/24/2018 12:00 AM CDT ОЛЕГ STEEN CSN: [id number] OPERATIVE REPORT DATE OF SURGERY: 02/24/2018 : [...] after sustaining an injury tripping over a [employer] gate, and had a fall down 6 [...] The pin sites were dressed, and then Jovon bandage was wrapped around the leg for some light compression. The patient was then awakened, extubated, and transferred to the PACU in stable condition. Dr. Gilbert was present for all critical portions of the case. JEFFREY CALDERA MD AH/MODL /[id number] Randy Gilbert MD documented in this encounter Consult Notes Susan Higgins L.Ac. - 02/27/2018 2:40 PM CDTAssociated Order(s): COMPLEMENTARY CARE CONSULT Acupuncture was unable to get to Bill prior to DC. Thank you for your referral. Flora PIZARRO L.Ac Doctor of Acupuncture and Maltese Medicine Kalina Salguero [facility] - 02/26/2018 4:56 PM CDT Consults Ela Advocate Note Active Directory Administrator received message from Unit asking about [employer] TCU coverage. Active Directory Administrator shared that pt can use Non-network TCU's found on the [employer] website. This list was given to pt along with the co-payment requirements for [employer]. Pt stated he understood he would accumulate a billwith [employer]. Active Directory Administrator also discussed the benefits of enrolling in [employer]. Pt stated he served in the [employer] for 20 years and now pays for [employer] until he is eligible for [employer] for life. Active Directory Administrator also educated pt on role of CVSO, giving [place] CVSO contact. Active Directory Administrator then explained the medical equipment donation program run but [employer] and gave pt contact. Pt had no further questions atthis time and thanked play writer for Ela services. Active Directory Administrator thanked pt for his service and presented [facility] and contact, encouraging pt to call Sydnee if any questions arise. Qualification: Branch: Era: Clinical Summary: Pt was alert and very pleasant throughout visit, expressing understanding and interest in resources given. Referrals/Resources: [facility] [place] Service Office (CVSO), [id number], Other (comment) [place] [facility] Brochure. Collateral Contacts: Occupational Therapy Assist Contact: Family/Friend Contact: Community Providers/Outpatient Psychiatrist: Other Contact 1: Other Contact 2: Other Contact 3: Plan: Follow as needed. Report completed by: RICCI Carpenter Advocate Phone number and pager: [phone] Belle Guerrero MD - 02/23/2018 10:44 PM CDT [facility]. 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 BP mildly elevated. - Hold lisinopril pre-operatively, can likely restart post-op - Will order labetalol prn SBP >160 Generalized anxiety Continue paroxetine Insomnia Normally takes Lunesta qHS. Not on formulary here. FEN NPO at midnight, then resume diabetic diet PPX holding for surgery LDA piv CODE director of compensation I spent in consultation on this patient was 70 minutes, over 50% of which was spent in counseling and coordinating care. 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 Meaghan Malhotra MD [phone] I saw and evaluated this patient in [...] PM Expand All Collapse All []Manual[]Template []Copied [facility] ORTHOPAEDIC SURGERY CONSULT - HISTORY AND PHYSICAL ?? DATE OF CONSULT: 02/23/2018 ?? Patient first seen by orthopaedic resident at:?? (enter time 815p) ?? CHIEF COMPLAINT: Right tibial plateau fracture ?? DATE OF INJURY: 02/23/18 ?? HISTORY OF PRESENT ILLNESS: Олег Steen is a 62 y.o.-old self-employed male [...] significant joint line depression laterally ?? ASSESSMENT: Олег Steen is a 62 y.o.-old male s/p [...] above assessment and plan. Meaghan Malhotra MD [phone] ? Belle Guerrero MD Physician Signed General Medicine Consults Date of Service: 02/23/2018 10:44 PM Expand All Collapse All []Manual[]Template []Copied [facility]. Hospital Medicine Consultation Note () ?? Date of [...] 12.4 fl ?? Narrative ?? Performed at [facility], [address] [place] [address] Basic Metabolic Panel Result Value Ref Range [...] >60 ml/min/1.73m2 ?? Narrative ?? Performed at [facility], [address] [place] [address] INR/Protime Result Value Ref Range ?? Protime 13.8 12.0 - 14.5 sec ?? INR 1.1 0.9 - 1.1 ?? Narrative ?? Performed at [facility], [address] [place] [address] ?? EKG: I have reviewed the EKG. [...] glipizide while inpatient ?? 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 BP mildly elevated. - Hold lisinopril pre-operatively, [...] Report Completed by: Belle Guerrero MD Pager: [phone] ? Jeffrey Caldera MD FELLOW Signed Orthopedics Operative Note Date of Service: 02/24/2018 12:00 AM []Manual[]Template []Copied ? ОЛЕГ STEEN CSN: [id number] ? OPERATIVE REPORT ?? DATE OF SURGERY: [...] after sustaining an injury tripping over a [employer] gate, and had a fall down 6 [...] The pin sites were dressed, and then Jovon bandage was wrapped around the leg for some light compression. The patient was then awakened, extubated, and transferred to the PACU in stable condition. ?? Dr. Gilbert was present for all critical portions of the case. ?? JEFFREY CALDERA MD ?? AH/MODL /[id number] ? Last signed by: Jeffrey Caldera MD at 02/25/2018 ??7:31 AM Revision History ?? Date/Time User Provider Type Action ?? 02/25/2018 ??7:31 AM Jeffrey Caldera MD FELLOW Sign ?? 02/24/2018 ??8:23 PM Jeffrey Caldera MD FELLOW Edit ?? View Details Report ? Medication Administration Report for Олег Steen as of 02/20/18 through 02/26/18 ?? 1 Day 3 Days 7 Days 10 Days < Today > Legend: ? Discontinued ?? Completed ?? Future ?? MAR Hold ? Related Encounters ?? Linked ? Medications 02/20/18 02/21/18 02/22/18 02/23/18 02/24/18 02/25/18 02/26/18 acetaminophen (TYLENOL) tablet 650 mg Dose: 650 [...] 10 mg Freq: DAILY Route: OR Start: 02/26/18 1000 Admin Instructions: Tablet should be swallowed whole. 1008 (10 mg)-Given aspirin tablet 325 mg Dose: 325 mg Freq: ASPIRIN - DAILY Route: OR Start: 02/25/181999 202 (325 mg)-Given 1999 benzocaine-menthol (CEPACOL) lozenge 1 [...] mg)-Given 0737 (300 mg)-Given 1418 (300 mg)-Given 202 (300 mg)-Given 0939 (300 mg)-Given 1400 1999 [...] Route: OR PRN Reason: Muscle Spasms Start: 02/23/181812 2224 (500 mg)-Given 0426 (500 mg)-Given 1553 (500 mg)-Given 0706 (500 mg)-Given naloxone (NARCAN) injection 0.2 mg Dose: 0.2 mg Freq: PRN PER PARAMETERS Route: IV PRN Reason: Opioid Reversal PRN Comment: Excessive Sedation/Respiratory Rate less than 8 breaths per minute.? Notify if given. Start: 02/23/181809 Admin Instructions: Excessive Sedation/Respiratory Rate less than 8 breaths per minute.? Notify if given. oxyCODONE (ROXICODONE) immediate release tablet [...] If unable to give IV medications contact . 1st Line - prochlorperazine 2nd Line - [...] Indications of Use: PERIOPERATIVE PHARMACOPROPHYLAXIS Start: 02/24/18 230 End: 02/25/18 1419 Admin Instructions: Reconstitute vial with 10 ml sterile water for injection, shake vigorously until diluted, and give slow IV push over 3-5 minutes. 2310 (2 g)-Given 0654 (2 g)-Given 1419 (2 [...] injection 25-50 mcg Dose: 25-50 mcg Freq: [id number] Route: IV PRN Reason: Pain Start: 02/24/181640 [...] fingerstick BG>70 mg/dL for 30 minutes. glucose-ascorbic xaif-wzhbqejdbssvtbr-xjuiwgjl tablet (TRUEPLUS) chewable tablet 4 Tab Dose: [...] IV PRN Reason: Pain Start: 02/24/181640 End: 02/25/18933 Admin Instructions: PACU USE ONLY 0.2 mg [...] injection 5 mg Dose: 5 mg Freq: [id number] Route: IV PRN Reason: Blood Pressure > Start: 02/24/181640 End: 02/25/1834 Admin Instructions: Must call anesthesia before initiating medication. Give q 5 minutes PRN up to 25 mg. (PACU use only) lactated ringers infusion Rate: 30 mL/hr Freq: CONTINUOUS Route: IV Start: 02/24/18 1700 End: 02/25/18 0934 lactated ringers infusion Rate: 100 mL/hr Freq: CONTINUOUS Route: IV Start: 02/24/18 1200 End: 02/25/18 1434 1155 ( )-Started 1345-Stopped 2000 ( )-Started 0338-Stopped lactated ringers infusion Rate: 30 mL/hr Dose: 30 mL/hr Freq: CONTINUOUS Route: IV Start: 02/24/18 1400 End: 02/25/18 1434 1400 (30 mL/hr)-Started metoprolol tartrate (LOPRESSOR) injection 1-2 mg Dose: 1-2 mg Freq: [id number] Route: IV PRN Reason: Blood Pressure > Start: 02/24/181640 End: 02/25/1834 Admin Instructions: Must call anesthesia before initiating medication. Give q 5 minutes PRN up to 10 mg Hold for HR < 50 (PACU use only) ondansetron (ZOFRAN) injection 4 mg Dose: 4 mg Freq: Q15MIN PRN Route: IV PRN Reason: Nausea Start: 02/24/181640 End: 02/25/1834 Admin Instructions: Step 1 Ondansetron 4 mg IV If not given in operating room. (PACU use only) If an intra-operative dose was given may repeat up to a total dose of 8 mg (including intra-operative dose). If nausea is not resolved in 15 minutes go to step 2 (Dexamethasone) if ordered otherwise proceed tonext antiemetic step. Orders from Other Encounters Medications 04/25/18 02/21/18 02/22/18 02/23/18 02/24/18 02/25/18 02/26/18 ceFAZolin (ANCEF) injection Start: 02/24/18 1507 End: 02/24/18 1634 1507 (2 g)-Given dexamethasone (aka DECADRON) injection Route: IV Start: 02/24/18 1503 End: 02/24/18 1634 1503 (2 mg)-Given fentaNYL (SUBLIMAZE) 100 MCG/2ML injection Start: 02/24/18 1659 End: 02/25/18 0514 Admin Instructions: Delphine Marie : cabinet override 1715 fentaNYL (SUBLIMAZE) injection Start: 02/24/18 1503 End: 02/24/18 1634 1503 (2 mL)-Given 1609 (0.5 mL)-Given glycopyrrolate (ROBINUL) injection Start: 02/24/18 1609 End: 02/24/18 1634 1609 (0.6 mg)-Given HYDROmorphone (DILAUDID) 1 MG/ML injection Start: 02/24/18 1659 End: 02/25/18 0514 Admin Instructions: Delphine Marie : cabinet override 1715 lactated ringers infusion Route: IV [...] Whole Blood POC (02/27/2018 9:18 AM CDT) athologist Signature Glucose, Whole 115 70 - 180 [facility] mg/dl [facility] Comment: Point of Care Testing RN Notified Specimen Anatomical Collection Method Collection Time Receive d Time (Source) Location / / Volume Laterality 02/27/2018 9:18 AM 8 9:24 CDT AM CDT Randy Gilbert MD LAB_1 Performing Organization Address City/[facility]/[place]IP [facility] [place] [address] [address] Glucose, Whole Blood POC (02/26/2018 9:29 PM CDT) athologist Signature Glucose, Whole 178 70 - 180 [facility] Blood mg/dl [facility] Comment: Point of Care Testing RN Notified Specimen Anatomical Collection Method Collection Time Receive d Time (Source) Location / / Volume Laterality 02/26/2018 9:29 PM 8 9:35 CDT PM CDT Randy Gilbert MD LAB_1 Performing Organization Address City/[facility]/ZIP Code Phon e Number [address] [address], [place] Glucose, Whole Blood POC (02/26/2018 6:49 PM CDT) athologist Signature Glucose, Whole 152 70 - 180 [facility] Blood mg/dl [facility] Comment: Point of Care Testing RN Notified Specimen Anatomical Collection Method Collection Time Receive d Time (Source) Location / / Volume Laterality 02/26/2018 6:49 PM 8 6:55 CDT PM CDT Randy Gilbert MD LAB_1 Performing Organization Address City/State/ZIP Code Phon e Number [address] [address], [place] Glucose, Whole Blood POC (02/26/2018 9:58 AM CDT) athologist Signature Glucose, Whole 172 70 - 180 [facility] Blood mg/dl [facility] Comment: Point of Care Testing RN Notified Specimen Anatomical Collection Method Collection Time Receive d Time (Source) Location / / Volume Laterality 02/26/2018 9:58 AM 8 CDT 10:04 AM CDT Randy Gilbert MD LAB_1 Performing Organization Address City/State/ZIP Code Phon e Number [address] [address], [place] [phone] Glucose, Whole Blood POC (02/25/2018 10:02 PM CDT) athologist Signature Glucose, Whole 154 70 - 180 [facility] mg[facility]dl [facility] Comment: Point of Care Testing RN Notified Specimen Anatomical Collection Method Collection Time Receive d Time (Source) Location / / Volume Laterality 02/25/2018 10:02 02/25/2018 PM CDT 10:12 PM CDT Randy Gilbert MD LAB_1 Performing Organization Address City/State/ZIP Code Phon e Number [address] [address], [place] Glucose, Whole Blood POC (02/25/2018 7:00 PM CDT) athologist Signature Glucose, Whole 154 70 - 180 [facility] mg[facility]dl [facility] Comment: Point of Care Testing RN Notified Specimen Anatomical Collection Method Collection Time Receive d Time (Source) Location / / Volume Laterality 02/25/2018 7:00 PM 8 7:05 CDT PM CDT Randy Gilbetr MD LAB_1 Performing Organization Address City/State/ZIP Code Phon e Number [address] [address], [place] [phone] (ABNORMAL) Glucose, Whole Blood POC (02/25/2018 12:09 PM CDT) athologist Signature Glucose, Whole 241 (H) 70 - 180 [facility] mg[facility] Comment: Point of Care Testing RN Notified Specimen Anatomical Collection Method Collection Time Receive d Time (Source) Location / / Volume Laterality 02/25/2018 12:09 02/25/2018 PM CDT 12:22 PM CDT Randy Gilbert MD LAB_1 Performing Organization Address City/[facility]/ZIP Code Phon e Number [address] [address], [place] (ABNORMAL) Glucose, Whole Blood POC (02/25/2018 10:22 AM CDT) athologist Signature Glucose, Whole 190 (H) 70 - 180 [facility] mg[facility]dl [facility] Comment: Point of Care Testing RN Notified Specimen Anatomical Collection Method Collection Time Receive d Time (Source) Location / / Volume Laterality 02/25/2018 10:22 02/25/2018 AM CDT 10:28 AM CDT Randy Gilbert MD LAB_1 Performing Organization Address City/State/ZIP Code Phon e Number [address] [address], [place] XR Tibia Fibula Rt 2 Views (02/25/2018 [...] associated soft tissue swelling. Procedure Note Bruce Nwe MBBS - 02/25/2018Formattin g of this note [...] HOSPITAL GFR, Estimated >60 >60 [facility] ml/min/1.7 [facility] 3m2 GFR, Est., If >60 >60 [facility] Black ml/min/1.7 [facility] 3m2 Specimen Anatomical Collection Method Collection Time Receive d Time (Source) Location / / Volume Laterality 02/25/2018 7:07 AM 8 7:08 CDT AM CDT Narrative [facility] - 02/25/2018 7:45 AM CD T Performed at [facility] , [address] [place] [address] Rnady Gilbert MD LAB_1 Performing Organization Address City/State/ZIP Code Phon e Number [address] [address], [facility] (ABNORMAL) Complete Blood Count-No Diff (02/25/2018 7:07 AM CDT) athologist Signature WBC 13.7 (H) 4.0 - 11.0 [facility] k/ul [facility] RBC 4.80 4.5 - 5.9 [facility] M/ul [facility]OSPITAL Hemoglobin 13.2 (L) 13.5 - 17.5 [facility] g/dl [facility]OSPITAL HCT 39.9 (L) 41.0 - 53.0 [facility] MCV 83.1 80 - 100 fl [facility] MCH 27.5 26 - 34 pg [facility] MCHC 33.1 32 - 36 [facility] g/dl [facility]OSPITAL RDW 13.7 11.5 - 14.5 [facility] Platelets 247 150 - 450 [facility] k/ul [facility] MPV 9.6 9.4 - 12.4 [facility] Specimen Anatomical Collection Method Collection Time Receive d Time (Source) Location / / Volume Laterality 02/25/2018 7:07 AM 8 7:08 CDT AM CDT Narrative [facility] - 02/25/2018 7:23 AM CD T Performed at [facility] , [address] [place] [address] Randy Gilbert MD LAB_1 Performing Organization Address [facility] [place] [address] [place] [address], [facility] [phone] Glucose, Whole Blood POC (02/24/2018 10:07 PM CDT) athologist Signature Glucose, Whole 180 70 - 180 [facility] Blood mg/dl [facility] Comment: Point of Care Testing RN Notified Specimen Anatomical Collection Method Collection Time Receive d Time (Source) Location / / Volume Laterality 02/24/2018 10:07 02/24/2018 PM CDT 10:14 PM CDT Randy Gilbert MD LAB_1 Performing Organization Address City/[facility] Phon e Number [address] [address] [place] [address], [facility] [phone] Glucose, Whole Blood POC (02/24/2018 7:32 PM CDT) athologist Signature Glucose, Whole 167 70 - 180 [facility] mg[facility]dl [facility] Comment: Point of Care Testing RN Notified Specimen Anatomical Collection Method Collection Time Receive d Time (Source) Location / / Volume Laterality 02/24/2018 7:32 PM 8 7:38 CDT PM CDT Randy Gilbert MD LAB_1 Performing Organization Address City/[facility]/ZIP [facility] Phon e Number [address] [address], [facility] Glucose, Whole Blood POC (02/24/2018 4:34 PM CDT) athologist Signature Glucose, Whole 130 70 - 180 [facility] mg/dl [facility] Comment: Point of Care Testing RN Notified No Action Required Specimen Anatomical Collection Method Collection Time Receive d Time (Source) Location / / Volume Laterality 02/24/2018 4:34 PM 8 4:41 CDT PM CDT Randy Gilbert MD LAB_1 Performing Organization Address [facility] Phon e Number [address] [address], [facility] XR C-Arm 1-1.5 Hours (02/24/2018 4:25 PM CDT) Anatomical Region Laterality Modality Other Specimen (Source) Anatomical Location Collection Method / Collectio n Time Received Time / Laterality Volume Narrative 02/24/2018 4:25 PM CDT Fluoroscopy provided by a mechatronics technologist. Exact fluoroscopy time is documented in end of exam information in EPIC Randy Gilbert MD RAD GD Glucose, Whole Blood POC (02/24/2018 3:35 PM CDT) athologist Signature Glucose, Whole 117 70 - 180 [facility] mg/dl [facility] Comment: Point of Care Testing No Action Required Specimen Anatomical Collection Method Collection Time Receive d Time (Source) Location / / Volume Laterality 02/24/2018 3:35 PM 8 3:42 CDT PM CDT Randy Gilbert MD LAB_1 Performing Organization Address [facility] Phon e Number [address] [address], [facility] [phone] Glucose, Whole Blood POC (02/24/2018 2:14 PM CDT) athologist Signature Glucose, Whole 126 70 - 180 [facility] mg[facility]dl [facility] Comment: Point of Care Testing RN Notified Specimen Anatomical Collection Method Collection Time Receive d Time (Source) Location / / Volume Laterality 02/24/2018 2:14 PM 8 2:31 CDT PM CDT Randy Gilbert MD LAB_1 Performing Organization Address City/[facility] Phon e Number [address] [address], [facility] Glucose, Whole Blood POC (02/24/2018 1:25 PM CDT) athologist Signature Glucose, Whole 134 70 - 180 [facility] mg[facility]dl [facility] Comment: Point of Care Testing RN Notified Specimen Anatomical Collection Method Collection Time Receive d Time (Source) Location / / Volume Laterality 02/24/2018 1:25 PM 8 1:36 CDT PM CDT Randy Gilbert MD LAB_1 Performing Organization Address City/[facility]/ZIP Code Phon e Number [address] [address] [place] [address], [facility] BB Hold Tube ([facility]) (02/24/2018 1:27 AM CDT) [facility] Method Time Signature BB Hold Tube Blood Bank [facility] save tube HOSPITAL expires in 3 days Specimen Anatomical Collection Method Collection Time Receive d Time (Source) Location / / Volume Laterality 02/24/2018 1:27 AM 8 1:37 CDT AM CDT [facility] - 02/24/2018 1:39 AM CD T Performed at [facility] , [address] [place] [address] Randy Gilbert MD LAB_1 Performing Organization Address City/[facility]/ZIP Code Phon e Number [address] [address], [facility] [phone] ABO/RH(D) Retype (02/24/2018 1:27 AM CDT) athologist Signature ABO/RH(D) O POSITIVE [facility] Specimen Anatomical Collection Method Collection Time Receive d Time (Source) Location / / Volume Laterality 02/24/2018 1:27 AM 8 1:28 CDT AM CDT Narrative [facility] - 02/24/2018 1:49 AM CD T Performed at [facility] , [address] [place] [address] Randy Gilbert MD LAB_1 Performing Organization Address City/[facility]/ZIP [facility] Phon e Number [address] [address] [place] [address], [facility] [phone] Glucose, Whole Blood POC (02/23/2018 11:08 PM CDT) athologist Signature Glucose, Whole 154 70 - 180 [facility] mg[facility]dl [facility] Comment: Point of Care Testing RN Notified Specimen Anatomical Collection Method Collection Time Receive d Time (Source) Location / / Volume Laterality 02/23/2018 11:08 02/23/2018 PM CDT 11:16 PM CDT Randy Gilbert MD LAB_1 Performing Organization Address City/[facility] Phon e Number [address] [address] [place] [address], [facility] XR Tibia Fibula Rt 2 Views (02/23/2018 [...] None. FINDINGS: Moderate joint effusion. No ac [place] fracture dislocation. No soft tissue defect or radiopaque foreign body. Procedure Note Jose Fuller MD - 02/23/2018Formatti ng of this note might be different from the original. XR FEMUR RT 2 VIEWS 02/23/2018 10:40 PM INDICATION: Pain upper leg/femur. COMPARISON: None. FINDINGS: Moderate joint effusion. No ac [place] fracture dislocation. No soft tissue defect or radiopaque foreign body. Meaghan Malhotra MD RAD GD ABO Rh & Antibody Screen (Type & Screen) (02/23/2018 9:59 PM CDT) [facility] Method Time Signature Crossmatch 02/26/2018 [facility](D) O POSITIVE [facility] Antibody Screen NEGATIVE [facility] Specimen Anatomical Collection Method Collection Time Receive d Time (Source) Location / / Volume Laterality 02/23/2018 9:59 PM 8 CDT 10:00 PM CDT Narrative [facility] - 02/23/2018 11:02 PM C DT Performed at [facility] , [address] [place] [address] Randy Gilbert MD LAB_1 Performing Organization Address City/State/ZIP Code Phon e Number [address] [address], [facility] [phone] INR/Protime (02/23/2018 9:56 PM CDT) P athologist Signature Protime 13.8 12.0 - 14.5 [facility] INR 1.1 0.9 - 1.1 [facility] Specimen Anatomical Collection Method Collection Time Receive d Time (Source) Location / / Volume Laterality 02/23/2018 9:56 PM 8 CDT 10:00 PM CDT Narrative [facility] - 02/23/2018 10:38 PM C DT Performed at [facility] , [address] [place] [address] Randy Gilbert MD LAB_1 Performing Organization Address [facility] [place] [address] [place] [address], [facility] [phone] (ABNORMAL) Basic Metabolic Panel (02/23/2018 9:56 PM [...] HOSPITAL GFR, Estimated >60 >60 [facility] ml/min/1.7 [facility] 3m2 GFR, Est., If >60 >60 [facility] Black ml/min/1.7 [facility] 3m2 Specimen Anatomical Collection Method Collection Time Receive d Time (Source) Location / / Volume Laterality 02/23/2018 9:56 PM 8 CDT 10:00 PM CDT [facility] - 02/23/2018 10:33 PM C DT Performed at [facility] , [address] [place] [address] Randy Gilbert MD LAB_1 Performing Organization Address [facility] [place] [address] [place] [address], [facility] [phone] (ABNORMAL) Complete Blood Count-No Diff (02/23/2018 9:55 PM CDT) athologist Signature WBC 16.2 (H) 4.0 - 11.0 [facility] RBC 4.94 4.5 - 5.9 [facility] M/[facility] Hemoglobin 13.7 13.5 - 17.5 [facility] g/dl HOSPITAL HCT 41.0 41.0 - 53.0 [facility] MCV 83.0 80 - 100 fl [facility] MCH 27.7 26 - 34 pg [facility] MCHC 33.4 32 - 36 [facility] g/dl HOSPITAL RDW 13.7 11.5 - 14.5 [facility] Platelets 262 150 - 450 [facility] MPV 9.5 9.4 - 12.4 [facility] Specimen Anatomical Collection Method Collection Time Receive d Time (Source) Location / / Volume Laterality 02/23/2018 9:55 PM 8 CDT 10:00 PM CDT Narrative [facility] - 02/23/2018 10:27 PM C DT Performed at [facility] , [address] [place] [address] Randy Gilbert MD LAB_1 Performing Organization Address City/State/ZIP Code Phon e Number [address] [address] [phone] ECG 12-LEAD ROUTINE (02/23/2018 9:43 PM CDT) P athologist Signature Ventricular Rate 69 BPM [facility] Atrial Rate 69 BPM [facility] P-R Interval 194 ms [facility] QRS Duration 132 ms [facility] QT 418 ms [facility] QTc 447 ms [facility] P [place] 48 degrees [facility] R [place] -31 degrees [facility] T [place] -5 degrees [facility] Specimen (Source) Anatomical [...] Meaghan Malhotra MD EKG Performing Organization Address City/[facility] Phon e Number [facility] Glucose, Whole Blood POC (02/23/2018 6:35 PM CDT) P athologist Signature Glucose, Whole 130 70 - 180 [facility] mg/dl [facility] Comment: Point of Care Testing RN Notified Specimen Anatomical Collection Method Collection Time Receive d Time (Source) Location / / Volume Laterality 02/23/2018 6:35 PM 8 6:42 CDT PM CDT Randy Gilbert MD LAB_1 Performing Organization Address [facility] [place] [address] [address], [facility] [phone] EKG IP (02/23/2018 12:00 AM CDT) Specimen [...] disorder Urinary retention Retention of urine, unspecified Plan of Care - Eric Dubose LGSW - 02/27/2018 2:35 PM CDT [facility] Care Management Discharge Note Discharge Information: Anticipated Discharge Date: 02/27/18 Anticipated Discharge Time: 1400 Discharge transportation is ready to be arranged [place] [facility] Discharge transport needs:: Wheelchair - Bariatric (TSI) Date Transport Needed: 02/27/18 Time Transport Needed: 1345 PAS form needed?: yes Referral ID:: [id number] Referral made to community shrimp boat captain program?: no Patient to be Discharged to: TCU TCU/LTC: [facility] , [address] [place] [address] Patient/family is aware of discharge plan?: yes Baseline Transportation: agency transportation, van, wheelchair accessible Anticipated Mode of Transportation: wheelchair Discharged Accompanied By: self only Anticipated Discharge Disposition: 03: discharged or transferred to a Medicare- certified correction facility Additional Comments: SW aware patient is medically stable to d/c today. Patient d/c to TCU as above. PAS, orders done andsent to facility. Patient aware and in agreement w/discharge to [place]. No other d/c needs identified. RICCI Loya Plan of Care - Damon Escamilla - 02/27/2018 2:27 PM CDT [facility] Integrative Therapy Volunteer Missed Visit Note [facility] attempted to see patient today for Healing Touch Energy Based Therapy. Unable to see patient for this reason: nursing cares. Will attempt again as soon as possible. Time: 14:25 Date: 02/27/18 Report Completed by: PATT Bowen --- End of Report --- Plan of Care - Danielle Amador RN - 02/27/2018 6:58 AM CDT [facility] Plan of Care Note Assessment: Pain Management Plan: Continue to monitor. Medicate per DEC. Intervene as needed. Subjective: Pt c/o pain in R leg rated 7/10. Denied chest pain/SOB/dizziness/nausea/numbness/tingling. Objective: Pt A&O x4. VSS - BP slightly elevated at times. On room air overnight sating mid-upper 90's. CMS intact. RLE jovon dressing appears c/d/i, ex-fix in place, elevated [...] (Mk Scale) (Adult,Obstetrics,Pediatric) ??? Skin Integrity Progressing [facility] Plan of Care Note Assessment: Urinary [...] Bowden RN - 02/26/2018 3:46 PM CDT [facility] Plan of Care Note Assessment: Pain [...] time. CMS intact RLE. Oxycodone given per MAR for pain with stated relief by patient.When [...] Amaral RN - 02/26/2018 3:14 PM CDT [facility] Care Management Follow Up Note Plan: Care Team Actions Needed: medical clearance, discharge orders, placement secured Anticipated Discharge Date: 02/27/18 Anticipated Discharge Plan: TCU vs home (see note) Care Coordination Updates: Current Patient Assessment: appropriate, pleasant, cooperative Provided patient/family with coordination of care choices for:: TCU Actual patient/family choice(s):: TCU Barriers/Vulnerabilities: difficulty in locating post-acute care, other (see comments) Additional Comments: I spoke with the Case management dept at [facility] and they are awaiting for an authorization from [facility] for Олег to be assigned a piano case maker with [facility]. I consulted with Vivian Corado from [facility] to assist with locating a TCU/SNF for Олег. Per [facility] web site, Олег does not have an in network SNF. [place] [phone] and a list was given to Олег. Reviewed this list with Олег and his girlfriend and additional TCU referrals made to in order of preference: [facility] can accept clinically in a shared room, awaiting financial approval from [facility]. Homer Reillyestherbrittnee Care management is awaiting a response from the TCUs. I spoke with the interdisciplinary team that Care management may not be able to find a TCU for Олег due to Олег's insurance.. Chin from PT will continue to work with Олег for a safe discharge to home if a TCU does not accept Олег. Tomasz Amaral RN Plan of Care - Gordo Beltran - 02/26/2018 12:15 PM CDT [facility] Integrative Therapy Missed Visit Note [facility] attempted to see patient today for Massage Therapy. Unable to see patient for this reason: patient declined therapy. Will attempt again as soon as possible. Time: 12:15 PM Date: 02/26/2018 Report Completed by: Gordo Beltran - Pager # [phone] Thank you for referring this pt to [facility]. --- End of Report --- Plan of Care - Hermelinda Marsh RN - 02/26/2018 9:02 AM CDT [facility] Plan of Care Note Assessment: pain, urinary retention Plan: continue to monitor and intervene as needed Subjective: pt c/o pain 8/10 and request bladder scanning d/t discomfort and [...] Arvizu RN - 02/25/2018 11:58 PM CDT [facility] Plan of Care Note Assessment: post-op [...] Amaral RN - 02/25/2018 3:12 PM CDT [facility] Care Management Follow Up Note Plan: [...] with the interdisciplinary team this am and Олег will not have surgery today and will need to return in 1 week for additional surgery. At this time, Chin from PT recommends a TCU for Олег. I met with Олег and his to discuss going to a TCU and both agree with going to a TCU. I explained to Олег that he has for insurance so I am not sure what TCU would be in network. Олег and prefer [facility] [place], [facility] and TCU. Referrals made to these 3 facilities and do not take this patients . I spoke with Jessica at [facility] [phone] to discuss Олег coverage for TCU and what TCU would be in network. Олег will need a 3 day qualifying in patient stay for TCU to be covered. Jessica states that [facility] in [place] is the only TCU [facility] and directed me to call the Case management dept at [phone] to discuss additional TCU options for the patient. I left a message in admissions at [facility] regarding bed availability. Care management will follow up with [facility] Case management tomorrow regarding TCU options for Олег. Tomasz Amaral RN Plan of Care - Belén Perry RN - 02/25/2018 2:28 PM CDT Fall Risk ??? Fall risk and fall related injury risk are minimized Progressing Pain, Acute (Adult) ??? Acceptable Pain Control/Comfort Level Progressing Patient Care Overview (Adult) ??? Plan of Care Review Progressing [facility] Plan of Care Note Assessment: Pain Plan: Continue to monitor pain, CMS; encourage activity as tolerated. Subjective: The oxycodone seems to take like 30-40 minutes to kick in, and then only really seems to work for about an hour, maybe a little longer Objective: A&O, VSS on RA, able to make needs known. Reports 6-8/10 RLE pain; tolerable relief with cold pack and PRN oxycodone and acetaminophen. CMS intact. JOVON wrap and ex-fix C/D/I. Up with therapy and walker. Significant other present at bedside throughout shift. I completed a full assessment and assessments as ordered and per policy on this patient during my work shift. Reassessments completed during my work shift are unchanged unless documented. --- End of Report --- Plan of Care - Meaghan Spain RN - 02/25/2018 6:25 AM CDT [facility] Plan of Care Note Assessment: Plan of Care Plan: Assess and intervene as needed Subjective: my pain is bad Objective: pt a/ox4, able to make needs known, due to O.R. This am, both hibiclenses complete, pt bpelevated during shift, hydralazine and labetalol given per DEC, pt weaned off venturi, on NC at 2lpm. Pre-op check list complete. I completed a full assessment and assessments as ordered and per policy on this patient during my work shift. Reassessments completed during my work shift are unchanged unless documented. --- End of Report --- Plan of Care - Meaghan Spain RN - 02/24/2018 9:30 PM CDT [facility]. MD Notified Note Name of MD notified: HP 12 Crosscover Time of MD notification: 2100 hours and 30 minutes Reason: Pt bp 182/111, pulse 91, please advise Response: Order placed for hydralazine PRN Meaghan Spain RN --- End of Report --- Plan of Care - Meaghan Spain RN - 02/24/2018 7:40 PM CDT [facility]. MD Notified Note Name of MD [...] Mutuality Progressing ??? Discharge Needs Assessment Progressing [facility] Nursing Post-Op Note Admission Date/Time: 02/23/2018 [...] Bruner RN - 02/24/2018 1:45 PM CDT [facility] Nursing Pre-Op Note Admission Date/Time: 02/23/2018 6:00 PM Time of transport to the Operating Room: 1345 Transported by: Bed Pre-Op checklist complete?: yes Report Completed by: Roxi Bruner RN --- End of Report --- Initial Assessments - Eric Dubose LGSW - 02/24/2018 12:00 PM CDT [facility] Care Management Initial Assessment Plan: Care Team Actions Needed: PT/OT consult, discharge orders, medical clearance (OR Sun 02/24 w/Ortho) Anticipated Discharge Date: 02/27/18 Anticipated [...] Living Environment Comment: Lives in own home w/monicafrienSimi palencia, his son, and her daughter. Coping/Stress: Major [...] Services: (Denies) Primary Care: Primary Care Clinic: [facility] Primary Care Physician: Ceci Christianson MD Additional Comments: JENNIE met w/patient to introduce self, role, and discuss discharge plans. Patient going to OR this afternoon w/Ortho but hoping to d/c home when cleared to do so. Transferred from [facility] yesterday. Lives in own home w/Simi beckwith nguyen [phone], his adult son, and her adult daughter. No services or assistive equipment at home. Reports he has for insurance, unsure what percent he's service connected. JENNIE left message on [place] [facility]erral [facility] [phone] to notify them of patient's admission. Nearly all demographics in chart are incorrect, no social security number. See updated demographics below. Patient asking if he'll need crutches, walker post-op. SW explained that therapies will work w/him after surgery and help figure out what, if any, equipment he may need. Patient denied any other questions/concerns/discharge needs at this time. Address: [address] [place] [address]. [id number] Girlfriend: Simi Nye Father is so should be removed from emergency contacts. RICCI Loya Plan of Care - Meaghan Spain, RN - 02/24/2018 7:19 AM CDT [facility] Plan of Care Note Assessment: Plan of Care Plan: Assess and Intervene as needed Subjective: pt c/o pain 05/07 Objective: pt a/o x4, cms intact, able to make needs known, scheduled O.R. Sometime today, both pre op hibiclenses complete, pain meds given per MAR. I completed a full assessment and assessments as ordered and per policy on this patient during my work shift. Reassessments completed during my work shift are unchanged unless documented. --- End of Report --- Plan of Care - Sherrill Spangler, JULIO CESAR - 02/23/2018 7:34 PM CDT [facility] Plan of Care Note Assessment: Plan [...] day, begin regimen again until patient stools. ceFAZolin (ANCEF) injection 2 g Given 02/25/2018 2:19 PM CDT 2 g 2 g, Intravenous, Q8H (NON-STND), First dose on Sun02/24/18 at 2300, For 3 doses, Reconstitute vial with 10 ml sterile water for injection, shake vigorously until diluted, and give slow IV push over 3-5 minutes., , Indications: Perioperative Pharmacoprophylaxis Given 02/25/2018 6:54 AM CDT 2 g Given 02/24/2018 11:10 PM CDT 2 g fentaNYL (SUBLIMAZE) injection 25-50 mcg Given 02/24/2018 5:15 PM CDT 50 mcg 25-50 mcg, Intravenous, [id number], Pain, Starting on Sun02/24/18 at 1641, Until Sun02/25/18 at 0934, 25 mcg IV q5min prn based on [...] 10 to administer medications., PACU (only) Given 02/24/2018 5:00 PM CDT 50 mcg gabapentin (NEURONTIN) capsule 300 mg Given 02/27/2018 [...] Sun02/24/18 at 2140, Until Sun02/27/18 at 1640 HYDROmorphone injectable 0.2-0.3 mg Given 02/24/2018 5:15 PM CDT 0.3 mg 0.2-0.3 mg, Intravenous, Q10MIN PRN, Pain, Starting on Sun02/24/18 at 1641, Until Sun02/25/18 at 0934, PACU USE ONLY 0.2 mg IV q10min prn based on the patients pain scale rating for mild to moderate pain (1-5) 0.3 mg IV q10min prn based on the patients pain scale rating for moderate to severe pain (6 to 10) Total PACU hydromorphone dose not to exceed 2 mg per hour, PACU (only) Given 02/24/2018 5:00 PM CDT 0.3 mg insulin lispro (HumALOG) injection Given 02/26/2018 9:49 PM CDT 2 Units Left Arm vial 2-8 Units 2-8 Units, Subcutaneous, PRN BASED ON BLOOD SUGAR, Blood Sugar >, Starting on Sun02/25/18 at 1433, Give within 15 minutes before a meal or immediately after a meal. Blood sugar less than 71 treat for hypoglycemia and notify MD Blood sugar 71-150 give 0 units Blood [...] 02/23/18 at 2357, Until Sun02/27/18 at 1640 lactated ringers infusion Started 02/24/2018 2:00 PM CDT 30 mL/hr 30 mL/hr 30 mL/hr, Intravenous, CONTINUOUS, Starting on Sun02/24/18 at 1400 lactated ringers infusion Started 02/24/2018 8:00 PM CDT 100 mL/hr Intravenous, at 100 mL/hr, CONTINUOUS, Starting on Sun02/24/18 at 1200 Started 02/24/2018 11:55 AM CDT 100 mL/hr lisinopril (zeSTRIL) tablet 10 mg Given 02/27/2018 9:32 AM CDT 10 mg 10 mg, Oral, DAILY, First dose on 02/25/18 at 1000, Until Discontinued Given 02/26/2018 9:38 AM CDT 10 mg Given 02/25/2018 10:00 AM CDT 10 mg metFORMIN (GLUCOPHAGE) tablet TABS 1,000 mg Given 02/27/2018 9:33 AM CDT 1,000 mg 1,000 mg, Oral, BID WITH MEALS, First dose on 02/24/18 at 0000, Until Discontinued Given 02/26/2018 4:27 [...] Vomiting, Starting on 02/23/18 at 1813, Until 02/27/18 [...] If unable to give IV medications contact . 1st Line - prochlorperazine , 2nd Line - ondansetron 3rd Line - m etoclopramide oxyCODONE (ROXICODONE) immediate release Given 02/27/2018 1:32 P M CDT 10 mg tablet 5-10 mg 5-10 mg, Oral, Q4H PRN, Pain, Starting on 02/23/18 at 1813, Until Sun02/27/18 at 1640, Give PO opioid if able [...] day, begin regimen again until patient stools. potassium chloride (K-JORDYN) packet 20 mEq Given 02/25/2018 9:59 AM CDT 20 mEq 20 mEq, Oral, ONCE, On 02/25/18 at 1015, For 1 dose prochlorperazine (COMPAZINE) injection 1 0 mg 10 mg, Intravenous, Q6H PRN, Nausea, Vomiting, Startin g on 02/23/18 at 1813, Until Sun02/27/18 at [...] 10 mg 1008 (Given - Provider: Diandra Bowden, JULIO CESAR) 0933 (Given - Provider: Mickey Rodriguez RN) 10 mg, Oral, DAILY, First dose on 11/15 at 1000, Tablet should be swallowed whole. aspirin tablet 325 mg 2022 (Given - Provider: Bethany anton, RN) 2046 (Given - Provider: Mauricio Joy RN) 325 mg, Oral, ASPIRIN - DAILY, First dose on 02/25/18 at 2000 ceFAZolin (ANCEF) injection 2 g (COMPLETED) 06 (Give n - Provider: Meaghan Spain, JULIO CESAR)1419 (Given - Provider: Belén Perry, JULIO CESAR) 2 g, Intravenous, Q8H (NON-STND), First dose on Sun02/24/18 at 2300, For 3 doses, Reconstitute vial with 10 ml sterile water for injection, shake vigorously until diluted, and give slow IV push over 3-5 minutes., , Indications: Perioperative Pharmacoprophylaxis gabapentin (NEURONTIN) capsule 300 mg 0737 (Given - Pr ovider: Belén Perry, JULIO CESAR)1418 (Given - Provider: Belén Perry, JULIO CESAR)2023 (Given - Provider: Bethany Arvizu, JULIO CESAR) 0939 (Given - Provider: Diandra heart RN)1430 (Given - Provider: Diandra Bowden, JULIO CESAR)204 (Given - Provider: Mauricio Joy, JULIO CESAR) 0932 (Given - Provider: Mickey Rodriguez RN)1332 (Given - Provider: Mickey Rodriguez RN) 300 mg, Oral, TID, First dose on 01/28 at 2000, For neuropathic or acute post operative pain glipiZIDE (GLUCOTROL) tablet 5 mg 1554 (Given - Provider: Aman Arvizu RN) 0706 (Given - Provider: Hermelinda Marsh RN)1627 (Given - Provider: Mauricio Joy, JULIO CESAR) 0638 (Given - Provider: Danielle Amador RN) 5 mg, Oral, BID AC, First dose on Sun02/25/18 at 1600 lisinopril (zeSTRIL) tablet 10 mg 1000 (Given - Provider: Kenia Perry RN) 0938 (Given - Provider: Diandra Bowden, JULIO CESAR) 0932 (Given - Provider: Mickey Rodriguez RN) 10 mg, Oral, DAILY, First dose on Sun02/25/18 at 1000 metFORMIN (GLUCOPHAGE) tablet TABS 1,000 mg 0800 (Not Given - Provider: Belén Perry RN - Reason: NPO)2023 (Given - Provider: Bethany Arvizu RN) 1008 (Given - Provider: Diandra Bowden RN - Comment: pt. just ordered breakfast)1627 (Given - Provider: Mauricio Joy RN) 0933 (Given - Provider: Mickey Rodriguez RN) 1,000 mg, Oral, BID WITH MEALS, First [...] Diandra heart RN)2046 (Given - Provider: Mauricio Joy RN) 0933 (Given - Provider: Mickey Rodriguez RN) 1 Tab, Oral, BID, First dose on Sat 02/23 at 2000, as laxative/stimulant, stool-softening agent PRN Medication Order 02/25/2018 02/26/2018 02/27/2018 acetaminophen (TYLENOL) tablet 650 mg 0737 (Given - Pr ovider: Belén Perry RN)1417 (Given - Provider: Belén Perry RN)2023 (Given - Provider: Bethany Arvizu RN) 0706 (Given - Provider: Hermelinda Marsh RN)1429 (Given - Provider: Diandra Bowden RN) 0126 (Given - Provider: Danielle Amador RN)1332 [...] greater than 300 after next FSG, notify MD Hazardous waste, dispose of in [place]. labetalol (TRANDATE) tablet 100 mg 0016 (Given - Provi sabine: Meaghan Spain, RN) 100 mg, Oral, Q8H PRN, Other, SBP >160, Starting 02/23/18 at 2357 methocarbamol (ROBAXIN) tablet 500 mg 0426 (Given - Pr ovider: Meaghan Spain, RN)1553 (Given - Provider: Bethany Arvizu, RN) 0706 (Given - Provider: Hermelinda Marsh, JULIO [...] g 0016 (Given - Provider: Meaghan Spain, JULIO CESAR)0404 (Given - Provider: Meaghan Spain, RN)0737 (Given - Provider: Belén Perry, JULIO CESAR)1128 (Given - Provider: Belén Perry, RN)1554 (Given - Provider: Bethany Arvizu, JULIO CESAR) 0109 (Given - Provider: Hermelinda Marsh, JULIO CESAR)0540 (Given - Provider: Hermelinda Marsh, JULIO CESAR)1009 (Given - Provider: Diandra Bowden, JULIO CESAR)1430 (Given - Provider: Diandra Bowden, JULIO CESAR)1842 (Given - Provider: Mauricio Joy RN) 0126 (Given - Provider: Danielle Amador , JULIO CESAR)0530 (Given - Provider: Danielle Amador, JULIO CESAR)0932 (Given - Provider: Mickey Rodriguez, JULIO CESAR)1332 (Given - Provider: Mickey Rodriguez, JULIO CESAR) 5-10 mg, Oral, Q4H PRN, Pain, Starting S at 02/23/18 at 1813, Give PO opioid if able to take PO and pain not well controlled with other medications or interventions. 2022 (Given - Provider: Bethany Arvizu, JULIO CESAR) polyethylene glycol (MIRALAX) oral powder 17 g(Linked [...] 2022 (See Alternative - Provider: Bethany Arvizu, JULIO CESAR) 2 Tab, Oral, BID PRN, [...] metoclopramide
documented in this encounter Care Teams Clinical Team Lead Relationship Specialty Start Date End Date Ceci Christianson MD PCP - General [facility] 02/24/18 [address] [place] [address] documented as of this encounter
--- OUTSIDE RECORDS SUMMARY | 2022-08-17 08:44 | XMS_ITS | Encounter Summary ---
:1955 Author Organization [employer] Address [address] [place] [address] Care Team Providers Name Role Phone Unavailable Primary Care Provider Unavailable Reason for Visit Auth/Cert Specialty Diagnoses / Procedures Referred By Contact Refer red To Contact Diagnoses Fall Closed bicondylar fracture of right tibial plateau Closed bicondylar fracture of right tibial plateau . Procedures PLACEMENT LOWER EXTREMITY EXTERNAL FIXATOR OPEN REDUCTION INTERNAL FIXATION TIBIAL PLATEAU FRACTURE REMOVAL EXTERNAL FIXATOR LOWER EXTREMITY Referral ID Status Reason Start Date Expiration Date Visits Requ ested Visits Authorized [id number] 1 1 Encounter Details Date Type Department Care Team Description 02/23/2018 Imaging [facility] Randy Gilbert MD [address] [facility] [address] [place] [address] [place] [address] [phone] (Wo rk) Social History Tobacco Use Types [...] Priority Date/Time Associated Diagnosis Comme nts XR TIBIA FIBULA RT STAT 02/23/2018 10:41 PM Re sults for this 2 VIEWS CDT procedure are i n the results section. documented in this encounter Results XR Tibia Fibula Rt 2 Views (02/23/2018 [...] Acute comminuted right fibular head fracture. Meaghan Hannon MD RAD GD documented in this encounter Visit Diagnoses Not on filedocumented in this encounter
--- OUTSIDE RECORDS SUMMARY | 2022-08-17 08:44 | XMS_ITS | Encounter Summary ---
:1955 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
--- OUTSIDE RECORDS SUMMARY | 2022-08-17 08:44 | XMS_ITS | Encounter Summary ---
:1955 Author Organization [employer] Address [address] [place] [address] Care Team Providers Name Role Phone Ceci [...] Expiration Date Visits Requ ested Visits Authorized [id number] 1 1 Encounter Details Date Type Department Care Team Description 02/24/2018 Anesthesia Event RH Operating Room Sergio Castano MD [address] [facility]. [address] [place] [address] [place] [address] [phone] (Wo rk) Anesthesia Record Procedure Summary Procedure Name Responsible Anesthesia Start Anesthesia Stop Anesthesiologist Time Time PLACEMENT LOWER Sergio Castano MD 02/24/18 1441 02/24/18 163 4 EXTREMITY EXTERNAL FIXATOR AND RIGHT KNEE ARTHROCENTESIS (Right) Events Date Time Event Comment 02/24/2018 1430 1441 An Start 1441 An Start Data 1503 An Induction 1503 MD/DO Present 1504 An Intubation 1536 An Labs Blood glucose 11 7 1551 MD/DO Present 1620 MD/DO Present 1629 An Extubation Purposeful movem ent with spontaneous respirations and adequate air exchange. Suctioned and ETT removed. Transfe rred with oxygen to recovery. 1630 an stop data 1633 Care Handoff Note I discussed wi th [...] understanding of report Electr onically signed by Michelle Horner APRN, CRNA [id number] An Stop Care transferred . Name Total midazolam 2 mg/2 mL injection (aka VERSED) 2 mg fentaNYL injection (aka SUBLIMAZE) 2.5 mL lidocaine 2% PF injection aka (XYLOCAINE) 100 mg propofol 10 mg/mL for procedural sedation (aka diPRIva n) 150 mg vecuronium bromide injection (aka NORCURON) 5 mg succinylcholine injection (aka QUELICIN) 120 mg phenylephrine-NaCl 0.9% 100 mcg/mL syringe (aka VILLA-SY NEPHRINE) 200 mcg dexamethasone 4 mg/mL injection (aka DECADRON) 2 mg ondansetron injection (aka ZOFRAN) 4 mg neostigmine 10 mg/10 mL injection (aka PROSTIGMIN) 4 m g glycopyrrolate injection (aka ROBINUL) 0.6 mg ceFAZolin injection (aka ANCEF) 2 g lactated ringer infusion 1,200 mL Agents Name O2 Air Isoflurane () Blood No blood administrations on file. Lines, Drains, and Airways Type Details Placement Removal Peripheral IV Placement Date: 02/24/18421 by 02/24/182353 b y 02/24/18; Placement Ashley Vera Pam ela R Time: 421; Pre-existing: No; Inserted by?: LST; Size (Gauge): 20 G; Orientation: Right; Site Prep: ChloraPrep; Local Anesthetic: None; Insertion attempts: 1; Blood draw with insertion?: no; Removal Date: 02/24/18; Removal Time: 2353; Removal Reason: Infiltrated; Catheter Tip: Intact ETT Placement Date: 02/24/181503 by 02/24/18 1629 b y Siri, 02/24/18; Placement Michelle Horner Elaine A, AP RN, DANIEL Time: 1504; Placed DANIEL GARDINER By: PATHOLOGY TECH; Induction Type: Pre-O2, IV, RSI, Cricoid Pressure; Masking: Easy; ETT Type: ETT; Orientation: Right; Size (mm): 8.0; Depth Secured (cm): 22 cm; Cuffed: Cuffed; Cuff Volume: 6 mL; Intubation Method: DL; Cormack_Lehane Glottic Grade: Grade 1; Glottic View: Cords Open, Cords Clear; Blade: MAC; Blade Size: 4; Insertion attempts: 1; Difficulty: Atraumatic; Adjunct Equipment: Stylet; Placement Verification: BBSE, capnometry, Positive EtCO2, auscultation, palpation of cuff; Teeth and Lips Unchanged: Unchanged; Removal Date: 02/24/18; Removal Time: 1629 Incision/Surgical Site 02/24/18; 1540; #1 (4 02/24/18 1540 by 1440 by [facility], [facility] ); No; Leg; Jasmyne Yoselin Disco ntinue Right; 03/13/18; 1440 M, RN documented in this encounter Social History Tobacco Use Types Packs/Day Years Used Date Smoking Tobacco: Never Smokeless Tobacco: Never Alcohol Use Standard Drinks/Week Comments No 0 (1 standard drink = 0.6 oz pure alcoho l) Sex Assigned at Date Recorded Not on file documented as of this encounter Miscellaneous Notes Anesthesia Postprocedure Evaluation - Sergio Castano MD - 02/24/2018 5:19 PM CDT [facility] Anesthesia Post-op Note Patient: Sudeep Steen Post-Op Diagnosis: Closed bicondylar fracture of right tibial plateau Procedure Performed: Procedure(s): PLACEMENT LOWER EXTREMITY EXTERNAL FIXATOR AND RIGHT KNEE ARTHROCENTESIS Anesthesia Type: General Post-op vital signs: BP (!) 167/81 Pulse 83 Temp 98.8 ??F (37.1 ??C) (Temporal Artery) Resp 12 Ht 6' 2 (1.88 m) Wt 127 kg (280 lb) SpO2 100% BMI 35.95 kg/m2 Pain Score: Presence Of Pain: complains of pain/discomfort Preferred Pain Scale: number (Numeric Rating Pain Scale) Pain Rating (0-10): Rest: 10 Pain Rating (0- 10): Activity: 10 Post-op assessment: No anesthesia complication. Patient location: PACU Airway Status: Patent Cardiovascular function: Satisfactory Hydration status: Satisfactory PONV: None Level of Consciousness: Awake Fully Participates Postop Assessment: Patient tolerated procedure well. Electronically signed by: Sergio Castano MD 02/24/2018 5:19 PM Anesthesia Preprocedure Evaluation - Sergio Castano MD - 02/24/2018 2:10 PM CDT [facility] Anesthesia Pre-op Evaluation Procedure: Procedure(s): PLACEMENT LOWER EXTREMITY EXTERNAL FIXATOR HPI: 62 y.o. old male with Closed bicondylar fracture of right tibial plateau NPO Status: Last Fluid Intake Time: 0000 Last Fluid Intake Date: 02/23/18 Last Food Intake Date: 02/23/18 Last Food Intake Time: 1999 No Known Allergies Past Medical History: Diagnosis Date ??? BPPV (benign paroxysmal positional vertigo) ??? Diabetes mellitus type 2 ??? Gout ??? Hyperlipidemia (HRC) ??? Hypertension (HRC) ??? Osteoarthritis Patient Active Problem List Diagnosis ??? Closed bicondylar fracture of right tibial plateau Past Surgical History: Procedure Laterality Date ??? SURGICAL HX - NEG Outpatient Prescriptions Marked as Taking for the 02/23/18 encounter (Hospital Encounter) Medication Sig Dispense Refill ??? eszopiclone (LUNESTA) 3 MG tablet Take by mouth daily at bedtime. ??? glipiZIDE (GLUCOTROL) 5 MG tablet Take 5 mg by mouth two times a day before meals. ??? lisinopril (ZESTRIL) 10 MG tablet Take 10 mg by mouth daily. ??? metFORMIN (GLUCOPHAGE) 500 MG tablet Take 1,000 mg by mouth two times a day with meals. ??? naproxen sodium (ANAPROX) 220 MG tablet Take 440 mg by mouth two times a day with meals. ??? PARoxetine (PAXIL) 10 MG tablet Take 10 mg by mouth daily. Current Facility-Administered Medications Medication Dose Route Frequency ??? acetaminophen (TYLENOL) tablet 650 mg 650 mg Oral Q6H PRN ??? benzocaine-menthol (CEPACOL) lozenge 1 Lozenge 1 Lozenge Oral Q2H PRN ??? sennosides-docusate sodium (SENNA-S,SENNA PLUS) 8.6-50 MG per tablet 2 Tab 2 Tab Oral BID PRN Or ??? polyethylene glycol (MIRALAX) oral powder 17 g 17 g Oral DAILY PRN Or ??? bisacodyl (DULCOLAX) rectal suppository 10 mg 10 mg Rectal DAILY PRN ??? calcium carbonate (TUMS) chewable tablet 500-1,000 mg 500-1,000 mg Oral QID PRN ??? dextrose (D50) injection 12.5-25 g 12.5-25 g Intravenous PRN based on Blood Sugar ??? gabapentin (NEURONTIN) capsule 300 mg 300 mg Oral TID ??? glucagon rDNA (diagnostic) (GLUCAGEN) injection 1 mg 1 mg Intramuscular ONCE PRN ??? glucose-ascorbic kzuh-axxpxdduztclmfm-pognobrf tablet (TRUEPLUS) chewable tablet 4 Tab 4 Tab Oral Q15MIN PRN ??? insulin lispro (HumALOG) injection vial 1-8 Units 1-8 Units Subcutaneous PRN based on Blood Sugar ??? labetalol (TRANDATE) tablet 100 mg 100 mg Oral Q8H PRN ??? lactated ringers infusion 30 mL/hr Intravenous Continuous ??? lactated ringers infusion Intravenous Continuous ??? metFORMIN (GLUCOPHAGE) tablet TABS 1,000 mg 1,000 mg Oral BID with meals ??? methocarbamol (ROBAXIN) tablet 500 mg 500 mg Oral Q6H PRN ??? prochlorperazine (COMPAZINE) injection 10 mg 10 mg Intravenous Q6H PRN And ??? ondansetron (ZOFRAN) injection 4 mg 4 mg Intravenous Q8H PRN And ??? metoclopramide (REGLAN) injection 5 mg 5 mg Intravenous Q6H PRN ??? naloxone (NARCAN) injection 0.2 mg 0.2 mg Intravenous PRN per Parameters ??? oxyCODONE (ROXICODONE) immediate release tablet 5-10 mg 5-10 mg Oral Q4H PRN ??? PARoxetine (PAXIL) tablet 10 mg 10 mg Oral At Bedtime ??? sennosides-docusate sodium (SENNA-S,SENNA PLUS) 8.6-50 MG per tablet 1 Tab 1 Tab Oral BID Labs: Lab Results Component Value Date/Time SODIUM 135 (L) 02/23/2018 09:56 PM K 3.5 02/23/2018 09:56 PM CHLORIDE 101 02/23/2018 09:56 PM CO2 27 02/23/2018 09:56 PM BUN 8 02/23/2018 09:56 PM CREATININE 0.69 (L) 02/23/2018 09:56 PM GLUCOSE 207 (H) 02/23/2018 09:56 PM Lab Results Component Value Date/Time WBC 16.2 (H) 02/23/2018 09:55 PM HGB 13.7 02/23/2018 09:55 PM HCT 41.0 02/23/2018 09:55 PM PLTS 262 02/23/2018 09:55 PM INR (no units) Date Value 02/23/2018 1.1 Blood Bank: ABO/RH(D) (no units) Date Value 02/24/2018 O POSITIVE Antibody Screen (no units) Date Value 02/23/2018 NEGATIVE Physical Exam: BP (!) 141/87 Pulse 64 Temp 98 ??F (36.7 ??C) (Oral) Resp 17 Ht 6' 2 (1.88 m) Wt 127 kg (280 lb) SpO2 93% BMI 35.95 kg/m2 Assessment/Plan: Review of Systems Patient does not have GERD. Patient is not a smoker. The patient denies alcohol use. Patient denies any recent URI. History of PONV: No. History of motion sickness: No. Patient denies any personal or family history of anesthesia complications (PONV). Exam Mental Status: Alert and oriented. Mallampati score: II (Two). Mouth opening: Normal Thyromental Distance: > 3 finger breadths and Normal Neck Extension: Full Neck Circumference > 40 cm?: No Current airway assessment:Normal Dentition: Normal and caps/crowns. Cardiac Exam: Regular rate and rhythm. Respiratory Exam: Breath sounds clear to auscultation Assessment ASA Status: 2 . Plan Anesthesia type: General, RSI and ETT Induction: Intravenous and PropofolMaintenance: Balanced Postoperative pain management (PONV): Plan for postoperative opioid use PONV Risk Score Peds:0 PONV Risk Score Adult: 2 PONV Prophylaxis (planned):Ondansetron Anesthetic plan, risks, benefits and alternatives discussed with: Patient Additional equipment needed: [place] Scope 3 and [place] Scope 4 H&P Reviewed and Patient examined, no change observed IV access Antibiotics per surgery Electronically signed by: Sergio Castano MD 02/24/2018 2:10 PM documented in this encounter Plan of Treatment Not on filedocumented as of this encounter Visit Diagnoses Not on filedocumented in this encounter Administered Medications Inactive Administered Medications - up to 3 most recent administrations Medication Order MAR Action Action Date Dose Rate Site ceFAZolin (ANCEF) injection Given 02/24/2018 3:07 PM CDT 2 g Starting on 02/24/18 at 1507 dexamethasone (aka DECADRON) injection Given 02/24/2018 3:03 PM CDT 2 mg Intravenous, Starting on 02/24/18 at 1503 fentaNYL (SUBLIMAZE) injection Given 02/24/2018 4:09 PM CDT 0.5 mL Starting on 02/24/18 at 1503 Given 02/24/2018 3:03 PM CDT 2 mL glycopyrrolate (ROBINUL) injection Given 02/24/2018 4:09 PM CDT 0.6 mg Starting on 02/24/18 at 1609, Until 02/24/18 at 1634 lactated ringers infusion Started 02/24/2018 3:22 PM CDT Starting on 02/24/18 at 1441 Started 02/24/2018 2:41 PM CDT lidocaine 2% PF (XYLOCAINE) injection Given 02/24/2018 3:03 PM CDT 100 mg Starting on 02/24/18 at 1503, Until 02/24/18 at 1634 midazolam (VERSED) injection Given 02/24/2018 2:41 PM CDT 2 mg Starting on 02/24/18 at 1441, Until 02/24/18 at 1634 neostigmine (PROSTIGMINE) injection Given 02/24/2018 4:09 PM CDT 4 mg Starting on 02/24/18 at 1609, Until 02/24/18 at 1634 ondansetron (ZOFRAN) injection Given 02/24/2018 3:46 PM CDT 4 mg Starting on 02/24/18 at 1546, Until 02/24/18 at 1634 phenylephrine-NaCl 0.9% 100 mcg/mL syringe Given 02/24/2018 3:03 PM CDT 200 mcg (aka VILLA-SYNEPHRINE) Intravenous, Starting on 02/24/18 at 1503 propofol (aka diPRIvan) injection Given 02/24/2018 3:03 PM CDT 150 mg Starting on 02/24/18 at 1503 succinylcholine (QUELICIN) injection Given 02/24/2018 3:03 PM CDT 120 mg Starting on 02/24/18 at 1503, Until 02/24/18 at 1634 vecuronium (NORCURON) injection Given 02/24/2018 3:15 PM CDT 3 mg Starting on 02/24/18 at 1503, Until 02/24/18 at 1634 Given 02/24/2018 3:03 PM CDT 2 mg documented in this encounter Care Teams Rolling Machine Operator Automatic Relationship Specialty Start Date End Date Ceci Christianson MD PCP - General Family Practice 02/24/18 [address] [place] [address] documented as of this encounter
--- OUTSIDE RECORDS SUMMARY | 2022-08-17 08:44 | XMS_ITS | Encounter Summary ---
:1955 Author Organization [facility] Address [address] [place] [address] Care Team Providers Name Role Phone Unavailable Primary Care Provider Unavailable Encounter Details Date Type Department Care Team Description 12/14/2001 PN Conversion Only [facility] [address] [place] [address] Social History Tobacco Use Types Packs/Day Years Used Date Smoking Tobacco: Never Assessed Sex Assigned at Date Recorded Not on file documented as of this encounter Progress Notes Joyce Rawls MD - 12/14/2001 12:01 AM CST Progress Notes signed by at 12/20/02 0001 Author: Joyce Rawls MD Service: (none) Author Type: Physician Filed: 02/16/11 0414 Note Time: 12/14/01 0001 Status: Signed Eight Section Blower: Joyce Rawls MD (Physician) IMPRESSION: Bronchospasm. Drug reaction. SUBJECTIVE: A 46-year-old white male with coughing and pleuritic chest pain for the last eight days. He was seen on Sunday and started on Levaquin. He now has a rash which is quite itchy. He thinks this is secondary to the antibiotic. He has been using over-the- counter cough syrup. He is healthy other than mitral valve prolapse. The cough has become more significant for him. He is a nonsmoker. He has no personal history of asthma but has had two children with bronchospasm, and he does have a nebulizer at home. He did a nebulizer treatment for himself a couple of days ago, and it did help. He does not think he has been running a fever. He has been sleeping pretty well. Remainder of the complete review of systems is negative. ADR/ALLERGIES: NONE OTHER THAN NOW A POSSIBLE REACTION TO LEVAQUIN. OBJECTIVE: VS/Gen: BP: 105/67. T: 98.4. P: 80. R: 24. O2 saturation 96% on room air. He does have a very harsh cough. HEENT: TMs look normal. Oropharynx is moist without erythema. NECK: I do not appreciate any lymphadenopathy. LUNGS: Chest shows inspiratory and expiratory wheezes with rhonchi. I do not hear a click or murmur today regarding his heart. He does have a fine pin point rash over the torso and arms with evidence of excoriation. Peak flows were 540, 600, and 570. He was given an albuterol neb with about 75% clearing of the wheezing, subjective improvement, and peak flow is 840, 630, and 780. ASSESSMENT: 1. Bronchospasm. 2. Drug reaction. PLAN: 1. Stop the Levaquin and change to doxycycline 100 mg, one b.i.d., #14. Add prednisone 20 mg, one b.i.d. with food, #10. 2. Prescription for albuterol premix vials, #25 with two refills for use in the nebulizer p.r.n. TT: CT: [id number] C: DOCUMENT: [id number] ER HELPER Joyce Rawls MD - 08/16/2001 12:01 AM CDT Progress Notes signed by at 12/20/022016 Author: Joyce Rawls MD Service: (none) Author Type: Physician Filed: 02/16/11 0133 Note Time: 08/16/01 0001 Status: Signed Eight Section Blower: Joyce Rawls MD (Physician) IMPRESSION: Otitis media. Pharyngitis. Muscle spasm. SUBJECTIVE: Patient is a 46-year-old white male with cold symptoms that started on 08/12. Seemed to be getting worse with more head congestion and cough. He has had some ear pain and sore throat. Earlier in the week, thought he had noticed some exudate on the left tonsil but that has seemed to improve. His neck feels tight and sore. ALLERGIES: NONE. MEDICATIONS: Kwlj-jbu-zxgiijw cold capsules. OBJECTIVE: BP: 142/107. T: 97.6. P: 90. R: 16. He looks uncomfortable but not toxic. He has a bilateral otitis media noted. Oropharynx shows 2+ erythema. There is 1+ lymphadenopathy. Rapid strep is negative. Chest shows a few rhonchi but no wheezing. Heart without murmur. He has 3+ spasm in the trapezius muscles bilaterally. Range of motion of the C- spine is about 50 percent of normal. He does not have nuchal rigidity. ASSESSMENT: 1. Otitis media. 2. Pharyngitis. 3. Muscle spasm. PLAN: Amoxicillin 500 mg one t.i.d., #30. Flexeril 10 mg one t.i.d. p.r.n., #20. Cautioned regarding drowsiness. Ice to the neck. Continue with rrzg-nhb-wttvydq medications but keep an eye on the blood pressure. Recheck p.r.n.. He is drinking plenty of fluids. SMO:[id number] C: DOCUMENT: [id number] ER HELPER Conversion, [facility] - 07/08/2001 12:01 AM CDT Progress Notes signed by at 12/20/02 0001 Author: [facility] Conversion Service: (none) Author Type: (none) Filed: 02/16/11 0043 Note Time: 07/08/01 0001 Status: Signed Eight Section Blower: [facility] Conversion IMPRESSION: Rash. Dermatitis. SUBJECTIVE: Patient is a 46-year-old male who states he woke up this morning sweaty and noticed a rash was on his back as well as his abdomen and legs. Patient is concerned of heat rash. He has noticed that, since he has gotten older, he is unable to tolerate the heat and when he starts to sweat, will break out in a fine rash. Patient denies any shortness of breath, sore throat, recent URI symptoms. He states it is slightly itchy. He does see a mechanical spreader operator where he is on Diprolene for dishydrosis. He states he never has had rashes until he started having a hot tub which they changed all the chemicals. He still is unable to tolerate it so no longer goes in there. He takes very minimal hot showers or warm showers and uses lotion regularly. He has been placed on Zyrtec which he just ran out of last night. All other rest of review of systems is negative. MEDICATIONS: Zyrtec, diprolene. ALLERGIES: NONE. OBJECTIVE: BP: 123/85. T: 97.1. P: 82. R: 16. Well-developed, well-nourished male in no acute distress. Alert and cooperative. In general, patient looks well. He is alert and oriented times three. Patient's skin currently is warm and dry. There is some slight erythema noted especially around his neck from the sun. On his chest, inner aspect of his arms, inner thighs and back, patient has scattered red, raised areas. No pustules, papules or vesicles are seen. There is some slight urticaria noted but no hives. There is some scabbing noted but no secondary infections are seen. This does not appear to be anything as of poison kerrie or poison oak related. Patient has no cervical, groin, clavicle or axillary lymphadenopathy. Patient's lower extremities: On the inner aspects of the calves, he does have some noticeable dyshydrotic skin but no patches are noted. ASSESSMENT: 1. Rash. 2. Dermatitis. PLAN: Patient is started on prednisone 60 mg tapering down to 5. He is given Zyrtec #30 to take as directed. No refills. Patient is to use the Diprolene cream as directed and follow up with his mechanical spreader operator that he plans on seeing in a few weeks. [id number] C: DOCUMENT: [id number] SCHEDULED RESOURCE: ELEONORA GENTILE / JC Electronically signed by [facility] at 09/15/2016 11:40 AM Elaine Underwood MD - 06/01/2001 12:01 AM CDT Progress Notes signed by at 12/20/02 0001 Author: Elaine Zapata MD Service: (none) Author Type: Physician Filed: 02/16/11 0001 Note Time: 06/01/012016 Status: Signed Eight Section Blower: Elaine Zapata MD (Physician) IMPRESSION: Vertigo, most probably inner ear dysfunction. SUBJECTIVE: This 45-year-old male comes in with a symptom of having dizziness which is explained as vertigo for the past two days or so. Started a little vertigo two days ago and then this morning, this symptom kind of was more noticeable. Has had a little problem with imbalance. Movement of the head makes this symptom worse. He had this problem about two months ago, was seen in the emergency room and all kinds of tests were done and was told it was possibly ear related. He denies any numbness or weakness. No rigor changes. No ear symptoms. No URI symptoms. No double vision. No problem with speech or swallowing. Basically, no other symptoms except a little frontal headache. No fever is noted. PAST MEDICAL HISTORY: Mitral valve prolapse. MEDICATIONS: None. ALLERGIES: NONE. OBJECTIVE: BP: 120/94. T: Afebrile. P: ??? R: 16. Exam shows patient looking very good. He walks without any discomfort. Eyes show a horizontal nystagmus. Pupils are round, equal and reactive to light. Extraocular motion is intact. Cranial nerves are intact. Ears look normal. Throat looks normal. Neck is supple. Neurological exam is nonfocal. He is alert and oriented. ASSESSMENT: Vertigo, most probably inner ear dysfunction. PLAN: Prescription for meclizine 25 mg p.o. t.i.d.. He was informed of all side-effects of this medication. Rest, increase fluid and take advice. Should be rechecked if any unusual symptoms, problem with vision or any numbness, weakness, double vision. Otherwise follow up with primary if he continues with problem. [id number] C: DOCUMENT: [id number] ER HELPER documented in this encounter Plan of Treatment Not on filedocumented as of this encounter Procedures Procedure Name Priority Date/Time Associated Diagnosis Comme nts STREP GROUP A Routine 08/16/2001 8:17 PM Results for this ANTIGEN TEST CDT procedure are i n the results section. BETA STREP FOLLOWUP Routine 08/16/2001 8:17 PM Re sults for this CDT procedure are i n the results section. documented in this encounter Results Strep Group A Antigen Test (08/16/2001 8:17 PM CDT) Analysis Performed At Patho logist Time Signature Strep Group A Negative Negative [facility] CON[facility] Antigen Test Comment: Culture to follow. Specimen (Source) Anatomical Collection Method Collection Time Re ceived Time Location / / Volume Laterality 08/16/2001 8:17 PM CDT Joyce Rawls MD LAB_1 Performing Organization Address City/State/ZIP Code Phon e Number [facility] CONVERSION Beta Strep Followup (08/16/2001 8:17 PM CDT) athologist Signature Strep Screen SEE TEXT [facility] CONVERSION Comment: Patient: SUDEEP STEEN Rapid Strep Follow up Culture @ ? Collected: ??[id number] ??2016 Source: Throat ?Processed: ??[id number] ??2016 ? 1V Final Report ------ ?[id number] ??1200 No beta hemolytic Strep group A isolated . @ = Rapid F/U Cult Performed at ??[address] [place], [place] ?[address] Specimen (Source) Anatomical Collection Method Collection Time Re ceived Time Location / / Volume Laterality 08/16/2001 8:17 PM CDT Joyce Rawls MD LAB_1 Performing Organization Address City/State/ZIP Code Phon e Number [facility] CONVERSION documented in this encounter Visit Diagnoses Not on filedocumented in this encounter
--- OUTSIDE RECORDS SUMMARY | 2022-08-17 08:44 | XMS_ITS | Encounter Summary ---
:1955 Author Organization [employer] Address [address] [place] [address] Care Team Providers Name Role Phone Ceci Christianson MD Primary Care Provider Encounter Details Date Type Department Care Team Description 02/25/2018 Anesthesia Event RH Operating Room Kalpana Ramírez, [address] [facility]. SCHOOL GU[employer], [place] [address] [address] [facility] [phone] [place], [place] [address] (Wo rk) Anesthesia Record Procedure Summary Procedure Name Responsible Anesthesia Start Anesthesia Stop Time Anesthesiologist Time OPEN REDUCTION INTERNAL FIXATION TIBIAL PLATEAU FRACTURE (Right) Events Date Time Event Comment 02/26/2018 1535 Anesthesia Force Close Encounter Case cancelled. No medications on file. Agents No agents on file. Blood No blood administrations on file. Lines, Drains, and Airways No LDAs on file. documented in this encounter Social History Tobacco [...] on filedocumented in this encounter Care Teams Batch Still Operator Relationship Specialty Start Date End Date Ceci Christianson MD PCP - General Family Practice 02/24/18 [address] [place] [address] documented as of this encounter
--- OUTSIDE RECORDS SUMMARY | 2022-08-17 08:44 | XMS_ITS | Encounter Summary ---
:1955 Author Organization [facility] Address [address], [place] [address] Care Team Providers Name Role Phone Ceci Christianson MD Primary Care Provider Encounter Details Date Type Department Care Team Description 02/23/2018 Consent for [facility] Department RH INFORM ED [...] on filedocumented in this encounter Care Teams Sample Grinder Relationship Specialty Start Date End Date Ceci Christianson MD PCP - General Family Practice 02/24/18 [address] [address] documented as of this encounter
--- OUTSIDE RECORDS SUMMARY | 2022-08-17 08:44 | XMS_ITS | Encounter Summary ---
:1955 Author Organization [employer] Address [address] [address] Care Team Providers Name Role Phone Ceci Crhistianson MD Primary Care Provider Reason for Referral (Routine) - Incomplete Specialty Diagnoses / Procedures Referred By Contact Refer red To Contact Diagnoses Closed fracture of right tibial plateau, initial encounter Adali Sanchez PA-C Procedures Case Request OR - Orthopedic Surgery: OPEN REDUCTION INTERNAL FIXATION TIBIAL PLATEAU FRACTURE, REMOVAL KNEE SPANNING EXTERNAL FIXATOR [address] [place], [place] [address] Referral ID Status Reason Start Date Expiration Date Visits V isits Requested Authorized [id number] Incomplete 02/25/2018 05/27/2019 1 1 Encounter Details Date Type Department Care Team Description 02/25/2018 [facility] RadhaEsvin Cl osed fracture of [address] [facility] rafal Garcia MD right tibial plateau, [address] initial encounter DONG Kimball [address] DONG [place]YNOLDS (Primary Dx) [phone] [id number] Social History Tobacco Use Types Packs/Day Years Used Date Smoking Tobacco: Never Smokeless Tobacco: Never Alcohol Use Standard Drinks/Week Comments No 0 (1 standard drink = 0.6 oz pure alcoho l) Sex Assigned at Date Recorded Not on file documented as of this encounter Plan of Treatment Not on filedocumented as of this encounter Visit Diagnoses Diagnosis Closed fracture of right tibial plateau, initial encounter - Primary documented in this encounter Care Teams Inspector Grain [employer] Relationship Specialty Start Date End Date Ceci Christianson MD PCP - General Family Practice 02/24/18 [address] [place] [address] documented as of this encounter
--- OUTSIDE RECORDS SUMMARY | 2022-08-17 08:44 | XMS_ITS | Encounter Summary ---
:1955 Author Organization [employer] Address [address] [place] [address] Care Team Providers Name Role Phone Unavailable [...] Expiration Date Visits Requ ested Visits Authorized [id number] 1 1 Encounter Details Date Type Department Care Team Description 02/23/2018 Imaging [facility] Randy Gilbert MD [address] [facility] [address] [place] [address] [place] [address] [phone] (Wo rk) Social History Tobacco Use Types [...] Priority Date/Time Associated Diagnosis Comme nts XR FEMUR RT 2 VIEWS STAT 02/23/2018 10:40 PM R esults for this CDT procedure are i n the results section. documented in this encounter Results XR Femur Rt 2 Views (02/23/2018 10:40 [...] None. FINDINGS: Moderate joint effusion. No ac alatna fracture dislocation. No soft tissue defect or radiopaque foreign body. Procedure Note Jose Fuller MD - 02/23/2018Formatti ng of this note might be different from the original. XR FEMUR RT 2 VIEWS 02/23/2018 10:40 PM INDICATION: Pain upper leg/femur. COMPARISON: None. FINDINGS: Moderate joint effusion. No ac alatna fracture dislocation. No soft tissue defect or radiopaque foreign body. Meaghan Hannon MD RAD GD documented in this encounter Visit Diagnoses Not on filedocumented in this encounter
--- OUTSIDE RECORDS SUMMARY | 2022-08-17 08:44 | XMS_ITS | Encounter Summary ---
:1955 Author Organization [facility] Address [address] [place] [address] Care Team Providers Name Role Phone Ceci [...] Expiration Date Visits Requ ested Visits Authorized [id number] 1 1 Encounter Details Date Type Department Care Team Description 02/24/2018 [facility] Randy Gilbert MD [address] [facility] [address] [place] [address] [place] [address] [phone] (Wo rk) Social History Tobacco Use Types [...] Date/Time Associated Diagnosis Comme nts XR C-ARM 1-1.5 Routine 02/24/2018 4:25 PM Results for this HOURS CDT procedure are i n the results section. documented in this encounter Visit Diagnoses Not on filedocumented in this encounter Care Teams Fur Dressing Supervisor Relationship Specialty Start Date End Date Ceci Christianson MD PCP - General Family Practice 02/24/[address] [place] [address] documented as of this encounter
--- OUTSIDE RECORDS SUMMARY | 2022-08-17 08:44 | XMS_ITS | Encounter Summary ---
:1955 Author Organization [facility] Address [address] [place] [address] Care Team Providers Name Role Phone Ceci Christianson MD Primary Care Provider Encounter Details Date Type Department Care Team Description 02/23/2018 Orders Only External to [facility] Radiology, Prov ider Social History Tobacco Use Types Packs/Day Years Used Date Smoking Tobacco: Never Smokeless Tobacco: Never Alcohol Use Standard Drinks/Week Comments No 0 (1 standard drink = 0.6 oz pure alcoho l) Sex Assigned at Date Recorded Not on file documented as of this encounter Plan of Treatment Not on filedocumented as of this encounter Procedures Procedure Name Priority Date/Time Associated Diagnosis Comme nts CT SCAN--SCANNING 02/23/2018 12:00 AM Res ults for this CDT procedure are i n the results section. documented in this encounter Results CT SCAN--SCANNING (02/23/2018 12:00 AM CDT) Anatomical Region Laterality Modality Other Specimen (Source) Anatomical Location Collection Method / Collectio n Time Received Time / Laterality Volume 02/23/2018 Narrative This result has an attachment that is no t available. Provider Consulting Radiology DUMMY/OTHER/AR documented in this encounter Visit Diagnoses Not on filedocumented in this encounter Care Teams Chief Diversity Officer Relationship Specialty Start Date End Date Ceci Christianson MD PCP - General Family Practice 02/24/18 [address] [place] [address] documented as of this encounter
--- OUTSIDE RECORDS SUMMARY | 2022-08-17 08:44 | XMS_ITS | Encounter Summary ---
:1955 Author Organization [employer] Address [address] [place] [address] Care Team Providers Name Role Phone Ceci [...] Expiration Date Visits Requ ested Visits Authorized [id number] 1 1 Encounter Details Date Type Department Care Team Description 02/25/2018 [facility] Randy Gilbert MD [address] [facility] [address] [place] [address] [place] [address] [phone] (Wo rk) Social History Tobacco Use Types [...] Diagnosis Comme nts XR TIBIA FIBULA RT Routine 02/25/2018 7:59 AM Res ults for this 2 VIEWS CDT procedure are i n the results section. XR KNEE RT 2 VIEWS Routine 02/25/2018 7:59 AM Res ults for this CDT procedure are i n the results section. documented in this encounter Results XR Tibia Fibula Rt 2 Views (02/25/2018 [...] associated soft tissue swelling. Procedure Note Bruce New MBBS - 02/25/2018Formattin [...] suprapatellar effusion. Randy Gilbert MD RAD GD documented in this encounter Visit Diagnoses Not on filedocumented in this encounter Care Teams Inspector Repairer Relationship Specialty Start Date End Date Ceci Christianson MD PCP - General Family Practice 02/24/18 [address] [place] [address] documented as of this encounter
[2022-08-17 15:01] LABS: Albumin* 4.5 g/dL (3.3-5.0); Chloride* 100 mmol/L (96-114); Sodium* 136 mmol/L (135-149)
[2022-08-17 15:02] LABS: Potassium* 4.3 mmol/L (3.6-5.1)
[2022-08-17 15:03] LABS: Cholesterol* 137 mg/dL (90-199)
[2022-08-17 15:04] LABS: Alanine Aminotransferase* 34 U/L (4-50); Alkaline Phosphatase* 65 U/L (40-150); Aspartate Amino Transferase* 26 U/L (12-35); Bilirubin Total* 0.6 mg/dL (0.1-1.5); Blood Urea Nitrogen* 17 mg/dL (7-30); Carbon Dioxide* 27 mmol/L (20-32); Creatinine* 0.8 mg/dL (0.5-1.5); Estimated Glomerular Filt Rate 98 ml/min; Glucose* 174 mg/dL (60-115); Total Protein* 7.3 g/dL (6.0-8.3); Triglycerides* 101 mg/dL (40-149)
[2022-08-17 15:05] LABS: Calcium* 9.7 mg/dL (8.4-10.6); HDL Cholesterol* 34 mg/dL (>=40); LDL Cholesterol Calculated 83 mg/dL (<100)
[2022-08-19 01:34] LABS: Prostate Specific Antigen Free 1.6 ng/mL; Prostate Specific Antigen%Free 34 %; Prostate Specific AntigenTotal 4.7 ng/mL (0.0-4.0)
== END 2022-08-17 08:27 | disposition home or self-care (01) ==
PROVIDERS: PCP Family Medicine; Visit Provider Family Medicine
DX: E11.9 Type 2 diabetes mellitus without complications (principal); I10 Essential (primary) hypertension; R97.20 Elevated prostate specific antigen [PSA]; F41.9 Anxiety disorder, unspecified; Z13.6 Encounter for screening for cardiovascular disorders
CPT/HCPCS: 80053; 80061; 84153; 84154

== ENCOUNTER 2023-05-11 11:14 | Outpatient (CLI) | payer MEDICARE, OTHER, SELFPAY | END 2023-05-11 11:15 | disposition home or self-care (01) | PROVIDERS: PCP Family Medicine; Visit Provider Family Medicine | DX: I10 Essential (primary) hypertension (principal); E11.9 Type 2 diabetes mellitus without complications; M10.9 Gout, unspecified; K76.0 Fatty (change of) liver, not elsewhere classified; R97.20 Elevated prostate specific antigen [PSA]; R42 Dizziness and giddiness; Z13.6 Encounter for screening for cardiovascular disorders | CPT/HCPCS: 80061; 80076; 82043; 82570; 84153 ==

== ENCOUNTER 2023-05-22 13:22 | Outpatient (CLI) | payer MEDICARE, OTHER, SELFPAY ==
[2023-05-22 16:42] VITALS: BP 161/72; PULSE 76
--- NOTE | 2023-05-22 17:08 | W.PM.STED ---
Stress Test Note Date Date of test: 05/22/23 Providers Primary care provider: Ash Morales Stress test physician: Pato Webster Stress Test Note Stress test ordered: Stress Echo Indication for test: Dizziness/shortness of breath Results discussion: This very nice 67-year-old gentleman presents the above test after discussion the risks benefits side effects he except seasonal like to proceed pretest EKG shows normal sinus rhythm with a ventricular rate of 60 for a blood pressure 146/79 cardiac stress test medical history form is reviewed, following normal Basilio protocol patient is exercised for a total time of 7 minutes 13 seconds achieved him about quitting 8.7 Mets his maximum of 135 shows a 102% of the target predicted. He had no chest pain, some mild shortness of breath noted, no significant ST wave changes suggestive of ischemia there is no dysrhythmias noted. He recovered normally. Impression: Negative electrographic portion of stress echo Follow up suggested: Await echo images these will be read by Cardiology, clinical correlation with these will be needed, patient left testing facility in good condition, conditioning was felt to be moderate.
== END 2023-05-22 13:23 | disposition home or self-care (01) ==
LOC: STRESS 13:23
PROVIDERS: PCP Family Medicine; Visit Provider Family Medicine
DX: R07.89 Other chest pain (principal); R42 Dizziness and giddiness; R06.02 Shortness of breath
CPT/HCPCS: 93016; 93325; 93351

== ENCOUNTER 2023-08-14 10:47 | Outpatient (CLI) | payer MEDICARE, OTHER, SELFPAY | END 2023-08-14 10:48 | disposition home or self-care (01) | LOC: LKVREF 10:48 | PROVIDERS: PCP Family Medicine; Visit Provider Family Medicine | DX: Z00.00 Encounter for general adult medical examination without abnormal findings (principal); I10 Essential (primary) hypertension | CPT/HCPCS: 80053 ==

== ENCOUNTER 2023-09-13 13:00 | Outpatient (RCR) | payer MEDICARE, OTHER, SELFPAY ==
--- NOTE | 2023-08-23 11:30 | PT.OPE ---
[facility] [place] [facility] Eval Start: 08/23/23 11:16 Freq: Status: Active Protocol: Document 08/21/23 11:16 BRITTON (Rec: 08/23/23 11:27 BRITTON [id number]) E-signed By Teddy Valenzuela DPT, MS Physical Therapy Outpatient Evaluation Insurance Information Recert Due Date 11/19/23 Insurance Name Medicare B Medical Diagnosis Dorsalgia, unspecified Treating Diagnosis B LS pain with B-sided (L>R) LS radicular sxs, imbalance, decreased LS and LE flexibility, and B LE and core weakness Subjective Subjective Pt presents to PT with c/o acute onset of L LS pain with L-sided radicular sxs over the past 4 weeks after digging a 2 foot hole and golfing 18 holes. Sxs improved until he dug another hole last weekend with elevated pain since. Notes chronic hx of LS pain with gradual worsening of sxs with fatigue and limping towards the end of each workday. Believes previous R ankle fx 8-10 years ago with 3 -4 months of bedrest along with flat feet have contributed to sxs. Describes sxs as an aching soreness that begins at his L buttock gradually moving distally to his L Achilles later in the day after being on his feet for long time periods while at work. Denies bowel or bladder changes, or L foot drop. Minimal improvement with chiropractic treatment. PMH includes DM-II and LS OA. AGGR factors: extended standing, walking, shoveling, lifting, golfing, pulling, carrying objects. ALLEV factors: heat, ibuprofen. Pt hopes to decrease pain and radicular sxs to improve ysabel to work duties and return to golfing in the spring. Pain Comments -04/07 Current Work Status [employer] Objective Functional Test Performed & Score Modified OSWESTRY: 42% Assessment Assessment/Impression Pt displays LS flex directional preference of movement with signs and symptoms consistent with L- sided LS radiculopathy. L hip and LS tightness combined with significant R quad and glute weakness appears to be contributing to sxs. + L slump testing with sciatic neural tension. Pt unable to perform a SLS on his R due to imbalance and poor R glute NM activation and control. Excellent response to stretching and strengthening exercises with decreased L LS pain and resolution of radicular sxs following. He will benefit from continued skilled therapy to address these limitations. Primary Functional Limitations extended standing, walking, shoveling, lifting, golfing, pulling, carrying objects Plan of Care Physical Therapy Goals Short-term goals to be completed in 4 weeks: 1. Pt will display improved B LE muscular strength as evidenced by performing >10 SLR of good quality to improve quality of gait. 2. Pt will report improved tolerance to standing >10 min with no elevation in LS radicular sxs to improve ysabel to work and daily activities. Long-term goals to be completed in 10 weeks: 1. Pt will be independent and compliant with HEP 2. Pt will display improved B hip flex, ABD and ext, and abdominal strength of >4/5 to improve tolerance to work activities. 3. Pt will be able to walk for >8 minutes with no elevation in LS pain or radicular sxs to improve cardiovascular health and perform work duties. 4. Pt will report >75% improvement in modified OSWESTRY questionnaire to significantly improve tolerance to functional activities. Coordination/Communication With Referral Source Treatment Plan/Direct Interventions Joint Mobilization,Manual Therapy,Therapeutic Exercises, Traction (Mechanical) Frequency/Duration 1x per week for at least 6-10 visits, decreasing frequency as able. Patient Will Be Discharged From Therapy Completion of LTG(s),Skills Plateau,Independent w/HEP, Independently Progressing Evaluation Billing Untimed Code Treatment Minutes 24 Complexity Moderate Certification Information Initial Certification Date 08/21/23 Ending Certification Date 11/19/23 Provider Signature Shows Agreement With POC & Medical Necessity Physician Signature & Date Requested Please Sign/Date Here Physician Comment/Change : Physician NPI Number #
== END 2023-11-27 10:36 | disposition home or self-care (01) ==
PROVIDERS: PCP Family Medicine; Visit Provider Family Medicine
DX: M54.9 Dorsalgia, unspecified (principal); M54.10 Radiculopathy, site unspecified; R26.89 Other abnormalities of gait and mobility; M62.81 Muscle weakness (generalized); Z51.89 Encounter for other specified aftercare
CPT/HCPCS: 97110; 97162

== ENCOUNTER 2024-03-18 08:29 | Outpatient (CLI) | payer MEDICARE, OTHER, SELFPAY | END 2024-03-18 08:30 | disposition home or self-care (01) | LOC: NFLDREF 04-05 21:35 | PROVIDERS: PCP Family Medicine; Referring Provider Family Medicine; Visit Provider Family Medicine | DX: E11.9 Type 2 diabetes mellitus without complications (principal); I10 Essential (primary) hypertension; R35.1 Nocturia; R42 Dizziness and giddiness; R97.20 Elevated prostate specific antigen [PSA]; K63.5 Polyp of colon; N40.1 Benign prostatic hyperplasia with lower urinary tract symptoms; L98.9 Disorder of the skin and subcutaneous tissue, unspecified; R13.10 Dysphagia, unspecified | CPT/HCPCS: 80053; G0103 ==

== ENCOUNTER 2024-09-09 10:29 | Outpatient (CLI) | payer MEDICARE, OTHER, SELFPAY | END 2024-09-09 10:30 | disposition home or self-care (01) | PROVIDERS: PCP Family Medicine; Visit Provider Family Medicine | DX: Z00.00 Encounter for general adult medical examination without abnormal findings (principal); I10 Essential (primary) hypertension; E11.9 Type 2 diabetes mellitus without complications; R97.20 Elevated prostate specific antigen [PSA] | CPT/HCPCS: 80053; 80061; 82043; 82570; 84153; 84154 ==

== ENCOUNTER 2025-08-18 12:36 | Outpatient (CLI) | payer MEDICARE, OTHER, SELFPAY | END 2025-08-18 12:37 | disposition home or self-care (01) | LOC: NFLDREF 08-24 21:24 | PROVIDERS: PCP Family Medicine; Referring Provider Family Medicine; Visit Provider Family Medicine | DX: E11.9 Type 2 diabetes mellitus without complications (principal); I10 Essential (primary) hypertension | CPT/HCPCS: 80053; 80061; 82043; 82570 ==